=== PATIENT | female | born 1950 ===

== ENCOUNTER 2020-04-11 10:30 | Emergency (ER) | payer MEDICARE, MEDICAID, SELFPAY ==
--- NOTE | ~2020-04-11 | XR_ITS ---
XR foot LT min 3V 04/11/2020 10:58 INDICATION: Left foot pain PROCEDURE: 4 views left foot COMPARISON: No prior studies for comparison. FINDINGS: Fracture, dislocation or subluxation is not identified. Mild polyarticular osteoarthritis, most advanced at the first MTP joint. The soft tissues appear within normal limits. No foreign aimee s are identified. Lisfranc joint intact. Small degenerative calcaneal enthesophytes. IMPRESSION: 1: NO ACUTE BONE OR JOINT ABNORMALITY IDENTIFIED. Reviewed, dictated and finalized at location A.
[2020-04-11 10:36] VITALS: BP 137/79; PULSE 94; RESP 18; TEMP 36.3; O2SAT 99
--- NOTE | 2020-04-11 11:21 | ED.LOWEXIN ---
HPI - Extremity Injury (Lower) General Chief Complaint: Extremity Injury, Lower Stated Complaint: toe pain Time Seen by Provider: 04/11/20 10:39 Source: RN notes reviewed History of Present Illness HPI Narrative: Patient presents emergency department from home for left foot pain. Patient states pain began in her left foot yesterday if she walks approximately 2 miles. The pain is located in her left lateral foot at the base of her small toe. She denies any direct trauma or injury. Pain is worse when walking on the foot. Denies any pain of the ankle or knee denies any direct trauma or injury. Denies any fevers numbness or tingling Patient does not speak [place] and son is present to translate Related Data Allergies Allergy/AdvReac Type Severity Reaction Status Date / Time No Known Allergies Allergy Verified 04/11/20 10:44 Review of Systems Review of Systems: Narrative: Gen.: Denies fevers or chills Musculoskeletal: See HPI Neuro: Denies numbness, tingling, weakness Skin: Denies rash Endo: Denies DM PMFSH Past Medical History Medical History Anxiety Cervical polyp GERD (gastroesophageal reflux disease) HTN (hypertension) Osteoarthritis Surgical History Surgical History (Updated 09/30/19 @ 19:41 by Carina Martinez) History of bilateral knee replacement Status post cervical polyp removal Social History Social History Smoking status: Never smoker Second hand tobacco smoke exposure: No Gender identity (if verbalized by the patient): Female Exam Narrative: Exam Narrative: APPEARANCE: No acute distress, nontoxic, resting in bed Eyes: EOMI HEENT: Normocephalic, atraumatic, RESPIRATORY: No respiratory distress MUSCULOSKELETAl: Tender palpation of the left lateral foot at the base of the fifth toe and region of fifth metatarsal no swelling or ecchymosis seen no tenderness of the ankle of range of motion, dorsalis pedis pulse 2+, neurovascular intact NEURO: Awake and alert. Following commands, speech normal, no focal deficits SKIN:: Warm, dry. Normal Color no rash or lesions Course Course Emergency Course: Discussed with patient results of workup and diagnosis. Discussed need for follow-up with primary care, proper use of medication, and reasons to return to the emergency department. Patient understands and agrees to current treatment plan Vital Signs Vital signs: Vital Signs Temperature 97.4 F L 04/11/20 10:36 Pulse Rate 94 04/11/20 10:36 Respiratory Rate 18 04/11/20 10:36 Blood Pressure 137/79 04/11/20 10:36 Pulse Oximetry 99 04/11/20 10:36 Temperature 97.4 F L 04/11/20 10:36 Pulse Rate 94 04/11/20 10:36 Respiratory Rate 18 04/11/20 10:36 Blood Pressure 137/79 04/11/20 10:36 Pulse Oximetry 99 04/11/20 10:36 Discharge Plan Discharge Clinical Impression: Acute pain of left foot Patient Disposition: Home, Self-Care Condition: Stable Instructions: Antibiotic Form, Foot Sprain (ED) Additional Instructions: Return for increasing pain numbness or tingling in the extremities or any other symptoms of concern Prescriptions: New naproxen 250 mg tablet 250 mg PO BID PRN (Reason: pain) Qty: 10 RF: 0 Follow-up/Referrals: Yan Mata MD [Primary Care Provider] - 2 Days Time of Disposition: 11:23
== END 2020-04-11 11:42 | disposition home or self-care (01) ==
PROVIDERS: Emergency Provider Emergency Medicine; PCP Emergency Medicine
DX: M79.672 Pain in left foot (principal); K21.9 Gastro-esophageal reflux disease without esophagitis; J21.9 Acute bronchiolitis, unspecified; M19.90 Unspecified osteoarthritis, unspecified site; Z96.653 Presence of artificial knee joint, bilateral
CPT/HCPCS: 73630; 99283

== ENCOUNTER 2020-05-19 11:30 | Emergency (ER) | payer MEDICARE, MEDICAID, SELFPAY ==
--- NOTE | ~2020-05-19 | US_ITS ---
US venous doppler [facility] DATE: 05/19/2020 12:43 INDICATION: Bilateral lower extremity pain TECHNIQUE: Real-time and color flow imaging and Doppler analysis of the veins of the lower extremitie s COMPARISON: None FINDINGS: Incidentally noted is a 2.2 x 0.7 x 2.4 cm right Jacques's cyst. The greater saphenous veins are patent. There is spontaneous and phasic flow and normal augmentation and color flow signal and normal compression of the deep veins of both lower extremities. IMPRESSION: No evidence of deep venous thrombosis of the lower extremities Right Jacques's (popliteal) cyst Reviewed, dictated and finalized at [facility]. Reviewed, dictated and finalized at location A.
[2020-05-19 11:45] VITALS: BP 127/92; PULSE 86; RESP 18; TEMP 37; O2SAT 96
[2020-05-19 12:19] LABS: Basophils Percent Auto 0.3 % (0.2-1.2); Eosinophils Absolute Auto 0.1 K/mm3 (0-0.3); Eosinophils Percent Auto 1.2 % (0-4.4); Hematocrit 40.2 % (37.0-47.0); Hemoglobin 12.6 g/dL (12.0-15.0); Immature Granulocyte Absolute 0.01 K/mm3 (0.00-0.031); Immature Granulocyte Percent A 0.2 % (0-0.5); Lymphocytes Percent Auto 24.1 % (18.3-44.2); Mean Corpuscular HGB Conc 31.3 g/dl (32-36); Mean Corpuscular Hemoglobin 24.4 pg (26-34); Mean Corpuscular Volume 77.9 fl (80-100); Mean Platelet Volume 10.7 fl (7.4-10.4); Monocytes Absolute Auto 0.4 K/mm3 (0.1-0.6); Monocytes Percent Auto 6.4 % (2.6-8.5); Neutrophils Absolute Auto 3.9 K/mm3 (1.3-6.7); Neutrophils Percent Auto 67.8 % (45.5-73.1); Platelet Count Result 248 k/mm3 (150-375); Red Blood Count 5.16 M/mm3 (4.2-5.4); Red Cell Distribution Width 15.7 % (11.5-14.5); White Blood Count 5.8 K/mm3 (4.5-10.0)
[2020-05-19 12:29] LABS: Blood Urea Nitrogen 13 mg/dL (7-17); Calcium 9.2 mg/dL (8.4-10.2); Carbon Dioxide 28 mmol/L (22-30); Chloride 105 mmol/L (98-107); Estimated Glomerular Filt Rate > 60; Glucose 105 mg/dL (65-105); Potassium 4.3 mmol/L (3.4-5.0); Sodium 139 mmol/L (137-145)
--- NOTE | 2020-05-19 13:14 | ED.LOWEXIN ---
HPI - Extremity Injury (Lower) General Chief Complaint: Extremity Injury, Lower <Bakari Mathis PA-C - Last Filed: 05/19/20 13:20> Stated Complaint: leg pain <Bakari Mathis PA-C - Last Filed: 05/19/20 13:20> Time Seen by Provider: 05/19/20 11:50 <Bakari Mathis PA-C - Last Filed: 05/19/20 13:20> Source: patient and family <Bakari Mathis PA-C - Last Filed: 05/19/20 13:20> Mode of arrival: ambulatory <Bakari Mathis PA-C - Last Filed: 05/19/20 13:20> Limitations: language barrier <Bakari Mathis PA-C - Last Filed: 05/19/20 13:20> History of Present Illness HPI Narrative: Patient is a 70-year-old female who presents with intermittent leg cramping for the last couple of nights patient was seen by primary care referred to emergency department for evaluation patient on arrival to emergency department notes no pain denies other complaints or symptoms patient was referred by primary care as noted <Bakari Mathis PA-C - Last Filed: 05/19/20 13:20> Related Data Home Medications: Home Medications Medication Instructions Recorded Confirmed alendronate 70 mg PO WEEKLY 05/19/20 amlodipine 5 mg PO DAILY 05/19/20 lisinopril 10 mg PO DAILY 05/19/20 meloxicam 7.5 mg PO DAILY 05/19/20 omeprazole 20 mg PO DAILY 05/19/20 <Bakari Mathis PA-C - Last Filed: 05/19/20 13:20> Allergies/Adverse Reactions: Allergies Allergy/AdvReac Type Severity Reaction Status Date / Time No Known Allergies Allergy Verified 05/19/20 11:51 <Bakari Mathis PA-C - Last Filed: 05/19/20 13:20> Review of Systems Review of Systems: All systems reviewed & are unremarkable except as noted in HPI and below <Bakari Mathis PA-C - Last Filed: 05/19/20 13:20> PMFSH Past Medical History Medical History: Medical History Anxiety Cervical polyp GERD (gastroesophageal reflux disease) HTN (hypertension) Osteoarthritis <Bakari Mathis PA-C - Last Filed: 05/19/20 13:20> Surgical History Surgical History: Surgical History History of bilateral knee replacement Status post cervical polyp removal <Bakari Mathis PA-C - Last Filed: 05/19/20 13:20> Social History Social History: Social History Smoking status: Never smoker Second hand tobacco smoke exposure: No Gender identity (if verbalized by the patient): Female <Bakari Mathis PA-C - Last Filed: 05/19/20 13:20> Exam Narrative: Exam Narrative: GENERAL: Well-appearing, well-nourished, and in no acute distress. HEAD: Normocephalic, atraumatic. EYES: PERRLA and EOMI. ENT: Nares clear, no rhinorrhea or epistaxis. Mucous membranes moist. CHEST: Clear to auscultation. No respiratory distress. No wheezes rales or rhonchi HEART: Regular rate and rhythm. No murmur heard. Normal peripheral pulses. ABDOMEN: Soft, nontender, nondistended EXTREMITIES: Normal range of motion. No edema. No tenderness of the calves or deformity noted SKIN: Warm, dry, no rash. NEURO: No focal deficits. Alert and oriented x3. Neurovascularly intact. Capillary refill less than 2-second PSYCH: Normal mood and affect. <Bakari Mathis PA-C - Last Filed: 05/19/20 13:20> Course Course Emergency Course: Patient in the room in no distress aware of case findings treatment plan and diagnosis agreeing to follow-up with primary care for further evaluation felt appropriate for outpatient reevaluation provided with reasons to return is felt appropriate for outpatient reevaluation <Bakari Mathis PA-C - Last Filed: 05/19/20 13:20> Vital Signs Vital signs: Vital Signs Temperature 37.0 C 05/19/20 11:45 Pulse Rate 86 05/19/20 11:45 Respiratory Rate 18 05/19/20 11:45 Blood Pressure 127/92 H 05/19/20 11:45 Pulse Oximetry 96 07/1
[2020-05-19 13:24] VITALS: BP 116/72; PULSE 73; RESP 20; O2SAT 97
== END 2020-05-19 13:27 | disposition home or self-care (01) ==
PROVIDERS: Emergency Medicine Emergency Medical Services; Emergency Provider Emergency Medicine; PCP Emergency Medicine
DX: R25.2 Cramp and spasm (principal); F41.9 Anxiety disorder, unspecified; K21.9 Gastro-esophageal reflux disease without esophagitis; I10 Essential (primary) hypertension; M71.21 Synovial cyst of popliteal space [Baker], right knee; M79.605 Pain in left leg; M79.604 Pain in right leg
CPT/HCPCS: 36415; 80048; 83735; 85025; 93970; 99284

== ENCOUNTER 2020-06-17 10:46 | Emergency (ER) | payer MEDICARE, MEDICAID, SELFPAY ==
[2020-06-17 10:48] VITALS: BP 121/72; PULSE 86; RESP 18; TEMP 36.7; O2SAT 100
[2020-06-17 11:33] LABS: Add Urine Microscopic? YES; Appearance Urine Clear (Clear); Bilirubin Urine Negative (Negative); Blood Urine Negative (Negative); Color Urine Straw (Yellow); Glucose Urine UA Negative (Negative); Ketones Urine Negative (Negative); Leukocyte Esterase Ur Trace LEU/UL (Negative); Nitrate Urine Negative (Negative); Protein Urine Negative (Negative); RBC Urine 0-2 /hpf (0-2); Specific Grav Ur 1.009 (1.001-1.035); Squamous Epithelial Cell Urine Occasional /hpf (Few); Urobilinogen Urine Negative mg/dL (<2.0); WBC Urine 0-3 /hpf
--- NOTE | 2020-06-17 11:33 | ED.FEMALEGU ---
HPI - Female Genitourinary General Chief complaint: Urogenital-Female <ALECIA Ceron Last Filed: 06/17/20 13:07> Stated complaint: bladder pain <ALECIA Ceron Last Filed: 06/17/20 13:07> Time Seen by Provider: 06/17/20 11:24 <ALECIA Ceron Last Filed: 06/17/20 13:07> Source: patient <ALECIA Ceron Last Filed: 06/17/20 13:07> Mode of arrival: ambulatory <ALECIA Ceron Last Filed: 06/17/20 13:07> Limitations: language barrier (Patient's son is translating, which she preferred rather than video language interpreter) <ALECIA Ceron Last Filed: 06/17/20 13:07> History of Present Illness HPI Narrative: This is a 70-year-old female that presents to the emergency department for dysuria x2 days. Also reports frequency. Denies fever, flank pain, itching, abnormal discharge, abdominal pain, vomiting, or hematuria. <ALECIA Ceron Last Filed: 06/17/20 13:07> Related Data Home medications: Home Medications Medication Instructions Recorded Confirmed alendronate 70 mg PO WEEKLY 05/19/20 amlodipine 5 mg PO DAILY 05/19/20 lisinopril 10 mg PO DAILY 05/19/20 meloxicam 7.5 mg PO DAILY 05/19/20 omeprazole 20 mg PO DAILY 05/19/20 <ALECIA Ceron Last Filed: 06/17/20 13:07> Allergies/Adverse reactions: Allergies Allergy/AdvReac Type Severity Reaction Status Date / Time No Known Allergies Allergy Verified 06/17/20 10:51 <ALECIA Ceron Last Filed: 06/17/20 13:07> Review of Systems Review of Systems: Narrative: CONSTITUTIONAL: Denies fever GASTROINTESTINAL: Denies abdominal pain, nausea, vomiting GENITOURINARY: Reports dysuria. Denies hematuria. MUSCULOSKELETAL: Denies back pain <ALECIA Ceron Last Filed: 06/17/20 13:07> All systems reviewed & are unremarkable except as noted in HPI and below <Tess Castillo PA-C - Last Filed: 06/17/20 13:07> [facility] Social History Social History: Social History Smoking status: Never smoker Second hand tobacco smoke exposure: No Gender identity (if verbalized by the patient): Female <Tess Castillo PA-C - Last Filed: 06/17/20 13:07> Exam Narrative: Exam Narrative: GENERAL: Well-appearing, well-nourished, and in no acute distress. HEAD: Normocephalic, atraumatic. EYES: EOMI. CHEST: Clear to auscultation. No respiratory distress. No wheezes rales or rhonchi HEART: Regular rate and rhythm. No murmur heard. Normal peripheral pulses. ABDOMEN: Soft, nontender, nondistended, normal active bowel sounds. EXTREMITIES: Normal range of motion. No edema. SKIN: Warm, dry, no rash. NEURO: No focal deficits. Alert and oriented x3. PSYCH: Normal mood and affect <Tess Castillo PA-C - Last Filed: 06/17/20 13:07> Course Vital Signs Vital signs: Vital Signs Temperature 98.0 F 06/17/20 10:48 Pulse Rate 86 06/17/20 10:48 Respiratory Rate 18 06/17/20 10:48 Blood Pressure 121/72 06/17/20 10:48 Pulse Oximetry 100 06/17/20 10:48 Temperature 98.0 F 06/17/20 10:48 Pulse Rate 82 06/17/20 13:23 Respiratory Rate 18 06/17/20 13:23 Blood Pressure 128/70 06/17/20 13:23 Pulse Oximetry 100 06/17/20 13:23 <Tess Castillo PA-C - Last Filed: 06/17/20 13:07> Vital Signs Temperature 98.0 F 06/17/20 10:48 Pulse Rate 86 06/17/20 10:48 Respiratory Rate 18 06/17/20 10:48 Blood Pressure 121/72 06/17/20 10:48 Pulse Oximetry 100 06/17/20 10:48 Temperature 98.0 F 06/17/20 10:48 Pulse Rate 82 06/17/20 13:23 Respiratory Rate 18 06/17/20 13:23 Blood Pressure 128/70 06/17/20 13:23 Pulse Oximetry 100 06/17/20 13:23 <Deb Cornejo MD - Last Filed: 06/17/20 14:11> MDM - Female Genitourinary MDM Narrative Medical decision making narrative: Patient presents to the emergency department for dysuria x2 days. She i
[2020-06-17 12:21] LABS: Basophils Percent Auto 0.6 % (0.2-1.2); Eosinophils Absolute Auto 0.1 K/mm3 (0-0.3); Eosinophils Percent Auto 1.4 % (0-4.4); Hemoglobin 12.4 g/dL (12.0-15.0); Immature Granulocyte Absolute 0.02 K/mm3 (0.00-0.031); Immature Granulocyte Percent A 0.4 % (0-0.5); Lymphocytes Absolute Auto 1.28 K/mm3 (0.9-3.2); Lymphocytes Percent Auto 25.9 % (18.3-44.2); Mean Corpuscular HGB Conc 31.8 g/dl (32-36); Mean Corpuscular Hemoglobin 24.6 pg (26-34); Mean Corpuscular Volume 77.4 fl (80-100); Mean Platelet Volume 11.2 fl (7.4-10.4); Monocytes Absolute Auto 0.4 K/mm3 (0.1-0.6); Monocytes Percent Auto 7.1 % (2.6-8.5); Neutrophils Absolute Auto 3.2 K/mm3 (1.3-6.7); Neutrophils Percent Auto 64.6 % (45.5-73.1); Platelet Count Result 246 k/mm3 (150-375); Red Blood Count 5.04 M/mm3 (4.2-5.4); Red Cell Distribution Width 15.7 % (11.5-14.5)
[2020-06-17 12:32] LABS: Anion Gap 8 mmol/L (8-16); Blood Urea Nitrogen 19 mg/dL (7-17); Calcium 9.1 mg/dL (8.4-10.2); Carbon Dioxide 26 mmol/L (22-30); Chloride 104 mmol/L (98-107); Estimated CRCL calculation 63 ml/min; Estimated Glomerular Filt Rate > 60; Glucose 121 mg/dL (65-105); Sodium 138 mmol/L (137-145)
[2020-06-17 13:23] VITALS: BP 128/70; PULSE 82; RESP 18; O2SAT 100
== END 2020-06-17 13:25 | disposition home or self-care (01) ==
PROVIDERS: Physician Assistant; Emergency Provider General Practice; PCP Emergency Medicine
DX: R30.0 Dysuria (principal)
CPT/HCPCS: 36415; 80048; 81001; 85025; 99283

== ENCOUNTER 2020-07-06 09:03 | Outpatient (CLI) | payer MEDICARE, MEDICAID, SELFPAY ==
[2020-07-06 09:46] LABS: Creatine Kinase 56 U/L (30-135)
[2020-07-06 11:09] LABS: Folic Acid > 20.0 ng/mL (2.76->20)
== END 2020-07-06 09:04 | disposition home or self-care (01) ==
PROVIDERS: PCP Emergency Medicine; Visit Provider Emergency Medicine
DX: E55.9 Vitamin D deficiency, unspecified (principal); M79.671 Pain in right foot; M79.672 Pain in left foot
CPT/HCPCS: 36415; 82306; 82550; 82607; 82746

== ENCOUNTER 2020-07-12 14:31 | Outpatient (CLI) | payer MEDICARE, MEDICAID, SELFPAY ==
--- NOTE | ~2020-07-12 | US_ITS ---
EXAMINATION: US art doppler w [facility] EXAM DATE: 07/12/2020 15:10 INDICATION: Bilateral leg cramping at night. TECHNIQUE: Segmental pressures and plethysmographic and Doppler waveforms of the brachial and lower e xtremity arteries were obtained. There is no prior study for comparison. FINDINGS: Right and left brachial artery pressures of 124 mm Hg and 129 mm Hg, respectively, are concordant (no rmal difference <= 30 mmHg). RIGHT LEG: The ankle-brachial index (COLE) is 1.17 (normal >= 0.9-1). The great toe-brachial index (TBI) is 0.78 (normal >= 0.65). The lower extremity ratios, segmental pressure gradients as follows; Proximal superficial femoral artery:- Could not obtain ( mmHg). Distal superficial femoral artery: ----- 1.24 (160 mmHg). Popliteal: 1.02 (132 mmHg). Dorsalis pedis: 0.97 (125 mmHg). Posterior tibial: 1.17 (151 mmHg). (Normal gradients <= 20-30 mmHg between adjacent levels on the same leg or the same levels on the two legs). Arterial waveforms are biphasic. LEFT LEG: The ankle-brachial index (COLE) is 0.99 (normal >= 0.9-1). The great toe-brachial index (TBI) is 0.83 (normal >= 0.65). The lower extremity ratios, segmental pressure gradients as follows; Proximal superficial femoral artery:- 1.33 (171 mmHg). Distal superficial femoral artery: ----- 1.26 (163 mmHg). Popliteal: 1.12 (145 mmHg). Dorsalis pedis: 0.87 (112 mmHg). Posterior tibial: 0.99 (120 mmHg). (Normal gradients <= 20-30 mmHg between adjacent levels on the same leg or the same levels on the two legs). Arterial waveforms are biphasic. IMPRESSION: 1. Right ankle-brachial index 1.17. 2. Left ankle-brachial index 0.99. 3. Segmental pressures as above. Reviewed, dictated and finalized at location A.
== END 2020-07-12 14:32 | disposition home or self-care (01) ==
LOC: ANHIMG 14:32
PROVIDERS: PCP Emergency Medicine; Visit Provider Emergency Medicine
DX: M79.604 Pain in right leg (principal); M79.605 Pain in left leg; M79.89 Other specified soft tissue disorders
CPT/HCPCS: 93923

== ENCOUNTER 2020-09-12 11:27 | Emergency (ER) | payer MEDICARE, MEDICAID, SELFPAY ==
[2020-09-12] VITALS (29 sets, daily range): BP systolic 103–136; BP diastolic 61–87; PULSE 93; RESP 20; TEMP 36.2–36.8; O2SAT 97–100
--- NOTE | ~2020-09-12 | CT_ITS ---
EXAMINATION: CT abdomen pelvis w con EXAM DATE: 09/12/2020 13:24 INDICATION: Dysuria, hematuria, back pain, low abd pain . TECHNIQUE: Spiral CT of the abdomen and pelvis was performed following intravenous injection of 100 m L Omnipaque 350. Axial, coronal and sagittal images were reviewed. The dose-length product (DLP) fo r this examination was 556.39 mGy-cm. The exposure was tailored according to patient size (auto mA e xposure control), and iterative reconstruction (ASIR) was used as additional dose reduction technique . There is no prior study for comparison. FINDINGS: The liver, spleen, adrenal glands and pancreas are unremarkable. Gallbladder is unremarkab le. No biliary obstruction. Portal and splenic veins are patent. Kidneys enhance symmetrically. T here is no hydronephrosis. Mildly enhancing bilateral ureteral urothelium and also bladder urothelium , could indicate cystitis or upper urinary tract infection. Parenchyma is enhancing normally. The ut erus is unremarkable. The bladder is unremarkable. There is no retroperitoneal or pelvic lymphaden opathy. The appendix is normal. The stomach and small bowel are unremarkable. There is expected amount of c olonic stool. No free intraperitoneal gas. The heart is normal in size. There are no pericardial or pleural effusions. The lung bases are unremarkable. The bones are unremarkable. IMPRESSION: Enhancing urothelium, possible cystitis or upper urinary tract infection. Correlate with urinalysis. Reviewed, dictated and finalized at location A. [employer] IMPRESSION: Enhancing urothelium, possible cystitis or upper urinary tract infe ction. Correlate with urinalysis.
--- NOTE | 2020-09-12 12:05 | PC.NURSE ---
patient here for probable urinary symptoms. see triage notes. alert. speaks some [place]ian. son in room.
[2020-09-12 12:21] LABS: Add Urine Microscopic? YES; Appearance Urine Cloudy (Clear); Bilirubin Urine Negative (Negative); Blood Urine 2+ (Negative); Color Urine Yellow (Yellow); Glucose Urine UA Negative (Negative); Ketones Urine Negative (Negative); Leukocyte Esterase Ur 3+ LEU/UL (Negative); Mucus Urine Few /lpf; Nitrate Urine Negative (Negative); Protein Urine 2+ mg/dL (Negative); RBC Urine >75 /hpf (0-2); Specific Grav Ur 1.015 (1.001-1.035); Squamous Epithelial Cell Urine Few /hpf (Few); Transitional Epi Cells Urine Rare /hpf (None Seen); Urobilinogen Urine Negative mg/dL (<2.0); WBC Clumps Urine Present /HPF; WBC Urine >75 /hpf
--- NOTE | 2020-09-12 12:36 | ED.ABDPAIN ---
HPI - Abdominal Pain General Chief Complaint: Abdominal Pain Stated Complaint: abd distension Time Seen by Provider: 09/12/20 12:04 Source: patient Mode of arrival: ambulatory Limitations: no limitations History of Present Illness HPI narrative: This is a 70-year-old female that presents to the emergency department for abdominal discomfort since yesterday. Reports constipation and seeing bright red blood in her stool. Also reports that she has had dysuria since yesterday. Reports low back pain that has been ongoing for the last week. No known injury or trauma. Denies fever, vomiting, hematuria, numbness, or weakness. Related Data Home Medications Medication Instructions Recorded Confirmed alendronate 70 mg PO WEEKLY 05/19/20 amlodipine 5 mg PO DAILY 05/19/20 lisinopril 10 mg PO DAILY 05/19/20 meloxicam 7.5 mg PO DAILY 05/19/20 omeprazole 20 mg PO DAILY 05/19/20 Allergies Allergy/AdvReac Type Severity Reaction Status Date / Time No Known Allergies Allergy Verified 06/17/20 10:51 Review of Systems Review of Systems: Narrative: CONSTITUTIONAL: Denies fever GASTROINTESTINAL: Reports abdominal pain. Denies nausea, vomiting, or diarrhea. GENITOURINARY: Reports dysuria. Denies hematuria. MUSCULOSKELETAL: Reports back pain, joint pain, and myalgia. NEUROLOGIC: Denies numbness, or weakness. All systems reviewed & are unremarkable except as noted in HPI and below PMFSH Past Medical History Medical History (Updated 09/12/20 @ 15:11 by Tess Castillo PA-C) Anxiety Cervical polyp GERD (gastroesophageal reflux disease) HTN (hypertension) Osteoarthritis Surgical History Surgical History History of bilateral knee replacement Status post cervical polyp removal Social History Social History Smoking status: Never smoker Second hand tobacco smoke exposure: No Gender identity (if verbalized by the patient): Female Exam Narrative: Exam Narrative: GENERAL: Well-appearing, well-nourished, and in no acute distress. HEAD: Normocephalic, atraumatic. EYES: EOMI. ENT: Mucous membranes moist. Oropharynx without tonsillar hypertrophy exudate or other lesions. NECK: Supple. No adenopathy or masses. CHEST: Clear to auscultation. No respiratory distress. No wheezes rales or rhonchi HEART: Regular rate and rhythm. No murmur heard. Normal peripheral pulses. ABDOMEN: Soft, nondistended, normal active bowel sounds. Mild tenderness to palpation throughout the lower abdomen, without guarding. No CVA tenderness EXTREMITIES: Normal range of motion. No edema. Strength equal in bilateral lower extremities (5/5) SKIN: Warm, dry, no rash. NEURO: No focal deficits. Alert and oriented x3. PSYCH: Normal mood and affect RECTAL: Small fissure without active bleeding Course Vital Signs Vital signs: Vital Signs Temperature 97.1 F L 09/12/20 11:33 Pulse Rate 93 09/12/20 11:33 Respiratory Rate 20 09/12/20 11:33 Blood Pressure 121/72 09/12/20 11:33 Pulse Oximetry 98 09/12/20 11:33 Temperature 97.1 F L 09/12/20 11:33 Pulse Rate 93 09/12/20 11:33 Respiratory Rate 20 09/12/20 11:33 Blood Pressure 108/67 09/12/20 11:52 Pulse Oximetry 99 09/12/20 11:52 MDM - Abdominal Pain MDM Narrative Medical decision making narrative: Patient presents to the emergency department for dysuria and abdominal discomfort. She is afebrile and nontoxic-appearing. CBC is without leukocytosis. Metabolic panel without concerning findings. Lipase is normal. UA with evidence of infection. CT scan of the abdomen and pelvis shows cystitis versus upper urinary tract infection. Patient also had reported blood in her stool, which is likely due to a small fissure. Patient given first dose of antibiotics IV in the ED and will be sent home on oral antibiotics. She is stable and felt appropriate for further outpati
[2020-09-12 12:39] LABS: Basophils Percent Auto 0.3 % (0.2-1.2); Eosinophils Absolute Auto 0.1 K/mm3 (0-0.3); Eosinophils Percent Auto 0.7 % (0-4.4); Hematocrit 38.2 % (37.0-47.0); Hemoglobin 12.4 g/dL (12.0-15.0); Immature Granulocyte Absolute 0.01 K/mm3 (0.00-0.031); Immature Granulocyte Percent A 0.1 % (0-0.5); Lymphocytes Absolute Auto 1.62 K/mm3 (0.9-3.2); Lymphocytes Percent Auto 22.4 % (18.3-44.2); Mean Corpuscular HGB Conc 32.5 g/dl (32-36); Mean Corpuscular Hemoglobin 25.2 pg (26-34); Mean Corpuscular Volume 77.5 fl (80-100); Mean Platelet Volume 11.1 fl (7.4-10.4); Monocytes Absolute Auto 0.7 K/mm3 (0.1-0.6); Monocytes Percent Auto 9.3 % (2.6-8.5); Neutrophils Absolute Auto 4.9 K/mm3 (1.3-6.7); Neutrophils Percent Auto 67.2 % (45.5-73.1); Platelet Count Result 235 k/mm3 (150-375); Red Blood Count 4.93 M/mm3 (4.2-5.4); Red Cell Distribution Width 15.2 % (11.5-14.5); White Blood Count 7.2 K/mm3 (4.5-10.0)
[2020-09-12 12:52] LABS: Partial Thromboplastin Time 29.2 SECONDS (22.3-36.8); Prothrombin Time 13.3 Seconds (11.1-14.7)
[2020-09-12 12:55] LABS: Alanine Aminotransferase 17 U/L (4-35); Albumin Level 3.8 g/dL (3.5-5.1); Alkaline Phosphatase 57 U/L (38-126); Anion Gap 5 mmol/L (8-16); Aspartate Amino Transferase 21 U/L (14-36); Bilirubin,Total 0.5 mg/dL (0.2-1.3); Blood Urea Nitrogen 14 mg/dL (7-17); Calcium 9.3 mg/dL (8.4-10.2); Carbon Dioxide 28 mmol/L (22-30); Chloride 107 mmol/L (98-107); Estimated CRCL calculation 52 ml/min; Estimated Glomerular Filt Rate > 60; Glucose 103 mg/dL (65-105); Lipase 37 U/L (23-300); Potassium 3.6 mmol/L (3.4-5.0); Sodium 140 mmol/L (137-145)
--- NOTE | 2020-09-12 13:10 | PC.NURSE ---
SL inserted. labs were drawn in triage. patient has been in waiting area due to no beds open in ED at that time. denies questions or needs. updated on current treatment plan and expected wait time. call light in reach. son in room.
--- NOTE | 2020-09-12 15:35 | PC.NURSE ---
IV antibiotic started.
== END 2020-09-12 15:29 | disposition home or self-care (01) ==
PROVIDERS: Physician Assistant; Emergency Provider Emergency Medicine; PCP Emergency Medicine
DX: N10 Acute pyelonephritis (principal); Q43.8 Other specified congenital malformations of intestine; F41.9 Anxiety disorder, unspecified; K21.9 Gastro-esophageal reflux disease without esophagitis; I10 Essential (primary) hypertension; M19.90 Unspecified osteoarthritis, unspecified site
CPT/HCPCS: 36415; 74177; 80053; 81001; 83690; 85025; 85610; 85730; 87077; 87086; 87088; 87186; 96365; 96366; 99284; J0696; Q9967

== ENCOUNTER 2021-01-27 10:25 | Outpatient (CLI) | payer MEDICARE, MEDICAID, SELFPAY ==
[2021-01-27 11:43] LABS: Cholesterol 189 mg/dL (0-200); HDL Direct 66 mg/dL; Triglycerides 85 mg/dL (<150)
[2021-01-27 11:51] LABS: Hemoglobin A1C 5.3 % (<5.7)
[2021-01-27 11:53] LABS: LDL Cholesterol Direct 88 mg/dL; Rheumatoid Factor < 8.6 IU/ML (<12)
[2021-01-27 11:56] LABS: Erythrocyte Sedimentation Rate 12 mm/hr (0-20)
[2021-01-27 12:01] LABS: Add Urine Microscopic? YES; Appearance Urine Cloudy (Clear); Bilirubin Urine Negative (Negative); Blood Urine Negative (Negative); Color Urine Yellow (Yellow); Glucose Urine UA Negative (Negative); Ketones Urine Negative (Negative); Leukocyte Esterase Ur 3+ LEU/UL (NEGATIVE); Mucus Urine Rare /lpf; Nitrate Urine Negative (Negative); Protein Urine Negative (Negative); Specific Grav Ur 1.013 (1.001-1.035); Squamous Epithelial Cell Urine Many /hpf (Few); Urobilinogen Urine Negative mg/dL (<2.0)
[2021-01-27 12:32] LABS: Iron 115 ug/dL (37-170)
[2021-01-27 12:43] LABS: Percent Iron Saturation 32 % (20-50)
[2021-01-27 13:09] LABS: Free T4 Free Thyroxine 1.08 ng/mL (0.78-2.19)
[2021-01-27 14:01] LABS: Vitamin D 25 Hydroxy 33.6 ng/mL
[2021-01-27 15:19] LABS: Creatinine Urine 98.7 mg/dL
[2021-01-27 15:46] LABS: MALB Creatinine Ratio < 6.1 mg/g (0-30); Microalbumin Urine Random < 6.0 mg/L (0-16.7)
== END 2021-01-27 10:26 | disposition home or self-care (01) ==
PROVIDERS: PCP Emergency Medicine; Visit Provider Emergency Medicine
DX: F41.9 Anxiety disorder, unspecified (principal); F32.9 Major depressive disorder, single episode, unspecified; M12.9 Arthropathy, unspecified; I10 Essential (primary) hypertension; K21.9 Gastro-esophageal reflux disease without esophagitis; E55.9 Vitamin D deficiency, unspecified; R60.9 Edema, unspecified
CPT/HCPCS: 36415; 80061; 81001; 82043; 82306; 83036; 83540; 83550; 84439; 84443; 85652; 86038; 86039; 86430

== ENCOUNTER 2021-01-27 18:38 | Emergency (ER) | payer MEDICARE, MEDICAID, SELFPAY ==
--- NOTE | ~2021-01-27 | XR_ITS ---
EXAMINATION: XR ankle LT min 3V, XR foot LT min 3V EXAM DATE: 01/27/2021 20:16 INDICATION: No known recent injury provided at this time. Pain of the left foot, ankle. TECHNIQUE: Left foot dorsoplantar, lateral and oblique projections obtained and reviewed. Left ankle frontal, lateral and oblique projections obtained and reviewed. Comparison is made to prior examinat ion from 04/11/2020. FINDINGS: Left metatarsal bones unremarkable. The left ankle mortise appears intact. There is mil d 1st metatarsophalangeal joint primary osteoarthritis. There are no acute fractures or dislocations identified. There is no subcutaneous gas. The soft tissue is unremarkable. There are no radiopaqu e foreign bodies. IMPRESSION: 1. Left ankle, foot exam without acute osseous findings. Reviewed, dictated and finalized at location A. IMPRESSION: 1. Left ankle, foot exam without acute osseous findings.
[2021-01-27 18:40] VITALS: BP 140/98; PULSE 80; RESP 16; TEMP 36.3; O2SAT 100
--- NOTE | 2021-01-27 19:13 | PC.NURSE ---
Report received from MADDIE Angel. Assumed care of patient at this time.
[2021-01-27] MEDS: HYDROcodone/acetaminophen (*CRX) 5-325 MG TABLET 1 TAB PO (20:10)
--- NOTE | 2021-01-27 20:32 | ED.GENADULT ---
HPI - General Adult General Chief complaint: Extremity Problem,Nontraumatic Stated complaint: left foot Time Seen by Provider: 01/27/21 19:49 History of Present Illness HPI narrative: Patient is a 70-year-old female who presents to the emergency department chief complaint of left foot pain. The patient reports she has had some pain in her dorsum and plantar aspect of her left foot for some time states it hurts whenever she moves it reports a got worse today when she was walking into [employer] the patient denies trauma. Patient denies redness denies swelling denies pain in joint movement. Related Data Home Medications Medication Instructions Recorded Confirmed alendronate 70 mg PO WEEKLY 05/19/20 amlodipine 5 mg PO DAILY 05/19/20 lisinopril 10 mg PO DAILY 05/19/20 meloxicam 7.5 mg PO DAILY 05/19/20 omeprazole 20 mg PO DAILY 05/19/20 Allergies Allergy/AdvReac Type Severity Reaction Status Date / Time No Known Allergies Allergy Verified 01/27/21 19:00 Review of Systems Review of Systems: Narrative: A 10 system review of systems was completed on the patient and is negative except for what is stated in the HPI. Nursing and ancillary documentation was reviewed. [facility] Past Medical History Medical History (Updated 01/27/21 @ 20:34 by Star Carter MD) Anxiety Cervical polyp GERD (gastroesophageal reflux disease) HTN (hypertension) Osteoarthritis Surgical History Surgical History History of bilateral knee replacement Status post cervical polyp removal Social History Social History Smoking status: Never smoker Second hand tobacco smoke exposure: No Gender identity (if verbalized by the patient): Female Exam Narrative: Exam Narrative: GENERAL: Well-appearing, well-nourished, and in no acute distress. HEAD: Normocephalic, atraumatic. EYES: PERRLA and EOMI. ENT: Nares clear, no rhinorrhea or epistaxis. Mucous membranes moist. NECK: Supple. CHEST: Clear to auscultation. No respiratory distress. HEART: Regular rate and rhythm. No murmur heard. Normal peripheral pulses. ABDOMEN: Soft, nontender, nondistended, normal active bowel sounds. EXTREMITIES: Normal range of motion. No edema. There is tenderness to palpation in the left foot SKIN: Warm, dry, no rash. NEURO: No focal deficits. Alert and oriented x3. PSYCH: Normal mood and affect. Course Vital Signs Vital signs: Vital Signs Temperature 36.3 C L 01/27/21 18:40 Pulse Rate 80 01/27/21 18:40 Respiratory Rate 16 01/27/21 18:40 Blood Pressure 140/98 H 01/27/21 18:40 Pulse Oximetry 100 01/27/21 18:40 Temperature 36.3 C L 01/27/21 18:40 Pulse Rate 80 01/27/21 18:40 Respiratory Rate 16 01/27/21 18:40 Blood Pressure 140/98 H 01/27/21 18:40 Pulse Oximetry 100 01/27/21 18:40 Medical Decision Making Vital Signs Vital Signs: Vital Signs Temperature 36.3 C L 01/27/21 18:40 Pulse Rate 80 01/27/21 18:40 Respiratory Rate 16 01/27/21 18:40 Blood Pressure 140/98 H 01/27/21 18:40 Pulse Oximetry 100 01/27/21 18:40 Temperature 36.3 C L 01/27/21 18:40 Pulse Rate 80 01/27/21 18:40 Respiratory Rate 16 01/27/21 18:40 Blood Pressure 140/98 H 01/27/21 18:40 Pulse Oximetry 100 01/27/21 18:40 Discharge Plan Discharge Clinical Impression: Acute pain of left foot Patient Disposition: Home, Self-Care Condition: Stable Instructions: Antibiotic Form, Foot Sprain (ED), Arthralgia (ED) Prescriptions: New naproxen 500 mg tablet 500 mg PO BID PRN (Reason: pain) Qty: 20 RF: 0 No Action nitrofurantoin macrocrystal 100 mg capsule 100 mg PO Q12H 5 Days Qty: 10 RF: 0 cefdinir 300 mg capsule 300 mg PO Q12H 10 Days Qty: 20 RF: 0 alendronate 70 mg tablet 70 mg PO WEEKLY RF: 0 amlodipine 5 mg tablet 5 mg PO DAILY RF:
[2021-01-27 20:52] VITALS: BP 131/80; PULSE 65; RESP 18; TEMP 36.6; O2SAT 100
== END 2021-01-27 20:56 | disposition home or self-care (01) ==
PROVIDERS: Emergency Provider Emergency Medicine; PCP Emergency Medicine
DX: M79.672 Pain in left foot (principal); F41.9 Anxiety disorder, unspecified; K21.9 Gastro-esophageal reflux disease without esophagitis; M19.90 Unspecified osteoarthritis, unspecified site; I10 Essential (primary) hypertension; Z96.653 Presence of artificial knee joint, bilateral
CPT/HCPCS: 36415; 73610; 73630; 80061; 81001; 82043; 82306; 83036; 83540; 83550; 84439; 84443; 85652; 86038; 86430; 99283; A9270

== ENCOUNTER 2021-01-29 17:36 | Emergency (ER) | payer MEDICARE, MEDICAID, SELFPAY ==
[2021-01-29 18:20] VITALS: BP 141/68; PULSE 70; RESP 16; TEMP 36.1; O2SAT 97
--- NOTE | 2021-01-29 21:20 | PC.NURSE ---
Patient going home -family reports that they will call PMD in AM if he wants to schedule an Ultrasound
== END 2021-01-29 21:30 | disposition left against medical advice (07) ==
PROVIDERS: PCP Emergency Medicine
DX: M79.89 Other specified soft tissue disorders (principal)
CPT/HCPCS: 99199

== ENCOUNTER 2021-02-12 15:53 | Outpatient (CLI) | payer MEDICARE, MEDICAID, SELFPAY ==
[2021-02-12 16:58] LABS: Uric Acid 4.5 mg/dL (2.5-7.5)
== END 2021-02-12 15:54 | disposition home or self-care (01) ==
PROVIDERS: PCP Emergency Medicine; Visit Provider Emergency Medicine
DX: R82.90 Unspecified abnormal findings in urine (principal)
CPT/HCPCS: 36415; 84550; 87086

== ENCOUNTER 2021-02-19 15:41 | Outpatient (CLI) | payer MEDICARE, MEDICAID, SELFPAY ==
--- NOTE | ~2021-02-19 | US_ITS ---
EXAMINATION: US venous doppler [facility] DATE: 02/19/2021 16:23 INDICATION: Lower limb pain. TECHNIQUE: Grayscale ultrasound images without and with compression and Doppler ultrasound images of the bilateral lower extremity veins were obtained. COMPARISON: Ultrasound 05/19/2020 FINDINGS: The visualized portions of right common femoral vein, profunda (deep) femoral vein, femoral vein, pop liteal vein, peroneal veins, posterior tibial veins, and greater saphenous vein outflow are patent. The visualized portions of left common femoral vein, profunda femoral vein, femoral vein, popliteal v ein, peroneal veins, posterior tibial veins, and greater saphenous vein outflow are patent. IMPRESSION: 1. No deep venous thrombosis. Reviewed, dictated and finalized at location B.
== END 2021-02-19 15:42 | disposition home or self-care (01) ==
LOC: ANHIMG 15:47
PROVIDERS: PCP Emergency Medicine; Visit Provider Emergency Medicine
DX: M85.80 Other specified disorders of bone density and structure, unspecified site (principal); M79.661 Pain in right lower leg; M79.662 Pain in left lower leg
CPT/HCPCS: 93970

== ENCOUNTER 2021-12-07 10:59 | Outpatient (CLI) | payer MEDICARE, MEDICAID, SELFPAY ==
--- NOTE | ~2021-12-07 | US_ITS ---
US breast RT complete 12/07/2021 11:32 Indication: Follow-up abnormal calcifications. Right breast asymmetry. Procedure: High-resolution complete ultrasound of the right breast including all 4 quadrants in the s ubareolar location Comparison: Screening mammogram dated 10/19/2019 Findings: At 9:00, 4 cm from the nipple is a cluster of cysts, largest measuring 8 mm maximum dimensi on. No suspicious solid masses are identified. There are mildly prominent ducts. Impression: 1: Benign clustered right breast cysts at 9:00, 4 cm from the nipple. Digital diagnostic right mammog jennifer with comparison to previous outside mammogram recommended for complete evaluation. BI-RADS CATEGORY 0 - INCOMPLETE STUDY, NEED ADDITIONAL IMAGING EVALUATION. Reviewed, dictated and finalized at location A. 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 Digital d iagnostic right mammogram with comparison to previous outside mammogram recomme nded for complete evaluation. BI-RADS CATEGORY 0 - INCOMPLETE STUDY, NEED ADDITIONAL IMAGING EVALUATION.
== END 2021-12-07 11:00 | disposition home or self-care (01) ==
PROVIDERS: PCP Emergency Medicine; Visit Provider Emergency Medicine
DX: R92.8 Other abnormal and inconclusive findings on diagnostic imaging of breast (principal); R92.1 Mammographic calcification found on diagnostic imaging of breast
CPT/HCPCS: 76641

== ENCOUNTER 2021-12-10 12:52 | Outpatient (CLI) | payer MEDICARE, MEDICAID, SELFPAY ==
--- NOTE | ~2021-12-10 | MM_ITS ---
EXAMINATION: MM diagnostic elfego RT w sheri HISTORY: Follow-up right breast mass TECHNIQUE: Additional 3-D tomosynthesis images of the right breast were performed and synthetic 2-D i mages were generated. CAD analysis was submitted and interpreted. COMPARISON: Ultrasound dated 12/07/2021 and mammogram dated 11/30/2021 BREAST PARENCHYMAL COMPOSITION: Breast composed of scattered areas of fibroglandular density FINDINGS: There is an enlarging mass in the upper outer quadrant of the right breast which correspon ds to a cluster of microcysts at 9:00, 4 cm from the nipple on prior ultrasound dated 12/07/2021. The re is a cluster of indeterminate calcifications along the margin of this mass which were not definite ly seen on prior examinations. IMPRESSION: 1. New cluster of indeterminate right breast calcifications, upper outer quadrant, along the margin o f a mass. 2. Stereotactic right breast biopsy recommended. BI-RADS category 4, suspicious findings. Reviewed, dictated and finalized at location A. ILE PROCESS TECH IMPRESSION: 1. New cluster of indeterminate right breast calcifications, upper outer quadra nt, along the margin of a mass. 2. Stereotactic right breast biopsy recommended. BI-RADS category 4, suspicious findings.
== END 2021-12-10 12:53 | disposition home or self-care (01) ==
LOC: ANHIMG 12:53
PROVIDERS: PCP Emergency Medicine; Visit Provider Emergency Medicine
DX: R92.8 Other abnormal and inconclusive findings on diagnostic imaging of breast (principal)
CPT/HCPCS: 77061; 77065; G0279

== ENCOUNTER 2021-12-18 13:05 | Outpatient (CLI) | payer MEDICARE, MEDICAID, SELFPAY ==
--- NOTE | ~2021-12-18 | MM_ITS ---
MM stereotactic bx RT, MM post biopsy diagnostic RT, MM stereotactic specimen RT EXAMINATION: MM ster eotactic bx RT, MM post biopsy diagnostic RT, MM stereotactic specimen RT DATE: Eliud Cuellar M.D. INDICATION: Abnormal mass with calcifications in the right breast. Stereotactic core biopsy is reque sted evaluate for malignancy. TECHNIQUE AND FINDINGS: The risks and potential benefits of the procedure were discussed with the patient and written informe d consent was obtained. The patient was placed in the prone position clustered at the table with the right breast in craniocaudal compression, and the area of interest was localized and targeted utiliz ing digital imaging with stereotaxis. After sterile preparation of the skin, 1% lidocaine was utilized for local anesthesia at the skin pun cture site and 1% lidocaine with epinephrine was utilized for deeper local anesthesia/is about the bi opsy site. A 9G [employer] vacuum assisted biopsy needle was advanced to the level of the calcification o f interest from a cephalad approach utilizing stereotactic guidance and a total of 6 tissue core biop sies were obtained. A specimen radiograph demonstrates that the calcifications of interest are included within the tissue cores. A tissue marker clip was then placed at the biopsy site in the upper outer quadrant. The ne edle was removed and hemostasis was achieved. The patient tolerated the procedure well and there is no evidence of significant immediate complication. The patient was given verbal as well as written p ostprocedural instructions prior to discharge from the department. Tissue cores were submitted to [facility] for histologic analysis. A 2-view right unilateral digital mammogram was obtained post procedure and this demonstrates that th e tissue marker clip is in expected position. IMPRESSION: 1. Successful stereotactic biopsy of calcifications in the upper outer quadrant of the right breast, followed by tissue marker clip placement. Please refer to pathology report for histologic analysis. Reviewed, dictated and finalized at location A. TOGRAPHER IMPRESSION: 1. Successful stereotactic biopsy of calcifications in the upper outer quadran t of the right breast, followed by tissue marker clip placement. Please refer to pathology report for histologic analysis. IMPRESSION: 1. Successful stereotactic biopsy of calcifications in the upper outer quadran t of the right breast, followed by tissue marker clip placement. Please refer to pathology report for histologic analysis.
== END 2021-12-18 13:06 | disposition home or self-care (01) ==
PROVIDERS: PCP Emergency Medicine; Visit Provider Emergency Medicine
DX: R92.8 Other abnormal and inconclusive findings on diagnostic imaging of breast (principal); D05.11 Intraductal carcinoma in situ of right breast
CPT/HCPCS: 19081; 77065; 88305; 88360; A4648

== ENCOUNTER 2022-07-04 09:40 | Outpatient (CLI) | payer MEDICARE, MEDICAID, SELFPAY ==
[2022-07-04 11:27] LABS: Alanine Aminotransferase 20 U/L (6-35); Albumin Level 3.9 g/dL (3.5-5.1); Alkaline Phosphatase 62 U/L (38-126); Anion Gap 8 mmol/L (8-16); Aspartate Amino Transferase 25 U/L (14-36); Bilirubin,Total 0.7 mg/dL (0.2-1.3); Blood Urea Nitrogen 13 mg/dL (7-17); Calcium 9.5 mg/dL (8.4-10.2); Carbon Dioxide 32 mmol/L (22-30); Chloride 101 mmol/L (98-107); Estimated Glomerular Filt Rate > 60; Glucose 104 mg/dL (65-110); Potassium 3.8 mmol/L (3.4-5.0); Sodium 141 mmol/L (137-145)
[2022-07-07 07:07] LABS: CA 15-3 8 U/mL (<32)
== END 2022-07-04 09:41 | disposition home or self-care (01) ==
PROVIDERS: PCP Internal Medicine Hematology & Oncology; Visit Provider Internal Medicine Hematology & Oncology
DX: C50.411 Malignant neoplasm of upper-outer quadrant of right female breast (principal); Z17.0 Estrogen receptor positive status [ER+]
CPT/HCPCS: 36415; 80053; 86300

== ENCOUNTER 2022-10-16 13:58 | Outpatient (CLI) | payer MEDICARE, MEDICAID, SELFPAY ==
--- NOTE | ~2022-10-16 | DEXA_ITS ---
Bone Density Report Name: ANATOLY HURLEY Age: 72 Sex: Female Ethnicity: Date of : 1950 Indication: osteopenia; monitoring treatment; cancer; postmenopausal Referring Provider: ALMITA BURTON Study: Bone densitometry was performed. Exam Date: October 16, 2022 Accession number: [id number] Bone Density: Region BMD T-score Z-score Classification AP Spine(L1, L2, L3) 0.896 -1.1 1.0 Osteopenia Femoral Neck (Left) 0.635 -1.9 -0.1 Osteopenia Total Hip (Left) 0.891 -0.4 1.1 Normal Femoral Neck (Right) 0.661 -1.7 0.1 Osteopenia Total Hip (Right) 0.879 -0.5 1.0 Normal Total Hip Mean 0.885 -0.5 1.1 Normal World Health Organization criteria for BMD impression classify patients as: Normal (T-score at or above -1.0), Osteopenia (T-score between -1.0 and -2.5), or Osteoporosis (T-score at or below -2.5). 10-year Fracture Risk: FRAX not reported because: Treated for osteoporosis Previous Exams: Region Exam Age BMD T-score BMD Change BMD Change Date g/cm2 vs Baseline vs Previous AP Spine (L1-L3) 10/16/2022 72 0.896 -1.1 0.048 (5.6%)* 0.048 (5.6%)* 04/01/2015 65 0.849 -1.5 Total Hip(Left) 10/16/2022 72 0.891 -0.4 0.016 (1.8%) 0.016 (1.8%) 04/01/2015 65 0.876 -0.5 Total Hip(Right) 10/16/2022 72 0.879 -0.5 -0.042 (-4.6%) -0.042 (-4.6%) 04/01/2015 65 0.921 -0.2 *Denotes significance at 95% confidence level, LSC for AP Spine = 0.022 g/cm2, LSC for Total Hip = 0.027 g/cm2 Clinical Information Provided by Patient: Is being treated for osteoporosis Has used the following medications: Fosamax (i.e. alendronate), Vitamin D Has the following medical conditions: Cancer Menopause Age: 59 Drinks caffeinated beverages Onset of menses at age 17 Number of children 2 Impression: The patient has low bone mass, based on the Left Femoral Neck T-score. The BMD for the Total Hip(Right) decreased, changing by -4.6% since the last DXA exam. Discussion: SIGNIFICANT BONE LOSS OBSERVED. Adherence to therapy (including calcium and vitamin D intake) should be assessed. If compliance is not a factor, review management and exclusion of secondary causes of bone loss. It is important to ask patients whether they are taking their medications and to encourage continued and appropriate compliance with their osteoporosis therapies to reduce fracture risk. It is also important to review their risk factors and encourage appropriate calcium and vitam
== END 2022-10-16 13:59 | disposition home or self-care (01) ==
PROVIDERS: PCP Emergency Medicine; Visit Provider Internal Medicine Hematology & Oncology
DX: M81.0 Age-related osteoporosis without current pathological fracture (principal); M85.88 Other specified disorders of bone density and structure, other site; M85.852 Other specified disorders of bone density and structure, left thigh; M85.851 Other specified disorders of bone density and structure, right thigh
CPT/HCPCS: 77080

== ENCOUNTER 2022-10-31 09:12 | Emergency (ER) | payer MEDICARE, MEDICAID, SELFPAY ==
--- NOTE | ~2022-10-31 | XR_ITS ---
Portable chest x-ray Comparison: 12/17/2017 Clinical History: Covid 19 positive, cough Findings: Lungs are clear, without focal consolidation or pleural effusion. Cardiomediastinal silho uette is stable. Bones and soft tissues are unremarkable. Impression: Clear lungs. Reviewed, dictated and finalized at location . RITY REP Impression: Clear lungs.
[2022-10-31 09:17] VITALS: BP 115/67; PULSE 100; RESP 20; TEMP 36.3; O2SAT 100
--- NOTE | 2022-10-31 09:57 | ED.URI ---
HPI - URI/Sore Throat General Chief Complaint: Upper Respiratory Infection <Hoda Torres PA-C - Last Filed: 10/31/22 17:08> Stated Complaint: 10/30/22 COVID+ SORE THROAT <ALECIA Caballero Last Filed: 10/31/22 17:08> Time Seen by Provider: 10/31/22 09:25 <ALECIA Caballero Last Filed: 10/31/22 17:08> Source: patient <ALECIA Caballero Last Filed: 10/31/22 17:08> Mode of arrival: ambulatory <ALECIA Caballero Last Filed: 10/31/22 17:08> Limitations: no limitations and language barrier <ALECIA Caballero Last Filed: 10/31/22 17:08> History of Present Illness HPI Narrative: Patient is a 72-year-old female who presents the ED with report of sore throat. Patient is Armenian speaking. 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 Patient reports she developed a sore throat, fatigue, mild cough 2 days ago. Her son tested positive for COVID-19. She used a home COVID test yesterday which was positive. She came to the ED due to concern over her sore throat. She denies any difficulty swallowing or breathing. She is able to keep down food and drink. She did report 1 episode of feeling like she was choking, but denies any other symptoms. No nausea, vomiting, abdominal pain, chest pain, fevers. Patient is vaccinated and boosted for COVID. <ALECIA Caballero Last Filed: 10/31/22 17:08> Related Data Home Medications: Home Medications Medication Instructions Recorded Confirmed alendronate 70 mg tablet 70 mg PO WEEKLY 05/19/20 09/12/22 amlodipine 5 mg tablet 5 mg PO DAILY 05/19/20 09/12/22 meloxicam 7.5 mg tablet 7.5 mg PO DAILY 05/19/20 09/12/22 omeprazole 20 mg capsule,delayed 20 mg PO DAILY 05/19/20 09/12/22 release hydrochlorothiazide 12.5 mg capsule 12.5 mg PO DAILY 04/30/21 09/12/22 linaclotide 145 mcg capsule 145 mcg PO DAILY 04/30/21 09/12/22 (Linzess) mirabegron 50 mg tablet,extended 50 mg PO DAILY 02/14/22 09/12/22 release 24 hr (Myrbetriq) anastrozole 1 mg tablet 1 mg PO DAILY 09/12/22 09/12/22 <Hoda Torres PA-C - Last Filed: 10/31/22 17:08> Allergies/Adverse Reactions: Allergies Allergy/AdvReac Type Severity Reaction Status Date / Time lisinopril Allergy Unknown Unknown Verified 10/31/22 09:14 eggplant AdvReac Nausea Verified 10/31/22 09:14 <Hoda Torres PA-C - Last Filed: 10/31/22 17:08> Review of Systems Review of Systems: CONSTITUTIONAL: Reports fatigue. Denies fever, chills, or sweats. EYES: Denies vision changes. ENT: Reports sore throat. Denies rhinorrhea, congestion. Denies dysphagia. CARDIOVASCULAR: Denies chest pain. RESPIRATORY: Reports mild cough. Denies dyspnea. GASTROINTESTINAL: Denies abdominal pain, nausea, vomiting. GENITOURINARY: Denies dysuria or hematuria. SKIN: Denies rash or itching. MUSCULOSKELETAL: Denies back pain, joint pain, or myalgia. NEUROLOGIC: Denies headache, numbness, or weakness. <Hoda Torres PA-C - Last Filed: 10/31/22 17:08> All systems reviewed & are unremarkable except as noted in HPI and below <Hoda Torres PA-C - Last Filed: 10/31/22 17:08> [facility] Past Medical History Medical History: Medical History Anxiety Cervical polyp GERD (gastroesophageal reflux disease) HTN (hypertension) Osteoarthritis <Hoda Torres PA-C - Last Filed: 10/31/22 17:08> Surgical History Surgical History: Surgical History History of bilateral knee replacement History of lumpectomy of right breast Status post cervical polyp removal <Hoda Torres PA-C - Last Filed: 10/31/22 17:08> Social History Social History: Social History Smoking status: Never smoker Second hand tobacco smoke expos
[2022-10-31] MEDS: LIDOCAINE HCL 2% VISC SOLN 15 ML UDC PO (10:19)
[2022-10-31 10:21] VITALS: BP 107/66; PULSE 87; RESP 18; O2SAT 100
== END 2022-10-31 11:05 | disposition home or self-care (01) ==
PROVIDERS: Emergency Provider Emergency Medicine; PCP Emergency Medicine
DX: U07.1 COVID-19 (principal); J02.9 Acute pharyngitis, unspecified; I10 Essential (primary) hypertension; M19.90 Unspecified osteoarthritis, unspecified site; K21.9 Gastro-esophageal reflux disease without esophagitis; Z96.653 Presence of artificial knee joint, bilateral
CPT/HCPCS: 71045; 99283

== ENCOUNTER 2022-12-06 11:31 | Outpatient (CLI) | payer MEDICARE, MEDICAID, SELFPAY ==
[2022-12-06 12:17] LABS: Basophils Percent Auto 0.6 % (0.2-1.2); Eosinophils Absolute Auto 0.1 K/mm3 (0-0.3); Eosinophils Percent Auto 1.5 % (0-4.4); Hematocrit 39.1 % (37.0-47.0); Hemoglobin 12.2 g/dL (12.0-15.0); Immature Granulocyte Absolute 0.01 K/mm3 (0.00-0.031); Immature Granulocyte Percent A 0.2 % (0-0.5); Lymphocytes Absolute Auto 1.16 K/mm3 (0.9-3.2); Lymphocytes Percent Auto 24.6 % (18.3-44.2); Mean Corpuscular HGB Conc 31.2 g/dl (32-36); Mean Corpuscular Hemoglobin 24.7 pg (26-34); Mean Corpuscular Volume 79.1 fl (80-100); Mean Platelet Volume 10.6 fl (7.4-10.4); Monocytes Absolute Auto 0.4 K/mm3 (0.1-0.6); Monocytes Percent Auto 8.3 % (2.6-8.5); Neutrophils Absolute Auto 3.1 K/mm3 (1.3-6.7); Neutrophils Percent Auto 64.8 % (45.5-73.1); Platelet Count Result 237 k/mm3 (150-375); Red Blood Count 4.94 M/mm3 (4.2-5.4); Red Cell Distribution Width 15.9 % (11.5-14.5); White Blood Count 4.7 K/mm3 (4.5-10.0)
[2022-12-06 12:22] LABS: Alanine Aminotransferase 33 U/L (6-35); Albumin Level 3.6 g/dL (3.5-5.1); Alkaline Phosphatase 59 U/L (38-126); Anion Gap 4 mmol/L (8-16); Aspartate Amino Transferase 27 U/L (14-36); Bilirubin,Total 0.5 mg/dL (0.2-1.3); Blood Urea Nitrogen 12 mg/dL (7-17); Carbon Dioxide 31 mmol/L (22-30); Chloride 104 mmol/L (98-107); Estimated Glomerular Filt Rate > 60; Glucose 83 mg/dL (65-110); Potassium 3.6 mmol/L (3.4-5.0); Sodium 139 mmol/L (137-145)
[2022-12-10 22:28] LABS: CA 15-3 8 U/mL (<32)
== END 2022-12-06 11:32 | disposition home or self-care (01) ==
PROVIDERS: PCP Emergency Medicine; Visit Provider Internal Medicine Hematology & Oncology
DX: C50.411 Malignant neoplasm of upper-outer quadrant of right female breast (principal); Z17.0 Estrogen receptor positive status [ER+]
CPT/HCPCS: 36415; 80053; 85025; 86300

== ENCOUNTER 2023-01-28 23:11 | Emergency (ER) | payer MEDICARE, MEDICAID, SELFPAY ==
--- NOTE | ~2023-01-28 | CT_ITS ---
CT head without contrast Indication: Headache COMPARISON: 10/16/2018 Technique: Serial scans were obtained through the brain without the administration of contrast. Dose reduction technique was used on this scan by utilizing automated exposure control and iterative recon struction technique. The dose-length product (DLP) was 529.67 mGy-cm. Findings: There is no evidence of intracranial hemorrhage, mass lesion, or acute infarct. The ventri cles and subarachnoid spaces are dilated, consistent with minimal atrophy. Low attenuation regions a re seen within the periventricular white matter bilaterally, likely representing changes from chronic microvascular ischemic disease. There is no evidence of edema, mass effect or midline shift. The v isualized paranasal sinuses and mastoid air cells are clear. Impression: No intracranial hemorrhage, mass, or acute infarct. Atrophy and chronic white matter changes, as above. Reviewed, dictated and finalized at location . Impression: No intracranial hemorrhage, mass, or acute infarct. Atrophy and chronic white matter changes, as above.
--- NOTE | ~2023-01-28 | XR_ITS ---
Clinical Indication: Shortness of breath PA and lateral views of the chest: Comparison: 10/31/2022 Findings: The lungs are clear, without evidence of focal consolidation or pleural effusion. Cardiome diastinal silhouette is within normal limits. Bones and soft tissues are unremarkable. Impression: Normal chest. Reviewed, dictated and finalized at location . Impression: Normal chest.
[2023-01-28 23:19] VITALS: BP 143/92; PULSE 78; RESP 20; TEMP 36.6; O2SAT 100
[2023-01-28 23:44] VITALS: BP 138/84; PULSE 75; RESP 18; O2SAT 100
--- NOTE | 2023-01-29 00:59 | ECG_ITS ---
Measurements Intervals Spring Rate: 71 P: 53 VT: 155 QRS: -13 QRSD: 74 T: 55 QT: 396 QTc: 432 Interpretive Statements SINUS RHYTHM ATRIAL COUPLET LOW QRS VOLTAGE IN PRECORDIAL LEADS BASELINE ARTIFACT- I, II, III, AVR, AVL BORDERLINE ECG NO PREVIOUS ECG AVAILABLE FOR COMPARISON Electronically Signed On 01-29-2023 6:41:31 CDT by Jay Jay Ross D.O.
--- NOTE | 2023-01-29 01:00 | ED.GENADULT ---
HPI - General Adult General Chief complaint: Unspecified Stated complaint: high blood pressure Time Seen by Provider: 01/29/23 00:52 History of Present Illness HPI narrative: 72-year-old female here due to concerns of elevated blood pressure rates at home. Patient states that her blood pressure was 140 systolic and her blood pressure typically runs around 110 systolic. She has been compliant with her BP medicines. Today she has had mild palpitations and shortness of breath over the past several hours. Patient states that her symptoms came on when she was at rest. Denies history of previous similar sensation. She denies any visual changes, unilateral weakness, leg swelling. Also complaining of a posterior headache that is new for her. Has a history of breast cancer and is in remission. Related Data Home Medications Medication Instructions Recorded Confirmed alendronate 70 mg tablet 70 mg PO WEEKLY 05/19/20 12/27/22 amlodipine 5 mg tablet 5 mg PO DAILY 05/19/20 12/27/22 meloxicam 7.5 mg tablet 7.5 mg PO DAILY 05/19/20 12/27/22 omeprazole 20 mg capsule,delayed 20 mg PO DAILY 05/19/20 12/27/22 release hydrochlorothiazide 12.5 mg capsule 12.5 mg PO DAILY 04/30/21 12/27/22 linaclotide 145 mcg capsule 145 mcg PO DAILY 04/30/21 12/27/22 (Linzess) mirabegron 50 mg tablet,extended 50 mg PO DAILY 02/14/22 12/27/22 release 24 hr (Myrbetriq) anastrozole 1 mg tablet 1 mg PO DAILY 09/12/22 12/27/22 Allergies Allergy/AdvReac Type Severity Reaction Status Date / Time lisinopril Allergy Unknown Unknown Verified 12/27/22 11:18 eggplant AdvReac Nausea Verified 12/27/22 11:18 Review of Systems Review of Systems: Gen.: Denies fevers or chills Eyes: Denies eye pain or visual change ENT: Denies congestion Respiratory: Reports shortness of breath CV: Reports chest pain and palpitations GI: Denies abdominal pain nausea, emesis or diarrhea denies burning, urgency, frequency or hematuria Musculoskeletal: Denies back pain or muscle pain Neuro: Denies numbness, tingling, weakness or focal weakness Skin: Denies rash Except as documented, all other systems reviewed and negative PMFSH Past Medical History Medical History Anxiety Cervical polyp GERD (gastroesophageal reflux disease) HTN (hypertension) Osteoarthritis Surgical History Surgical History History of bilateral knee replacement History of lumpectomy of right breast Status post cervical polyp removal Social History Social History Smoking status: Never smoker Second hand tobacco smoke exposure: No Gender identity (if verbalized by the patient): Female Spiritual care concerns: No Exam Narrative: APPEARANCE: Well appearing, no pain in distress, well-nourished. Head: Normocephalic and atraumatic. EYES: PERRLA/EOMI, conjunctivae clear NOSE: No nasal drainage EARS: External ear normal in appearance THROAT: Oropharynx is clear. Mucous membranes are moist. NECK: Supple. No adenopathy, no masses. RESPIRATORY: Airway patent, respirations nonlabored. Clear to auscultation bilaterally, no rales, rhonchi, wheezing. CARDIOVASCULAR: Regular rate and rhythm without murmurs, rubs, or gallops. ABDOMINAL: Normoactive bowel sounds. Soft, nontender, nondistended. No rebound tenderness or guarding. MUSCULOSKELETAL: Extremities are warm and well-perfused. Moves all extremities well. No edema. NEURO: Normal speech. No focal neurologic deficits. SKIN: Skin is warm and dry. No rashes. PSYCHIATRIC: Normal affect/mood. Course Vital Signs Vital signs: Vital Signs Temperature 97.8 F 01/28/23 23:19 Pulse Rate 78 01/28/23 23:19 Respiratory Rate 20 01/28/23 23:19 Blood Pressure 143/92 H 01/28/23 23:19 Pulse Oximetry 100 01/28/23 23:19 Oxygen Delivery Room Air 01/28/23 23:19
[2023-01-29 01:23] LABS: Basophils Percent Auto 0.8 % (0.2-1.2); Eosinophils Absolute Auto 0.1 K/mm3 (0-0.3); Eosinophils Percent Auto 2.1 % (0-4.4); Hematocrit 40.7 % (37.0-47.0); Hemoglobin 12.8 g/dL (12.0-15.0); Immature Granulocyte Absolute 0.01 K/mm3 (0.00-0.031); Immature Granulocyte Percent A 0.2 % (0-0.5); Lymphocytes Absolute Auto 1.79 K/mm3 (0.9-3.2); Lymphocytes Percent Auto 34.9 % (18.3-44.2); Mean Corpuscular HGB Conc 31.4 g/dl (32-36); Mean Corpuscular Hemoglobin 24.4 pg (26-34); Mean Corpuscular Volume 77.7 fl (80-100); Mean Platelet Volume 10.2 fl (7.4-10.4); Monocytes Absolute Auto 0.5 K/mm3 (0.1-0.6); Monocytes Percent Auto 10.5 % (2.6-8.5); Neutrophils Absolute Auto 2.6 K/mm3 (1.3-6.7); Neutrophils Percent Auto 51.5 % (45.5-73.1); Platelet Count Result 253 k/mm3 (150-375); Red Blood Count 5.24 M/mm3 (4.2-5.4); Red Cell Distribution Width 15.4 % (11.5-14.5); White Blood Count 5.1 K/mm3 (4.5-10.0)
[2023-01-29 01:35] LABS: Alanine Aminotransferase 37 U/L (6-35); Albumin Level 4.4 g/dL (3.5-5.1); Alkaline Phosphatase 74 U/L (38-126); Anion Gap 6 mmol/L (8-16); Aspartate Amino Transferase 37 U/L (14-36); Bilirubin,Total 0.4 mg/dL (0.2-1.3); Blood Urea Nitrogen 9 mg/dL (7-17); Calcium 9.1 mg/dL (8.4-10.2); Carbon Dioxide 32 mmol/L (22-30); Chloride 101 mmol/L (98-107); Estimated CRCL calculation 58 ml/min; Estimated Glomerular Filt Rate > 60; Glucose 110 mg/dL (65-110); Potassium 3.8 mmol/L (3.4-5.0); Sodium 139 mmol/L (137-145)
[2023-01-29 01:39] LABS: D Dimer < 0.27 ug/mL (<0.48)
[2023-01-29 01:40] LABS: Magnesium 2.2 mg/dL (1.6-2.3)
[2023-01-29] MEDS: ACETAMINOPHEN 325 MG TABLET 650 MG PO (01:42)
[2023-01-29 01:47] VITALS: BP 151/93; O2SAT 100
[2023-01-29 01:47] LABS: Troponin I < 0.012 ng/mL (0.000-0.034)
[2023-01-29 01:50] VITALS: O2SAT 100
[2023-01-29 02:30] VITALS: BP 136/70; PULSE 63; RESP 16; O2SAT 100
== END 2023-01-29 02:32 | disposition home or self-care (01) ==
PROVIDERS: Emergency Provider Physician Assistant; PCP Emergency Medicine
DX: R00.2 Palpitations (principal); I10 Essential (primary) hypertension; K21.9 Gastro-esophageal reflux disease without esophagitis; M19.90 Unspecified osteoarthritis, unspecified site; F41.9 Anxiety disorder, unspecified; Z85.3 Personal history of malignant neoplasm of breast; Z96.653 Presence of artificial knee joint, bilateral; R00.8 Other abnormalities of heart beat
CPT/HCPCS: 36415; 70450; 71046; 80053; 83735; 84484; 85025; 85380; 93005; 99284; A9270

== ENCOUNTER 2023-03-05 13:42 | Outpatient (CLI) | payer MEDICARE, MEDICAID, SELFPAY ==
[2023-03-05 14:18] LABS: Basophils Percent Auto 0.5 % (0.2-1.2); Eosinophils Percent Auto 0.5 % (0-4.4); Hematocrit 38.9 % (37.0-47.0); Hemoglobin 12.3 g/dL (12.0-15.0); Immature Granulocyte Absolute 0.01 K/mm3 (0.00-0.031); Immature Granulocyte Percent A 0.2 % (0-0.5); Lymphocytes Absolute Auto 1.18 K/mm3 (0.9-3.2); Lymphocytes Percent Auto 20.1 % (18.3-44.2); Mean Corpuscular HGB Conc 31.6 g/dl (32-36); Mean Corpuscular Hemoglobin 24.9 pg (26-34); Mean Corpuscular Volume 78.7 fl (80-100); Mean Platelet Volume 10.7 fl (7.4-10.4); Monocytes Absolute Auto 0.3 K/mm3 (0.1-0.6); Monocytes Percent Auto 5.1 % (2.6-8.5); Neutrophils Absolute Auto 4.3 K/mm3 (1.3-6.7); Neutrophils Percent Auto 73.6 % (45.5-73.1); Platelet Count Result 239 k/mm3 (150-375); Red Blood Count 4.94 M/mm3 (4.2-5.4); Red Cell Distribution Width 15.1 % (11.5-14.5); White Blood Count 5.9 K/mm3 (4.5-10.0)
[2023-03-05 14:29] LABS: Alanine Aminotransferase 26 U/L (6-35); Albumin Level 3.9 g/dL (3.5-5.1); Alkaline Phosphatase 49 U/L (38-126); Anion Gap 0 mmol/L (8-16); Aspartate Amino Transferase 28 U/L (14-36); Bilirubin,Total 0.5 mg/dL (0.2-1.3); Blood Urea Nitrogen 14 mg/dL (7-17); Carbon Dioxide 36 mmol/L (22-30); Chloride 103 mmol/L (98-107); Estimated Glomerular Filt Rate > 60; Glucose 113 mg/dL (65-110); Potassium 3.7 mmol/L (3.4-5.0); Sodium 139 mmol/L (137-145)
[2023-03-09 15:48] LABS: CA 15-3 7 U/mL (<32)
== END 2023-03-05 13:43 | disposition home or self-care (01) ==
PROVIDERS: PCP Emergency Medicine; Visit Provider Internal Medicine Hematology & Oncology
DX: C50.411 Malignant neoplasm of upper-outer quadrant of right female breast (principal); Z17.0 Estrogen receptor positive status [ER+]
CPT/HCPCS: 36415; 80053; 85025; 86300

== ENCOUNTER 2023-05-30 09:35 | Outpatient (CLI) | payer MEDICARE, MEDICAID, SELFPAY ==
[2023-05-30 10:32] LABS: Anion Gap 6 mmol/L (8-16); Blood Urea Nitrogen 11 mg/dL (7-17); Calcium 9.2 mg/dL (8.4-10.2); Carbon Dioxide 29 mmol/L (22-30); Chloride 103 mmol/L (98-107); Cholesterol 174 mg/dL (0-200); Estimated Glomerular Filt Rate > 60; Glucose 75 mg/dL (65-110); HDL Direct 62 mg/dL; Hemoglobin A1C 5.8 % (<5.7); Potassium 3.8 mmol/L (3.4-5.0); Sodium 138 mmol/L (137-145); Triglycerides 61 mg/dL (<150)
[2023-05-30 10:40] LABS: Creatinine Urine 24.2 mg/dL
[2023-05-30 10:41] LABS: NT Pro B Type Natriuretic Pept 71 pg/mL (19.9-100)
[2023-05-30 10:43] LABS: LDL Cholesterol Direct 82 mg/dL
[2023-05-30 10:49] LABS: MALB Creatinine Ratio < 24.8 mg/g (0-30); Microalbumin Urine Random < 6.0 mg/L (0-16.7)
[2023-06-04 10:49] LABS: Lipoprotein A 95 nmol/L (<75)
[2023-06-04 20:29] LABS: CRP, High Sensitivity 1.1 mg/L (***)
== END 2023-05-30 09:36 | disposition home or self-care (01) ==
PROVIDERS: PCP Emergency Medicine; Referring Provider Emergency Medicine; Visit Provider Internal Medicine Cardiovascular Disease
DX: R94.31 Abnormal electrocardiogram [ECG] [EKG] (principal); R00.2 Palpitations; R06.02 Shortness of breath; R07.9 Chest pain, unspecified; Z82.49 Family history of ischemic heart disease and other diseases of the circulatory system; I10 Essential (primary) hypertension; E66.9 Obesity, unspecified; Z01.818 Encounter for other preprocedural examination; M19.90 Unspecified osteoarthritis, unspecified site
CPT/HCPCS: 36415; 80048; 80061; 82043; 83036; 83695; 83880; 86141

== ENCOUNTER 2023-07-08 16:14 | Outpatient (CLI) | payer MEDICARE, MEDICAID, SELFPAY ==
[2023-07-08 17:22] LABS: Basophils Percent Auto 0.6 % (0.2-1.2); Eosinophils Absolute Auto 0.1 K/mm3 (0-0.3); Eosinophils Percent Auto 1.4 % (0-4.4); Hematocrit 42.6 % (37.0-47.0); Hemoglobin 13.2 g/dL (12.0-15.0); Immature Granulocyte Absolute 0.01 K/mm3 (0.00-0.031); Immature Granulocyte Percent A 0.2 % (0-0.5); Lymphocytes Absolute Auto 1.64 K/mm3 (0.9-3.2); Lymphocytes Percent Auto 32.5 % (18.3-44.2); Mean Corpuscular Hemoglobin 24.5 pg (26-34); Mean Corpuscular Volume 79.2 fl (80-100); Mean Platelet Volume 11.2 fl (7.4-10.4); Monocytes Absolute Auto 0.4 K/mm3 (0.1-0.6); Monocytes Percent Auto 8.5 % (2.6-8.5); Neutrophils Absolute Auto 2.9 K/mm3 (1.3-6.7); Neutrophils Percent Auto 56.8 % (45.5-73.1); Platelet Count Result 223 k/mm3 (150-375); Red Blood Count 5.38 M/mm3 (4.2-5.4); Red Cell Distribution Width 15.6 % (11.5-14.5)
[2023-07-08 17:37] LABS: Alanine Aminotransferase 72 U/L (6-35); Albumin Level 4.2 g/dL (3.5-5.1); Alkaline Phosphatase 61 U/L (38-126); Anion Gap 4 mmol/L (8-16); Aspartate Amino Transferase 58 U/L (14-36); Bilirubin,Total 0.4 mg/dL (0.2-1.3); Blood Urea Nitrogen 10 mg/dL (7-17); Calcium 9.6 mg/dL (8.4-10.2); Carbon Dioxide 34 mmol/L (22-30); Chloride 101 mmol/L (98-107); Estimated Glomerular Filt Rate > 60; Glucose 96 mg/dL (65-110); Potassium 3.6 mmol/L (3.4-5.0); Sodium 139 mmol/L (137-145)
[2023-07-16 20:44] LABS: CA 15-3 8 U/mL (<32)
== END 2023-07-08 16:15 | disposition home or self-care (01) ==
PROVIDERS: PCP Emergency Medicine; Visit Provider Internal Medicine Hematology & Oncology
DX: C50.411 Malignant neoplasm of upper-outer quadrant of right female breast (principal); Z17.0 Estrogen receptor positive status [ER+]
CPT/HCPCS: 36415; 80053; 85025; 86300

== ENCOUNTER 2023-08-05 15:24 | Outpatient (CLI) | payer MEDICARE, MEDICAID, SELFPAY ==
[2023-08-05 16:19] LABS: Erythrocyte Sedimentation Rate 3 mm/hr (0-20)
[2023-08-05 16:30] LABS: Rheumatoid Factor < 12.0 IU/ML (<12)
== END 2023-08-05 15:25 | disposition home or self-care (01) ==
PROVIDERS: PCP Emergency Medicine; Visit Provider Emergency Medicine
DX: M12.9 Arthropathy, unspecified (principal)
CPT/HCPCS: 36415; 85652; 86038; 86039; 86430

== ENCOUNTER 2023-11-18 08:02 | Outpatient (CLI) | payer MEDICARE, MEDICAID, SELFPAY ==
[2023-11-18 08:32] LABS: Basophils Percent Auto 0.3 % (0.2-1.2); Eosinophils Absolute Auto 0.1 K/mm3 (0-0.3); Eosinophils Percent Auto 2.5 % (0-4.4); Hematocrit 41.5 % (37.0-47.0); Hemoglobin 12.7 g/dL (12.0-15.0); Immature Granulocyte Absolute 0.01 K/mm3 (0.00-0.031); Immature Granulocyte Percent A 0.3 % (0-0.5); Lymphocytes Absolute Auto 1.19 K/mm3 (0.9-3.2); Lymphocytes Percent Auto 32.8 % (18.3-44.2); Mean Corpuscular HGB Conc 30.6 g/dl (32-36); Mean Corpuscular Hemoglobin 24.7 pg (26-34); Mean Corpuscular Volume 80.7 fl (80-100); Mean Platelet Volume 11.4 fl (7.4-10.4); Monocytes Absolute Auto 0.4 K/mm3 (0.1-0.6); Monocytes Percent Auto 9.6 % (2.6-8.5); Neutrophils Percent Auto 54.5 % (45.5-73.1); Platelet Count Result 184 k/mm3 (150-375); Red Blood Count 5.14 M/mm3 (4.2-5.4); Red Cell Distribution Width 14.8 % (11.5-14.5); White Blood Count 3.6 K/mm3 (4.5-10.0)
[2023-11-18 09:22] LABS: Alanine Aminotransferase 36 U/L (6-35); Albumin Level 3.9 g/dL (3.5-5.1); Alkaline Phosphatase 60 U/L (38-126); Anion Gap 6 mmol/L (8-16); Aspartate Amino Transferase 30 U/L (14-36); Bilirubin,Total 0.5 mg/dL (0.2-1.3); Blood Urea Nitrogen 12 mg/dL (7-17); Calcium 9.1 mg/dL (8.4-10.2); Carbon Dioxide 31 mmol/L (22-30); Chloride 104 mmol/L (98-107); Estimated Glomerular Filt Rate > 60; Glucose 108 mg/dL (65-110); Potassium 3.8 mmol/L (3.4-5.0); Sodium 141 mmol/L (137-145)
[2023-11-20 21:03] LABS: CA 15-3 9 U/mL (<32)
== END 2023-11-18 08:03 | disposition home or self-care (01) ==
PROVIDERS: PCP Emergency Medicine; Visit Provider Internal Medicine Hematology & Oncology
DX: C50.411 Malignant neoplasm of upper-outer quadrant of right female breast (principal); Z17.0 Estrogen receptor positive status [ER+]
CPT/HCPCS: 36415; 80053; 85025; 86300

== ENCOUNTER 2024-05-27 10:48 | Outpatient (CLI) | payer MEDICARE, MEDICAID, SELFPAY ==
[2024-05-27 11:54] LABS: Basophils Percent Auto 0.7 % (0.2-1.2); Eosinophils Absolute Auto 0.1 K/mm3 (0-0.3); Eosinophils Percent Auto 1.4 % (0-4.4); Hematocrit 42.3 % (37.0-47.0); Hemoglobin 13.4 g/dL (12.0-15.0); Immature Granulocyte Absolute 0.01 K/mm3 (0.00-0.031); Immature Granulocyte Percent A 0.2 % (0-0.5); Lymphocytes Absolute Auto 1.11 K/mm3 (0.9-3.2); Mean Corpuscular HGB Conc 31.7 g/dl (32-36); Mean Corpuscular Hemoglobin 25.6 pg (26-34); Mean Corpuscular Volume 80.7 fl (80-100); Mean Platelet Volume 11.4 fl (7.4-10.4); Monocytes Absolute Auto 0.3 K/mm3 (0.1-0.6); Monocytes Percent Auto 7.4 % (2.6-8.5); Neutrophils Absolute Auto 2.9 K/mm3 (1.3-6.7); Neutrophils Percent Auto 65.3 % (45.5-73.1); Platelet Count Result 184 k/mm3 (150-375); Red Blood Count 5.24 M/mm3 (4.2-5.4); Red Cell Distribution Width 15.4 % (11.5-14.5); White Blood Count 4.4 K/mm3 (4.5-10.0)
[2024-05-27 12:12] LABS: Alanine Aminotransferase 29 U/L (6-35); Albumin Level 4.2 g/dL (3.5-5.1); Alkaline Phosphatase 50 U/L (38-126); Anion Gap 7 mmol/L (4-12); Aspartate Amino Transferase 29 U/L (14-36); Bilirubin,Total 0.6 mg/dL (0.2-1.3); Blood Urea Nitrogen 10 mg/dL (7-17); Calcium 9.4 mg/dL (8.4-10.2); Carbon Dioxide 33 mmol/L (22-30); Chloride 98 mmol/L (98-107); Estimated Glomerular Filt Rate > 60; Glucose 99 mg/dL (65-110); Potassium 3.8 mmol/L (3.4-5.0); Sodium 138 mmol/L (137-145)
[2024-05-28 12:03] LABS: CA 15-3 <5 U/mL (<32)
== END 2024-05-27 10:49 | disposition home or self-care (01) ==
PROVIDERS: PCP Emergency Medicine; Visit Provider Internal Medicine Hematology & Oncology
DX: C50.411 Malignant neoplasm of upper-outer quadrant of right female breast (principal); Z17.0 Estrogen receptor positive status [ER+]
CPT/HCPCS: 36415; 80053; 85025; 86300

== ENCOUNTER 2024-06-18 21:51 | Emergency (ER) | payer MEDICARE, MEDICAID, SELFPAY ==
[2024-06-18 21:55] VITALS: BP 153/74; PULSE 70; RESP 18; TEMP 36.6; O2SAT 100
--- NOTE | 2024-06-19 02:45 | PC.NURSE ---
no answer for vital signs
--- NOTE | 2024-06-19 04:53 | PC.NURSE ---
2nd call no answer.
== END 2024-06-19 06:36 | disposition left against medical advice (07) ==
LOC: ANHED 06-19 05:10
PROVIDERS: PCP Emergency Medicine
DX: I10 Essential (primary) hypertension (principal)
CPT/HCPCS: 99199

== ENCOUNTER 2024-08-06 09:02 | Outpatient (CLI) | payer MEDICARE, MEDICAID, SELFPAY ==
[2024-08-06 10:09] LABS: Creatinine Urine 71.8 mg/dL
[2024-08-06 10:59] LABS: Microalbumin Urine Random < 6.0 mg/L (0-16.7)
[2024-08-06 11:00] LABS: MALB Creatinine Ratio < 8.4 mg/g (0-30)
== END 2024-08-06 09:03 | disposition home or self-care (01) ==
PROVIDERS: PCP Emergency Medicine; Referring Provider Emergency Medicine; Visit Provider Internal Medicine Cardiovascular Disease
DX: E78.5 Hyperlipidemia, unspecified (principal); E66.9 Obesity, unspecified; I25.10 Atherosclerotic heart disease of native coronary artery without angina pectoris; Z01.818 Encounter for other preprocedural examination; R94.31 Abnormal electrocardiogram [ECG] [EKG]; M19.90 Unspecified osteoarthritis, unspecified site; R00.2 Palpitations; R06.02 Shortness of breath; R07.9 Chest pain, unspecified; Z82.49 Family history of ischemic heart disease and other diseases of the circulatory system; I10 Essential (primary) hypertension
CPT/HCPCS: 82043

== ENCOUNTER 2024-12-03 09:11 | Outpatient (CLI) | payer MEDICAID, SELFPAY ==
--- OUTSIDE RECORDS SUMMARY | 2024-12-03 09:31 | XMS_ITS | Clinical Summary ---
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 Gender Identity Not on file Sexual Orientation Not on file Plan of Treatment Health Maintenance Due Date Last Done Comments DEXA Bone Density 1950 Hepatitis C Virus (HCV) Screening 1950 TdaP Immunization 1950 Colonoscopy 1997 Colorectal Cancer Screening 1997 Cologuard 2002 Immunochemical Fecal Occult Blood 2002 Mammogram 2002 Pneumococcal Immunization (50+ years) (1 of 1 - PCV) 2002 Zoster Immunization (1 of 2) 2002 Influenza Immunization (#1) 2024 100 07/2021, 07/06/2020, 09/10/2019, Additional history exists SARS-COV-2 Immunization ( season) 2024 08/26/2021, 01/12/2021, 12/14/2020 Respiratory Syncytial Virus (RSV) Immunization (Adult) (1 - 1-dose 75+ series) 2027 Hepatitis B Immunization Aged Out No longer eligible based on patient's age to complete this topic Meningococcal Immunization (ACWY) Aged Out No longer eligible based on patient's age to complete this topic Rotavirus Immunization Aged Out No lo nger eligible based on patient's age to complete this topic
--- OUTSIDE RECORDS SUMMARY | 2024-12-03 09:31 | XMS_ITS | CONTINUITY OF CARE DOCUMENT ---
Author Name asya, asya Address Unknown Organization [facility] Address [address] [address] [place] [address] Phone [phone] Care Team Providers Care [place] Tug Mate Name Role Phone Rell Azul MD Unavailable [phone] GOMEZ GUZMÁN MD Unavailable [phone] GOMEZ GUZMÁN MD Unavailable [phone] PROBLEMS Condition Status Date Provider Notes Hypertension active Rell Azul MD CHEST PAIN active Rell Azul MD Hyperlipidemia active Amisha Ventimiglia FN P CAD active Amisha Ventimiglia SALES SUPPORT TECHNICIAN Abnormal EKG active Elsie Jones Palpitations active Rell Azul MD Shortness of breath active Rell Azul MD Family history of CAD active Rell Azul MD Obesity active Rlel Azul MD Preop exam active Rell Azul MD Osteoarthritis active Rell Azul MD ENCOUNTERS Date Type Provider Location Encounter Diag nosis - In-person encounter Office Visit Rell Azul MD [place] [facility] - In-person encounter Office Visit Rell Azul MD [place] CADHyperlipidemia - In-person encounter Office Visit Rell Azul MD [place] [facility] - In-person encounter Office Visit Rell Azul MD [place] [facility] Shortness of breathPalpitationsAbnormal EKG - In-person encounter Office Visit Rell Azul MD [place] [facility] OsteoarthritisPreop examObesityHypertensionFamily history of CADCHEST PAIN VITAL SIGNS Date Observation Value Provider Body Mass Index (Ratio) 32.50 kg/m2 Artemio Judd blood pressure, diastolic 74 mm[Hg] Michelle nkLogluz blood pressure, systolic 110 mm[Hg] Evelia Minerog blood pressure, cuff size regular Aaron Franklin blood pressure, diastolic 74 mm[Hg] Aaron Franklin blood pressure, systolic 110 mm[Hg] Tab julia Franklin oxygen saturation, oximetry 98 % Mariam Franklin pulse rate 85 /min Mariam Franklin weight E&M 172 [lb_av] Mariam Franklin respiratory rate E&M 12 /min Mariam Franklin height E&M 61 [in_i] Mariam Franklin Body Mass Index (Ratio) 30.98 kg/m2 Parvez Membreno blood pressure, diastolic 80 mm[Hg] An nikolas Dumont blood pressure, systolic 107 mm[Hg] Any a Tim pulse rate 73 /min Lisa Tim blood pressure, cuff size large An nikolas Dumont oxygen saturation, oximetry 96 % Lisainocencio Dumont weight E&M 164 [lb_av] Lisainocencio Dumont height E&M 61 [in_i] Lisainocencio Dumont Body Mass Index (Ratio) 31.55 kg/m2 Jose Boucher pulse rate 75 /min Lisainocencio Dumont blood pressure, diastolic 71 mm[Hg] An nikolas Dumont blood pressure, systolic 107 mm[Hg] Any a Tim oxygen saturation, oximetry 98 % Lisa Tim weight E&M 167 [lb_av] Lisa Tim blood pressure, cuff size large An nikolas Tim height E&M 61 [in_i] Lisa Tim Body Mass Index (Ratio) 31.36 kg/m2 Thelma delgado Karyndcyer blood pressure, diastolic 68 mm[Hg] Li nkLogic blood pressure, systolic 116 mm[Hg] Evelia kLog blood pressure, diastolic 68 mm[Hg] Mi marce Moseley blood pressure, systolic 116 mm[Hg] Dixon helmesfin Moseley oxygen saturation, oximetry 100 % Terri Moseley pulse rate 84 /min Terri garcía weight E&M 166 [lb_av] Terri garcía respiratory rate E&M 16 /min Sunshine Moseley blood pressure, cuff size large Tia zheng Pradip height E&M 61 [in_i] Terri garcía Body Mass Index (Ratio) 31.97 kg/m2 Austin Leone blood pressure, resting Yes Agustina Stevens blood pressure, diastolic 82 mm[Hg] Dominic Stevens blood pressure, systolic 119 mm[Hg] Carey Stevens oxygen saturation, oximetry 96 % Karmen Stevens respiratory rate E&M 18 /min Gene Stevens pulse rate 98 /min Karmen miles weight E&M 169.2 [lb_av] Karmen espinal height E&M 61 [in_i] Karmen miles ALLERGIES No Known Drug Allergies HISTORY OF MEDICATION USE Medication Status Instructions Dates Provider Indications Com ments rosuvastatin 10 mg tablet active TAKE 1 TABLET BY MOUTH EVERY DAY 1 Estephania Sanchez VITAMIN D3 1000 UNIT ORAL TABLET active ONE TAB BY MOUTH DAILY Karmen Stevens ASPIRIN ADULT LOW DOSE 81 MG ORAL TABLET DELAYED RELEASE active One Tab By Mouth Daily Karmen Stevens ESCITALOPRAM OXALATE 10 MG ORAL TABLET active once daily Karmen Dickenson LISINOPRIL 10 MG ORAL TABLET active ONE TAB. DAILY Karmen Dickenson OMEPRAZOLE 20 MG ORAL CAPSULE DELAYED RELEASE active ONE TAB. DAILY Karmen Dickenson ALENDRONATE SODIUM 70 MG ORAL TABLET active once a week Karmen Stevens SOCIAL HISTORY Date Observation Value Provider drug use no Simone Barragan h alcohol use no Simone Barragan h smoking status Never smoker Simone varela drug use no Amisha Ventimig herson SALES SUPPORT TECHNICIAN alcohol use no Amisha Ventimig herson SALES SUPPORT TECHNICIAN smoking status Never smoker Lisa Dumont social history E&M S moking History: Adriana arteaga has never smoked. Rell Azul MD social history reviewed E&M revi ewed - no changes required Rell Azul MD smoking status Never smoker Lisa Dumont social history E&M S moking History: Adriana arteaga has never smoked. Rell Azul MD social history reviewed E&M revi ewed - no changes required Rell Azul MD smoking status Never smoker Terri Dolan and social history E&M Smoking Histo ry: Adriana arteaga has never smoked. Rell Azul MD social history reviewed E&M revi ewed - no changes required Rell Azul MD smoking status Never smoker Karmen Noe FUNCTIONAL STATUS Date Observation Value Provider HRA, CV Assess/Plan, Angina (inactive) Management Plan continue current therapy Simone Judd HRA, CV Assess/Plan, Angina (inactive) Management Plan continue current therapy Amishact Mamiglia SALES SUPPORT TECHNICIAN FAMILY HISTORY Family Member Condition Mother Family History of Co ronary Artery Disease: Mother Family History of Hy pertension: INSURANCE PROVIDERS Payer name Policy type / Coverage type Rd red republican [employer] [facility] [facility] Medicaid 3 [id number] [place] MEDICARE Medicare [id number] ADVANCE DIRECTIVES Name Date DISCUSSED - NO DECISION MADE TREATMENT PLAN Date Name Performer [id number],C,weight loss e ncouraged. Amishact Loglia [facility] [id number],C,B P well controlled. continue present medication regimen H er updated medication list for this problem includes: Aspirin Adult Low Dose 81 Mg Oral Tablet Delayed Release (Aspirin) ..... One tab by mouth daily Lisinopril 10 Mg Oral Tablet (Lisinopril) ..... One tab. daily Amishact Loglia [facility] [id number],S,D enies any further SOB. Her LVEDP was 17 on cath if recurrence consider farxiga or Jardiance Amishact Loglia [facility] [id number],N,L DL 82 on recent labs will add statin thearpy H er updated medication list for this problem includes: Crestor 10 Mg Tablet (Rosuvastatin) ..... Take 1 tablet by mouth every day Amishact Loglia [facility] [id number],N,C ath showed mild plaquing but no obstructive disease. Will continue medical management. Will continue asa and add statin. Weight loss encouraged. H er updated medication list for this problem includes: Aspirin Adult Low Dose 81 Mg Oral Tablet Delayed Release (Aspirin) ..... One tab by mouth daily Lisinopril 10 Mg Oral Tablet (Lisinopril) ..... One tab. daily Amishact Mamiglia [facility] [id number],C, B P today: 107/71 P rior BP: 116/68 (03/05/2023) Orders: 9 9215 HIGH 40-54min (CPT-50868) S [facility] SMOKING PIPES CLEANER PROCEDURES (*) R T & LT HRT CATH (75139) B ASIC METABOLIC PANEL W/EGFR (17388) P ROBNP, N TERMINAL (72042) L ipoprotein (a) (226026) L IPID PANEL (7550) B ASIC METABOLIC PANEL W/EGFR (51338) H EMOGLOBIN A1c (496) M icroalb/Creatinine Urine, Random (1217) C RP, high sensitivity (28728) Her updated medication list for this problem includes: Aspirin Adult Low Dose 81 Mg Oral Tablet Delayed Release (Aspirin) ..... One tab by mouth daily Lisinopril 10 Mg Oral Tablet (Lisinopril) ..... One tab. daily Rell Azul MD [id number],C, W eight loss advised Elsie Jones [id number],C, B P today: 116/68 P rior BP: 119/82 (10/22/2017) Her updated medication list for this problem includes: Aspirin Adult Low Dose 81 Mg Oral Tablet Delayed Release (Aspirin) ..... One tab by mouth daily Lisinopril 10 Mg Oral Tablet (Lisinopril) ..... One tab. daily Elsie Jones [id number],C,P t complains of palpitations and SOB. Had labwork and chest Xray at [place], told it was normal. EKG showed new changes showing possible new anterior and inferior wall CO, age undetermined. Will obtain stress test myoview, echo, and telesentry . H er updated medication list for this problem includes: Aspirin Adult Low Dose 81 Mg Oral Tablet Delayed Release (Aspirin) ..... One tab by mouth daily Lisinopril 10 Mg Oral Tablet (Lisinopril) ..... One tab. daily Elsie Jones [id number],C,P t complains of palpitations and SOB. Had labwork and chest Xray at [place], told it was normal. EKG showed new changes showing possible new anterior and inferior wall CO, age undetermined. Will obtain stress test myoview, echo, and telesentry . lEsie Jones [id number],C,P t complains of palpitations and SOB. Had labwork and chest Xray at [place], told it was normal. EKG showed new changes showing possible new anterior and inferior wall CO, age undetermined. Will obtain stress test myoview, echo, and telesentry . Elsie Jones Cardiology:toleratin g statin recommend to check lipids periodically. Her updated medication list for this problem includes: Crestor 10 Mg Tablet (Rosuvastatin) ..... Take 1 tablet by mouth every day This visit has been a part of the consistent, comprehensive, and ongoing management of the chronic medical condition(s) listed above for the patient. Simone Judd Cardiology:Pt denies SOB and CP. Recommend to check lipid and LDL periodically, pt is tolerating statin. H er updated medication list for this problem includes: Aspirin Adult Low Dose 81 Mg Oral Tablet Delayed Release (Aspirin) ..... One tab by mouth daily Lisinopril 10 Mg Oral Tablet (Lisinopril) ..... One tab. daily Simone Judd Cardiology:BP is wel l controlled, start RPM B P today: 110/74 P rior BP: 107/80 (06/23/2023) Her updated medication list for this problem includes: Aspirin Adult Low Dose 81 Mg Oral Tablet Delayed Release (Aspirin) ..... One tab by mouth daily Lisinopril 10 Mg Oral Tablet (Lisinopril) ..... One tab. daily This visit has been a part of the consistent, comprehensive, and ongoing management of the chronic medical condition(s) listed above for the patient. Simone Judd Cardiology: w eight loss encouraged. Simone Judd Cardiology:Pt denies SOB Simone davis Cardiology:Pt denies chest pain Simone Judd Cardiology:weight loss encourage d. Amishact Mamiglia [facility] Cardiology:BP well c ontrolled. continue present medication regimen H er updated medication list for this problem includes: Aspirin Adult Low Dose 81 Mg Oral Tablet Delayed Release (Aspirin) ..... One tab by mouth daily Lisinopril 10 Mg Oral Tablet (Lisinopril) ..... One tab. daily Amisha Ventimiglia [facility] Cardiology:Denies an y further SOB. Her LVEDP was 17 on cath if recurrence consider farxiga or Jardiance Amisha Tenorio [facility] Cardiology:LDL 82 on recent labs will add statin thearpy H er updated medication list for this problem includes: Crestor 10 Mg Tablet (Rosuvastatin) ..... Take 1 tablet by mouth every day Amishact Tenorio [facility] Cardiology:Cath show ed mild plaquing but no obstructive disease. Will continue medical management. Will continue asa and add statin. Weight loss encouraged. H er updated medication list for this problem includes: Aspirin Adult Low Dose 81 Mg Oral Tablet Delayed Release (Aspirin) ..... One tab by mouth daily Lisinopril 10 Mg Oral Tablet (Lisinopril) ..... One tab. daily Amishact Tenorio [facility] Cardiology: B P today: 107/71 P rior BP: 116/68 (03/05/2023) Orders: 9 9215 HIGH 40-54min (CPT-94474) S [facility] SMOKING PIPES CLEANER PROCEDURES (*) R T & LT HRT CATH (05493) B ASIC METABOLIC PANEL W/EGFR (30198) P ROBNP, N TERMINAL (65480) L ipoprotein (a) (642827) L IPID PANEL (7600) B ASIC METABOLIC PANEL W/EGFR (04731) H EMOGLOBIN A1c (496) M icroalb/Creatinine Urine, Random (6517) C RP, high sensitivity (47474) Her updated medication list for this problem includes: Aspirin Adult Low Dose 81 Mg Oral Tablet Delayed Release (Aspirin) ..... One tab by mouth daily Lisinopril 10 Mg Oral Tablet (Lisinopril) ..... One tab. daily Rell Azul MD Cardiology: W eight loss advised Elsie Jones Cardiology: B P today: 116/68 P rior BP: 119/82 (10/22/2017) Her updated medication list for this problem includes: Aspirin Adult Low Dose 81 Mg Oral Tablet Delayed Release (Aspirin) ..... One tab by mouth daily Lisinopril 10 Mg Oral Tablet (Lisinopril) ..... One tab. daily Elsie Karen Cardiology:Pt compla ins of palpitations and SOB. Had labwork and chest Xray at [place], told it was normal. EKG showed new changes showing possible new anterior and inferior wall CO, age undetermined. Will obtain stress test myoview, echo, and telesentry . H er updated medication list for this problem includes: Aspirin Adult Low Dose 81 Mg Oral Tablet Delayed Release (Aspirin) ..... One tab by mouth daily Lisinopril 10 Mg Oral Tablet (Lisinopril) ..... One tab. daily Elsie Karen Cardiology:Pt compla ins of palpitations and SOB. Had labwork and chest Xray at [place], told it was normal. EKG showed new changes showing possible new anterior and inferior wall CO, age undetermined. Will obtain stress test myoview, echo, and telesentry . Elsie Jones Cardiology:Pt compla ins of palpitations and SOB. Had labwork and chest Xray at [place], told it was normal. EKG showed new changes showing possible new anterior and inferior wall CO, age undetermined. Will obtain stress test myoview, echo, and telesentry . Elsie Jones Cardiology:The pt is candidate f or knee surgery. Zack [facility] Cardiology:Orders: S NOMED-CT: [id number] Current Medications Documented ([facility]-[id number]) S TR - Adenosine (CPT-98326) C omplete Echo (CPT-94476) Zack [facility] Cardiology:BP today: 119/82 Her updated medication list for this problem includes: Lisinopril 10 Mg Oral Tablet (Lisinopril) ..... One tab. daily Orders: S TR - Adenosine (CPT-20048) C omplete Echo (CPT-67947) Zack [facility] Cardiology:She has h x of HTN and family hx of CAD. She has some nocturnal heartburn but no exertional chest pain. Will obtain echo and stress myoview. Zack [facility] Cardiology:The pt is candidate for knee surgery. She has hx of HTN and family hx of CAD. She has some nocturnal heartburn but no exertional chest pain. Will obtain echo and stress myoview. Zack Leone Date Name Microalb/Creatinine Urine, Random Complete Echo RPM (remote patient monitoring) CRP, high sensitivit y Microalb/Creatinine Urine, Random HEMOGLOBIN A1c BASIC METABOLIC PANE L W/EGFR LIPID PANEL Lipoprotein (a) PROBNP, N TERMINAL BASIC METABOLIC PANE L W/EGFR Stress Exercise Card iolite Monitor - Telemetry (Mobile Cardiac) Complete Echo Complete Echo STR - Adenosine HISTORY OF PROCEDURES Procedure Date Procedure Name Provider Procedure Notes S tatus Complex e/m visit add on Rell Azul MD completed EKG Rell Azul MD completed EKG Rell Azul MD completed Stress EKG Luis M Nevarez MD completed Regadenoson, 4 units Rell Azul MD completed Cardiolite, 2 units Rell Azul MD c ompleted SPECT Images Belkis Dickens MD completed EKG Rell Azul MD completed SNOMED-CT: [id number] Current Medications Documented Rell Azul MD completed
--- OUTSIDE RECORDS SUMMARY | 2024-12-03 09:31 | XMS_ITS | Clinical Summary ---
Author Organization [facility] Address [address] [place] [address] Care Team Providers Care Concrete Block Plant Supervisor Name Role Phone Yan Mata MD Primary Care Provider [phone] Yan Mata MD Unavailable Source Comments [facility],non-owned Affiliates and Associated Physician Practices is amultiple site organization consisting of ambulatory clinics and hospital sitesin [place], [place], [place] and [place]. This disclosure is being madepursuant to the Care Everywhere program and may not contain all information available regarding this patient. Last updated 18.[facility] Allergies Active Allergy Reactions Criticality Noted Date Comments Chloraprep One Step Skin Reactions Medium 01/15/2022 Unsure which skin prep -- right breast biopsy (skin sloughing) Lisinopril Rash Medium 03/01/2021 Medications * Be aware that medications may not be up to date on this document. Alwaysverify current medications with the patient. Medication Sig Dispensed Refills Start Date End Date Status Cholecalciferol 50 MCG (1999) Take 1 (one) tablet by mouth once daily Active Multiple Vitamin (MULTI-VITAMINS) TABS Take 1 (one) tablet by mouth once daily Active hydroCHLOROthiazide (MICROZIDE) 12.5 MG capsule 1 (one) capsule once daily 02/25/2021 Active anastrozole (ARIMIDEX) 1 MG tablet Take 1 (one) tablet by mouth once daily 03/27/2022 Active rosuvastatin (Crestor) 10 MG tablet Take 1 (one) tablet by mouth once daily 06/23/2023 Active omeprazole (PriLOSEC) 20 MG capsule Take 1 (one) capsule by mouth daily before breakfast 10/10/2023 Active Myrbetriq 50 MG tablet Take 1 (one) tablet by mouth once daily 90 tablet 4 08/13/2024 Active Active Problems Problem Noted Date Diagnosed Date Trigger finger, left middle finger 09/01/2023 Overview (09/01/2023): If symptoms worsen then can return for a trigger finger corticosteroid injection. 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 Approximately 15% of the normal population will have a positive NORBERTO test;and can also be seen in other conditions, such as thyroid diseases, viral infections or caused by some medications. The finding of a positive antinuclear antibody (NORBERTO), especially with a low pretest probability for an associated connective tissue disease, is currently considered to be of undetermined clinical significance (often referred to as a false positive result) with her historical elements/symptoms reviewed, current clinical examination findings, and additional available laboratory results reviewed, regarding this result not consistent with a specific diagnosis of a defined systemic connective tissue disease including systemic lupus erythematosus or systemic inflammatory rheumatic disorder by [employer] (ACR) diagnostic classification criteria at this time. Ghislaine Domínguez lacks features of any systemic autoimmune NORBERTO-related connective tissue disease. NORBERTO positivity is present in up to 30% of the normal population . Since the prevalence of SLE is only ~0.1%, most positive NORBERTO results can be attributed to other etiologies or considered represent ? false-positive? results. NORBERTO positivity increases in prevalence with female gender, older age, and numerous other conditions. Arteriosclerosis of coronary artery 06/23/2023 09/15/2023 Hyperlipidemia 06/23/2023 09/15/2023 Abnormal EKG 03/05/2023 06/09/2023 Palpitations 03/05/2023 06/09/2023 Shortness of breath 03/05/2023 06/09/2023 Osteopenia of multiple sites 12/17/202205/2023 Malignant neoplasm of overla pping sites of right breast in female, estrogen receptor positive 01/15/2022 Cancer Staging:Clinical stage from 12/18/2021: cT1b, cN0, cM0, GX, ER+, MO+, HER2- - Signed by Sadia Ortiz MD on 01/15/2022 Pathologic stage from 01/25/2022:Stage IA(pT1c, pN0(sn), cM0, G2, ER+, MO+, HER2- ) - Signed by Sadia Ortiz MD on 02/12/2022 Malignant neoplasm of upper- outer quadrant of right breast in female, estrogen receptor positive 01/02/2022 Dystrophia unguium 10/16/2021 Onychomycosis 10/16/2021 Pain in toe 10/16/2021 Age-related nuclear cataract of both eyes 2020 Overview (04/09/2021): Last Assessment & Plan: Much better endpoint today with MRx. Released today. Patient had much better understanding today through fender repairer. Meibomian gland dysfunction (MGD) of both eyes 0 03/19/2021 Overview (04/09/2021): Last Assessment & Plan: Educated patient on findings, ATs PRN RTC if s/s do not improve Family history of breast cancer 11/18/2019 Abnormal mammogram 11/18/2019 Mammographic calcification 11/18/2019 Arthritis of left knee 04/05/2019 Primary osteoarthritis of right knee 09/14/2018 Chest pain 10/22/2017 Family history of coronary artery disease 2016 Hypertension 10/22/2017 Obesity 10/22/2017 Osteoarthrosis 10/22/2017 Primary osteoarthritis of left knee Lateral subluxation of left patella Immunizations Name Administration Dates Next Due Covid Moderna primary monova lent 12+ yr 0.5mL 08/26/2021,01/12/2021,12/14/2020 INFLUENZA VACCINE 07/17/2022,07/23/2021 INFLUENZA VACCINE, HIGH-DOSE , QUADR. (FLUZONE HIGH-DOSE QUADRIVALENT; 65Y+), 0.7 ML (HD-IIV4) 09/10/2019 Family History Medical History Relation Name Comments Cancer - Renal Father Hypertension Father Cancer - Breast Maternal Cousin 1 Cancer - Breast Maternal Cousin 2 Cancer - Breast Maternal Cousin 3 Relation Name Status Comments Father Maternal Cousin 1 Maternal Cousin 2 Maternal Cousin 3 Social History Tobacco Use Types Packs/Day Years Used Date Smoking Tobacco: Never Passive Smoke Exposure: Never Smokeless Tobacco: Never Tobacco Cessation:Counseling Given: Not Answered Alcohol Use Standard Drinks/Week Comments No 0 (1 standard drink = 0.6 oz pur e alcohol) AUDIT-C Answer Date Recorded Q1: How often do you have a drink containing alc ohol? Never 01/25/2022 Average Number of Drinks Not on file 022 Q3: How often do you have si x or more drinks on one occasion? Never 01/25/2022 PHQ-2 Answer Date Recorded PHQ2 TOTAL SCORE 1 06/09/2023 Sex and Gender Information Value Date Recorded Sex Assigned at Not on file Gender Identity Not on file Sexual Orientation Not on file Last Filed Vital Signs Vital Sign Reading Time Taken Comments Blood Pressure 106/70 08/13/2024 11:40 AM CDT Pulse 74 02/25/2024 11:05 AM CDT Temperature 36.6 ??C (97.9 ??F) 08/13/2024 11:40 AM C DT Respiratory Rate 16 02/25/2024 11:05 AM CDT Oxygen Saturation 98% 02/25/2024 11:05 AM CDT Inhaled Oxygen Concentration - - Weight 76.7 kg (169 lb) 08/13/2024 11:40 AM CDT Height 154.9 cm (5' 1 ) 08/13/2024 11:40 AM CDT Body Mass Index 31.93 08/13/2024 11:40 AM CDT Plan of Treatment Upcoming Encounters Date Type Department Care Team (Late st Contact Info) Description 12/09/2024 10:00 AM REGULATORY COMPLIANCE ENGINEER Appointment [facility] [address] [place] [id number] Sadia Ortiz MD [address] [place] [address] 12/09/2024 10:30 AM REGULATORY COMPLIANCE ENGINEER Office Visit [facility] - General Surgery [address] [place] [address] Sadia Ortiz MD [address] [place] [address] 12/10/2024 11:45 AM REGULATORY COMPLIANCE ENGINEER Office Visit [facility] - MAGNETIC PROSPECTING OPERATOR [address] [place] [address] Roxann Ulloa MD [address] [place] [address] Health Maintenance Due Date Last Done Comments BONE DENSITY TESTING 1950 COLOGUARD (AGES 45-75) - COLON CA SCREENING 1952 COLON MONITORING 1952 COLONOSCOPY - COLON CA SCREENING 1952 CT COLONOGRAPHY - COLON CA SCREENING 1950 Colorectal Cancer Screening 1950 FIT - COLON CA SCREENING 1952 FLEX SIG - COLON CA SCREENING 1950 MEDICARE AWV ? 12 MONTHS 1950 HEPATITIS C SCREENING 03/08/1970 DTAP/TDAP/TD VACCINES (1 - Tdap) 1971 PNEUMOCOCCAL VACCINE 50+ (1 of 1 - PCV) 2002 ZOSTER VACCINE (1 of 2) 2002 COVID-19 VACCINE ( season) 2024 04/13/2022, 08/26/2021, 01/12/2021, Additional history exists INFLUENZA VACCINE (#1) 2024 2, 07/17/2022, 08/11/2021, Additional history exists DEPRESSION SCREENING 11/03/2024 06/09/2023 SCREENING FOR DIABETES 01/18/2025 2, 03/25/2019, 09/16/2018, Additional history exists MAMMOGRAM 12/11/2025 12/11/2023, 06/2024, 12/05/2022, Additional history exists Respiratory Syncytial Virus (RSV) Vaccine Pt: or over 60 yrs (1 - 1-dose 75+ series) 2027 HEPATITIS B VACCINE Aged Out No longe r eligible based on patient's age to complete this topic HIB VACCINE Aged Out No longer eligi ble based on patient's age to complete this topic HPV VACCINE Aged Out No longer eligi ble based on patient's age to complete this topic MENINGOCOCCAL (Group B) VACCINE Aged Out No longer eligible based on patient's age to complete this topic MENINGOCOCCAL VACCINE Aged Out No kiki cuauhtemoc eligible based on patient's age to complete this topic Medical Devices Implanted Type Area Direct Care Counselor Device Identifier Shelf Expiration Date Model / Serial / Lot Mrkr 18ga Magseed Brstbio 7cm Implanted:Qty : 1 on 01/24/2022 by Korin Dumont MD at [facility] Implant Non-Ortho Right: Breast Devicor 06/10/2025 [id number] / / [id number] Mrkr 18ga Magseed Brstbio 7cm Implanted:Qty : 1 on 01/24/2022 by Korin Dumont MD at [facility] Implant Non-Ortho Right: Breast Devicor 07/03/2025 [id number] / / [id number] Ins Tib 1-2 11mm Kn Xlpe Cr Hi Flxn Implanted:Qty : 1 on 09/14/2018 by Leo Mercedes MD at [facility] Right: Knee [employer] 08/03/2023 [id number] / / [id number] Description:LGN CR HIGH FLEX XLPE SZ 1-2 11MM--09/17 LG Stem Tib 16mm Prfx Mtphsl Implanted:Qty : 1 on 09/14/2018 by Leo Mercedes MD at [facility] Right: Knee [employer] 06/03/2023 [id number] / / [id number] Description:METAPHYSEAL TIB STEM 16MM--09/17 LG Legion Por Cr Sandoval Fem R Sz 3 Implanted:Qty : 1 on 09/14/2018 by Leo Mercedes MD at [facility] Right: Knee [employer] 11/24/2025 [id number] / / [id number] Description:LGN POR CR SANDOVAL FE M SZ 3 RT--09/17 LG Legion Por Sandoval Tib Base R Sz 2 Implanted:Qty : 1 on 09/14/2018 by Leo Mercedes MD at [facility] Right: Knee [employer] 07/04/2023 [id number] / / [id number] Description:LEGION POROUS SANDOVAL TIBIAL BASE SZ 2 RT--09/17 LG Screw Bsplt 15mm 6.5mm Gns2 Kn Tib Por Implanted:Qty : 1 on 09/14/2018 by eLo Mercedes MD at [facility] Right: Knee [employer] 06/13/2028 [id number] / / [id number] Description:G2 6.5MM SCREW 1 56MM LNGTH--09/17 LG Screw Bsplt 20mm 6.5mm Gns2 Kn Tib Por Implanted:Qty : 1 on 09/14/2018 by Leo Mercedes MD at [facility] Right: Knee [employer] 06/13/2028 [id number] / / [id number] Description:G2 6.5MM SCREW 2 0MM LNGTH--09/17 LG Screw Bsplt 20mm 6.5mm Gns2 Kn Tib Por Implanted:Qty : 1 on 09/14/2018 by Leo Mercedes MD at [facility] Right: Knee [employer] 06/13/2028 [id number] / / [id number] Description:G2 6.5MM SCREW 2 0MM LNGTH--09/17 LG Screw Bsplt 15mm 6.5mm Gns2 Kn Tib Por Implanted:Qty : 1 on 09/14/2018 by Leo Mercedes MD at [facility] Right: Knee [employer] 07/07/2027 [id number] / / [id number] Description:G2 6.5MM SCREW 1 5MM LNGTH--09/17 LG Blayne K2 Sys Kn Uncemented Implanted:Qty : 1 on 09/14/2018 by Leo Mercedes MD at [facility] Right: Knee [employer] K2 UNCEMENTED / / Legion Por Sandoval Tib Base L Sz 2 Implanted:Qty : 1 on 04/05/2019 by Leo Mercedes MD at [facility] Left: Knee [employer] 05/02/2020 [id number] / / [id number] Description:fc LEGION POROUS SANDOVAL TIBIAL BASE SZ 2 LT--04/08 LG Stem Tib 16mm Prfx Mtphsl Implanted:Qty : 1 on 04/05/2019 by Leo Mercedes MD at [facility] Left: Knee [employer] 08/03/2027 [id number] / / [id number] Description:fc METAPHYSEAL TIB STEM 16MM--04/08 LG Legion Por Cr Sandoval Fem L Sz 3 Implanted:Qty : 1 on 04/05/2019 by Leo Mercedes MD at [facility] Left: Knee [employer] 12/03/2023 [id number] / / [id number] Description:fc LGN POR CR SANDOVAL FEM SZ 3 LT--04/08 LG Ins Xlpe Dished Artc Sz 1-2 11mm Implanted:Qty : 1 on 04/05/2019 by Leo Mercedes MD at [facility] Left: Knee [employer] 04/02/2024 [id number] / / [id number] Description:fc LGN XLPE DISHED ISRT SZ 1-2 11MM--04/08 LG Screw Bsplt 15mm 6.5mm Gns2 Kn Tib Por Implanted:Qty : 1 on 04/05/2019 by Leo Mercedes MD at [facility] Left: Knee [employer] 02/10/2027 [id number] / / [id number] Description:fc G2 6.5MM SCREW 15MM LNGTH--04/08 LG Screw Bsplt 15mm 6.5mm Gns2 Kn Tib Por Implanted:Qty : 1 on 04/05/2019 by Leo Mercedes MD at [facility] Left: Knee [employer] 01/19/2028 [id number] / / [id number] Description:fc G2 6.5MM SCREW 15MM LNGTH--04/08 LG Screw 6.5mm 25mm Hip Actb Canc Sphrcl Implanted:Qty : 1 on 04/05/2019 by Leo Mercedes MD at [facility] Left: Knee [employer] 07/07/2028 [id number] / / [id number] Description:fc REF SPHER HEAD SCREW 25MM--04/08 LG Screw Bsplt 15mm 6.5mm Gns2 Kn Tib Por Implanted:Qty : 1 on 04/05/2019 by Leo Mercedes MD at [facility] Left: Knee [employer] 11/16/2028 [id number] / / [id number] Description:fc G2 6.5MM SCREW 15MM LNGTH--04/08 LG Blayne K2 Sys Kn Uncemented Implanted:Qty : 1 on 04/05/2019 by Leo Mercedes MD at [facility] Left: Knee [employer] K2 UNCEMENTED / / Mrkr Apl 3 Mrfbr Pd Radopq Interwoven Implanted:Qty : 1 on 01/18/2022 by Korin Dumont MD at [facility] Right: Breast [employer] [facility] 01/02/2024 [id number] / / [id number] Procedures Procedure Name Priority Date/Time Associated Diagnosis Comments MAMMO BILAT DIAGNOSTIC W BRIGITTE Routine 12/11/2023 10:44 AM REGULATORY COMPLIANCE ENGINEER Malignant neoplasm of overlapping sites of right breast in female, estrogen receptor positive (HCC) BASIC METABOLIC PANEL (CALCIUM TOTAL) Routine 01/18/2022 12:38 PM CDT Pre-op exam from Last 3 Months or Most Recently Relevant to Health Maintenance Results * MAMMO BILAT DIAGNOSTIC W BRIGITTE (12/11/2023 10:44 AM REGULATORY COMPLIANCE ENGINEER) Anatomical Region Laterality Modality Breast Bilateral Mammography 12/11/2023 10:3 7 AM REGULATORY COMPLIANCE ENGINEER Impressions 12/11/2023 10:50 AM REGULATORY COMPLIANCE ENGINEER : No mammographic evidence of malignancy, status post right breast conservation therapy. RECOMMENDATION: ??Screening mammography in one year, pending no interval breast concerns. Patient was notified of the results at the time of her study. She will see Dr. Ortiz in the breast clinic today. OVERALL ASSESSMENT: ??BI-RADS CATEGORY 2: BENIGN. Report dictated by Cihki Rivera M.D. (president educational institution) 12/11/2023 10:48 AM. William Barrios D.O. also assisted in the dictation. I, Korin Dumont MD have personally reviewed and interpreted this examination/study. > Interpreting Provider: Korin Dumont MD on 12/11/2023 10:50 AM Narrative 12/11/2023 10:50 AM REGULATORY COMPLIANCE ENGINEER EXAMINATIONS: BILATERAL DIGITAL DIAGNOSTIC MAMMOGRAM AND BREAST TOMOSYNTHESIS WITH CAD LOCATION: [facility] EXAM DATE: ??12/11/2023 HISTORY: Patient is a 72-year-old female with history of right breast cancer status post right breast conservation therapy on 01/25/2022. COMPARISON: Multiple prior comparisons dating back to 2021. TECHNIQUE: Diagnostic bilateral mammography was performed.Tomosynthesis (3D) and reconstructed synthetic 2-D ??images acquired. A total of 8 images were obtained. ??Scar markers placed on the right breast. ??Computer-aided detection (CAD) was utilized. ?? BREAST COMPOSITION: Category C: The breasts are heterogeneously dense which may obscure small masses. FINDINGS: ??There are no suspicious findings to indicate malignancy. There are no significant interval changes. The post lumpectomy changes of upper-outer quadrant of the right breast and scattered benign calcifications of both breasts are not significantly changed from the previous mammograms. Sadia Ortiz MD MAMMO ORDERABLES * (ABNORMAL) BASIC METABOLIC PANEL (CALCIUM TOTAL) (01/18/2022 12:38 PM CDT) BUN 9 7 - 26 mg/dL 01/18/2022 1:31 PM [facility] Creatinine 0.76 0.56 - 0.96 mg/dL 01/18/2022 1:31 PM [facility] Sodium 144 136 - 145 mmol/L 01/18/2022 1:31 PM [facility] Potassium 3.9 3.5 - 4.5 mmol/L 01/18/2022 1:31 PM [facility] Chloride 105 98 - 107 mmol/L 01/18/2022 1:31 PM [facility] CO2 33(H) 22 - 29 mmol/L 01/18/2022 1:31 PM [facility] Glucose 101 70 - 115 mg/dL 01/18/2022 1:31 PM [facility] Calcium 10.0 8.4 - 10.2 mg/dL 01/18/2022 1:31 PM [facility] Anion Gap 10 8 - 18 01/18/2022 1:31 PM [facility] BUN/Creatinine Ratio 12 7 - 23 01/18/2022 1:31 PM [facility] Osmolality Calculated 297 270 - 300 mOsm/kg 01/18/2022 1:31 PM [facility] eGFR by CKD-EPI 85(L) >=90 mL/min/1.7 3 m2 01/18/2022 1:31 PM [facility] Blood BLOOD SPECIMEN / Unknown Lab Venipuncture / Unknown 01/18/2022 12:38 PM CDT 01/18/2022 1:00 PM CDT Jocelyn Foss RN NEONATAL ICU-FLEXO FOLDER GLUER OPERATOR LAB - CHEMISTRY ORDERABLES [facility] [address] [place] [address], [facility] [phone] from Last 3 Months or Most Recently Relevant to Health Maintenance Insurance Payer Benefit Plan / Group Subscriber ID Effective Dates Phone Address Type MEDICARE WPS MEDICARE PART B [id number] 04/03/2019-Pres ent [address] [address] [place] [address] Medicare MEDICAID - [facility] [place]ICA[place] PUBLIC AID [id number] 01/17/2022-Pre sent [address] [address] [place] [address] Medicaid MEDICARE MEDICARE PART B ONLY [id number] 04/03/2019-Pres ent [address] [place] [address] Medicare [place] [id number] 11/03/2020-Pres ent [address] [address] [place] [address] Medicaid [facility] MEDICAID [id number] Effective for all dates 132 ATTN CLAIMS DEPARTMENT 1 [facility], [place] [address] [place] [address] Medicaid Managed Care [facility] MEDICAID [id number] Effective for all dates 132 ATTN CLAIMS DEPARTMENT 1 [facility], [place] [address] [place] [address] Medicaid [facility] Care [facility] MEDICAID [id number] Effective for all dates 132 ATTN CLAIMS DEPARTMENT 1 [facility], [place] [address] [place] [address] Medicaid Managed Care [facility] MEDICAID [id number] Effective for all dates 132 ATTN CLAIMS DEPARTMENT 1 [facility], [place] [address] [place] [address] Medicaid Managed Care [facility] MEDICAID [id number] Effective for all dates 132 ATTN CLAIMS DEPARTMENT 1 [facility], [place] [address] [place] [address] Medicaid Managed Care [facility] MEDICAID [id number] Effective for all dates 132 ATTN CLAIMS DEPARTMENT 1 [facility], [address] [place] [address] Medicaid Managed Care [facility] MEDICAID [id number] Effective for all dates 132 ATTN CLAIMS DEPARTMENT 1 [facility], [place] [address] [place], [place] [address], [place] [address] Medicaid Managed Care [facility] MEDICAID [id number] Effective for all dates ATTN CLAIMS DEPARTMENT 1 [facility], [address] [place] [address] Medicaid Managed Care [facility] MEDICAID [id number] Effective for all dates ATTN CLAIMS DEPARTMENT 1 [facility], [address] [place] [address] Medicaid Managed Care [facility] MEDICAID [id number] Effective for all dates ATTN CLAIMS DEPARTMENT 1 [facility], [address] [place] [address] Medicaid Managed Care [facility] MEDICAID [id number] Effective for all dates ATTN CLAIMS DEPARTMENT 1 [facility], [address] [place] [address] Medicaid Managed Care [facility] MEDICAID [id number] Effective for all dates ATTN CLAIMS DEPARTMENT 1 [facility], [address] [place] [address] Medicaid Managed Care [facility] MEDICAID [id number] Effective for all dates ATTN CLAIMS DEPARTMENT 1 [facility], [address] [place] [address] Medicaid Managed Care [facility] MEDICAID [id number] Effective for all dates ATTN CLAIMS DEPARTMENT 1 [facility], [address] [place] [address] Medicaid Managed Care [facility] MEDICAID [id number] Effective for all dates ATTN CLAIMS DEPARTMENT 1 [facility], [address] [place] [address] Medicaid Managed Care [facility] MEDICAID [id number] Effective for all dates ATTN CLAIMS DEPARTMENT 1 [facility], [address] [place] [address] Medicaid Managed Care [facility] MEDICAID [id number] Effective for all dates ATTN CLAIMS DEPARTMENT 1 [facility], [address] [place] [address] Medicaid Managed Care [facility] MEDICAID [id number] Effective for all dates ATTN CLAIMS DEPARTMENT 1 [facility], [address] [place] [address] Medicaid Managed Care [facility] MEDICAID [id number] Effective for all dates ATTN CLAIMS DEPARTMENT 1 [facility], [address] [place] [address] Medicaid Managed Care [facility] MEDICAID [id number] Effective for all dates ATTN CLAIMS DEPARTMENT 1 [facility], [address] [place] [address] Medicaid Managed Care [facility] MEDICAID [id number] Effective for all dates ATTN CLAIMS DEPARTMENT 1 [facility], [address] [place] [address] Medicaid Managed Care [facility] MEDICAID [id number] Effective for all dates ATTN CLAIMS DEPARTMENT 1 [facility], [address] [place] [address] Medicaid Managed Care [facility] MEDICAID [id number] Effective for all dates ATTN CLAIMS DEPARTMENT 1 [facility], [place] [address] [place] [address], [place] [address] Medicaid Managed Care [facility] MEDICAID [id number] Effective for all dates ATTN CLAIMS DEPARTMENT 1 [facility], [address] [place] [address] Medicaid Managed Care [facility] MEDICAID [id number] Effective for all dates ATTN CLAIMS DEPARTMENT 1 [facility], [address] [place] [address] Medicaid Managed Care [facility] MEDICAID [id number] Effective for all dates ATTN CLAIMS DEPARTMENT 1 [facility], [address] [place] [address] Medicaid Managed Care [facility] MEDICAID [id number] Effective for all dates ATTN CLAIMS DEPARTMENT 1 [facility], [address] [place] [address] Medicaid Managed Care [facility] MEDICAID [id number] Effective for all dates ATTN CLAIMS DEPARTMENT 1 [facility], [address] [place], [place] [id number] Medicaid Managed Care [facility] MEDICAID [id number] Effective for all dates ATTN CLAIMS DEPARTMENT 1 [facility], [address] [place] [address] Medicaid Managed Care [facility] MEDICAID [id number] Effective for all dates ATTN CLAIMS DEPARTMENT 1 [facility], [address] [place] [address] Medicaid Managed Care [facility] MEDICAID [id number] Effective for all dates ATTN CLAIMS DEPARTMENT 1 [facility], [place] [address] [place] [address] Medicaid Managed Care [facility] MEDICAID [id number] Effective for all dates ATTN CLAIMS DEPARTMENT 1 [facility], [place] [address] [place] [id number] Medicaid Managed Care [facility] MEDICAID [id number] Effective for all dates ATTN CLAIMS DEPARTMENT 1 [facility], [place] [address] [place] [id number] Medicaid Managed Care [facility] MEDICAID [id number] Effective for all dates ATTN CLAIMS DEPARTMENT 1 [facility], [address] [place] [id number] Medicaid Managed Care [facility] MEDICAID [id number] Effective for all dates ATTN CLAIMS DEPARTMENT 1 [facility], [place] [place] [id number] Medicaid Managed Care [facility] [id number] Effective for all dates [address] [address] [place] [address] Medicaid Managed Care [facility] [id number] Effective for all dates [address] [address] [place] [address] Medicaid Managed Care [facility] [id number] Effective for all dates [address] [address] [place] [address] Medicaid Managed Care [facility] [id number] Effective for all dates [address] [address] [place] [address] Medicaid Managed Care [facility] [id number] Effective for all dates [address] [address] [place] [address] Medicaid Managed Care [facility] [id number] Effective for all dates [address] [address] [place] [address] Medicaid Managed Care [facility] [id number] Effective for all dates [address] [address] [place] [address] Medicaid Managed Care [facility] [id number] Effective for all dates [address] [address] [place] [address] Medicaid Managed Care [facility] [id number] Effective for all dates [address] [address] [place] [address] Medicaid Managed Care [facility] [id number] Effective for all dates [address] [address] [place] [address] Medicaid Managed Care [facility] [id number] Effective for all dates [address] [address] [place] [address] Medicaid Managed Care [facility] [id number] Effective for all dates [address] [address] [place] [address] Medicaid Managed Care [facility] [id number] Effective for all dates [address] [address] [place] [address] Medicaid Managed Care [facility] [id number] Effective for all dates [address] [address] [place] [address] Medicaid Managed Care [facility] [id number] Effective for all dates [address] [address] [place] [address] Medicaid Managed Care [facility] [id number] 10/03/2017-Pre sent [address] [address] [place] [address] Medicaid Managed Care Advance Directives * Full Code (Latest Code Status on File) Date Activated Date Inactivated Comments 04/05/2019 11:56 AM 04/07/2019 6:36 PM * Full Code Date Activated Date Inactivated Comments 09/14/2018 3:08 PM 09/16/2018 7:30 PM Care Teams [employer] Super[employer] Relationship Specialty Start Date End Date Yan Mata MD [address] [id number] PCP - General 07/27/18 Yan Mata MD [address] [address] 07/27/18
--- OUTSIDE RECORDS SUMMARY | 2024-12-03 09:31 | XMS_ITS | Patient Health Summary ---
Author Organization [facility] Address [address] [place] [address] Care Team Providers Care Developer Prover Upholstering Name Role Phone Yan Mata MD Primary Care Provider [phone] Yan Mata MD Unavailable Note from [facility],non-owned Affiliates and Associated Physician Practices is amultiple site organization consisting of ambulatory clinics and hospital sitesin [place], [place], [place] and [place]. This disclosure is being madepursuant to the Care Everywhere program and may not contain all information available regarding this patient. Last updated 18.[facility] Allergies * Chloraprep One Step(Skin Reactions) -Medium Criticality * Lisinopril(Rash) -Medium Criticality Medications * Be aware that medications may not be up to date on this document. Alwaysverify current medications with the patient. * Cholecalciferol 50 MCG (1999) Take 1 (one) tablet by mouth once daily * Multiple Vitamin (MULTI-VITAMINS) TABS Take 1 (one) tablet by mouth once daily * hydroCHLOROthiazide (MICROZIDE) 12.5 MG capsule(Started 02/25/2021) 1 (one) capsule once daily * anastrozole (ARIMIDEX) 1 MG tablet(Started 03/27/2022) Take 1 (one) tablet by mouth once daily * rosuvastatin (Crestor) 10 MG tablet(Started 06/23/2023) Take 1 (one) tablet by mouth once daily * omeprazole (PriLOSEC) 20 MG capsule(Started 10/10/2023) Take 1 (one) capsule by mouth daily before breakfast * Myrbetriq 50 MG tablet(Started 08/13/2024) Take 1 (one) tablet by mouth once daily 4 refills by 08/13/2025 Active Problems Problem Noted Date Diagnosed Date Trigger finger, left middle finger 09/01/2023 False positive antinuclear a ntibody (NORBERTO) level 1:320 nuclear dot pattern 09/01/2023 Arteriosclerosis of coronary artery 06/23/2023 09/15/2023 Hyperlipidemia 06/23/2023 09/15/2023 Abnormal EKG 03/05/2023 06/09/2023 Palpitations 03/05/2023 06/09/2023 Shortness of breath 03/05/2023 06/09/2023 Osteopenia of multiple sites 12/17/202205/2023 Malignant neoplasm of overla pping sites of right breast in female, estrogen receptor positive 01/15/2022 Cancer Staging:Clinical stage from 12/18/2021: cT1b, cN0, cM0, GX, ER+, WY+, HER2- - Signed by Sadia Ortiz MD on 01/15/2022 Pathologic stage from 01/25/2022:Stage IA(pT1c, pN0(sn), cM0, G2, ER+, WY+, HER2- ) - Signed by Sadia Ortiz MD on 02/12/2022 Malignant neoplasm of upper- outer quadrant of right breast in female, estrogen receptor positive 01/02/2022 Dystrophia unguium 10/16/2021 Onychomycosis 10/16/2021 Pain in toe 10/16/2021 Age-related nuclear cataract of both eyes 2020 Meibomian gland dysfunction (MGD) of both eyes 0 03/19/2021 Family history of breast cancer 11/18/2019 Abnormal mammogram 11/18/2019 Mammographic calcification 11/18/2019 Arthritis of left knee 04/05/2019 Primary osteoarthritis of right knee 09/14/2018 Chest pain 10/22/2017 Family history of coronary artery disease 2016 Hypertension 10/22/2017 Obesity 10/22/2017 Osteoarthrosis 10/22/2017 Primary osteoarthritis of left knee Lateral subluxation of left patella Immunizations * Covid Moderna primary monovalent 12+ yr 0.5mL(Given 08/26/2021, 01/12/2021, 12/14/2020) * INFLUENZA VACCINE(Given 07/17/2022, 07/23/2021) * INFLUENZA VACCINE, HIGH-DOSE, QUADR. (FLUZONE HIGH-DOSE QUADRIVALENT; 65Y+), 0.7 ML (HD-IIV4)(Given 09/10/2019) Social History Tobacco Use Types Packs/Day Years [...] Mass Index 31.93 08/13/2024 11:40 AM CDT Medical Devices Implanted Type Area Defence Intelligence Analyst Device Identifier Shelf Expiration Date Model / Serial / Lot Mrkr 18ga Magseed Brstbio 7cm Implanted:Qty : 1 on 01/24/2022 by Korin Cortez MD at [facility] Implant Non-Ortho Right: Breast Devicor 06/10/2025 [id number] / / [id number] Mrkr 18ga Magseed Brstbio 7cm Implanted:Qty : 1 on 01/24/2022 by Korin Cortez MD at [facility] Implant Non-Ortho Right: Breast Devicor 07/03/2025 [id number] / / [id number] Ins Tib 1-2 11mm Kn Xlpe Cr Hi Flxn Implanted:Qty : 1 on 09/14/2018 by Leo Mercedes MD at [facility] Right: Knee [employer] 08/03/2023 [id number] / / [id number] Description:LGN CR HIGH FLEX XLPE SZ 1-2 11MM--09/17 LG Stem Tib 16mm Prfx Mtphsl Implanted:Qty : 1 on 09/14/2018 by eLo Mercedes MD at [facility] Right: Knee [employer] 06/03/2023 [id number] / / [id number] Description:METAPHYSEAL TIB STEM 16MM--09/17 LG Legion Por Cr Rowell Fem R Sz 3 Implanted:Qty : 1 on 09/14/2018 by Leo Mercedes MD at [facility] Right: Knee [employer] 11/24/2025 [id number] / / [id number] Description:LGN POR CR ROWELL FE M SZ 3 RT--09/17 LG Legion Por Rowell Tib Base R Sz 2 Implanted:Qty : 1 on 09/14/2018 by Leo Mercedes MD at [facility] Right: Knee [employer] 07/04/2023 [id number] / / [id number] Description:LEGION POROUS ROWELL TIBIAL BASE SZ 2 RT--09/17 LG Screw Bsplt 15mm 6.5mm Gns2 Kn Tib Por Implanted:Qty : 1 on 09/14/2018 by Leo Mercedes MD at [facility] Right: Knee [employer] 06/13/2028 [id number] / / [id number] Description:G2 6.5MM SCREW 1 56MM LNGTH--09/17 LG Screw Bsplt 20mm 6.5mm Gns2 Kn Tib Por Implanted:Qty : 1 on 09/14/2018 by Leo Mercedes MD at [facility] Right: Knee [employer] 06/13/2028 [id number] / / [id number] Description:G2 6.5MM SCREW 2 0MM LNGTH--09/17 LG Screw Bsplt 20mm 6.5mm Gns2 Kn Tib Por Implanted:Qty : 1 on 09/14/2018 by Leo Mercedes MD at [facility] Right: Knee [employer] 06/13/2028 [id number] / / [id number] Description:G2 6.5MM SCREW 2 0MM LNGTH--09/17 LG Screw Bsplt 15mm 6.5mm Gns2 Kn Tib Por Implanted:Qty : 1 on 09/14/2018 by Leo Mercedes MD at [facility] Right: Knee [employer] 07/07/2027 [id number] / / [id number] Description:G2 6.5MM SCREW 1 5MM LNGTH--09/17 LG Blayne K2 Sys Kn Uncemented Implanted:Qty : 1 on 09/14/2018 by Leo Mercedes MD at [facility] Right: Knee [employer] K2 UNCEMENTED / / Legion Por Rowell Tib Base L Sz 2 Implanted:Qty : 1 on 04/05/2019 by Leo Mercedes MD at [facility] Left: Knee [employer] 05/02/2020 [id number] / / [id number] Description:fc LEGION POROUS ROWELL TIBIAL BASE SZ 2 LT--04/08 LG Stem Tib 16mm Prfx Mtphsl Implanted:Qty : 1 on 04/05/2019 by Leo Mercedes MD at [facility] Left: Knee [employer] 08/03/2027 [id number] / / [id number] Description:fc METAPHYSEAL TIB STEM 16MM--04/08 LG Legion Por Cr Rowell Fem L Sz 3 Implanted:Qty : 1 on 04/05/2019 by Leo Mercedes MD at [facility] Left: Knee [employer] 12/03/2023 [id number] / / [id number] Description:fc LGN POR CR ROWELL FEM SZ 3 LT--04/08 LG Ins Xlpe Dished Artc Sz 1-2 11mm Implanted:Qty : 1 on 04/05/2019 by Leo Mercedes MD at [facility] Left: Knee [employer] 04/02/2024 [id number] / / [id number] Description:fc LGN XLPE DISHED ISRT SZ 1-2 11MM--04/08 LG Screw Bsplt 15mm 6.5mm Gns2 Kn Tib Por Implanted:Qty : 1 on 04/05/2019 by Leo Mercedes MD at [facility] Left: Knee [employer] 02/10/2027 [id number] / / [id number] Description:fc G2 6.5MM SCREW 15MM LNGTH--04/08 LG Screw Bsplt 15mm 6.5mm Gns2 Kn Tib Por Implanted:Qty : 1 on 04/05/2019 by Leo Mercedes MD at [facility] Left: Knee [employer] 01/19/2028 [id number] / / [id number] Description:fc G2 6.5MM SCREW 15MM LNGTH--04/08 LG Screw 6.5mm 25mm Hip Actb Canc Sphrcl Implanted:Qty : 1 on 04/05/2019 by Leo Mercedes MD at [facility] Left: Knee [employer] 07/07/2028 [id number] / / [id number] Description:fc REF SPHER HEAD SCREW 25MM--04/08 LG Screw Bsplt 15mm 6.5mm Gns2 Kn Tib Por Implanted:Qty : 1 on 04/05/2019 by Leo Mercedes MD at [facility] Left: Knee [employer] 11/16/2028 [id number] / / [id number] Description:fc G2 6.5MM SCREW 15MM LNGTH--04/08 LG Blayne K2 Sys Kn Uncemented Implanted:Qty : 1 on 04/05/2019 by Leo Mercedes MD at [facility] Left: Knee [employer] K2 UNCEMENTED / / Mrkr Apl 3 Mrfbr Pd Radopq Interwoven Implanted:Qty : 1 on 01/18/2022 by Korin Cortez MD at [facility] Right: Breast Bard Peripheral Vascular 01/02/2024 [id number] / / [id number] Procedures * XR KNEE BILAT 4VW OR MORE(Performed 06/02/2024) Performed for History of total bilateral knee replacement * WY PESSARY, NON RUBBER,ANY TYPE(Performed 04/23/2024) Performed for Cystocele, midline, Rectocele * WY FIT/INSERT INTRAVAG SUPPORT DEVICE(Performed 04/23/2024) Performed for Cystocele, midline, Rectocele * WY CHEM CAUTERY GRANULATN TISSUE(Performed 03/26/2024) Performed for Granulation tissue * MAMMO BILAT DIAGNOSTIC W BRIGITTE(Performed 12/11/2023) Performed for Malignant neoplasm of overlapping sites of right breast in female, estrogen receptor positive (HCC) * WY PESSARY, NON RUBBER,ANY TYPE(Performed 09/15/2023) Performed for Cystocele, midline, Rectocele * WY FIT/INSERT INTRAVAG SUPPORT DEVICE(Performed 09/15/2023) Performed for Cystocele, midline, Rectocele * WY CHEM CAUTERY GRANULATN TISSUE(Performed 06/09/2023) Performed for Granulation tissue * MAMMO BILAT DIAGNOSTIC W BRIGITTE(Performed 12/05/2022) Performed for Malignant neoplasm of overlapping sites of right breast in female, estrogen receptor positive (HCC) * US BREAST RIGHT LTD(Performed 09/02/2022) Performed for Malignant neoplasm of overlapping sites of right breast in female, estrogen receptor positive (HCC), Mass of right breast, unspecified quadrant * MAMMO RIGHT DIAGNOSTIC W BRIGITTE(Performed 09/02/2022) Performed for Malignant neoplasm of overlapping sites of right breast in female, estrogen receptor positive (HCC), Mass of right breast, unspecified quadrant * WY INSERT NON-INDWELLING BLADDER(Performed 04/08/2022) Performed for Urge urinary incontinence * URINALYSIS AUTO - POINT OF CARE (AMB) [facility]U(Performed 04/08/2022) Performed for Urge urinary incontinence * MAMMO BREAST RIGHT SPECIMEN(Performed 01/25/2022) Performed for Malignant neoplasm of overlapping sites of right breast in female, estrogen receptor positive (HCC) * PATHOLOGY TISSUE(Performed 01/25/2022) Performed for Malignant neoplasm of overlapping sites of right breast in female, estrogen receptor positive (HCC) * WY BX/REMV,LYMPH NODE,DEEP AXILL(Performed 01/25/2022) Performed for Malignant neoplasm of overlapping sites of right breast in female, estrogen receptor positive (HCC) * MASTECTOMY PARTIAL / LUMPECTOMY(Performed 01/25/2022) Performed for Malignant neoplasm of overlapping sites of right breast in female, estrogen receptor positive (HCC) * LARYNGEAL MASK AIRWAY(Performed 01/25/2022) * NM SENTINEL NODE INJECTION(Performed 01/25/2022) Performed for Malignant neoplasm of overlapping sites of right breast in female, estrogen receptor positive (HCC) * MAMMO RIGHT NEEDLE LOCALIZATION(Performed 01/24/2022) Performed for Malignant neoplasm of overlapping sites of right breast in female, estrogen receptor positive (HCC) * BASIC METABOLIC PANEL (CALCIUM TOTAL)(Performed 01/18/2022) Performed for Pre-op exam * MAMMO STEREOTACTIC RIGHT BIOPSY(Performed 01/18/2022) Performed for Abnormal mammogram * MAMMO RIGHT POST CLIP OR WIRE(Performed 01/18/2022) Performed for Abnormal mammogram * PATHOLOGY TISSUE(Performed 01/18/2022) Performed for Abnormal mammogram * US BREAST RIGHT OUTSIDE(Performed 01/17/2022) Performed for Malignant neoplasm of overlapping sites of right breast in female, estrogen receptor positive (HCC) * MM OUTSIDE MAMMOGRAM(Performed 01/17/2022) Performed for Abnormal mammogram * URINALYSIS AUTO - POINT OF CARE (AMB) [facility](Performed 08/24/2021) Performed for Urge urinary incontinence * WY INSERT NON-INDWELLING BLADDER(Performed 05/09/2021) Performed for Cystocele, midline * WY PESSARY, NON RUBBER,ANY TYPE(Performed 04/09/2021) Performed for Cystocele, midline, Rectocele * WY FIT/INSERT INTRAVAG SUPPORT DEVICE(Performed 04/09/2021) Performed for Cystocele, midline, Rectocele * WY BIOPSY OF UTERUS LINING(Performed 03/05/2021) Performed for Fluid in endometrial cavity * PATHOLOGY TISSUE(Performed 03/05/2021) Performed for Fluid in endometrial cavity * US PELVIS COMPLETE(Performed 03/05/2021) Performed for Pelvic pain in female * WY SONO EXAM, TRANSVAGINAL(Performed 03/05/2021) Performed for Pelvic pain in female * WY US PEL NONOB B-SCAN&/R-T IMG LMTD/F-UP+C97(Performed 03/05/2021) Performed for Pelvic pain in female * URIC ACID BLOOD(Performed 03/03/2021) Performed for Positive NORBERTO (antinuclear antibody), Left foot pain * CYCLIC CITRUL PEPTIDE ANTIBODY IGG/IGA (CCP)(Performed 03/03/2021) Performed for Positive NORBERTO (antinuclear antibody) * RHEUMATOID FACTOR BLOOD QUANTITATIVE(Performed 03/03/2021) Performed for Positive NORBERTO (antinuclear antibody) * ERYTHROCYTE SEDIMENTATION RATE(Performed 03/03/2021) Performed for Positive NORBERTO (antinuclear antibody) * C-REACTIVE PROTEIN(Performed 03/03/2021) Performed for Positive NORBERTO (antinuclear antibody) * COMPLEMENT C3 C4 PANEL(Performed 03/03/2021) Performed for Positive NORBERTO (antinuclear antibody) * NORBERTO PANEL COMPREHENSIVE(Performed 03/03/2021) Performed for Positive NORBERTO (antinuclear antibody) * WY BIOPSY OF CERVIX(Performed 02/02/2021) Performed for Cervical polyp * WY INSERT NON-INDWELLING BLADDER(Performed 02/02/2021) Performed for OAB (overactive bladder) * PAP IMAGE-GUIDED W HPV(Performed 01/29/2021) Performed for Pelvic pain in female * PATHOLOGY TISSUE(Performed 01/29/2021) Performed for Pelvic pain in female * HPV DETECTION HIGH RISK COLBY(Performed 01/29/2021) Performed for Pelvic pain in female * URINALYSIS AUTO - POINT OF CARE (AMB) [facility](Performed 01/29/2021) Performed for OAB (overactive bladder) * WY MSR PVR U&/BLADD CAPCTY US NON(Performed 01/01/2021) Performed for Sensation of pressure in bladder area, Acquired female bladder prolapse * URINALYSIS AUTO - POINT OF CARE (AMB) [facility](Performed 01/01/2021) Performed for Sensation of pressure in bladder area * XR KNEE LEFT 4VW OR MORE(Performed 05/09/2020) Performed for Status post left knee replacement * XR KNEE LEFT 4VW OR MORE(Performed 10/19/2019) Performed for Status post left knee replacement * XR KNEE LEFT 4VW OR MORE(Performed 07/20/2019) Performed for Status post left knee replacement * XR KNEE LEFT 4VW OR MORE(Performed 05/05/2019) Performed for Left knee pain, unspecified chronicity * IMAGING/RADIOLOGY/XRAY RESULTS ORDER(Performed 04/12/2019) * CARDIAC RHYTHM STRIP ORDER(Performed 04/12/2019) * HGB HCT PANEL(Performed 04/07/2019) * HGB HCT PANEL(Performed 04/06/2019) * PERIPHERAL BLOCK(Performed 04/05/2019) * PERIPHERAL BLOCK(Performed 04/05/2019) * ENDOTRACHEAL TUBE NOTE(Performed 04/05/2019) * ARTHROPLASTY TOTAL KNEE(Performed 04/05/2019) Performed for Diagnosis unknown * URINALYSIS REFLEX MICROSCOPIC REFLEX CULTURE(Performed 03/25/2019) Performed for Pre-op testing * TRANSFERRIN(Performed 03/25/2019) Performed for Pre-op testing * COMPREHENSIVE METABOLIC PANEL(Performed 03/25/2019) Performed for Pre-op testing * CBC W AUTO DIFFERENTIAL(Performed 03/25/2019) Performed for Pre-op testing * CULTURE MSSA/MRSA(Performed 03/25/2019) Performed for Pre-op testing * XR KNEE LEFT 4VW OR MORE(Performed 01/27/2019) Performed for Left knee pain, unspecified chronicity * XR KNEE RIGHT 4VW OR MORE(Performed 12/30/2018) Performed for Right knee pain, unspecified chronicity * XR KNEE RIGHT 4VW OR MORE(Performed 10/14/2018) Performed for Right knee pain, unspecified chronicity * IMAGING/RADIOLOGY/XRAY RESULTS ORDER(Performed 09/18/2018) * CARDIAC RHYTHM STRIP ORDER(Performed 09/17/2018) * BASIC METABOLIC PANEL (CALCIUM TOTAL)(Performed 09/16/2018) Performed for Primary osteoarthritis of right knee * HGB HCT PANEL(Performed 09/16/2018) Performed for Primary osteoarthritis of right knee * HGB HCT PANEL(Performed 09/15/2018) Performed for Primary osteoarthritis of right knee * ENDOTRACHEAL TUBE NOTE(Performed 09/14/2018) * PERIPHERAL BLOCK(Performed 09/14/2018) * PERIPHERAL BLOCK(Performed 09/14/2018) * ARTHROPLASTY TOTAL KNEE(Performed 09/14/2018) Performed for Diagnosis unknown * TRANSFERRIN(Performed 08/25/2018) Performed for Pre-op testing * URINALYSIS REFLEX MICROSCOPIC REFLEX CULTURE(Performed 08/25/2018) Performed for Pre-op testing * COMPREHENSIVE METABOLIC PANEL(Performed 08/25/2018) Performed for Pre-op testing * CBC W AUTO DIFFERENTIAL(Performed 08/25/2018) Performed for Pre-op testing * CULTURE MSSA/MRSA(Performed 08/25/2018) Performed for Pre-op testing * XR KNEE LEFT 4VW OR MORE(Performed 10/03/2017) * XR KNEE RIGHT 4VW OR MORE(Performed 10/03/2017) * CULTURE URINE(Performed 04/12/2014) Results * XR Knee Bilat 4Vw or More (06/02/2024 12:43 PM CDT) Anatomical Region Laterality Modality Lower Extremity Radiographic Lisa ging 06/02/2024 1:10 PM CDT Narrative 06/02/2024 1:11 PM CDT Procedure: XR KNEE BILAT 4VW OR MORE ??Exam Date: ??06/02/2024 12:43 PM ?? Location: ??[facility] Indication: Z96.653: Presence of artificial knee joint, bilateral Findings/impression: The study is compared to old left knee exams from May 2019. Bilateral knee replacements are noted. The prostheses appear in good position. There is no fracture or loosening. There is no joint effusion. There is no acute bony abnormality > Interpreting Provider: Jesus Connell MD on 06/02/2024 1:11 PM Procedure Note Jesus Connell MD - 06/02/2024 Procedure: XR KNEE BILAT 4VW OR MORE Exam Date: 06/02/2024 12:43 PM Location: [facility] Indication: Z96.653: Presence of artificial knee joint, bilateral Findings/impression: The study is compared to old left knee exams from May 2019. Bilateral knee replacements are noted. The prostheses appear in good position. There is no fracture or loosening. There is no joint effusion. There is no acute bony abnormality > Interpreting Provider: Jesus Connell MD on 06/02/2024 1:11 PM Leo Mercedes MD DIAGNOSTIC IMAGING ORDERABLES * WY FIT/INSERT INTRAVAG SUPPORT DEVICE, WY PESSARY, NON RUBBER,ANY TYPE (04/23/2024 11:14 AM CDT) Narrative Roxann Ulloa MD - 04/23/2024 11:14 AM CDT Roxann Ulloa MD ? 04/23/2024 11:20 AM Pessary Fitting: She was fitted with: #1 RWS which fit comfortably without pain/undue tension on the vaginal tissues. She ambulated around the clinic and was able to retain the pessary comfortably. Roxann Ulloa MD PROCEDURE/MINOR JOCELYNE GICAL ORDERABLES * WY CHEM CAUTERY GRANULATN TISSUE (03/26/2024 11:22 AM CDT) Narrative Roxann Ulloa MD - 03/26/2024 11:22 AM CDT Roxann Ulloa MD ? 03/26/2024 ??2:45 PM Speculum exam was performed and the vaginal mucosa had ulcerations and granulation tissue on the proximal anterior and posterior vaginal bartholomew. Verbal consent obtained. ??Granulation tissue treated with silver nitrate. The patient tolerated the procedure well. Roxann Ulloa MD PROCEDURE/MINOR JOCELYNE GICAL ORDERABLES * MAMMO BILAT DIAGNOSTIC W BRIGITTE (12/11/2023 10:44 AM BRANCH LENDING OFFICER) Only the most recent of2 resultswithin the time period is included. Anatomical Region Laterality Modality Breast Bilateral Mammography 12/11/2023 10:3 7 AM BRANCH LENDING OFFICER Impressions 12/11/2023 10:50 AM BRANCH LENDING OFFICER : No mammographic evidence of malignancy, status post right breast conservation therapy. RECOMMENDATION: ??Screening mammography in one year, pending no interval breast concerns. Patient was notified of the results at the time of her study. She will see Dr. Ortiz in the breast clinic today. OVERALL ASSESSMENT: ??BI-RADS CATEGORY 2: BENIGN. Report dictated by Chiki Rivera M.D. (interventional radiology tech) 12/11/2023 10:48 AM. William Barrios D.O. also assisted in the dictation. I, Korin Cortez MD have personally reviewed and interpreted this examination/study. > Interpreting Provider: Korin Cortez MD on 12/11/2023 10:50 AM Narrative 12/11/2023 10:50 AM BRANCH LENDING OFFICER EXAMINATIONS: BILATERAL DIGITAL DIAGNOSTIC MAMMOGRAM AND BREAST TOMOSYNTHESIS WITH CAD LOCATION: [facility] EXAM DATE: ??12/11/2023 HISTORY: Patient is a [...] mammograms. Sadia Ortiz MD MAMMO ORDERABLES * WY FIT/INSERT INTRAVAG SUPPORT DEVICE, WY PESSARY, NON RUBBER,ANY TYPE (09/15/2023 3:15 PM BRANCH LENDING OFFICER) Narrative Roxann Ulloa MD - 09/15/2023 3:15 PM BRANCH LENDING OFFICER Roxann Ulloa MD ? 09/15/2023 ??5:19 PM Pessary Fitting: She was fitted with: #2 RWS which fit comfortably without pain/undue tension on the vaginal tissues. She ambulated around the clinic and was able to retain the pessary comfortably. Roxann Ulloa MD PROCEDURE/MINOR JOCELYNE GICAL ORDERABLES * WY CHEM CAUTERY GRANULATN TISSUE (06/09/2023 1:59 PM CDT) Narrative Roxann Ulloa MD - 06/09/2023 1:59 PM CDT Roxann Ulloa MD ? 06/09/2023 ??2:02 PM Speculum exam was performed and the vaginal mucosa had granulation tissue on the proximal posterior wall and right vaginal side wall near the cervix. ??Silver nitrate was used to cauterize the granulation tissue. The patient tolerated the procedure well. Roxann Ulloa MD PROCEDURE/MINOR JOCELYNE GICAL ORDERABLES * US BREAST RIGHT LTD (09/02/2022 2:07 PM CDT) Anatomical Region Laterality Modality Breast Right Mammography 09/02/2022 1:17 PM CDT Impressions 09/02/2022 2:16 PM CDT : No right mammographic or targeted right breast sonographic evidence of malignancy, with attention the area of concern in the medial right breast. RECOMMENDATION: ??Bilateral mammography is due in November 2022, pending no interval breast concerns. Dr. Cortez discussed the examination findings and recommendations with the patient at the time of the examination. OVERALL ASSESSMENT: ??BI-RADS CATEGORY 2: BENIGN. > Interpreting Provider: Korin Cortez MD on 09/02/2022 2:16 PM Narrative 09/02/2022 2:16 PM CDT EXAMINATIONS: 1. ??DIGITAL MAMMO RIGHT DIAGNOSTIC W BRIGITTE WITH CAD AND 2. ??LIMITED RIGHT BREAST ULTRASOUND (COMBINED REPORT) DATE OF EXAM: 09/02/2022 1:07 PM HISTORY: This is a 72-year-old female with history of right breast cancer, status post right breast conservation therapy 01/25/2022. Patient feels a new lump in the upper inner quadrant of the right breast. COMPARISON: Prior studies back to 2019, with the most recent bilateral screening mammogram dated 11/22/2021 from [facility]. Compare with a right postbiopsy mammogram from [facility] 01/24/2022. MAMMOGRAM: TECHNIQUE: Diagnostic right mammography was performed. Tomosynthesis (3-D) and reconstructed synthetic 2-D images acquired. Right CC, MLO, true lateral and CC and MLO spot compression views obtained. A total of 6 images were obtained. ??Computer-aided detection (CAD) was utilized. ?Triangular-shaped marker placed on a palpable abnormality in the right breast. ?? BREAST COMPOSITION: Category C: The breasts are heterogeneously dense which may obscure small masses. FINDINGS: ??Status post interval right breast conservation therapy in the lateral breast. Previously noted mass laterally is no longer present. No suspicious microcalcifications. No abnormality is identified with attention to the medial breast were patient feels a lump. There is some nonspecific skin thickening around the areola, which may be related to radiation changes. LIMITED RIGHT ??BREAST ULTRASOUND: ? Ultrasound of the medial of the breast was performed. Scanning performed from the 1 to the ??[address] Cortez also scanned the patient. FINDINGS: ??Targeted ultrasound is of this area unremarkable, without mass or suspicious finding. Sadia Ortiz MD US ORDERABLES * MAMMO RIGHT DIAGNOSTIC W BRIGITTE (09/02/2022 1:06 PM CDT) Anatomical Region Laterality Modality Breast Right Mammography 09/02/2022 1:17 PM CDT Impressions 09/02/2022 2:16 PM CDT : No right mammographic or targeted right breast sonographic evidence of malignancy, with attention the area of concern in the medial right breast. RECOMMENDATION: ??Bilateral mammography is due in November 2022, pending no interval breast concerns. Dr. Cortez discussed the examination findings and recommendations with the patient at the time of the examination. OVERALL ASSESSMENT: ??BI-RADS CATEGORY 2: BENIGN. > Interpreting Provider: Korin Cortez MD on 09/02/2022 2:16 PM Narrative 09/02/2022 2:16 PM CDT EXAMINATIONS: 1. ??DIGITAL MAMMO RIGHT DIAGNOSTIC W BRIGITTE WITH CAD AND 2. ??LIMITED RIGHT BREAST ULTRASOUND (COMBINED REPORT) DATE OF EXAM: 09/02/2022 1:07 PM HISTORY: This is a 72-year-old female with history of right breast cancer, status post right breast conservation therapy 01/25/2022. Patient feels a new lump in the upper inner quadrant of the right breast. COMPARISON: Prior studies back to 2019, with the most recent bilateral screening mammogram dated 11/22/2021 from [facility]. Compare with a right postbiopsy mammogram from [facility] 01/24/2022. MAMMOGRAM: TECHNIQUE: Diagnostic right mammography was performed. Tomosynthesis (3-D) and reconstructed synthetic 2-D images acquired. Right CC, MLO, true lateral and CC and MLO spot compression views obtained. A total of 6 images were obtained. ??Computer-aided detection (CAD) was utilized. ?Triangular-shaped marker placed on a palpable abnormality in the right breast. ?? BREAST COMPOSITION: Category C: The breasts are heterogeneously dense which may obscure small masses. FINDINGS: ??Status post interval right breast conservation therapy in the lateral breast. Previously noted mass laterally is no longer present. No suspicious microcalcifications. No abnormality is identified with attention to the medial breast were patient feels a lump. There is some nonspecific skin thickening around the areola, which may be related to radiation changes. LIMITED RIGHT ??BREAST ULTRASOUND: ? Ultrasound of the medial of the breast was performed. Scanning performed from the 1 to the ??[address] Cortez also scanned the patient. FINDINGS: ??Targeted ultrasound is of this area unremarkable, without mass or suspicious finding. Sadia Ortiz MD MAMMO ORDERABLES * [place] INSERT NON-INDWELLING BLADDER (04/08/2022 5:35 PM CDT) Narrative Roxann Ulloa MD - 04/08/2022 5:35 PM CDT Roxann Ulloa MD ? 04/08/2022 ??5:38 PM Procedure note: Straight catheterization was performed after swabbing the urethra with betadine. A 14 Fr urethral catheter was inserted without difficulty and the bladder was drained for 50 ml. Roxann Ulloa MD PROCEDURE/MINOR JOCELYNE GICAL ORDERABLES * URINALYSIS AUTO - POINT OF CARE (AMB) [facility] (04/08/2022 4:42 PM CDT) Only the most recent of4 resultswithin the time period is included. Glucose UA neg Bilirubin UA POCT neg Ketones UA POCT neg Specific [place] UA 1.010 Blood Urine POCT neg pH UA 6.5 Protein UA neg Urobilinogen UA neg Nitrite UA neg WBC UA neg Urine URINE / Unknown 04/08/2022 4 :42 PM CDT Roxann Ulloa MD LAB - POINT OF CARE ORDERABLES * MAMMO BREAST RIGHT SPECIMEN (01/25/2022 11:58 AM CDT) Anatomical Region Laterality Modality Breast Right Mammography 01/25/2022 12:0 3 PM CDT Impressions 01/25/2022 11:58 AM CDT IMPRESSION: The ribbon-shaped clip and david-shaped clip as well as the 2 magseeds are contained within the [address] Cortez discussed this with Dr. Ortiz on ??01/25/2022 at 1205 hours. Dictated by Sybil Weber MD (interventional radiology tech). I, Dr. KORIN CORTEZ M.D. have personally reviewed and interpreted this examination/study. This report was electronically signed by KORIN CORTEZ M.D. ??on 01/25/2022 12:42 PM . Narrative 01/25/2022 11:58 AM CDT EXAM: SPECIMEN RADIOGRAPH FROM THE RIGHT ??BREAST x 2. DATE OF EXAM: ??01/25/2022 HISTORY: ??Biopsy-proven cancer in 2 sites in the right breast. Ribbon-shaped clip and david-shaped clip. 2 mag seeds placed. COMPARISON: Prior mammograms dated 01/17/2022 through 01/24/2022 TECHNIQUE: 2 digital images obtained of the surgical specimen. FINDINGS: There are 2 specimens obtained. The larger specimen contains the ribbon-shaped clip and david-shaped clip as well as a magseed. A few tiny calcifications are adjacent to the magseed. The second smaller specimen contains the second magseed. Sadia Ortiz MD MAMMO ORDERABLES * PATHOLOGY TISSUE (01/25/2022 10:20 AM CDT) Only the most recent of4 resultswithin the time period is included. Case Report Surgical Pathology Report ? Case: [id number] ? Authorizing Provider: ??Sadia Ortiz MD ? Collected: ? 01/25/2022 10:20 AM ? Ordering Location: ? [facility] ?Received: ?01/25/2022 11:22 AM ? Pathologist: ? Tess Lopez MD ? Specimens: ?? A) - [place] Lymph Node, RIGHT AXILLARY SENTINEL LYMPH NODES ? B) - Breast, Right, RIGHT LUMPECTOMY; LONG LATERAL, SHORT SUPERIOR, DOUBLE DEEP ? C) - Margin, ADDITIONAL RIGHT LUMPECTOMY INFERIOR POSTERIOR MARGIN; STITCH @ TRUE ? MARGIN ? D) - Margin, ADDITIONAL RIGHT LUMPECTOMY SUPERIOR MARGIN; STITCH @ TRUE MARGIN ? E) - Margin, ADDITIONAL RIGHT LUMPECTOMY LATERAL MARGIN; STITCH @ TRUE MARGIN ? F) - Margin, ADDITIONAL RIGHT LUMPECTOMY INFERIOR MARGIN; STITCH @ TRUE MARGIN ? G) - Margin, ADDITIONAL RIGHT LUMPECTOMY MEDIAL MARGIN; STITCH @ TRUE MARGIN ? H) - Margin, ADDITIONAL RIGHT LUMPECTOMY ANTERIOR MARGIN; STITCH @ TRUE MARGIN ? I) - Margin, ADDITIONAL RIGHT LUMPECTOMY POSTERIOR MARGIN; STITCH @ TRUE MARGIN ? 01/31/2022 4:41 PM CDT [facility] Final Diagnosis Lymph nodes, right axillary sentinel, excision (A): - Two lymph nodes negative for malignancy (0/2) Breast, right, lumpectomy (B): - Invasive ductal carcinoma, moderately differentiated/Nottin gham grade 2, 1.4 cm (microscopic measurement, B9), pT1c - Margins: Invasive carcinoma is present at the lateral, less than 1 mm to the anterior and 1 mm to the medial specimen edge (see parts C-I for final margins) - Ductal carcinoma in situ, intermediate nuclear grade, cribriform type with necrosis and calcifications - Margins: DCIS is less than 1 mm to the anterior and medial specimen edges (see parts C-I for final margins) - Two biopsy sites identified, see comment Breast, right, inferior posterior margin, excision (C): - Benign breast tissue Breast, right, superior margin, excision (D): - Benign breast tissue Breast, right, lateral margin, excision (E): - Benign breast tissue Breast, right, inferior margin, excision (F): - Benign breast tissue Breast, right, medial margin, excision (G): - Benign breast tissue Breast, right, anterior margin, excision (H): - Benign breast tissue Breast, right, posterior margin, excision (I): - Benign fibroadipose tissue This case was amended to reflect the finding of a second biopsy site and to update the staging as multifocal given a second focus of invasion found on a prior biopsy. This second focus has been added to the synoptic report. 01/31/2022 4:41 PM [facility] Amendment electronically signed by Tess Lopez MD on 01/31/2022 at 4:41 PM Microscopic Description and Comment Sections of the right breast lumpectomy (B) show pleomorphic infiltrating epithelial cells arranged in cords and nests admixed with DCIS. P63 demonstrates the presence of myoepithelial cells around foci of DCIS and CK5/6 is negative in these areas, confirming an atypical proliferation. A biopsy plug is identified adjacent to the focus of invasive carcinoma (B8). Hemorrhage, inflammatory cells and polymer, mimicking suture material are present in the tissue superior and anterior to the invasive mass (B2). These histologic changes represent changes from the second biopsy procedure. DCIS is present associated with both biopsy sites. A second focus of invasion with a morphology similar to that seen in the most recent core biopsy ([id number]) is not seen but the smaller, 3 mm focus of invasive carcinoma seen in the biopsy represents a second tumor focus. The synoptic report has been updated to represent the multifocal invasive process. 01/31/2022 4:41 PM [facility] Clinical History The patient is a 71-year-old female who was diagnosed with screen-detected right breast cancer on mammography ([id number]). A second biopsy for additional calcifications 2.5 cm ventral to the previous biopsy demonstrated invasive and in situ carcinoma ([id number]). 01/31/2022 4:41 PM [facility] Gross Description The requisition and specimen(s) are identified with patient's name, Ghislaine Domínguez. Received fresh then placed in formalin, specimen A , R2 yellow fatty tissue fragments 2.0 x 1.5 x 0.8 cm and 2.5 x 1.2 x 0.5 cm. Dissection shows 2 lymph nodes 1.0 to 2.0 cm in greatest dimension. The specimen is submitted as follows A1 two intact lymph nodes, A2 remaining tissue. Specimen processing times on 01/25/2022 are as follows: Time of excision: 1020 Time specimen is cut and placed in formalin: 1045 Total formalin fixation time: 56 hours and 35 minutes Total cold ischemia time: 25 minutes The requisition and specimen label(s) are identified with the patient's name, Ghislaine Domínguez. Received fresh and subsequently placed in formalin, specimen B , is a 13.21 g, 7.5 cm superior to inferior, 3.2 cm medial to lateral, and 0.6 cm superficial to deep right breast lumpectomy specimen with a short stitch denoting superior, a long stitch denoting lateral, and a double stitch denoting deep. The specimen is inked as follows: Superior-blue, inferior-green, medial-red, lateral-orange, superficial-yellow, and deep-black. The specimen is serially sectioned from superior to inferior to show a 1.2 cm superior to inferior by 2.1 cm medial to lateral by 1.6 cm superficial to deep white-pink, ill-defined, firm mass that contains a david-shaped clip and is 1.3 from the superior margin, 0.9 from the inferior margin, and is less than 0.1 cm from the superficial, deep medial and lateral margins. The remaining breast parenchyma is 90% adipose tissue and 10% white delicate fibrous tissue. The specimen is submitted entirely from superior to inferior in B1-B15 (B8-B11 lesion, B8-fullface). SP Specimen processing times on 01/25/2022 are as follows: Time of excision: 1135 Time specimen is cut and placed in formalin: 1300 Total formalin fixation time: 54 hours and 20 minutes Total cold ischemia time: 1 hour and 25 minutes Received fresh then placed in formalin, specimen C is an oriented red-pina to yellow-pina tissue fragment, 2.0 x 1.5 x 0.8 cm, stitch at true margin. The stitch surface is inked black and the opposite surface is inked blue. The specimen is serially sectioned showing a embedded metallic david which is closer to the stage surface. The specimen is serially sectioned and submitted entirely in cassette C1-2. Specimen processing times on 01/25/2022 are as follows: Time of excision: 1140 Time specimen is cut and placed in formalin: 1250 Total formalin fixation time: 54 hours and 30 minutes Total cold ischemia time: 1 hour and 10 minutes Received fresh then placed in formalin, specimen D is a oriented yellow fatty soft tissue fragment 1.5 x 1.0 x 0.8 cm, stitch at true margin. The stitched surface is inked black and the opposite surface is inked blue. The specimen is sectioned and submitted entirely in cassette D1. Specimen processing times on 01/25/2022 are as follows: Time of excision: 1146 Time specimen is cut and placed in formalin: 1250 Total formalin fixation time: 54 hours and 30 minutes Total cold ischemia time: 1 hour and 4 minutes Received fresh then placed in formalin, specimen E is a oriented yellow fatty soft tissue fragments 1.0 x 0.5 x 0.5 cm, stitch for true margin. The stitched surface is inked black and the opposite surface is inked blue. The specimen is sectioned and submitted entirely in cassette E1 Specimen processing times on 01/25/2022 are as follows: Time of excision: 1147 Time specimen is cut and placed in formalin: 1250 Total formalin fixation time: 54 hours and 30 minutes Total cold ischemia time: 1 hour and 3 minutes Received fresh then placed in formalin, specimen F is a oriented yellow-pina tissue fragment 1.0 x 0.7 x 0.4 cm, stitch at true margin. The stitched surface is inked black and the opposite surface is inked blue. The specimen is sectioned and submitted entirely in cassette F1. Specimen processing times on 01/25/2022 are as follows: Time of excision: 1147 Time specimen is cut and placed in formalin: 1250 Total formalin fixation time: 54 hours and 30 minutes Total cold ischemia time: 1 hour and 3 minutes Received fresh then placed in formalin, specimen G is an oriented yellow fatty tissue fragment, 1.0 x 0.3 x 0.3 cm, stitch at true margin. The stitch surface is inked black and the opposite surface is inked blue. The specimen is sectioned and submitted entirely in G1. Specimen processing times on 01/25/2022 are as follows: Time of excision: 1147 Time specimen is cut and placed in formalin: 1250 Total formalin fixation time: 54 hours and 30 minutes Total cold ischemia time: 1 hour and 3 minutes Received fresh then placed in formalin, specimen H is an oriented yellow-pina tissue fragment, 2.3 x 0.8 x 0.8 cm, stitch at true margin. The stitch surface is inked black and the opposite surface is inked blue. The specimen is sectioned and submitted entirely in cassette H1. Specimen processing times on 01/25/2022 are as follows: Time of excision: 1147 Time specimen is cut and placed in formalin: 1250 Total formalin fixation time: 54 hours and 30 minutes Total cold ischemia time: 1 hour and 3 minutes Received fresh then placed in formalin, specimen high is an oriented yellow fatty tissue fragment, 1.2 x 1.0 x 0.8 cm, stitch at true margin. The stitched surface is inked black and the opposite surface is inked blue. The specimen is sectioned and submitted entirely in cassette I1. Specimen processing times on 01/25/2022 are as follows: Time of excision: 1147 Time specimen is cut and placed in formalin: 1250 Total formalin fixation time: 54 hours and 30 minutes Total cold ischemia time: 1 hour and 3 minutes 01/31/2022 4:41 PM [facility] Disclaimer The performance characteristics of all immunohistochemical and indirect immunofluorescence stains (if any) cited in this report were determined by the [facility]. Some of these tests were developed by our own laboratory and have not been cleared or approved by the US Food and Drug Administration. The FDA does not require this test to go through premarket FDA review. These tests are used for clinical purposes. They should not be regarded as investigational or for research. This laboratory is certified under the Clinical Laboratory Improvement Amendments (CLIA) as qualified to perform high complexity clinical laboratory testing. This case has been personally reviewed and interpreted by the attending (teaching) pathologist. 01/31/2022 4:41 PM [facility] Synoptic Report INVASIVE CARCINOMA OF THE BREAST: Resection INVASIVE CARCINOMA OF THE BREAST: COMPLETE EXCISION - All Specimens 8th Edition - Protocol posted: 10/19/2021 SPECIMEN ?? Procedure: ?Excision (less than total mastectomy) ?? Specimen Laterality: ?Right TUMOR ?? Histologic Type: ?Invasive carcinoma of no special type (ductal) ?? Histologic Grade ([place] Histologic Score): ? Glandular (Acinar) / Tubular Differentiation: ?Score 3 ? Nuclear Pleomorphism: ?Score 3 ? Mitotic Rate: ?Score 1 ? Overall Grade: ?Grade 2 (scores of 6 or 7) ?? Tumor Size: ?Greatest dimension of largest invasive focus (Millimeters): 14 mm ?? Tumor Focality: ?Multiple foci of invasive carcinoma ? Number of Foci: ?2 ? Sizes of Individual Foci (Millimeters): ?3 mm Ductal Carcinoma In Situ (DCIS): ?Present ?? : ?Positive for extensive intraductal component (EIC) ?? Size (Extent) of DCIS: ?Cannot be determined ? Number of Blocks with DCIS: ?8 ? Number of Blocks Examined: ?15 ?? Architectural Patterns: ?Cribriform ?? Nuclear Grade: ?Grade II (intermediate) ?? Necrosis: ?Present, central (expansive comedo necrosis) Lobular Carcinoma In Situ (LCIS): ?Not identified Lymphovascular Invasion: ?Not identified Dermal Lymphovascular Invasion: ?No skin present Microcalcifications: ?Present in DCIS Microcalcifications: ?Present in non-neoplastic tissue Treatment Effect in the Breast: ?No known presurgical therapy MARGINS Margin Status for Invasive Carcinoma: ?All margins negative for invasive carcinoma ?? Distance from Invasive Carcinoma to Closest Margin: ?Greater than: 2 mm ?? Closest Margin(s) to Invasive Carcinoma: ?Cannot be determined: all separately submitted margins negative for invasive carcinoma Margin Status for DCIS: ?All margins negative for DCIS ?? Distance from DCIS to Closest Margin: ?Greater than: 2 mm ?? Closest Margin(s) to DCIS: ?Cannot be determined: all separately submitted margins negative for DCIS REGIONAL LYMPH NODES Regional Lymph Node Status: ? : ?All regional lymph nodes negative for tumor ?? Total Number of Lymph Nodes Examined (sentinel and non-sentinel): ?2 ?? Number of [place] Nodes Examined: ?2 DISTANT METASTASIS PATHOLOGIC STAGE CLASSIFICATION (pTNM, AJCC 8th Edition) ?? Reporting of pT, pN, and (when applicable) pM categories is based on information available to the pathologist at the time the report is issued. As per the AJCC (Chapter 1, 8th Ed.) it is the managing physician? s responsibility to establish the final pathologic stage based upon all pertinent information, including but potentially not limited to this pathology report. TNM Descriptors: ?m (multiple foci of invasive carcinoma) pT Category: ?pT1c Regional Lymph Nodes Modifier: ?(sn): [place] node(s) evaluated. pN Category: ?pN0 SPECIAL STUDIES ?? Estrogen Receptor (ER) Status: ?Positive (greater than 10% of cells demonstrate nuclear positivity) ? Percentage of Cells with Nuclear Positivity: ?99 % ?? Progesterone Receptor (PgR) Status: ?Positive ? Percentage of Cells with Nuclear Positivity: ?80 % ?? HER2 (by immunohistochemistry) : ?Negative (Score 1+) ?? Ki-67 Percentage of Positive Nuclei: ?12 % ?? Testing Performed on 01/31/2022 4:41 PM CDT [facility] Embedded Images 01/31/2022 4:41 PM CDT [facility] Lymph Node Dissection SPECIMEN FROM SENTINEL LYMPH NODE / Unknown 01/25/2022 10:20 AM CDT 01/25/2022 11:22 AM CDT Comment:Pre-op diagnosis: Malignant neoplasm of overlapping sites of right breast in female, estrogen receptor positive Biopsy, Excision (Breast, Right) 01/25/2022 11:35 AM CDT 01/25/2022 12:38 PM CDT Comment:Pre-op diagnosis: Malignant neoplasm of overlapping sites of right breast in female, estrogen receptor positive Biopsy, Excision (Margin) 01/25/2022 11:40 AM CDT 01/25/2022 12:38 PM CDT Comment:Pre-op diagnosis: Malignant neoplasm of overlapping sites of right breast in female, estrogen receptor positive Biopsy, Excision (Margin) 01/25/2022 11:46 AM CDT 01/25/2022 12:38 PM CDT Comment:Pre-op diagnosis: Malignant neoplasm of overlapping sites of right breast in female, estrogen receptor positive Biopsy, Excision (Margin) 01/25/2022 11:47 AM CDT 01/25/2022 12:38 PM CDT Comment:Pre-op diagnosis: Malignant neoplasm of overlapping sites of right breast in female, estrogen receptor positive Biopsy, Excision (Margin) 01/25/2022 11:47 AM CDT 01/25/2022 12:38 PM CDT Comment:Pre-op diagnosis: Malignant neoplasm of overlapping sites of right breast in female, estrogen receptor positive Biopsy, Excision (Margin) 01/25/2022 11:47 AM CDT 01/25/2022 12:38 PM CDT Comment:Pre-op diagnosis: Malignant neoplasm of overlapping sites of right breast in female, estrogen receptor positive Biopsy, Excision (Margin) 01/25/2022 11:47 AM CDT 01/25/2022 12:38 PM CDT Comment:Pre-op diagnosis: Malignant neoplasm of overlapping sites of right breast in female, estrogen receptor positive Biopsy, Excision (Margin) 01/25/2022 11:47 AM CDT 01/25/2022 12:38 PM CDT Comment:Pre-op diagnosis: Malignant neoplasm of overlapping sites of right breast in female, estrogen receptor positive Sadia Ortiz MD LAB - PATHOLOGY/CYT OLOGY ORDERABLES Performing Organization Address City/State/[facility] Co de Phone Number [facility] [address] [phone] * LARYNGEAL MASK [employer]WAY (01/25/2022 9:54 AM CDT) Narrative Atul Kelly DO - 01/25/2022 9:54 AM CDT Atul Kelly DO ? 01/25/2022 ??9:54 AM LMA Placement Procedure/LDA Note: Patient Location: OR. LMA Insertion Date/Time: ??01/25/2022 9:46 AM Procedure: LMA. Pretreatment: 100% O2 Induction: standard IV Patient position: supine. Mask Ventilation: easy Type: ??LMA Size: ??4 Number of Attempts: 1. Cuff volume (mL): ??15 Placement verified by: direct visualization, bilateral breath sounds, chest auscultation and CO2 monitor Procedure Start Time: 01/25/2022 9:46 AM. Staff Section ? Provider #1: Atul Kelly DO, Performed the procedure. Additional Comments: Walter hernandez with first attempt success. Salbador Bernal MD GENERAL ANESTHESIA O RDERABLES * NM SENTINEL NODE INJECTION (01/25/2022 9:06 AM CDT) Anatomical Region Laterality Modality Breast, Upper Extremity, Other N [facility] 01/25/2022 10:1 9 AM CDT Impressions 01/25/2022 3:47 PM CDT IMPRESSION: Successful placement of 4 periareolar injections in the ?? right ?? breast. This report was approved ??by Jefe Villegas ?? on 01/25/2022 1:22 PM . I, Dr. DANIEL BAUER M.D. have personally reviewed and interpreted this examination/study. This report was electronically signed by DANIEL BAUER M.D. ??on 01/25/2022 3:47 PM . Narrative 01/25/2022 3:47 PM CDT PROCEDURE: Lymphoscintigraphy - [place] lymph node detection. HISTORY: 71 year old femalewith history of HTN and osteoporosiswho presents for evaluation of newly diagnosed right breast invasive ductal carcinoma (ER 99% [place] 80% Her2 negative) with a Ki-67 12%. TECHNIQUE: 0.9 ??mCi of Tc-99m Tilmanocept (Lymphoseek) injected intradermally in the right ?? breast . Patient's BMI ?? 31.64 ?? kg/m2. FINDINGS: The right ?? breast was cleaned and a total dose of 0.9 ??mCi Tc 99-m Tilmanocept (Lymphoseek) was given by 4 separate intradermal injections in the periareolar region of the right ?? breast by Dr. Jefe Villegas. The patient tolerated the procedure well without complication. Dr. Bauer ??was there for the alvarez portion of the procedure. Procedure Note Daniel Bauer MD - 01/25/2022 PROCEDURE: Lymphoscintigraphy - [place] lymph node detection. HISTORY: 71 year old femalewith history of HTN and osteoporosiswho presents for evaluation of newly diagnosed right breast invasive ductal carcinoma (ER 99% [place] 80% Her2 negative) with a Ki-67 12%. TECHNIQUE: 0.9 mCi of Tc-99m Tilmanocept (Lymphoseek) injected intradermally inthe right breast . Patient's BMI 31.64 kg/m2. FINDINGS: The right breast was cleaned and a total dose of 0.9 mCi Tc 99-m Tilmanocept (Lymphoseek) was given by 4 separate intradermal injectionsin the periareolar region of the right breast by Dr. Jefe Villegas. The patient tolerated the procedure well without complication. Dr. Bauerwas there for the alvarez portion of the procedure. IMPRESSION: Successful placement of 4 periareolar injections in the rightbreast. This report was approved by Jefe Villegas on 01/25/2022 1:22 PM . I, Dr. DANIEL BAUER M.D. have personally reviewed and interpreted this examination/study. This report was electronically signed by DANIEL BAUER M.D. on01/25/2022 3:47 PM . Sadia Ortiz MD NM ORDERABLES * MAMMO RIGHT NEEDLE LOCALIZATION (01/24/2022 9:28 AM CDT) Anatomical Region Laterality Modality Breast Right Mammography 01/24/2022 9:29 AM CDT Impressions 01/24/2022 12:13 PM CDT IMPRESSION: 1. Technically successful, uncomplicated, mammographically- guided Magseed placement in the right breast, ??adjacent to the david-shaped clip at the site of the known known malignancy. The mag seed is approximately 1 cm posterior and inferior to the david-shaped clip in the area of the known cancer. 2.Technically successful, uncomplicated, mammographically- guided Magseed placement in the right breast, ??adjacent to the ribbon-shape clip at the site of the known known malignancy. The mag seed is within 0.5 cm of the ribbon-shaped clip and adjacent to a tiny group of calcifications. Patient will follow-up with Dr. Ortiz regarding her upcoming breast surgery on 01/25/2022. Dictated by Sybil Weber M.D. (interventional radiology tech). I, Dr. KORIN CORTEZ M.D. have personally reviewed and interpreted this examination/study. This report was electronically signed by KORIN CORTEZ M.D. ??on 01/24/2022 12:13 PM . Narrative 01/24/2022 12:13 PM CDT EXAM: ??MAGSEED LOCALIZATION / PLACEMENT UNDER MAMMOGRAPHIC GUIDANCE AND POST PROCEDURE MAMMOGRAM x 2- RIGHT ??BREAST DATE OF EXAM: ??01/24/2022 9:33 AM HISTORY: Biopsy-proven cancer in 2 sites in the right breast. There is a david-shaped clip in the more posterior upper outer quadrant of the breast from outside biopsy demonstrating cancer. There is a ribbon-shaped clip in the more anterior aspect of the upper outer quadrant of the breast from stereotactic guided biopsy performed at [facility], also demonstrating malignancy. On the lateral view, the clips are 2.7 cm apart from one another and on the cc view, the clips are 2.3 cm apart from one another. COMPARISON: Prior breast imaging studies dated 01/17/2022 and 01/18/2022. Compare with images from [facility] and [place] dated 11/30/2021. TECHNIQUE AND FINDINGS: Preprocedure images were reviewed. The biopsy clip is noted in an appropriate location on the previous postbiopsy images performed. The procedure and its risks, including bleeding and infection, as well as unsuccessful localization, and the potential benefits of the procedure were discussed with the patient, and written and verbal informed consent was obtained, using an voice over artist. This was also discussed with the patient's son. After confirming the correct breast for the Magseed placements, this breast was marked with a marking pen. Prior to the procedure a timeout was performed, including verification of the laterality of the breast for seed placement. The patient was placed in the mammographic grid in a lateral position at the start of the procedure. The david and the ribbon clips in the right breast were contained within the grid. This was then localized on the skin surface. Magseed site #1: David-shaped clip 12.5 cc of 1% lidocaine buffered with bicarbonate was given for local anesthesia of the skin surface and deeper soft tissues. A 7 ??cm 20-gauge needle containing the seed for localization was then inserted perpendicular to the skin surface and confirmed with an image. The patient was then carefully removed from the mammographic grid and placed in the 90 degrees mammographic position. An image was obtained, and the needle was repositioned to the appropriate depth. The seed was deployed, without incident. A mammographic image was obtained. The Magseed is approximately 1 cm inferior and posterior to the david-shaped clip, and within the posterior aspect of the known cancer. Estimated blood loss: None Magseed site #2: Ribbon-shaped clip 12.5 cc of 1% lidocaine buffered with bicarbonate was given for local anesthesia of the skin surface and deeper soft tissues. A 7 ??cm 20-gauge needle containing the seed for localization was then inserted perpendicular to the skin surface and confirmed with an image. The patient was then carefully removed from the mammographic grid and placed in the 90 degrees mammographic position. An image was obtained, and the needle was repositioned to the appropriate depth. The seed was deployed, without incident. A mammographic image was obtained. The Magseed is directly adjacent to the ribbon-shape clip. Estimated blood loss: None Mammogram: A two-view right digital mammogram with CC and true lateral projections was obtained to check the MagSeed placement. Breast Composition: Category B: There are scattered areas of fibroglandular density. The Magseeds are in good positions adjacent to their respective clips. Assessment: Postprocedure mammogram for marker placement. The patient tolerated the procedure well and was discharged in good condition for her surgical operation planned a later date. The attending physician, Korin Cortez MD, was present for the entire procedure. Sadia Ortiz MD MAMMO ORDERABLES * (ABNORMAL) BASIC METABOLIC PANEL (CALCIUM TOTAL) (01/18/2022 12:38 PM CDT) Only the most recent of2 resultswithin the time period is included. BUN 9 7 - 26 mg/dL 01/18/2022 1:31 PM [facility] Creatinine 0.76 0.56 - 0.96 mg/dL 01/18/2022 1:31 PM [facility] Sodium 144 136 - 145 mmol/L 01/18/2022 1:31 PM [facility] Potassium 3.9 3.5 - 4.5 mmol/L 01/18/2022 1:31 PM [facility] Chloride 105 98 - 107 mmol/L 01/18/2022 1:31 PM [facility] CO2 33(H) 22 - 29 mmol/L 01/18/2022 1:31 PM [facility] Glucose 101 70 - 115 mg/dL 01/18/2022 1:31 PM [facility] Calcium 10.0 8.4 - 10.2 mg/dL 01/18/2022 1:31 PM CDT [facility] Anion Gap 10 8 - 18 01/18/2022 1:31 PM CDT [facility] BUN/Creatinine Ratio 12 7 - 23 01/18/2022 1:31 PM CDT [facility] Osmolality Calculated 297 270 - 300 mOsm/kg 01/18/2022 1:31 PM CDT [facility] eGFR by CKD-EPI 85(L) >=90 mL/min/1.7 3 m2 01/18/2022 1:31 PM CDT [facility] Blood BLOOD SPECIMEN / Unknown Lab Venipuncture / Unknown 01/18/2022 12:38 PM CDT 01/18/2022 1:00 PM CDT Joc[facility]oss [facility] - CHEMISTRY ORDERABLES [address] [address], [facility] [phone] * MAMMO STEREOTACTIC RIGHT BIOPSY (01/18/2022 10:52 AM CDT) Anatomical Region Laterality Modality Breast Right Mammography 01/18/2022 10:1 7 AM CDT Addenda Addendum by Korin Cortez MD on 01/21/2022 4:43 PM CDT ORIGINAL REPORT EXAMS: STEREOTACTIC BREAST BIOPSY WITH PRONE AFFIRM (3D) BIOPSY AND POST BIOPSY DIGITAL MAMMOGRAM ??RIGHT BREAST (COMBINED REPORT) DATE OF EXAM: ??01/18/2022 9:18 AM CLINICAL INFORMATION: ??Calcifications in the ??upper outer quadrant of the right breast. Patient has known breast cancer in the upper outer quadrant of the right breast. Approximately 2.5 cm ventral to the known cancer is a small group of indeterminate microcalcifications. COMPARISON: ??Outside mammogram images from [facility] dated 12/18/2021 and 12/10/2021. TECHNIQUE AND FINDINGS: Preprocedure images were reviewed. The procedure and its risks and benefits were discussed with the patient, her son, and an voice over artist, including, but not limited to, bleeding, infection, allergy, and a nondiagnostic specimen. Written and verbal informed consent was obtained and documented. After confirming the correct breast for biopsy, the breast was marked with a marking pen. ??The patient was then placed in a prone position on the stereotactic biopsy table. Prior to the procedure, a hospital timeout procedure was performed, including verification of the laterality of the breast for biopsy. 3D tomosynthesis images were obtained for localization of the group of microcalcifications in the upper outer quadrant, 6 cm from the nipple region, of the breast. These are approximately 2.5 centers ventral to her known cancer. This was done via a superior approach. The breast was prepped and draped in a sterile fashion. ??Local anesthesia was given with 4 cc of 1% Lidocaine buffered with Sodium Bicarbonate within the skin and deeper anesthesia with 18 cc of 1% Lidocaine with Epinephrine, buffered withSodium Bicarbonate. ??A small 5 mm skin incision was made with a #11 scalpel blade, and through it a 9-gauge Eviva vacuum-assisted incisional core biopsy needle was inserted to the depth of the lesion through an introducer. ??Confirmatory images were obtained, prior to firing the biopsy device, demonstrating good position of the biopsy needle. Several biopsy samples were obtained through the area of concern. The samples were radiographed and artists' booking representative calcifications are present within these samples. ??The samples with the calcifications identified on x-ray were out and placed in a small cassette, which was then placed in the formalin container. The tissue samples were placed in formalin and delivered to the pathology department by the technologist. A ribbon-shaped tissue marker clip was placed at the biopsy site. Hemostasis was achieved, and the small wound was closed with Exofin. Estimated blood loss: Minimal Mammogram: A two-view right digital mammogram with CC and true lateral projections was obtained to check clip placement. Breast Composition: Category B: There are scattered areas of fibroglandular density. The clip is in good position at the biopsy site. Assessment: POST-PROCEDURE MAMMOGRAM FOR MARKER PLACEMENT. The patient tolerated the procedures well, with no immediate post biopsy complications. The patient was given verbal, as well as written post-procedure instructions (including Exofin instructions) and was released from the department in good condition. The attending physician, Korin Cortez MD, was present for and performed the entire procedure. IMPRESSION: 1. ??Technically successful, uncomplicated stereotactic (3D) guided vacuum-assisted core biopsy performed of a group of microcalcifications in the upper outer quadrant of the right breast. 2.A ??Senomark Ultra ultrasound-enhanced ribbon marker clip placed at the biopsy site. ??Of note, there is a david-shaped clip also in the upper outer quadrant of the right breast at the site of the known cancer. The clips are 3.7 cm apart from one another on the true lateral view and 2.7 cm from part from another on the craniocaudal view. 3. ??Pathology results are pending. Patient will receive her pathology results from and follow up with Dr. Ortiz. ??An addendum will be rendered to this report when the pathology results are made available. This report was electronically signed by KORIN CORTEZ M.D. ??on 01/18/2022 12:44 PM . ADDENDUM #1 ADDENDUM: PATHOLOGY RESULTS Pathology report per Dr. 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 This is a malignant lesion The pathology report is concordant with the imaging findings. Of note, on the post mammogram radiograph, the ribbon-shaped clip from this biopsy site is 2.7 cm anterior to the known cancer on the craniocaudal view and 3.7 cm anterior to the known cancer on the true lateral view. Patient will follow-up with Dr. Ortiz regarding her known malignancy. Dr. Ortiz will notify the patient of the biopsy findings and recommendations. This report was electronically signed by KORIN CORTEZ M.D. ??on 01/21/2022 4:40 PM . Impressions 01/18/2022 12:44 PM CDT IMPRESSION: 1. ??Technically successful, uncomplicated stereotactic (3D) guided vacuum-assisted core biopsy performed of a group of microcalcifications in the upper outer quadrant of the right breast. 2.A ??Senomark Ultra ultrasound-enhanced ribbon marker clip placed at the biopsy site. ??Of note, there is a david-shaped clip also in the upper outer quadrant of the right breast at the site of the known cancer. The clips are 3.7 cm apart from one another on the true lateral view and 2.7 cm from part from another on the craniocaudal view. 3. ??Pathology results are pending. Patient will receive her pathology results from and follow up with Dr. Ortiz. ??An addendum will be rendered to this report when the pathology results are made available. This report was electronically signed by KORIN CORTEZ M.D. ??on 01/18/2022 12:44 PM . Narrative 01/18/2022 12:44 PM CDT EXAMS: STEREOTACTIC BREAST BIOPSY WITH PRONE AFFIRM (3D) BIOPSY AND POST BIOPSY DIGITAL MAMMOGRAM ??RIGHT BREAST (COMBINED REPORT) DATE OF EXAM: ??01/18/2022 9:18 AM CLINICAL INFORMATION: ??Calcifications in the ??upper outer quadrant of the right breast. Patient has known breast cancer in the upper outer quadrant of the right breast. Approximately 2.5 cm ventral to the known cancer is a small group of indeterminate microcalcifications. COMPARISON: ??Outside mammogram images from [facility] dated 12/18/2021 and 12/10/2021. TECHNIQUE AND FINDINGS: Preprocedure images were reviewed. The procedure and its risks and benefits were discussed with the patient, her son, and an voice over artist, including, but not limited to, bleeding, infection, allergy, and a nondiagnostic specimen. Written and verbal informed consent was obtained and documented. After confirming the correct breast for biopsy, the breast was marked with a marking pen. ??The patient was then placed in a prone position on the stereotactic biopsy table. Prior to the procedure, a hospital timeout procedure was performed, including verification of the laterality of the breast for biopsy. 3D tomosynthesis images were obtained for localization of the group of microcalcifications in the upper outer quadrant, 6 cm from the nipple region, of the breast. These are approximately 2.5 centers ventral to her known cancer. This was done via a superior approach. The breast was prepped and draped in a sterile fashion. ??Local anesthesia was given with 4 cc of 1% Lidocaine buffered with Sodium Bicarbonate within the skin and deeper anesthesia with 18 cc of 1% Lidocaine with Epinephrine, buffered withSodium Bicarbonate. ??A small 5 mm skin incision was made with a #11 scalpel blade, and through it a 9-gauge Eviva vacuum-assisted incisional core biopsy needle was inserted to the depth of the lesion through an introducer. ??Confirmatory images were obtained, prior to firing the biopsy device, demonstrating good position of the biopsy needle. Several biopsy samples were obtained through the area of concern. The samples were radiographed and artists' booking representative calcifications are present within these samples. ??The samples with the calcifications identified on x-ray were out and placed in a small cassette, which was then placed in the formalin container. The tissue samples were placed in formalin and delivered to the pathology department by the technologist. A ribbon-shaped tissue marker clip was placed at the biopsy site. Hemostasis was achieved, and the small wound was closed with Exofin. Estimated blood loss: Minimal Mammogram: A two-view right digital mammogram with CC and true lateral projections was obtained to check clip placement. Breast Composition: Category B: There are scattered areas of fibroglandular density. The clip is in good position at the biopsy site. Assessment: POST-PROCEDURE MAMMOGRAM FOR MARKER PLACEMENT. The patient tolerated the procedures well, with no immediate post biopsy complications. The patient was given verbal, as well as written post-procedure instructions (including Exofin instructions) and was released from the department in good condition. The attending physician, Korin Cortez MD, was present for and performed the entire procedure. Sadia Ortiz MD MAMMO ORDERABLES * MAMMO RIGHT POST CLIP OR WIRE (01/18/2022 10:39 AM CDT) Anatomical Region Laterality Modality Breast Right Mammography 01/18/2022 10:1 7 AM CDT Addenda Addendum by Korin Cortez MD on 01/21/2022 4:43 PM CDT ORIGINAL REPORT EXAMS: STEREOTACTIC BREAST BIOPSY WITH PRONE AFFIRM (3D) BIOPSY AND POST BIOPSY DIGITAL MAMMOGRAM ??RIGHT BREAST (COMBINED REPORT) DATE OF EXAM: ??01/18/2022 9:18 AM CLINICAL INFORMATION: ??Calcifications in the ??upper outer quadrant of the right breast. Patient has known breast cancer in the upper outer quadrant of the right breast. Approximately 2.5 cm ventral to the known cancer is a small group of indeterminate microcalcifications. COMPARISON: ??Outside mammogram images from [facility] dated 12/18/2021 and 12/10/2021. TECHNIQUE AND FINDINGS: Preprocedure images were reviewed. The procedure and its risks and benefits were discussed with the patient, her son, and an voice over artist, including, but not limited to, bleeding, infection, allergy, and a nondiagnostic specimen. Written and verbal informed consent was obtained and documented. After confirming the correct breast for biopsy, the breast was marked with a marking pen. ??The patient was then placed in a prone position on the stereotactic biopsy table. Prior to the procedure, a hospital timeout procedure was performed, including verification of the laterality of the breast for biopsy. 3D tomosynthesis images were obtained for localization of the group of microcalcifications in the upper outer quadrant, 6 cm from the nipple region, of the breast. These are approximately 2.5 centers ventral to her known cancer. This was done via a superior approach. The breast was prepped and draped in a sterile fashion. ??Local anesthesia was given with 4 cc of 1% Lidocaine buffered with Sodium Bicarbonate within the skin and deeper anesthesia with 18 cc of 1% Lidocaine with Epinephrine, buffered withSodium Bicarbonate. ??A small 5 mm skin incision was made with a #11 scalpel blade, and through it a 9-gauge Eviva vacuum-assisted incisional core biopsy needle was inserted to the depth of the lesion through an introducer. ??Confirmatory images were obtained, prior to firing the biopsy device, demonstrating good position of the biopsy needle. Several biopsy samples were obtained through the area of concern. The samples were radiographed and artists' booking representative calcifications are present within these samples. ??The samples with the calcifications identified on x-ray were out and placed in a small cassette, which was then placed in the formalin container. The tissue samples were placed in formalin and delivered to the pathology department by the technologist. A ribbon-shaped tissue marker clip was placed at the biopsy site. Hemostasis was achieved, and the small wound was closed with Exofin. Estimated blood loss: Minimal Mammogram: A two-view right digital mammogram with CC and true lateral projections was obtained to check clip placement. Breast Composition: Category B: There are scattered areas of fibroglandular density. The clip is in good position at the biopsy site. Assessment: POST-PROCEDURE MAMMOGRAM FOR MARKER PLACEMENT. The patient tolerated the procedures well, with no immediate post biopsy complications. The patient was given verbal, as well as written post-procedure instructions (including Exofin instructions) and was released from the department in good condition. The attending physician, Korin Cortez MD, was present for and performed the entire procedure. IMPRESSION: 1. ??Technically successful, uncomplicated stereotactic (3D) guided vacuum-assisted core biopsy performed of a group of microcalcifications in the upper outer quadrant of the right breast. 2.A ??Senomark Ultra ultrasound-enhanced ribbon marker clip placed at the biopsy site. ??Of note, there is a david-shaped clip also in the upper outer quadrant of the right breast at the site of the known cancer. The clips are 3.7 cm apart from one another on the true lateral view and 2.7 cm from part from another on the craniocaudal view. 3. ??Pathology results are pending. Patient will receive her pathology results from and follow up with Dr. Ortiz. ??An addendum will be rendered to this report when the pathology results are made available. This report was electronically signed by KORIN CORTEZ M.D. ??on 01/18/2022 12:44 PM . ADDENDUM #1 ADDENDUM: PATHOLOGY RESULTS Pathology report per Dr. 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 This is a malignant lesion The pathology report is concordant with the imaging findings. Of note, on the post mammogram radiograph, the ribbon-shaped clip from this biopsy site is 2.7 cm anterior to the known cancer on the craniocaudal view and 3.7 cm anterior to the known cancer on the true lateral view. Patient will follow-up with Dr. Ortiz regarding her known malignancy. Dr. Ortiz will notify the patient of the biopsy findings and recommendations. This report was electronically signed by KORIN CORTEZ M.D. ??on 01/21/2022 4:40 PM . Impressions 01/18/2022 12:44 PM CDT IMPRESSION: 1. ??Technically successful, uncomplicated stereotactic (3D) guided vacuum-assisted core biopsy performed of a group of microcalcifications in the upper outer quadrant of the right breast. 2.A ??Senomark Ultra ultrasound-enhanced ribbon marker clip placed at the biopsy site. ??Of note, there is a david-shaped clip also in the upper outer quadrant of the right breast at the site of the known cancer. The clips are 3.7 cm apart from one another on the true lateral view and 2.7 cm from part from another on the craniocaudal view. 3. ??Pathology results are pending. Patient will receive her pathology results from and follow up with Dr. Ortiz. ??An addendum will be rendered to this report when the pathology results are made available. This report was electronically signed by KORIN CORTEZ M.D. ??on 01/18/2022 12:44 PM . Narrative 01/18/2022 12:44 PM CDT EXAMS: STEREOTACTIC BREAST BIOPSY WITH PRONE AFFIRM (3D) BIOPSY AND POST BIOPSY DIGITAL MAMMOGRAM ??RIGHT BREAST (COMBINED REPORT) DATE OF EXAM: ??01/18/2022 9:18 AM CLINICAL INFORMATION: ??Calcifications in the ??upper outer quadrant of the right breast. Patient has known breast cancer in the upper outer quadrant of the right breast. Approximately 2.5 cm ventral to the known cancer is a small group of indeterminate microcalcifications. COMPARISON: ??Outside mammogram images from [facility] dated 12/18/2021 and 12/10/2021. TECHNIQUE AND FINDINGS: Preprocedure images were reviewed. The procedure and its risks and benefits were discussed with the patient, her son, and an voice over artist, including, but not limited to, bleeding, infection, allergy, and a nondiagnostic specimen. Written and verbal informed consent was obtained and documented. After confirming the correct breast for biopsy, the breast was marked with a marking pen. ??The patient was then placed in a prone position on the stereotactic biopsy table. Prior to the procedure, a hospital timeout procedure was performed, including verification of the laterality of the breast for biopsy. 3D tomosynthesis images were obtained for localization of the group of microcalcifications in the upper outer quadrant, 6 cm from the nipple region, of the breast. These are approximately 2.5 centers ventral to her known cancer. This was done via a superior approach. The breast was prepped and draped in a sterile fashion. ??Local anesthesia was given with 4 cc of 1% Lidocaine buffered with Sodium Bicarbonate within the skin and deeper anesthesia with 18 cc of 1% Lidocaine with Epinephrine, buffered withSodium Bicarbonate. ??A small 5 mm skin incision was made with a #11 scalpel blade, and through it a 9-gauge Eviva vacuum-assisted incisional core biopsy needle was inserted to the depth of the lesion through an introducer. ??Confirmatory images were obtained, prior to firing the biopsy device, demonstrating good position of the biopsy needle. Several biopsy samples were obtained through the area of concern. The samples were radiographed and artists' booking representative calcifications are present within these samples. ??The samples with the calcifications identified on x-ray were out and placed in a small cassette, which was then placed in the formalin container. The tissue samples were placed in formalin and delivered to the pathology department by the technologist. A ribbon-shaped tissue marker clip was placed at the biopsy site. Hemostasis was achieved, and the small wound was closed with Exofin. Estimated blood loss: Minimal Mammogram: A two-view right digital mammogram with CC and true lateral projections was obtained to check clip placement. Breast Composition: Category B: There are scattered areas of fibroglandular density. The clip is in good position at the biopsy site. Assessment: POST-PROCEDURE MAMMOGRAM FOR MARKER PLACEMENT. The patient tolerated the procedures well, with no immediate post biopsy complications. The patient was given verbal, as well as written post-procedure instructions (including Exofin instructions) and was released from the department in good condition. The attending physician, Korin Cortez MD, was present for and performed the entire procedure. Procedure Note Korin Cortez MD - 01/18/2022 EXAMS: STEREOTACTIC BREAST BIOPSY WITH PRONE AFFIRM (3D) BIOPSY AND POST BIOPSY DIGITAL MAMMOGRAM RIGHT BREAST (COMBINED REPORT) DATE OF EXAM: 01/18/2022 9:18 AM CLINICAL INFORMATION: Calcifications in the upper outer quadrant ofthe right breast. Patient has known breast cancer in the upper outerquadrant of the right breast. Approximately 2.5 cm ventral to the known cancer derrick small group of indeterminate microcalcifications. COMPARISON: Outside mammogram images from [facility] dated 12/18/2021 and 12/10/2021. TECHNIQUE AND FINDINGS: Preprocedure images were reviewed. The procedure and its risks and benefits were discussed with the patient, her son, and an voice over artist, including, but not limited to, bleeding, infection, allergy, and a nondiagnostic specimen. Written and verbal informedconsent was obtained and documented. After confirming the correct breast for biopsy, the breast was markedwith a marking pen. The patient was then placed in a prone position on the stereotactic biopsy table. Prior to the procedure, a hospital timeout procedure was performed, including verification of the laterality of the breast for biopsy. 3D tomosynthesis images were obtained for localization of the group of microcalcifications in the upper outer quadrant, 6 cm from the nipple region, of the breast. These are approximately 2.5 centers ventral toher known cancer. This was done via a superior approach. The breast was prepped and draped in a sterile fashion. Localanesthesia was given with 4 cc of 1% Lidocaine buffered with Sodium Bicarbonate within the skin and deeper anesthesia with 18 cc of 1% Lidocaine with Epinephrine, buffered withSodium Bicarbonate. A small 5 mm skinincision was made with a #11 scalpel blade, and through it a 9-gauge Eviva vacuum-assisted incisional core biopsy needle was inserted to the depthof the lesion through an introducer. Confirmatory images were obtained, prior to firing the biopsy device, demonstrating good position of the biopsy needle. Several biopsy samples were obtained through the area of concern. The samples were radiographed and artists' booking representative calcifications are present within these samples. The samples with the calcifications identified on x-ray were out and placed in a small cassette, which was then placed in the formalin container. The tissue samples were placed in formalin and delivered to the pathology department by the technologist. A ribbon-shaped tissue marker clip was placed at the biopsy site. Hemostasis was achieved, and the small wound was closed with Exofin. Estimated blood loss: Minimal Mammogram: A two-view right digital mammogram with CC and true lateral projections was obtained to check clip placement. Breast Composition: Category B: There are scattered areas of fibroglandular density. The clip is in good position at the biopsy site. Assessment: POST-PROCEDURE MAMMOGRAM FOR MARKER PLACEMENT. The patient tolerated the procedures well, with no immediate post biopsy complications. The patient was given verbal, as well as written post-procedure instructions (including Exofin instructions) and was released from the department in good condition. The attending physician, Korin Cortez MD, was present for and performed the entire procedure. IMPRESSION: 1. Technically successful, uncomplicated stereotactic (3D) guided vacuum-assisted core biopsy performed of a group of microcalcificationsin the upper outer quadrant of the right breast. 2.A Senomark Ultra ultrasound-enhanced ribbon marker clip placed at the biopsy site. Of note, there is a david-shaped clip also in the upperouter quadrant of the right breast at the site of the known cancer. The clips are 3.7 cm apart from one another on the true lateral view and 2.7 cmfrom part from another on the craniocaudal view. 3. Pathology results are pending. Patient will receive her pathology results from and follow up with Dr. Ortiz. An addendum will berendered to this report when the pathology results are made available. This report was electronically signed by KORIN CORTEZ M.D. on01/18/2022 12:44 PM . Sadia Ortiz MD MAMMO ORDERABLES * (ABNORMAL) US BREAST RIGHT OUTSIDE (01/17/2022 2:27 PM CDT) Anatomical Region Laterality Modality Other 01/17/2022 3:18 PM CDT Impressions 01/19/2022 10:39 AM CDT IMPRESSION: 1. Approximately 1.9 cm irregular mass in the upper outer quadrant of the right breast, mid depth, with associated microcalcifications, corresponding with patient's known pathology proven invasive ductal carcinoma. 2. Small group of microcalcifications in the upper outer quadrant of the right breast approximately 2 cm ventral to the known cancer, at a moderate suspicion for malignancy. 3. No suspicious findings or evidence of malignancy in the left breast. RECOMMENDATION: ??Stereotactic guided biopsy of the small group of microcalcifications in the upper-outer quadrant of the right breast, ventral to the known malignancy. This was performed on 01/18/2022 and the pathology results are pending. Patient will follow-up with Dr. Ortiz regarding her known right breast cancer. Right breast: BI-RADS 6: Known malignancy and BI-RADS 4: Suspicious (subset category 4B: Moderate suspicion for malignancy) Left breast: BI-RADS 2: Benign OVERALL ASSESSMENT: ??BI-RADS CATEGORY 4: SUSPICIOUS. (SUBSET CATEGORY 4B: MODERATE SUSPICION FOR MALIGNANCY). Note: The findings, conclusions and recommendations within this report do not replace the initial findings, conclusions and recommendations made at the facility where the study was performed, based upon the imaging and clinical condition at that time, and comparison with the prior report and clinical history is necessary. The provided images may or may not represent the [place] source data set and thus may contain changes, which may lower the sensitivity in the second opinion interpretation. This report was electronically signed by KORIN CORTEZ M.D. ??on 01/19/2022 10:39 AM . Narrative 01/19/2022 10:39 AM CDT EXAMINATION: RADIOLOGY CONSULTATION ON OUTSIDE IMAGING STUDIES DATE OF CONSULTATION: 01/18/2022 REASON FOR CONSULTATION / HISTORY: This is a 71-year-old female with newly diagnosed right breast cancer. OUTSIDE STUDIES FOR REVIEW: 1. Screening bilateral digital mammogram and bilateral tomosynthesis dated 11/30/2021 from [facility] in [facility]. 2. Digital right diagnostic mammogram and tomosynthesis dated 12/10/2021 from [facility] in [place], [place]. 3. Also review stereotactic guided images from biopsy of the right breast dated 12/18/2021 from [facility] in [place], [place] The outside final reports were provided at the time of this second opinion. COMPARISON: Prior mammograms from [facility] 11/24/2020, 06/13/2020, and 11/26/2019 and from [facility] at [facility] in [place], ??[place], dated 10/19/2019. FINDINGS: Bilateral screening mammogram 11/30/2021: Bilateral craniocaudal and mediolateral oblique projections are submitted for review. Breast composition: There are scattered fibroglandular densities. Left side: No suspicious findings or evidence of malignancy. No change from the prior studies. Right side: 1.5 cm irregular rounded mass with associated microcalcifications in the upper outer quadrant of the breast, 8 cm from the nipple on the craniocaudal view in the mid depth. ??Approximately 2 cm ventral to this area is a small group of coarse heterogeneous microcalcifications, spanning over approximately 0.9 cm in extent. Diagnostic right mammogram 12/10/2021: Diagnostic mammogram confirms an irregular rounded mass in the upper outer quadrant of the breast, measuring up to 1.5 cm in size in the mid depth, 8 cm from the nipple. There are associated microcalcifications within this mass. Approximately 2 cm ventral to this area, also in the upper outer quadrant of the breast and in the anterior to mid depth, is a small group of coarse heterogeneous microcalcifications, spanning up to 0.9 cm in extent. Both of these areas are suspicious for malignancy. Stereotactic guided biopsy was performed at [facility] on 12/18/2021 of the mass and associated microcalcifications in the upper-outer quadrant of the right breast. Pathologic results demonstrated invasive ductal carcinoma. Procedure Note Korin Cortez MD - 01/19/2022 EXAMINATION: RADIOLOGY CONSULTATION ON OUTSIDE IMAGING STUDIES DATE OF CONSULTATION: 01/18/2022 REASON FOR CONSULTATION / HISTORY: This is a 71-year-old female withnewly diagnosed right breast cancer. OUTSIDE STUDIES FOR REVIEW: 1. Screening bilateral digital mammogram and bilateral tomosynthesis dated 11/30/2021 from [facility] in [facility]. 2. Digital right diagnostic mammogram and tomosynthesis dated 12/10/2021 from [facility] in [place], [place]. 3. Also review stereotactic guided images from biopsy of the rightbreast dated 12/18/2021 from [facility] in [place], [place] The outside final reports were provided at the time of this secondopinion. COMPARISON: Prior mammograms from [facility] 11/24/2020, 06/13/2020, and 11/26/2019 and from [facility] at [facility] in [place], [place], dated 10/19/2019. FINDINGS: Bilateral screening mammogram 11/30/2021: Bilateral craniocaudal and mediolateral oblique projections aresubmitted for review. Breast composition: There are scattered fibroglandular densities. Left side: No suspicious findings or evidence of malignancy. No change from the prior studies. Right side: 1.5 cm irregular rounded mass with associated microcalcifications in the upper outer quadrant of the breast, 8 cm from the nipple on the craniocaudal view in the mid depth. Approximately 2cm ventral to this area is a small group of coarse heterogeneous microcalcifications, spanning over approximately 0.9 cm in extent. Diagnostic right mammogram 12/10/2021: Diagnostic mammogram confirms an irregular rounded mass in the upperouter quadrant of the breast, measuring up to 1.5 cm in size in the mid depth,8 cm from the nipple. There are associated microcalcifications within this mass. Approximately 2 cm ventral to this area, also in the upper outer quadrant of the breast and in the anterior to mid depth, is a smallgroup of coarse heterogeneous microcalcifications, spanning up to 0.9 cm in extent. Both of these areas are suspicious for malignancy. Stereotactic guided biopsy was performed at [facility] on12/18/2021 of the mass and associated microcalcifications in the upper-outerquadrant of the right breast. Pathologic results demonstrated invasive ductal carcinoma. IMPRESSION: 1. Approximately 1.9 cm irregular mass in the upper outer quadrant ofthe right breast, mid depth, with associated microcalcifications, corresponding with patient's known pathology proven invasive ductal carcinoma. 2. Small group of microcalcifications in the upper outer quadrant of the right breast approximately 2 cm ventral to the known cancer, at amoderate suspicion for malignancy. 3. No suspicious findings or evidence of malignancy in the left breast. RECOMMENDATION: Stereotactic guided biopsy of the small group of microcalcifications in the upper-outer quadrant of the right breast, ventral to the known malignancy. This was performed on 01/18/2022 and the pathology results are pending. Patient will follow-up with Dr. Ortiz regarding her known right breast cancer. Right breast: BI-RADS 6: Known malignancy and BI-RADS 4: Suspicious (subset category 4B: Moderate suspicion for malignancy) Left breast: BI-RADS 2: Benign OVERALL ASSESSMENT: BI-RADS CATEGORY 4: SUSPICIOUS. (SUBSET [id number]: MODERATE SUSPICION FOR MALIGNANCY). Note: The findings, conclusions and recommendations within this reportdo not replace the initial findings, conclusions and recommendations madeat the facility where the study was performed, based upon the imaging and clinical condition at that time, and comparison with the prior reportand clinical history is necessary. The provided images may or may not represent the [place] source data set and thus may contain changes, which may lower the sensitivity in the second opinion interpretation. This report was electronically signed by KORIN CORTEZ M.D. on01/19/2022 10:39 AM . Sadia Ortiz MD IMAGING * (ABNORMAL) MM OUTSIDE MAMMO FILM READ (01/17/2022 2:26 PM CDT) Anatomical Region Laterality Modality Other 01/17/2022 3:18 PM CDT Impressions 01/19/2022 10:39 AM CDT IMPRESSION: 1. Approximately 1.9 cm irregular mass in the upper outer quadrant of the right breast, mid depth, with associated microcalcifications, corresponding with patient's known pathology proven invasive ductal carcinoma. 2. Small group of microcalcifications in the upper outer quadrant of the right breast approximately 2 cm ventral to the known cancer, at a moderate suspicion for malignancy. 3. No suspicious findings or evidence of malignancy in the left breast. RECOMMENDATION: ??Stereotactic guided biopsy of the small group of microcalcifications in the upper-outer quadrant of the right breast, ventral to the known malignancy. This was performed on 01/18/2022 and the pathology results are pending. Patient will follow-up with Dr. Ortiz regarding her known right breast cancer. Right breast: BI-RADS 6: Known malignancy and BI-RADS 4: Suspicious (subset category 4B: Moderate suspicion for malignancy) Left breast: BI-RADS 2: Benign OVERALL ASSESSMENT: ??BI-RADS CATEGORY 4: SUSPICIOUS. (SUBSET CATEGORY 4B: MODERATE SUSPICION FOR MALIGNANCY). Note: The findings, conclusions and recommendations within this report do not replace the initial findings, conclusions and recommendations made at the facility where the study was performed, based upon the imaging and clinical condition at that time, and comparison with the prior report and clinical history is necessary. The provided images may or may not represent the [place] source data set and thus may contain changes, which may lower the sensitivity in the second opinion interpretation. This report was electronically signed by KORIN CORTEZ M.D. ??on 01/19/2022 10:39 AM . Narrative 01/19/2022 10:39 AM CDT EXAMINATION: RADIOLOGY CONSULTATION ON OUTSIDE IMAGING STUDIES DATE OF CONSULTATION: 01/18/2022 REASON FOR CONSULTATION / HISTORY: This is a 71-year-old female with newly diagnosed right breast cancer. OUTSIDE STUDIES FOR REVIEW: 1. Screening bilateral digital mammogram and bilateral tomosynthesis dated 11/30/2021 from [facility] in [facility]. 2. Digital right diagnostic mammogram and tomosynthesis dated 12/10/2021 from [facility] in [place], [place]. 3. Also review stereotactic guided images from biopsy of the right breast dated 12/18/2021 from [facility] in [place], [place] The outside final reports were provided at the time of this second opinion. COMPARISON: Prior mammograms from [facility] 11/24/2020, 06/13/2020, and 11/26/2019 and from [facility] in [place], ??[place], dated 10/19/2019. FINDINGS: Bilateral screening mammogram 11/30/2021: Bilateral craniocaudal and mediolateral oblique projections are submitted for review. Breast composition: There are scattered fibroglandular densities. Left side: No suspicious findings or evidence of malignancy. No change from the prior studies. Right side: 1.5 cm irregular rounded mass with associated microcalcifications in the upper outer quadrant of the breast, 8 cm from the nipple on the craniocaudal view in the mid depth. ??Approximately 2 cm ventral to this area is a small group of coarse heterogeneous microcalcifications, spanning over approximately 0.9 cm in extent. Diagnostic right mammogram 12/10/2021: Diagnostic mammogram confirms an irregular rounded mass in the upper outer quadrant of the breast, measuring up to 1.5 cm in size in the mid depth, 8 cm from the nipple. There are associated microcalcifications within this mass. Approximately 2 cm ventral to this area, also in the upper outer quadrant of the breast and in the anterior to mid depth, is a small group of coarse heterogeneous microcalcifications, spanning up to 0.9 cm in extent. Both of these areas are suspicious for malignancy. Stereotactic guided biopsy was performed at [facility] on 12/18/2021 of the mass and associated microcalcifications in the upper-outer quadrant of the right breast. Pathologic results demonstrated invasive ductal carcinoma. Procedure Note Korin Cortez MD - 01/19/2022 EXAMINATION: RADIOLOGY CONSULTATION ON OUTSIDE IMAGING STUDIES DATE OF CONSULTATION: 01/18/2022 REASON FOR CONSULTATION / HISTORY: This is a 71-year-old female withnewly diagnosed right breast cancer. OUTSIDE STUDIES FOR REVIEW: 1. Screening bilateral digital mammogram and bilateral tomosynthesis dated 11/30/2021 from [facility] in [facility]. 2. Digital right diagnostic mammogram and tomosynthesis dated 12/10/2021 from [facility] in [place], [place]. 3. Also review stereotactic guided images from biopsy of the rightbreast dated 12/18/2021 from [facility] in [place], [place] The outside final reports were provided at the time of this secondopinion. COMPARISON: Prior mammograms from [facility] 11/24/2020, 06/13/2020, and 11/26/2019 and from [facility] in [place], [place], dated 10/19/2019. FINDINGS: Bilateral screening mammogram 11/30/2021: Bilateral craniocaudal and mediolateral oblique projections aresubmitted for review. Breast composition: There are scattered fibroglandular densities. Left side: No suspicious findings or evidence of malignancy. No change from the prior studies. Right side: 1.5 cm irregular rounded mass with associated microcalcifications in the upper outer quadrant of the breast, 8 cm from the nipple on the craniocaudal view in the mid depth. Approximately 2cm ventral to this area is a small group of coarse heterogeneous microcalcifications, spanning over approximately 0.9 cm in extent. Diagnostic right mammogram 12/10/2021: Diagnostic mammogram confirms an irregular rounded mass in the upperouter quadrant of the breast, measuring up to 1.5 cm in size in the mid depth,8 cm from the nipple. There are associated microcalcifications within this mass. Approximately 2 cm ventral to this area, also in the upper outer quadrant of the breast and in the anterior to mid depth, is a smallgroup of coarse heterogeneous microcalcifications, spanning up to 0.9 cm in extent. Both of these areas are suspicious for malignancy. Stereotactic guided biopsy was performed at [facility] on12/18/2021 of the mass and associated microcalcifications in the upper-outerquadrant of the right breast. Pathologic results demonstrated invasive ductal carcinoma. IMPRESSION: 1. Approximately 1.9 cm irregular mass in the upper outer quadrant ofthe right breast, mid depth, with associated microcalcifications, corresponding with patient's known pathology proven invasive ductal carcinoma. 2. Small group of microcalcifications in the upper outer quadrant of the right breast approximately 2 cm ventral to the known cancer, at amoderate suspicion for malignancy. 3. No suspicious findings or evidence of malignancy in the left breast. RECOMMENDATION: Stereotactic guided biopsy of the small group of microcalcifications in the upper-outer quadrant of the right breast, ventral to the known malignancy. This was performed on 01/18/2022 and the pathology results are pending. Patient will follow-up with Dr. Ortiz regarding her known right breast cancer. Right breast: BI-RADS 6: Known malignancy and BI-RADS 4: Suspicious (subset category 4B: Moderate suspicion for malignancy) Left breast: BI-RADS 2: Benign OVERALL ASSESSMENT: BI-RADS CATEGORY 4: SUSPICIOUS. (SUBSET [id number]: MODERATE SUSPICION FOR MALIGNANCY). Note: The findings, conclusions and recommendations within this reportdo not replace the initial findings, conclusions and recommendations madeat the facility where the study was performed, based upon the imaging and clinical condition at that time, and comparison with the prior reportand clinical history is necessary. The provided images may or may not represent the [place] source data set and thus may contain changes, which may lower the sensitivity in the second opinion interpretation. This report was electronically signed by KORIN CORTEZ M.D. on01/19/2022 10:39 AM . Sadia Ortiz MD IMAGING * [place] INSERT NON-INDWELLING BLADDER (05/09/2021 6:02 PM CDT) Narrative Roxann Ulloa MD - 05/09/2021 6:02 PM CDT Roxann Ulloa MD ? 05/10/2021 ??6:33 PM Procedure note: Straight catheterization was performed after swabbing the urethra with betadine. A 14 Fr urethral catheter was inserted without difficulty and the bladder was drained for 70 ml. Roxann Ulloa MD PROCEDURE/MINOR JOCELYNE GICAL ORDERABLES * WY FIT/INSERT INTRAVAG SUPPORT DEVICE, WY PESSARY, NON RUBBER,ANY TYPE (04/09/2021 9:05 AM CDT) Narrative Roxann Ulloa MD - 04/09/2021 9:05 AM CDT Roxann Ulloa MD ? 04/09/2021 ??9:08 AM Pessary Fitting: She was fitted with: #3 RWS pessary which fit comfortably without pain/undue tension on the vaginal tissues. She ambulated around the clinic and was able to retain the pessary comfortably. Roxann Ulloa MD PROCEDURE/MINOR JOCELYNE GICAL ORDERABLES * [place] BIOPSY OF UTERUS LINING (03/05/2021 5:25 PM CDT) Narrative Roxann Ulloa MD - 03/05/2021 5:25 PM CDT Roxann Ulloa MD ? 03/05/2021 ??5:27 PM Endometrial Biopsy - Procedure Note Procedure Details: The patient was assured to not be either because of menopause or by a negative urine test. ??The risks, benefits, and alternatives were discussed in detail with the patient with emphasis on infection, pain,and perforation. ??The patient was placed in a dorsal lithotomy position. ??A speculum was used to visualize the cervical os after an exam was performed to confirm uterine position and size. ??The cervix was cleaned with multiple swabs of Betadine (unless allergic to topical iodine, in which case hibiclens was used). ??The cervix was grasped with a toothed tenaculum, and a Pipelle was placed through the cervix into the endometrial cavity.Scant tissue was recovered and sent for pathological examination in formalin. ??The grasping instrument was removed, and the cervix assured to be haemostatic. ??The patient tolerated the procedure well. Condition: Good Complications: None Sample: Endometrial sample to pathology. Plan: The patient was instructed to watch for a fever and to call with any problems. ??She was asked to take 400 mg of ibuprofen if not allergic. Roxann Ulloa MD PROCEDURE/MINOR JOCELYNE GICAL ORDERABLES * WY US PEL NONOB B-SCAN&/R-T IMG LMTD/F-UP+C97, WY SONO EXAM, TRANSVAGINAL, US PELVIS COMPLETE (03/05/2021) Anatomical Region Laterality Modality Pelvis Ultrasound Narrative 03/05/2021 Catherine Peñaloza ? 03/05/2021 ??2:34 PM Documentation in digisonics. Procedure Note Catherine Peñaloza - 03/05/2021 2:33 PM CDT Documentation in digisonics. Roxann Ulloa MD ORDERABLES * CYCLIC CITRUL PEPTIDE ANTIBODY IGG/IGA (CCP) (03/03/2021 11:03 AM CDT) Pathologist [facility] CCP Antibodies IgG/IgA 4 0 - 19 units [facility] INSURANCE BILL Comment: ? Negative ? <20 ? Weak positive ?20 - 39 ? Moderate positive ??40 - 59 ? Strong positive ?>59 Blood BLOOD SPECIMEN / Unknown 03/03/2021 11:03 AM CDT 03/03/2021 Narrative Resulting Agency Comment Lab Testing performed at: [address] ??[facility] [phone] Destin Marquez MD LAB - [facility]D [facility] [address] [place] [address] * (ABNORMAL) NORBERTO PANEL COMPREHENSIVE (03/03/2021 11:03 AM CDT) Pathologist [facility] Anti-dsDNA Quantitative <1 0 - 9 IU/mL [facility] INSURANCE BILL Comment: ?Negative ?<5 ?Equivocal ??5 - 9 ?Positive ?>9 THERAPEUTIC RECREATION SPECIALIST Antibody <0.2 0.0 - 0.9 AI [facility] INSURANCE BILL Parson (JONATHAN) Antibody <0.2 0.0 - 0.9 AI [facility] INSURANCE BILL Antiscleroderma-70 Antibody <0.2 0.0 - 0.9 AI [facility] INSURANCE BILL Sjogren's Antibodies (SSA) 1.5(H) 0.0 - 0.9 AI [facility] INSURANCE BILL Sjogren's Antibodies (SSB) <0.2 0.0 - 0.9 AI [facility] INSURANCE BILL Antichromatin Antibodies <0.2 0.0 - 0.9 AI [facility] INSURANCE BILL Svitlana-1 Antibody <0.2 0.0 - 0.9 AI [facility] INSURANCE BILL Centromere B Antibody <0.2 0.0 - 0.9 AI [facility] INSURANCE BILL See Below [facility] INSURANCE BILL Comment: Autoantibody ? Disease Association ?Condition ?Frequency ? --------- Antinuclear Antibody, ?SLE, mixed connective Direct (NORBERTO-D) ? tissue diseases ? --------- dsDNA ?SLE ?40 - 60% ? --------- Chromatin ?Drug induced SLE ?90% ? SLE ?48 - 97% ? --------- SSA (Ro) ? SLE ?25 - 35% ? Sjogren's Syndrome ? 40 - 70% ? Lupus ? 100% ? --------- SSB (La) ? SLE ? 10% ? Sjogren's Syndrome ?30% ?--------- Sm (anti-Pasron) ?SLE ?15 - 30% ?--------- THERAPEUTIC RECREATION SPECIALIST ?Mixed Connective Tissue ? Disease ? 95% (U1 nRNP, ?SLE ?30 - 50% anti-ribonucleoprotein) ??Polymyositis and/or ? Dermatomyositis ? 20% ? --------- Scl-70 (antiDNA ?Scleroderma (diffuse) ?20 - 35% topoisomerase) ? Crest ? 13% ? --------- Svitlana-1 ? Polymyositis and/or ? Dermatomyositis ?20 - 40% ? --------- Centromere B ? Scleroderma - Crest ? variant ? 80% Blood BLOOD SPECIMEN / Unknown 03/03/2021 11:03 AM CDT 03/03/2021 Narrative Resulting Agency Comment Lab Testing performed at: [facility] [address] [facility] ??[facility] [phone] Destin Marquez MD LAB - SEROLOGY ORD ERABLES [facility] INSURANCE BILL [address] [place] [address] * URIC ACID BLOOD (03/03/2021 11:03 AM CDT) Uric Acid 4.3 3.0 - 7.2 mg/dL [facility] INSURANCE BILL Comment:Therapeutic target f or gout patients: <6.0 Blood BLOOD SPECIMEN / Unknown 03/03/2021 11:03 AM CDT 03/03/2021 Narrative Resulting Agency Comment Lab Testing performed at: [facility] [address] ??[facility] [phone] Destin Marquez MD LAB - CHEMISTRY OR DERABLES [facility] INSURANCE BILL [address] [place] [address] * RHEUMATOID FACTOR BLOOD QUANTITATIVE (03/03/2021 11:03 AM CDT) Rheumatoid Factor <10.0 0.0 - 13.9 IU/mL [facility] INSURANCE BILL Blood BLOOD SPECIMEN / Unknown 03/03/2021 11:03 AM CDT 03/03/2021 Narrative Resulting Agency Comment Lab Testing performed at: [facility] [address] ??[facility] [phone] Destin Marquez MD LAB - CHEMISTRY OR DERABLES [facility] INSURANCE BILL [address] [place] [address] * C-REACTIVE PROTEIN (03/03/2021 11:03 AM CDT) C-Reactive Protein 1 0 - 10 mg/L [facility] INSURANCE BILL Blood BLOOD SPECIMEN / Unknown 03/03/2021 11:03 AM CDT 03/03/2021 Narrative Resulting Agency Comment Lab Testing performed at: [facility] [address] ??[facility] [phone] Destin Marquez MD LAB - CHEMISTRY OR DERABLES [facility] INSURANCE BILL [address] [place] [address] * ERYTHROCYTE SEDIMENTATION RATE (03/03/2021 11:03 AM CDT) Erythrocyte Sedimentation Rate Westergren 4 0 - 40 mm/hr [facility] INSURANCE BILL Blood BLOOD SPECIMEN / Unknown 03/03/2021 11:03 AM CDT 03/03/2021 Narrative Resulting Agency Comment [facility] Testing performed at: [facility] [address] [place] [address] ??[facility] [phone] Destin Marquez MD LAB - HEMATOLOGY O RDERABLES Performing Organization Address City/[facility]/ZIP Co de Phone Number [facility] INSURANCE BILL [address] [place] [address] * COMPLEMENT C3 C4 PANEL (03/03/2021 11:03 AM CDT) Complement C3 110 82 - 167 mg/dL [facility] INSURANCE BILL Complement C4 25 12 - 38 mg/dL [facility] INSURANCE BILL Blood BLOOD SPECIMEN / Unknown 03/03/2021 11:03 AM CDT 03/03/2021 Narrative Resulting Agency Comment Lab Testing performed at: [employer] ??[facility] [phone] Destin Marquez MD LAB - CHEMISTRY OR DERABLES Performing Organization Address City/[facility]/ZIP Co de Phone Number [facility] [address] [place] [address] * [place] BIOPSY OF CERVIX (02/02/2021 10:23 AM CDT) Narrative Roxann Ulloa MD - 02/02/2021 10:23 AM CDT Roxann Ulloa MD ? 02/02/2021 10:26 AM Informed consent was obtained. The cervix was prepped with betadine. ??The endocervical polyp was grasped with a jose clamp and twisted on its stalk. The polyp was removed and sent to pathology. Excellent hemostasis was noted. ??The patient tolerated the procedure well. Roxann Ulloa MD PROCEDURE/MINOR JOCELYNE GICAL ORDERABLES * [place] INSERT NON-INDWELLING BLADDER (02/02/2021 10:16 AM CDT) Narrative Roxann Ulloa MD - 02/02/2021 10:16 AM CDT Roxann Ulloa MD ? 02/02/2021 10:26 AM Procedure note: Straight catheterization was performed after swabbing the urethra with betadine. A 14 Fr urethral catheter was inserted without difficulty and the bladder was drained for 120 mL. The patient tolerated the procedure well. ?? Roxann Ulloa MD PROCEDURE/MINOR JOCELYNE GICAL ORDERABLES * HPV DETECTION HIGH RISK COLBY (01/29/2021 3:00 PM CDT) High Risk Human Papilloma Result Not detected Not detected 02/02/2021 9:32 AM CDT [facility] High Risk Human Papilloma Interp 02/02/2021 9:32 AM CDT [facility] Comment:High Risk Human Bobby lloma Virus was Not Detected. Pathology/Cytolo gy MISCELLANEOUS SAMPLES / Unknown 01/29/2021 3:00 PM CDT 01/30/2021 12:34 PM CDT Narrative [facility] - 02/02/2021 9:32 AM CDT Nucleic acid isolated from the specimen was analyzed with a nucleic acid amplification test (FDA approved Gen-Probe HPV Assay) to detect high risk human papilloma virus (Types: 16, 18, 31, 33, 35, 39, 45, 51, 52, 56, 58, 59, 66, and 68). ??The reference range is Not Detected . Comment: These test results should not be used as the sole basis for clinical assessment and treatment of patients. ??These results should always be correlated with other available data (cytology, histology, and clinical information). Roxann Ulloa MD LAB - MICROBIOLOGY ORDERABLES [facility] [address] [phone] * PAP IMAGE-GUIDED W HPV (01/29/2021 3:00 PM CDT) Case Report Gynecologic Cytology Report ? Case: [id number] ? Authorizing Provider: ??Roxann Ulloa MD ? Collected: ? 01/29/2021 03:00 PM ? Ordering Location: ? [facility] ? Received: ?01/30/2021 12:34 PM ? Gynecology and Women's ? Health ? First Screen: ?Rodger Coker ? Specimen: ?THINPREP - IMAGE GUIDED, Cervix/Endocervix ? 01/31/2021 8:44 AM CDT [facility] LMP postmenopausal 01/31/2021 8:44 AM CDT [facility] Menstrual Status Postmenopausal 01/03 8:44 AM CDT [facility] Specimen Adequacy Satisfactory for evaluation, endocervical/trans formation zone component present. 01/31/2021 8:44 AM CDT [facility] Categorization Negative for intraepithelial lesion or malignancy. 01/31/2021 8:44 AM CDT [facility] Interpretation TRIAL MGR Negative for intraepithelial lesion or malignancy. 01/31/2021 8:44 AM CDT [facility] Other Atrophic changes. 021 8:44 AM CDT [facility] Pap Footnote The Pap Smear is a screening test. False positive and false negative results occur. Negative results do not preclude abnormalities, thus clinical correlation is required. This specimen was evaluated by the ThinPrep Imaging System along with an additional manual rescreening by a assembler for puller over hand and/or pathologist. 01/31/2021 8:44 AM CDT [facility] Embedded Images 8:44 AM CDT [facility] Pathology/Cytolo gy MISCELLANEOUS SAMPLES / Unknown 01/29/2021 3:00 PM CDT 01/30/2021 12:34 PM CDT Roxann Ulloa MD LAB - PATHOLOGY/CYT OLOGY ORDERABLES Performing Organization Address [facility]/State/[facility] Co de Phone Number [facility] [address] [phone] * [place] MSR PVR U&/BLADD CAPCTY US NON (01/01/2021 3:25 PM BRANCH LENDING OFFICER) Narrative Lashay Gallego K - 01/01/2021 3:25 PM BRANCH LENDING OFFICER Lashay Gallego K ? 01/03/2021 ??2:15 PM 24 ML Anjelica Ryder TOE SEWER-CEMENT KILN OPERATOR PROCEDURE/MIN OR SURGICAL ORDERABLES * XR KNEE LEFT 4VW OR MORE (05/09/2020 10:07 AM CDT) Only the most recent of6 resultswithin the time period is included. Anatomical Region Laterality Modality Lower Extremity Radiographic Lisa ging 05/09/2020 10:5 5 AM CDT Impressions 05/09/2020 10:56 AM CDT IMPRESSION: Total knee arthroplasty without complication. This report was electronically signed by TARIQ FIELDS MD ??on 05/09/2020 10:56 AM . Narrative 05/09/2020 10:56 AM CDT Exam: ??XR KNEE LEFT 4VW History: ??Z96.652: Status post left knee replacement Comparison: 10/19/2019 Findings: Total knee arthroplasty is present. The prosthetic components are intact. No acute fracture or dislocation is seen. There is no effusion. Procedure Note Tariq Fields MD - 05/09/2020 Exam: XR KNEE LEFT 4VW History: Z96.652: Status post left knee replacement Comparison: 10/19/2019 Findings: Total knee arthroplasty is present. The prosthetic components areintact. No acute fracture or dislocation is seen. There is no effusion. IMPRESSION: Total knee arthroplasty without complication. This report was electronically signed by TARIQ FIELDS MD on05/09/2020 10:56 AM . Leo Mercedes MD DIAGNOSTIC IMAGING ORDERABLES * IMAGING/RADIOLOGY/XRAY RESULTS ORDER (04/12/2019 7:51 PM CDT) Only the most recent of2 resultswithin the time period is included. Anatomical Region Laterality Modality Other Narrative 04/12/2019 7:51 PM CDT Ordered by an unspecified provider. Scanned Document IMAGING * CARDIAC RHYTHM STRIP ORDER (04/12/2019 1:39 PM CDT) Only the most recent of2 resultswithin the time period is included. Narrative 04/12/2019 1:39 PM CDT Ordered by an unspecified provider. Scanned Document CARDIAC SERVICES ORD ERABLES * (ABNORMAL) HGB HCT PANEL (04/07/2019 2:43 AM CDT) Only the most recent of4 resultswithin the time period is included. Hemoglobin 10.9(L) 12.0 - 15.6 gm/dL 04/07/2019 4:08 AM CDT [facility] Hematocrit 34.5(L) 35.9 - 45.5 % 04/07/2019 4:08 AM CDT [facility] Blood BLOOD SPECIMEN / Unknown Lab Venipuncture / Unknown 04/07/2019 2:43 AM CDT 04/07/2019 4:02 AM CDT Ahmet Jacques MD LAB - HEMATOLOGY ORD ERABLES Performing Organization Address City/[facility]/ZIP Co de Phone Number [facility] [address] [place] [address] * CULTURE MSSA/MRSA (03/25/2019 8:14 AM CDT) Only the most recent of2 resultswithin the time period is included. Culture Negative for Staphylococcus aureus (MRSA/MSSA) LUIS 03/26/2019 12:21 PM CDT [facility] Microbiology SPECIMEN FROM NASAL FOSSAE / Unknown Collection / Unknown 03/25/2019 8:14 AM CDT 03/25/2019 8:39 AM CDT Leo Mercedes MD LAB - MICROBIOLOGY ORDERABLES Performing Organization Address [facility] Co de Phone Number [facility] [address] [phone] * URINALYSIS REFLEX MICROSCOPIC REFLEX CULTURE (03/25/2019 8:14 AM CDT) Only the most recent of2 resultswithin the time period is included. Color UA Straw Straw, Yellow 03/25/2019 8:51 AM CDT [facility] Clarity UA Clear Clear 03/25/2019 8:51 AM CDT [facility] Glucose UA Negative Negative 03/25/2019 8:51 AM CDT [facility] Bilirubin UA Negative Negative 03/25/2019 8:51 AM CDT [facility] Ketone UA Negative Negative 03/25/2019 8:51 AM CDT [facility] Specific [place] UA 1.005 1.005 - 1.030 03/25/2019 8:51 AM CDT [facility] Blood UA Negative Negative 03/25/2019 8:51 AM CDT [facility] pH UA 6.0 5.0 - 8.0 pH 03/25/2019 8:51 AM CDT [facility] Protein UA Negative Negative 03/25/2019 8:51 AM CDT [facility] Urobilinogen UA Negative Negative mg/dL 03/25/2019 8:51 AM CDT [facility] Nitrite UA Negative Negative 03/25/2019 8:51 AM CDT [facility] Leukocyte UA Negative Negative 03/25/2019 8:51 AM CDT [facility] Urine Microscopy Urine microscopy not indicated 03/25/2019 8:51 AM CDT [facility] Reflex Status Culture not indicated 03/25/2019 8:51 AM CDT [facility] Urine URINE SPECIMEN OBTAINED BY CLEAN CATCH PROCEDURE / Unknown Collection / Unknown 03/25/2019 8:14 AM CDT 03/25/2019 8:39 AM CDT Narrative [facility] - 03/25/2019 8:51 AM CDT Leo Mercedes MD LAB - URINALYSIS OR DERABLES Performing Organization Address City/[facility]/ZIP Co de Phone Number [facility] [address] [place] [phone] * TRANSFERRIN (03/25/2019 8:14 AM CDT) Only the most recent of2 resultswithin the time period is included. Transferrin 272 173 - 360 mg/dL 03/25/2019 9:07 AM CDT [facility] Blood BLOOD SPECIMEN / Unknown Venipuncture / Unknown 03/25/2019 8:14 AM CDT 03/25/2019 8:39 AM CDT Leo Mercedes MD LAB - CHEMISTRY ORD ERABLES Performing Organization Address City/[facility]/ZIP Co de Phone Number [facility] [address] [place] [phone] * (ABNORMAL) CBC W AUTO DIFFERENTIAL (03/25/2019 8:14 AM CDT) Only the most recent of2 resultswithin the time period is included. WBC 5.0 4.4 - 10.7 x10E9/L 03/25/2019 8:45 AM CDT [facility] WBC Corrected x10E9/L 03/25/2019 8:45 AM CDT [facility] RBC 5.22(H) 3.80 - 5.20 x10E12/L 03/25/2019 8:45 AM CDT [facility] Hemoglobin 12.8 12.0 - 15.6 gm/dL 03/25/2019 8:45 AM CDT [facility] Hematocrit 41.6 35.9 - 45.5 % 03/25/2019 8:45 AM CDT [facility] MCV 79.7(L) 80.7 - 98.3 fl 03/25/2019 8:45 AM CDT [facility] MCH 24.5(L) 26.7 - 34.0 pg 03/25/2019 8:45 AM CDT [facility] MCHC 30.8 30.8 - 35.9 gm/dL 03/25/2019 8:45 AM T [facility] Platelet Count 245 153 - 416 x10E9/L 03/25/2019 8:45 AM [facility] RDW-CV 15.9(H) 12.1 - 14.9 % 03/25/2019 8:45 AM CDT [facility] MPV 11.1 9.4 - 12.9 fl 03/25/2019 8:45 AM T [facility] Neutrophils % 60.4 44.0 - 73.0 % 03/25/2019 8:45 AM [facility] Lymphocytes % 30.6 20.0 - 43.0 % 03/25/2019 8:45 AM CDT [facility] Monocytes % 6.8 5.0 - 13.0 % 03/25/2019 8:45 AM CDT [facility] Eosinophils % 1.4 0.0 - 6.0 % 03/25/2019 8:45 AM CDT [facility] Basophils % 0.6 0.0 - 2.0 % 03/25/2019 8:45 AM CDT [facility] Immature Granulocytes 0.2 0 - 1 % 03/25/2019 8:45 AM CDT [facility] Neutrophil Absolute 3.02 2.01 - 7.14 x10E9/L 03/25/2019 8:45 AM CDT [facility] Lymphocytes Absolute 1.53 1.07 - 3.94 x10E9/L 03/25/2019 8:45 AM CDT [facility] Monocytes Absolute 0.34 0.26 - 1.07 x10E9/L 03/25/2019 8:45 AM CDT [facility] Eosinophils Absolute 0.07 0 - 0.47 x10E9/L 03/25/2019 8:45 AM CDT [facility] Basophils Absolute 0.03 0 - 0.08 x10E9/L 03/25/2019 8:45 AM CDT [facility] Immature Granulocytes Absolute 0.01 0.00 - 0.06 x10E9/L 03/25/2019 8:45 AM CDT [facility] nRBC Auto 0 /100 WBC 03/25/2019 8:45 AM CDT [facility] Blood BLOOD SPECIMEN / Unknown Venipuncture / Unknown 03/25/2019 8:14 AM CDT 03/25/2019 8:39 AM CDT Leo Mercedes MD LAB - HEMATOLOGY OR DERABLES Performing Organization Address City/State/[facility] Co de Phone Number [facility] [address] [place] [address] * (ABNORMAL) COMPREHENSIVE METABOLIC PANEL (03/25/2019 8:14 AM CDT) Only the most recent of2 resultswithin the time period is included. Glucose 96 74 - 106 mg/dL 03/25/2019 9:07 AM [facility] Sodium 142 136 - 145 mmol/L 03/25/2019 9:07 AM CDT [facility] Potassium 4.1 3.5 - 5.1 mmol/L 03/25/2019 9:07 AM CDT [facility] Chloride 108(H) 98 - 107 mmol/L 03/25/2019 9:07 AM CDT [facility] CO2 26 23 - 31 mmol/L 03/25/2019 9:07 AM CDT [facility] Calcium 9.8 8.4 - 10.2 mg/dL 03/25/2019 9:07 AM CDT [facility] Anion Gap 8 8 - 16 mmol/L 03/25/2019 9:07 AM CDT [facility] BUN 11 9.8 - 20.1 mg/dL 03/25/2019 9:07 AM CDT [facility] Creatinine 0.81 0.55 - 1.02 mg/dL 03/25/2019 9:07 AM [facility] Alkaline Phosphatase 64 40 - 150 U/L 03/25/2019 9:07 AM CDT [facility] ALT 22 13 - 61 U/L 03/25/2019 9:07 AM [facility] AST 18 5 - 34 U/L 03/25/2019 9:07 AM [facility] Protein Total 7.1 6.4 - 8.3 gm/dL 03/25/2019 9:07 AM T [facility] Albumin 4.0 3.2 - 4.6 gm/dL 03/25/2019 9:07 AM [facility] Bilirubin Total 0.5 0.2 - 1.0 mg/dL 03/25/2019 9:07 AM [facility] eGFR by MDRD >60 >60 mL/min/1.7 3m2 03/25/2019 9:07 AM [facility] eGFR by MDRD >60 >60 mL/min/1.7 3m2 03/25/2019 9:07 AM T [facility] Blood BLOOD SPECIMEN / Unknown Venipuncture / Unknown 03/25/2019 8:14 AM CDT 03/25/2019 8:39 AM CDT Narrative [facility] - 03/25/2019 9:07 AM CDT Attention clinician: BUN Reference Range has changed. Leo Mercedes MD LAB - CHEMISTRY ORD ERABLES Performing Organization Address [facility]/State/[facility] Co de Phone Number [facility] [address] [place] [address] * XR KNEE RIGHT 4VW OR MORE (12/30/2018 9:25 AM BRANCH LENDING OFFICER) Only the most recent of3 resultswithin the time period is included. Anatomical Region Laterality Modality Lower Extremity Radiographic Lisa ging 12/30/2018 9:27 AM BRANCH LENDING OFFICER Narrative 12/30/2018 9:28 AM BRANCH LENDING OFFICER Right knee 4 view HISTORY: Right knee pain Since 10/14/2018 there's been no change the appearance of a right knee prosthesis. There is no fracture or dislocation or joint effusion Reading Radiologist: Jefe Case MD on 12/30/2018 at 9:28 AM Procedure Note Jefe Case MD - 12/30/2018 Right knee 4 view HISTORY: Right knee pain Since 10/14/2018 there's been no change the appearance of a right knee prosthesis. There is no fracture or dislocation or joint effusion Reading Radiologist: Jefe Case MD on 12/30/2018 at 9:28 AM Leo Mercedes MD DIAGNOSTIC IMAGING ORDERABLES * (ABNORMAL) CULTURE URINE (04/12/2014 6:12 PM CDT) Culture Urine No Growth of >100 CFU/ml after 24 hours [facility] Culture Urine GROUP B STREPTOCOC CUS(A) [facility] Comment: 10,000 CFU/ML Group B Streptococcus After 48 hours Susceptibility testing not performed on Beta-Hemolytic Streptococci. As they are routinely susceptible to Penicillin, Ampicillin and other Beta-Lactam Antimicrobials approved for treatment of Beta-Hemolytic Streptococcal infections. Urine specimen (specimen) URINE SPECIMEN OBTAINED BY CLEAN CATCH PROCEDURE / Unknown 04/12/2014 6:12 PM CDT 04/12/2014 9:50 PM CDT Narrative [facility] - 04/14/2014 4:06 PM CDT AndersonSpecimen#[id number] Ozzy Loc/Rm/Bed: ED// CLN CATCH U @04/12/14 1848: URINE CULTURE added. RFLXG = UAUCC. Historical Provider LAB - MICROBIOLOG Y ORDERABLES [address] [phone] Care Teams Developer [employer] Upholstering Relationship Specialty Start Date End Date Yan Mata MD [address] [id number] PCP - General 07/27/18 Yan Mata MD [address] [address] (work) 07/27/18
--- OUTSIDE RECORDS SUMMARY | 2024-12-03 09:31 | XMS_ITS ---
Author Organization [facility] Address [address] [place] [address] Care Team Providers Care Clinical Dental Technician Name Role Phone Yan Mata MD Primary Care Provider [phone] Yan Mata MD Unavailable Active Problems Problem Noted Date Diagnosed Date [...] erythematosus or systemic inflammatory rheumatic disorder by [employer] (ACR) diagnostic classification criteria [...] from 12/18/2021: cT1b, cN0, cM0, GX, ER+, ND+, HER2- - Signed by Sadia Ortiz MD on 01/15/2022 Pathologic stage from 01/25/2022:Stage IA(pT1c, pN0(sn), cM0, G2, ER+, ND+, HER2- ) - Signed by Sadia Ortiz MD on 02/12/2022 Malignant neoplasm of upper- outer quadrant of right breast in female, estrogen receptor positive 01/02/2022 Dystrophia unguium 10/16/2021 Onychomycosis 10/16/2021 Pain in toe 10/16/2021 Age-related nuclear cataract of both eyes 2020 Overview (04/09/2021): Last Assessment & Plan: Much better endpoint today with MRx. Released today. Patient had much better understanding today through box lining machine feeder. Meibomian gland dysfunction (MGD) of both eyes [...] left knee Lateral subluxation of left patella Current Oncology Plans No current plan information found. Past Plans No past plan information found. Radiation Treatments * No radiation treatments are documented for this patient in Epic. Treatments may have been administered in another system. Treatment Summaries Malignant neoplasm of overlapping sites of right breast in female, estrogen receptor positive (HCC)* [address] [id number] Oncology Treatment Summary Breast Treatment Summary for Ghislaine Domínguez 1950 provided on date 09/02/22 Prepared by: Hillary Knapp RN on date: 09/02/22 Primary Care Provider: Yan Mata MD Diagnosis: Malignant neoplasm of overlapping sites of right breast in female, estrogen receptor positive (CMS/HCC) Date of diagnosis: 12/18/21 Age of diagnosis: 71 Tumor Information Cancer Staging Malignant neoplasm of overlapping sites of right breast in female, estrogen receptor positive (CMS/HCC) Staging form: Breast, AJCC 8th Edition - Clinical stage from 12/18/2021: cT1b, cN0, cM0, GX, ER+, ND+, HER2- - Signed by Sadia Ortiz MD on 01/15/2022 - Pathologic stage from 01/25/2022: Stage IA (pT1c, pN0(sn), cM0, G2, ER+, ND+, HER2-) - Signed by Sadia Ortiz MD on 02/12/2022 Surgery Information Description: right BCT, SLNB -- 1.4cm IDC and DCIS (final margins negative), negative SLNB (0/2) Date: 01/25/22 Surgeon/Facility Name: Dr. Sadia Ortiz, [facility] Adjuvant Treatment Recommendations: medical and radiation oncology Initial Imaging Mammogram: Bilateral screening mammogram 11/30/2021 ([facility]) -- developing asymmetry in the right breast at the 7:00 position (has increased in size and become more dense during interval) and a few microcalcifications associated with it, BIRADS-0 Right diagnostic mammogram and ultrasound 12/10/2021 ([facility]) -- information obtained frommedical oncology note as the report is unavailable -- new cluster of indeterminate right breast calcifications in the upper outer breast, 8mm mass with calcifications at the 9:00 position Radiation Information Radiation Oncologist: Dr. Leo Her Site: Right breast Dates of treatment: 03/01/22-03/25/22 Total dose: 42.56 Gy in 266 cGy daily fractions Adverse effects during treatment: mild to moderate skin toxicity Any pauses in treatment? NO Chemotherapy Information Medical Oncologist: Dr. Ren Oncotype--12, no chemotherapy recommended 03/25/22--started Arimidex Genetic Testing Genetic Testing: No Other Information Clinical Trials: None Pre-treatment Weight: 160 lbs. Post-Treatment Weight: 162 lbs. Psychosocial needs: Narinder box lining machine feeder Fertility: Menarche at age 16 years Menopause at age 56 years with first delivery at age 27 years Possible Late Effects of Your Cancer Treatment Swelling arm Alopecia/Hairloss Nail discoloration Peripheral neuropathy Secondary leukemia or malignancy is possible Depression or anxiety Abnormal vaginal bleeding Bony or joint pains Possible cognitive changes Sexual/hormonal changes Alteration in blood counts Changes to kidney function Fibrosis and scarring of breast at treatment site Darkening and drying of skin Cancer Surveillance Schedule You will be seen more frequently the earlier you are in your surveillance plan. Every patient will have an individualized follow up schedule based on recommendations from national cancer organizations and your specific post- treatment course. Follow up with Location How often Radiation Oncology [facility] Clinical visit every 4-6 months for 5 yrs, then every 12 months Medical Oncology [facility] Surgery [facility] Mammography [facility] Bilateral Diagnostic Mammogram every 12 months Reasons to call: New lesions or mass Chest pain New feelings of sadness or being overwhelmed Unintended weight loss Cough that does not go away Any side effects or questions of care Your follow up schedule is listed below Future Appointments Date Time Provider Department Center 09/02/2022 11:30 AM Sadia Ortiz MD [facility] S 09/25/2022 4:00 PM Roxann Ulloa MD [id number] Contact Information Radiation Oncologist Dr. Leo Her Medical Oncologist Dr. Ren Surgeon Dr. Sadia Ortiz Social Work Electronics Supervisor Ladan Gray Breast Nurse Navigator Hillary Knapp RN [phone] [facility] Hospital Scheduling Primary Care Provider Yan Mata MD [phone] Recommended cancer screenings Colonoscopy: every 10 years beginning at age 50 unless directed otherwise. Last colonoscopy: Unknown Mammogram: Annually beginning at age 40 unless directed otherwise. Last mammogram: January 2022 Cervical Cancer Screening: Ages 21-24 No Screening Indicated Ages 25-29 HPV test every 5 yrs (Preferred) HPV/Pap co test every 5 yrs (Acceptable) Pap test every 3 yrs (Acceptable) Ages 30-65 HPV test every 5 yrs (Preferred) HPV/Pap co test every 5 yrs (Acceptable) Pap test every 3 yrs (Acceptable) Age 65 and older No screening if a series of prior tests were normal General Wellness Screening Blood Pressure: annually Weight: annually Lipids: Women age >= 45 should be screened for lipid(cholesterol) disorder Diabetes: Discuss with your primary care provider especially if you are overweight or have high blood pressure Bone Density: Women age >= 65 should be screened for osteoporosis Vision: No routine screening recommended. If you think your vision has changed, get a vision examination. Hearing: No routine screening recommended. If you think your hearing has changed, get a hearing examination. Dental: Dental examinations every 6 months are recommended. If you have had radiation, you should discuss fluoride treatments with your dentist. Staying Healthy Immunizations: Annual flu shot Tetanus booster every 10 years Diptheria booster if you haven???t had one Shingles vaccine at age 60 if you have had chicken pox Pneumonia vaccine at ages between 19-64 if chronically ill; at age 65 for all people Sun Exposure: Wear sunscreen daily. Apply liberally when outside and wear protective clothing. Nutrition: A healthy weight and a balanced diet will Tobacco: Avoid all tobacco and vapor products. If you have not been able to quit, ask for help. Alcohol: Moderate alcohol intake is acceptable. If you think you drink too much, we can help you find resources to help you quit. Drugs: Illegal drugs should be avoided. If you use any of these substances, ask for help with stopping. Activity: Staying active helps your heart, your lungs, and your immune system. Take every opportunity to walk a few extra steps. Important Resources [facility] [employer] cancer.org Association of Cancer Online Resources acor.org Caring Bridge caringbridge.org CancerCare cancercare.org LiveStrong Foundation livestrong.org National Cancer [place] cancer.gov Cancer Survivors Network csn.cancer.org National Coalition for Cancer Survivorship canceradvocacy.org [employer] cancer.net Cancer Support [facility] www.cancersupportstl.org Radiation Therapy Questions/Answers www.rtanswers.org
--- OUTSIDE RECORDS SUMMARY | 2024-12-03 09:31 | XMS_ITS | Clinical Summary ---
Author Organization [facility] Address [address] [place] [address]. 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 Gender Identity Not on file Sexual Orientation Not on file Plan of Treatment Health Maintenance Due Date Last Done Comments Colorectal Cancer Screening Colonoscopy (10 Years) 1950 Hepatitis C 1970 DTaP, Tdap and Td Vaccines ( 1 - Tdap) 1971 Zoster Vaccines (1 of 2) 2002 Pneumococcal Vaccine: 65+ Ye ars (1 of 1 - PCV) 2017 COVID-19 Vaccine ( - 2023-2 5 season) 2024 Influenza Adult (#1) 2024 RSV Immunization or 60+ Years (1 - 1-dose 75+ series) 2027 Meningococcal B Vaccine Aged Out No l onger eligible based on patient's age to complete this topic Meningococcal Vaccine Aged Out No kiki cuauhtemoc eligible based on patient's age to complete this topic RSV Immunizations Under 20 Months Aged Out No longer eligible based on patient's age to complete this topic
--- OUTSIDE RECORDS SUMMARY | 2024-12-03 09:31 | XMS_ITS | Referral Summary ---
Author Organization [facility] Address [address] [place] [address] Care Team Providers Care [employer] Name Role Phone Yan Mata MD Primary Care Provider [phone] Yan Mata MD Unavailable Source Comments [facility],non-owned Affiliates and Associated Physician Practices is amultiple site organization consisting of ambulatory clinics and hospital sitesin [place], [place], [place] and [place]. This disclosure is being madepursuant to the Care Everywhere program and may not contain all information available regarding this patient. Last updated 18.[facility] Allergies Active Allergy Reactions Criticality Noted Date [...] erythematosus or systemic inflammatory rheumatic disorder by [employer] (ACR) diagnostic classification criteria [...] from 12/18/2021: cT1b, cN0, cM0, GX, ER+, AZ+, HER2- - Signed by Sadia Ortiz MD on 01/15/2022 Pathologic stage from 01/25/2022:Stage IA(pT1c, pN0(sn), cM0, G2, ER+, AZ+, HER2- ) - Signed by Sadia Ortiz MD on 02/12/2022 Malignant neoplasm of upper- outer quadrant of right breast in female, estrogen receptor positive 01/02/2022 Dystrophia unguium 10/16/2021 Onychomycosis 10/16/2021 Pain in toe 10/16/2021 Age-related nuclear cataract of both eyes 2020 Overview (04/09/2021): Last Assessment & Plan: Much better endpoint today with MRx. Released today. Patient had much better understanding today through diesel mechanic apprentice. Meibomian gland dysfunction (MGD) of both eyes [...] HIGH-DOSE QUADRIVALENT; 65Y+), 0.7 ML (HD-IIV4) 09/10/2019 Social History Tobacco Use Types Packs/Day Years [...] Mass Index 31.93 08/13/2024 11:40 AM CDT Functional Status Functional Status Response Date of Assess ment Is person deaf or have serious hearing difficult y? No 01/25/2022 Is person blind or have serious difficulty seein g? No 01/25/2022 Does person have serious dif ficulty walking/climbing stairs? No 01/25/2022 Does person have difficulty dressing/bathing? No 01/25/2022 Does person have difficulty doing errands alone? No 01/25/2022 Cognitive Status Response Date of Assessm ent Does person have difficulty concentrating/remembering/making decisions? No 01/25/2022 Plan of Treatment Upcoming Encounters Date Type Department Care Team (Late st Contact Info) Description 12/09/2024 10:00 AM SONG LYRICIST Appointment [facility] [address] [place] [address] Sadia Ortiz MD [address] [facility] [address] [place] [phone] 12/09/2024 10:30 AM SONG LYRICIST Office Visit [facility] - General Surgery [address] [place] [phone] Sadia Ortiz MD [address] [facility] [address] [place] [address] 12/10/2024 11:45 AM SONG LYRICIST Office Visit [facility] - MEDICAL REVIEW COORDINATOR [address] [facility] [address] [place] [address] Roxann Ulloa MD [address] [facility] [place] [address] Medical Devices Implanted Type Area Spud Sorter Device Identifier Shelf Expiration Date Model / Serial / Lot Mrkr 18ga Magseed Brstbio 7cm Implanted:Qty : 1 on 01/24/2022 by Korin Dumont MD at [facility] Implant Non-Ortho Right: Breast Devicor 06/10/2025 [id number] / / [id number] Mrkr 18ga Magseed Brstbio 7cm Implanted:Qty : 1 on 01/24/2022 by Korin Dumont MD at [facility] Implant Non-Ortho Right: Breast Devicor 07/03/2025 [id number] / / [id number] Ins Tib 1-2 11mm Kn Xlpe Cr Hi Flxn Implanted:Qty : 1 on 09/14/2018 by Leo Mercedes MD at [facility] Right: Knee [employer] 08/03/2023 [id number] / / [id number] Description:LGN CR HIGH FLEX XLPE SZ 1-2 11MM--09/17 LG Stem Tib 16mm Prfx Mtphsl Implanted:Qty : 1 on 09/14/2018 by Leo Mercedes MD at [facility] Right: Knee [employer] 06/03/2023 [id number] / / [id number] Description:METAPHYSEAL TIB STEM 16MM--09/17 LG Legion Por Cr Sandoval Fem R Sz 3 Implanted:Qty : 1 on 09/14/2018 by Leo Mercedes MD at [facility] Right: Knee [employer] 11/24/2025 [id number] / / [id number] Description:LGN POR CR SANDOVAL FE M SZ 3 RT--09/17 LG Legion Por Sandoval Tib Base R Sz 2 Implanted:Qty : 1 on 09/14/2018 by Leo Mercedes MD at [facility] Right: Knee [employer] 07/04/2023 [id number] / / [id number] Description:LEGION POROUS SANDOVAL TIBIAL BASE SZ 2 RT--09/17 LG Screw Bsplt 15mm 6.5mm Gns2 Kn Tib Por Implanted:Qty : 1 on 09/14/2018 by Leo Mercedes MD at [facility] Right: Knee [employer] 06/13/2028 [id number] / / [id number] Description:G2 6.5MM SCREW 1 56MM LNGTH--09/17 LG Screw Bsplt 20mm 6.5mm Gns2 Kn Tib Por Implanted:Qty : 1 on 09/14/2018 by Leo Mercedes MD at [facility] Right: Knee [employer] 06/13/2028 [id number] / / [id number] Description:G2 6.5MM SCREW 2 0MM LNGTH--09/17 LG Screw Bsplt 20mm 6.5mm Gns2 Kn Tib Por Implanted:Qty : 1 on 09/14/2018 by Leo Mercedes MD at [facility] Right: Knee [employer] 06/13/2028 [id number] / / [id number] Description:G2 6.5MM SCREW 2 0MM LNGTH--09/17 LG Screw Bsplt 15mm 6.5mm Gns2 Kn Tib Por Implanted:Qty : 1 on 09/14/2018 by Leo Mercedes MD at [facility] Right: Knee [employer] 07/07/2027 [id number] / / [id number] Description:G2 6.5MM SCREW 1 5MM LNGTH--09/17 LG Blayne K2 Sys Kn Uncemented Implanted:Qty : 1 on 09/14/2018 by Leo Mercedes MD at [facility] Right: Knee [employer] K2 UNCEMENTED / / Legion Por Sandoval Tib Base L Sz 2 Implanted:Qty : 1 on 04/05/2019 by Leo Mercedes MD at [facility] Left: Knee [employer] 05/02/2020 [id number] / / [id number] Description:fc LEGION POROUS SANODVAL TIBIAL BASE SZ 2 LT--04/08 LG Stem Tib 16mm Prfx Mtphsl Implanted:Qty : 1 on 04/05/2019 by Leo Mercedes MD at [facility] Left: Knee [employer] 08/03/2027 [id number] / / [id number] Description:fc METAPHYSEAL TIB STEM 16MM--04/08 LG Legion Por Cr Sandoval Fem L Sz 3 Implanted:Qty : 1 on 04/05/2019 by Leo Mercedes MD at [facility] Left: Knee [employer] 12/03/2023 [id number] / / [id number] Description:fc LGN POR CR SANDOVAL FEM SZ 3 LT--04/08 LG Ins Xlpe Dished Artc Sz 1-2 11mm Implanted:Qty : 1 on 04/05/2019 by Leo Mercedes MD at [facility] Left: Knee [employer] 04/02/2024 [id number] / / [id number] Description:fc LGN XLPE DISHED ISRT SZ 1-2 11MM--04/08 LG Screw Bsplt 15mm 6.5mm Gns2 Kn Tib Por Implanted:Qty : 1 on 04/05/2019 by Leo Mercedes MD at [facility] Left: Knee [employer] 02/10/2027 [id number] / / [id number] Description:fc G2 6.5MM SCREW 15MM LNGTH--04/08 LG Screw Bsplt 15mm 6.5mm Gns2 Kn Tib Por Implanted:Qty : 1 on 04/05/2019 by Leo Mercedes MD at [facility] Left: Knee [employer] 01/19/2028 [id number] / / [id number] Description:fc G2 6.5MM SCREW 15MM LNGTH--04/08 LG Screw 6.5mm 25mm Hip Actb Canc Sphrcl Implanted:Qty : 1 on 04/05/2019 by Leo Mercedes MD at [facility] Left: Knee [employer] 07/07/2028 [id number] / / [id number] Description:fc REF SPHER HEAD SCREW 25MM--04/08 LG Screw Bsplt 15mm 6.5mm Gns2 Kn Tib Por Implanted:Qty : 1 on 04/05/2019 by Leo Mercedes MD at [facility] Left: Knee [employer] 11/16/2028 [id number] / / [id number] Description:fc G2 6.5MM SCREW 15MM LNGTH--04/08 LG Blayne K2 Sys Kn Uncemented Implanted:Qty : 1 on 04/05/2019 by Leo Mercedes MD at [facility] Left: Knee [employer] K2 UNCEMENTED / / Mrkr Apl 3 Mrfbr Pd Radopq Interwoven Implanted:Qty : 1 on 01/18/2022 by Korin Dumont MD at [facility] Right: Breast Bard Peripheral Vascular 01/02/2024 [id number] / / [id number] Procedures Procedure Name Priority Date/Time Associated Diagnosis Comments MAMMO BILAT DIAGNOSTIC W BRIGITTE Routine 12/11/2023 10:44 AM SONG LYRICIST Malignant neoplasm of overlapping sites of right breast in female, estrogen receptor positive (HCC) BASIC METABOLIC PANEL (CALCIUM TOTAL) Routine 01/18/2022 12:38 PM CDT Pre-op exam from Last 3 Months or Most Recently Relevant to Health Maintenance Results * MAMMO BILAT DIAGNOSTIC W BRIGITTE (12/11/2023 10:44 AM SONG LYRICIST) Anatomical Region Laterality Modality Breast Bilateral Mammography 12/11/2023 10:3 7 AM SONG LYRICIST Impressions 12/11/2023 10:50 AM SONG LYRICIST : No mammographic evidence of malignancy, status post right breast conservation therapy. RECOMMENDATION: ??Screening mammography in one year, pending no interval breast concerns. Patient was notified of the results at the time of her study. She will see Dr. Ortiz in the breast clinic today. OVERALL ASSESSMENT: ??BI-RADS CATEGORY 2: BENIGN. Report dictated by Chiki Rivera M.D. (residential care facility manager) 12/11/2023 10:48 AM. William Barrios D.O. also assisted in the dictation. I, Korin Dumont MD have personally reviewed and interpreted this examination/study. > Interpreting Provider: Korin Dumont MD on 12/11/2023 10:50 AM Narrative 12/11/2023 10:50 AM SONG LYRICIST EXAMINATIONS: BILATERAL DIGITAL DIAGNOSTIC MAMMOGRAM AND BREAST TOMOSYNTHESIS WITH CAD LOCATION: [facility] EXAM DATE: ??12/11/2023 HISTORY: Patient is a [...] 7 - 26 mg/dL 01/18/2022 1:31 PM [facility] Creatinine 0.76 0.56 - 0.96 mg/dL 01/18/2022 1:31 PM [facility] Sodium 144 136 - 145 mmol/L 01/18/2022 1:31 PM [facility] Potassium 3.9 3.5 - 4.5 mmol/L 01/18/2022 1:31 PM [facility] Chloride 105 98 - 107 mmol/L 01/18/2022 1:31 PM [facility] CO2 33(H) 22 - 29 mmol/L 01/18/2022 1:31 PM [facility] Glucose 101 70 - 115 mg/dL 01/18/2022 1:31 PM [facility] Calcium 10.0 8.4 - 10.2 mg/dL 01/18/2022 1:31 PM [facility] Anion Gap 10 8 - 18 01/18/2022 1:31 PM [facility] BUN/Creatinine Ratio 12 7 - 23 01/18/2022 1:31 PM [facility] Osmolality Calculated 297 270 - 300 mOsm/kg 01/18/2022 1:31 PM [facility] eGFR by CKD-EPI 85(L) >=90 mL/min/1.7 3 m2 01/18/2022 1:31 PM CDT [facility] Blood BLOOD SPECIMEN / Unknown Lab Venipuncture / Unknown 01/18/2022 12:38 PM CDT 01/18/2022 1:00 PM CDT Jocelyn Foss CHANNEL CEMENTER OUTSOLE MACHINE-BRIDAL SALES CONSULTANT LAB - CHEMISTRY ORDERABLES [facility] [address] [place] [address], [facility] [phone] from Last 3 Months or Most Recently Relevant to Health Maintenance Insurance Payer Benefit Plan / Group Subscriber ID Effective Dates Phone Address Type MEDICARE WPS MEDICARE PART B [id number] 04/03/2019-Pres ent [address] [address] [place] [address] Medicare MEDICAID - OUT OF [facility] MEDICAID - [place] PUBLIC AID [id number] 01/17/2022-Pre sent [address] [address] [place] [address] Medicaid MEDICARE MEDICARE PART B ONLY [id number] 04/03/2019-Pres ent [address] [facility] [place] [address] Medicare [place] - [place] [id number] 11/03/2020-Pres ent [address] [address] [place] [address] Medicaid [facility] MEDICAID [id number] Effective for all dates 132 [address]S DEPARTMENT 1 [place], [place] [address] [place] [address] Medicaid [facility] MEDICAID [id number] Effective for all dates 132 ATTN CLAIMS DEPARTMENT 1 [place], [place] [address] [place] [address] Medicaid [facility] MEDICAID [id number] Effective for all dates 132 ATT[address] CLAIMS DEPARTMENT 1 [place], [place] [address] [place] [address] Medicaid [facility] MEDICAID [id number] Effective for all dates 132 ATTN CLAIMS DEPARTMENT 1 [place], [place] [address] [place] [address] Medicaid [facility] MEDICAID [id number] Effective for all dates ATTN CLAIMS DEPARTMENT 1 [facility] [place], [place] [address] [place] [address] Medicaid Managed Care [facility] MEDICAID [id number] Effective for all dates ATTN CLAIMS DEPARTMENT 1 [facility] [place], [place] [address] [place] [address] Medicaid Managed Care [facility] MEDICAID [id number] Effective for all dates ATTN CLAIMS DEPARTMENT 1 [facility] [place], [place] [address] [place] [address] Medicaid Managed Care [facility] MEDICAID [id number] Effective for all dates ATTN CLAIMS DEPARTMENT 1 [facility] [place], [place] [address] [place] [address] Medicaid Managed Care [facility] MEDICAID [id number] Effective for all dates ATTN CLAIMS DEPARTMENT 1 [facility] [place], [place] [address] [place] [address] Medicaid Managed Care [facility] MEDICAID [id number] Effective for all dates ATTN CLAIMS DEPARTMENT 1 [facility] [place], [place] [address] [place] [address] Medicaid Managed Care [facility] MEDICAID [id number] Effective for all dates ATTN CLAIMS DEPARTMENT 1 [facility] [place], [place] [address] [place] [address] Medicaid Managed Care [facility] MEDICAID [id number] Effective for all dates ATTN CLAIMS DEPARTMENT 1 [facility], [place] [address] [place] [address] Medicaid Managed Care [facility] MEDICAID [id number] Effective for all dates ATTN CLAIMS DEPARTMENT 1 [facility], [place] [address] [place] [address] Medicaid Managed Care [facility] MEDICAID [id number] Effective for all dates ATTN CLAIMS DEPARTMENT 1 [facility], [place] [address] [place] [address] Medicaid Managed Care [facility] MEDICAID [id number] Effective for all dates ATTN CLAIMS DEPARTMENT 1 [facility], [place] [address] [place] [address] Medicaid Managed Care [facility] MEDICAID [id number] Effective for all dates ATTN CLAIMS DEPARTMENT 1 [facility], [place] [address] [place] [address] Medicaid Managed Care [facility] MEDICAID [id number] Effective for all dates ATTN CLAIMS DEPARTMENT 1 [facility], [place] [address] [place] [address] Medicaid Managed Care [facility] MEDICAID [id number] Effective for all dates ATTN CLAIMS DEPARTMENT 1 [facility], [place] [address] [place] [address] Medicaid Managed Care [facility] MEDICAID [id number] Effective for all dates ATTN CLAIMS DEPARTMENT 1 [facility], [place] [address] [place] [address] Medicaid Managed Care [facility] MEDICAID [id number] Effective for all dates ATTN CLAIMS DEPARTMENT 1 [facility], [place] [address] [place] [address] Medicaid Managed Care [facility] MEDICAID [id number] Effective for all dates ATTN CLAIMS DEPARTMENT 1 [facility], [place] [address] [place] [address] Medicaid Managed Care [facility] MEDICAID [id number] Effective for all dates ATTN CLAIMS DEPARTMENT 1 [facility], [place] [address] [place] [address] Medicaid Managed Care [facility] MEDICAID [id number] Effective for all dates ATTN CLAIMS DEPARTMENT 1 [facility], [place] [address] [place] [address] Medicaid Managed Care [facility] MEDICAID [id number] Effective for all dates ATTN CLAIMS DEPARTMENT 1 [facility], [place] [address] [place] [address] Medicaid Managed Care [facility] MEDICAID [id number] Effective for all dates ATTN CLAIMS DEPARTMENT 1 [facility], [place] [address] [place] [address] Medicaid Managed Care [facility] MEDICAID [id number] Effective for all dates ATTN CLAIMS DEPARTMENT 1 [facility], [place] [address] [place] [address] Medicaid Managed Care [facility] MEDICAID [id number] Effective for all dates ATTN CLAIMS DEPARTMENT 1 [facility], [place] [address] [place] [address] Medicaid Managed Care [facility] MEDICAID [id number] Effective for all dates ATTN CLAIMS DEPARTMENT 1 [facility], [place] [address] [place] [address] Medicaid Managed Care [facility] MEDICAID [id number] Effective for all dates ATTN CLAIMS DEPARTMENT 1 [facility], [place] [address] [place] [address] Medicaid Managed Care [facility] MEDICAID [id number] Effective for all dates ATTN CLAIMS DEPARTMENT 1 [facility], [place] [address] [place] [address] Medicaid Managed Care [facility] MEDICAID [id number] Effective for all dates ATTN CLAIMS DEPARTMENT 1 [facility], [place] [address] [place] [address] Medicaid Managed Care [facility] MEDICAID [id number] Effective for all dates ATTN CLAIMS DEPARTMENT 1 [facility], [place] [address] [place] [address] Medicaid Managed Care [facility] MEDICAID [id number] Effective for all dates ATTN CLAIMS DEPARTMENT 1 [facility], [place] [address] [place] [address] Medicaid Managed Care [facility] MEDICAID [id number] Effective for all dates ATTN CLAIMS DEPARTMENT 1 [facility], [place] [address] [place] [address] Medicaid Managed Care [facility] MEDICAID [id number] Effective for all dates ATTN CLAIMS DEPARTMENT 1 [facility], [place] [address] [place] [address] Medicaid Managed Care [facility] [id number] Effective for all dates [address] [address] [place] [address] Medicaid Managed Care [facility] [id number] Effective for all dates [address] [address] [place] [address] Medicaid Managed Care [facility] [id number] Effective for all dates [address] [address] [place] [address] Medicaid Managed Care [facility] [id number] Effective for all dates [address] [address] [place] [address] Medicaid Managed Care [facility] [id number] Effective for all dates [address] [address] [place] [address] Medicaid Managed Care [facility] [id number] Effective for all dates [address] [address] [place] [address] Medicaid Managed Care [facility] [id number] Effective for all dates [address] [address] [place] [address] Medicaid Managed Care [facility] [id number] Effective for all dates [address] [address] [place] [address] Medicaid Managed Care [facility] [id number] Effective for all dates [address] [address] [place] [address] Medicaid Managed Care [facility] [id number] Effective for all dates [address] [address] [place] [address] Medicaid Managed Care [facility] [id number] Effective for all dates [address] [address] [place] [address] Medicaid Managed Care [facility] [id number] Effective for all dates [address] [address] [place] [address] Medicaid Managed Care [facility] [employer] [id number] Effective for all dates [address] [address] [place] [address] Medicaid Managed Care [facility] [employer] [id number] Effective for all dates [address] [address] [place] [address] Medicaid Managed Care [facility] [employer] [id number] Effective for all dates [address] [address] [place] [address] Medicaid Managed Care [facility] [employer] [id number] 10/03/2017-Pre sent [address] [address] [place] [address] Medicaid Managed Care Advance Directives * Full Code (Latest Code Status on File) Date Activated Date Inactivated Comments 04/05/2019 11:56 AM 04/07/2019 6:36 PM * Full Code Date Activated Date Inactivated Comments 09/14/2018 3:08 PM 09/16/2018 7:30 PM Care Teams 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
[2024-12-03 11:22] LABS: Basophils Percent Auto 0.5 % (0.2-1.2); Eosinophils Absolute Auto 0.1 K/mm3 (0-0.3); Eosinophils Percent Auto 1.7 % (0-4.4); Hematocrit 42.2 % (37.0-47.0); Hemoglobin 13.3 g/dL (12.0-15.0); Lymphocytes Absolute Auto 1.38 K/mm3 (0.9-3.2); Lymphocytes Percent Auto 32.6 % (18.3-44.2); Mean Corpuscular HGB Conc 31.5 g/dl (32-36); Mean Corpuscular Volume 79.3 fl (80-100); Mean Platelet Volume 11.8 fl (7.4-10.4); Monocytes Absolute Auto 0.4 K/mm3 (0.1-0.6); Monocytes Percent Auto 8.5 % (2.6-8.5); Neutrophils Absolute Auto 2.4 K/mm3 (1.3-6.7); Neutrophils Percent Auto 56.7 % (45.5-73.1); Platelet Count Result 209 k/mm3 (150-375); Red Blood Count 5.32 M/mm3 (4.2-5.4); Red Cell Distribution Width 15.4 % (11.5-14.5); White Blood Count 4.2 K/mm3 (4.5-10.0)
[2024-12-03 11:26] LABS: Alanine Aminotransferase 24 U/L (6-35); Alkaline Phosphatase 52 U/L (38-126); Anion Gap 9 mmol/L (4-12); Aspartate Amino Transferase 25 U/L (14-36); Bilirubin,Total 0.8 mg/dL (0.2-1.3); Blood Urea Nitrogen 13 mg/dL (7-17); Calcium 9.7 mg/dL (8.4-10.2); Carbon Dioxide 30 mmol/L (22-30); Chloride 103 mmol/L (98-107); Estimated Glomerular Filt Rate > 60; Glucose 98 mg/dL (65-110); Potassium 3.2 mmol/L (3.4-5.0); Sodium 142 mmol/L (137-145)
[2024-12-05 05:47] LABS: CA 15-3 6 U/mL (<32)
== END 2024-12-03 09:12 | disposition home or self-care (01) ==
PROVIDERS: PCP Emergency Medicine; Visit Provider Internal Medicine Hematology & Oncology
DX: C50.411 Malignant neoplasm of upper-outer quadrant of right female breast (principal); Z17.0 Estrogen receptor positive status [ER+]
CPT/HCPCS: 36415; 80053; 85025; 86300

== ENCOUNTER 2024-12-22 12:23 | Outpatient (CLI) | payer MEDICARE, MEDICAID, SELFPAY ==
--- NOTE | ~2024-12-22 | DEXA_ITS ---
Bone Density Report Name: ANATOLY HURLEY Age: 74 Sex: Female Ethnicity: Date of : 1950 Indication: osteopenia; monitoring treatment; cancer; Referring Provider: ALMITA BURTON Study: Bone densitometry was performed. Exam Date: December 22, 2024 Accession number: [id number] Bone Density: Region BMD T-score Z-score Classification AP Spine(L1-L4) 0.963 -0.8 1.5 Normal Femoral Neck (Left) 0.657 -1.7 0.2 Osteopenia Total Hip (Left) 0.934 -0.1 1.6 Normal Femoral Neck (Right) 0.687 -1.5 0.5 Osteopenia Total Hip (Right) 0.913 -0.2 1.4 Normal Total Hip Mean 0.924 -0.2 1.5 Normal World Health Organization criteria for BMD impression classify patients as: Normal (T-score at or above -1.0), Osteopenia (T-score between -1.0 and -2.5), or Osteoporosis (T-score at or below -2.5). 10-year Fracture Risk: FRAX not reported because: Treated for osteoporosis Previous Exams: Region Exam Age BMD T-score BMD Change BMD Change Date g/cm2 vs Baseline vs Previous AP Spine (L1-L4) 12/22/2024 74 0.963 -0.8 0.080 (9.1%)* 0.080 (9.1%)* 04/01/2015 65 0.883 -1.5 Total Hip(Left) 12/22/2024 74 0.934 -0.1 0.058 (6.7%)* 0.043 (4.8%)* 10/16/2022 72 0.891 -0.4 0.016 (1.8%) 0.016 (1.8%) 04/01/2015 65 0.876 -0.5 Total Hip(Right) 12/22/2024 74 0.913 -0.2 -0.008 (-0.9%) 0.034 (3.9%)* 10/16/2022 72 0.879 -0.5 -0.042 (-4.6%) -0.042 (-4.6%) 04/01/2015 65 0.921 -0.2 *Denotes significance at 95% confidence level, LSC for AP Spine = 0.022 g/cm2, LSC for Total Hip = 0.027 g/cm2 Clinical Information Provided by Patient: Is being treated for osteoporosis Has used the following medications: Fosamax (i.e. alendronate), Vitamin D Has the following medical conditions: Cancer Patient maximum height was 60 Menopause Age: 59 No regular weight bearing exercise Drinks caffeinated beverages Onset of menses at age 17 Number of children 2 Impression: The patient has low bone mass, based on the Left Femoral Neck T-score. No significant bone loss was observed. Discussion: PATIENT UNDER TREATMENT WITH NO SIGNIFICANT BMD LOSS SINCE LAST EXAM. In an untreated patient, BMD typically declines with age. A lack of decline or gain is usually a sign that treatment is efficacious and fracture risk is reduced. It is important to ask patients whether they are taking their medications and to encourage continued and appropriate compliance with their osteoporosis therapies to reduce fracture risk. It is also important to review their risk factors and encourage appropriate calcium and vitamin D intakes, exercise, fall prevention and other lifestyle measures. Follow-Up: Consider a repeat BMD and Vertebral Fracture Assessment (VFA) exam in 2 years or sooner if medically necessary, to reassess this patient's status. Reported by: ANGELINA on 12/22/2024 1:05:00 PM. Reviewed, dictated and finalized at location AGloria MARS
--- OUTSIDE RECORDS SUMMARY | 2024-12-22 12:27 | XMS_ITS ---
Author Organization [facility] Address [address] [place] [address] Care Team Providers Care Harness And Bag Inspector Name Role Phone Yan Mata MD Primary Care Provider Yan Mata MD Unavailable Active Problems Problem [...] erythematosus or systemic inflammatory rheumatic disorder by [place] [employer] (ACR) diagnostic classification criteria at this time. Ghislaine Domínguez lacks features of any systemic autoimmune NORBERTO-related connective tissue disease. NORBERTO positivity is present in up to 30% of the normal population . Since the prevalence of SLE is only ~0.1%, most positive NORBERTO results can be attributed to other etiologies or considered represent f alse-positive results. NORBERTO positivity increases in prevalence with [...] from 12/18/2021: cT1b, cN0, cM0, GX, ER+, WA+, HER2- - Signed by Sadia Ortiz MD on 01/15/2022 Pathologic stage from 01/25/2022:Stage IA(pT1c, pN0(sn), cM0, G2, ER+, WA+, HER2- ) - Signed by Sadia Ortiz MD on 02/12/2022 Malignant neoplasm of upper- outer quadrant of right breast in female, estrogen receptor positive 01/02/2022 Dystrophia unguium 10/16/2021 Onychomycosis 10/16/2021 Pain in toe 10/16/2021 Age-related nuclear cataract of both eyes 2020 Overview (04/09/2021): Last Assessment & Plan: Much better endpoint today with MRx. Released today. Patient had much better understanding today through retail wireless sales representative. Meibomian gland dysfunction (MGD) of both eyes [...] breast in female, estrogen receptor positive (HCC)* [address] [address] Oncology Treatment Summary Breast Treatment Summary for [...] from 12/18/2021: cT1b, cN0, cM0, GX, ER+, WA+, HER2- - Signed by Sadia Ortiz MD on 01/15/2022 - Pathologic stage from 01/25/2022: Stage IA (pT1c, pN0(sn), cM0, G2, ER+, WA+, HER2-) - Signed by Sadia Ortiz MD on 02/12/2022 Surgery Information Description: right BCT, SLNB -- 1.4cm IDC and DCIS (final margins negative), negative SLNB (0/2) Date: 01/25/22 Surgeon/Facility Name: Dr. Sadia Ortiz, [facility] Adjuvant Treatment Recommendations: medical and radiation oncology Initial Imaging Mammogram: Bilateral screening mammogram 11/30/2021 ([facility]) -- developing asymmetry in the right breast at the 7:00 position (has increased in size and become more dense during interval) and a few microcalcifications associated with it, BIRADS-0 Right diagnostic mammogram and ultrasound 12/10/2021 ([facility]) -- information obtained frommedical oncology note as [...] Post-Treatment Weight: 162 lbs. Psychosocial needs: Narinder retail wireless sales representative Fertility: Menarche at age 16 years Menopause [...] up with Location How often Radiation Oncology [facility] Clinical visit every 4-6 months for 5 yrs, then every 12 months Medical Oncology [facility] Surgery [facility] Mammography [facility] Bilateral Diagnostic Mammogram every 12 months Reasons to call: New lesions or mass Chest pain New feelings of sadness or being overwhelmed Unintended weight loss Cough that does not go away Any side effects or questions of care Your follow up schedule is listed below Future Appointments Date Time Provider Department Center 09/02/2022 11:30 AM Sadia Ortiz MD [facility] 09/25/2022 4:00 PM Roxann Ulloa MD [id number] Contact Information Radiation Oncologist Dr. Leo Her Medical Oncologist Dr. Ren Surgeon Dr. Sadia Ortiz Social Work Fx Artist Ladan Gray Breast Nurse Navigator Hillary Knapp RN [phone] Pastoral Care [facility] Hospital Scheduling Primary Care Provider Yan Mata MD [phone] Recommended cancer screenings Colonoscopy: every 10 years [...] walk a few extra steps. Important Resources [facility] [employer] [employer] cancer.org Association of Cancer Online Resources acor.org Caring Bridge [email or web address] CancerCare cancercare.[email or web address] LiveStrong Foundation livestrong.[email or web address] National Cancer [place] cancer.gov Cancer Survivors Network csn.[email or web address] National Coalition for Cancer Survivorship canceradvocacy.org [place] [employer]cologists cancer.net Cancer Support Community [facility] [email or web address].[email or web address] Radiation Therapy Questions/Answers www.[email or web address]
--- OUTSIDE RECORDS SUMMARY | 2024-12-22 12:27 | XMS_ITS | Clinical Summary ---
Author Organization [facility] Care Team Providers Care Dough Panner Name Role Phone Unavailable Primary Care Provider Unavailabl e Social History Tobacco Use Types Packs/Day Years Used Date Smoking Tobacco: Never Assessed Comments Unknown Sex and Gender Information Value Date Recorded Sex Assigned at Not on file Legal Sex Female 12:18 PM CRAP GAME BOX PERSON Gender Identity Not on file Sexual Orientation [...]
--- OUTSIDE RECORDS SUMMARY | 2024-12-22 12:27 | XMS_ITS | Referral Summary ---
Author Organization [facility] Address [address] [place] [address] Care Team Providers Care Process Control Supervisor Name Role Phone Yan Mata MD Primary Care Provider [phone] Yan Mata MD Unavailable Source Comments [facility],non-owned Affiliates and Associated Physician Practices is amultiple site organization consisting of ambulatory clinics and hospital sitesin [place], [place], [place] and [place]. This disclosure is being madepursuant to the Care Everywhere program and may not contain all information available regarding this patient. Last updated 18.[facility] Encounters Date Type Department Care Team Description 12/10/2024 Travel 12/10/2024 11:45 AM BUSINESS AFFAIRS MANAGER Office Visit [facility] - EXCELSIOR MACHINE FEEDER [address], [facility] [address] [place] [address] Roxann Ulloa MD Cystocele, midline (Primary Dx); Rectocele; OAB (overactive bladder); Urge urinary incontinence; Constipation, unspecified constipation type; Vaginal atrophy 12/09/2024 Travel 12/09/2024 10:30 AM BUSINESS AFFAIRS MANAGER Office Visit [facility] - General Surgery [address] [place] [address] Sadia Ortiz MD Malignant neoplasm of overlapping sites of right breast in female, estrogen receptor positive (HCC) (Primary Dx); Encounter for screening mammogram for malignant neoplasm of breast 12/09/2024 10:00 AM BUSINESS AFFAIRS MANAGER - 12/09/2024 11:59 PM [facility] Hospital Encounter [facility] [address] [place] [address] Sdaia Ortiz MD Discharge Disposition: Home or Self Care from Last 3 Months Allergies Active Allergy Reactions Criticality Noted Date [...] erythematosus or systemic inflammatory rheumatic disorder by [employer] (ACR) diagnostic classification criteria [...] from 12/18/2021: cT1b, cN0, cM0, GX, ER+, KY+, HER2- - Signed by Sadia Ortiz MD on 01/15/2022 Pathologic stage from 01/25/2022:Stage IA(pT1c, pN0(sn), cM0, G2, ER+, KY+, HER2- ) - Signed by Sadia Ortiz MD on 02/12/2022 Malignant neoplasm of upper- outer quadrant of right breast in female, estrogen receptor positive 01/02/2022 Dystrophia unguium 10/16/2021 Onychomycosis 10/16/2021 Pain in toe 10/16/2021 Age-related nuclear cataract of both eyes 2020 Overview (04/09/2021): Last Assessment & Plan: Much better endpoint today with MRx. Released today. Patient had much better understanding today through tree cutter. Meibomian gland dysfunction (MGD) of both eyes [...] Sign Reading Time Taken Comments Blood Pressure 120/68 12/10/2024 12:09 PM BUSINESS AFFAIRS MANAGER Pulse 76 12/09/2024 10:59 AM BUSINESS AFFAIRS MANAGER Temperature 36.1 C (97 F) 12/09/2024 10:59 AM BUSINESS AFFAIRS MANAGER Respiratory Rate 16 02/25/2024 11:05 AM CDT Oxygen Saturation 95% 12/09/2024 10:59 AM BUSINESS AFFAIRS MANAGER Inhaled Oxygen Concentration - - Weight 77.3 kg (170 lb 6.4 oz) 12/10/2024 12:09 PM BUSINESS AFFAIRS MANAGER Height 154.9 cm (5' 1 ) 12/10/2024 12:09 PM BUSINESS AFFAIRS MANAGER Body Mass Index 32.2 12/10/2024 12:09 PM BUSINESS AFFAIRS MANAGER Functional Status Functional Status Response Date of [...] Care Team (Late st Contact Info) Description 04/14/2025 11:30 AM CDT Office Visit [facility] - EXCELSIOR MACHINE FEEDER [address] [facility] [place] [phone] Roxann Ulloa MD [address] [facility] [address] [place] [address] 12/08/2025 10:00 AM BUSINESS AFFAIRS MANAGER Appointment [facility] [address] [place] [address] Sadia Ortiz MD [address] [facility] [address] [place] [phone] 12/08/2025 10:30 AM BUSINESS AFFAIRS MANAGER Office Visit [facility] - General Surgery [address] [place] [phone] Sadia Ortiz MD [address] [facility] [address] [place] [address] Medical Devices Implanted Type Area Medical Social Worker Device Identifier Shelf Expiration Date Model / Serial / Lot Mrkr 18ga Magseed Brstbio 7cm Implanted:Qty : 1 on 01/24/2022 by Korin Dumont MD at [facility] Implant Non-Ortho Right: Breast Devicor 06/10/2025 [id number] / / [id number] 18ga Magseed Brstbio 7cm Implanted:Qty : 1 on 01/24/2022 by Korin Dumont MD at [facility] Implant Non-Ortho Right: Breast Devicor 07/03/2025 [id number] / / [id number] Ins Tib 1-2 11mm Kn Xlpe Cr Hi Flxn Implanted:Qty : 1 on 09/14/2018 by Leo Mercedes MD at [facility] Right: Knee [employer] 08/03/2023 [id number] / / [id number] Description:LGN CR HIGH FLEX XLPE SZ 1-2 11MM--09/17 LG Stem Tib 16mm Prfx Mtphsl Implanted:Qty : 1 on 09/14/2018 by Leo Mercedes MD at [facility] Right: Knee [employer] 06/03/2023 [id number] / / [id number] Description:METAPHYSEAL TIB STEM 16MM--09/17 LG Legion Por Cr Sandoval Fem R Sz 3 Implanted:Qty : 1 on 09/14/2018 by Leo Mercedes MD at [facility] Right: Knee [employer] 11/24/2025 [id number] / / [id number] Description:LGN POR CR SANDOVAL FE M SZ 3 RT--09/17 LG Legion Por Sandoval Tib Base R Sz 2 Implanted:Qty : 1 on 09/14/2018 by Leo Mercedes MD at [facility] Right: Knee [employer] 07/04/2023 [id number] / / [id number] Description:LEGION POROUS SANDOVAL TIBIAL BASE SZ 2 RT--09/17 LG Screw Bsplt 15mm 6.5mm Gns2 Kn Tib Por Implanted:Qty : 1 on 09/14/2018 by Leo Mercedes MD at [facility] Right: Knee [employer] 06/13/2028 [id number] / / [id number] Description:G2 6.5MM SCREW 1 56MM LNGTH--09/17 LG Screw Bsplt 20mm 6.5mm Gns2 Kn Tib Por Implanted:Qty : 1 on 09/14/2018 by Leo Mercedes MD at [facility] Right: Knee [employer] 06/13/2028 [id number] / / [id number] Description:G2 6.5MM SCREW 2 0MM LNGTH--09/17 LG Screw Bsplt 20mm 6.5mm Gns2 Kn Tib Por Implanted:Qty : 1 on 09/14/2018 by Leo Mercedes MD at [facility] Right: Knee [employer] 06/13/2028 [id number] / / [id number] Description:G2 6.5MM SCREW 2 0MM LNGTH--09/17 LG Screw Bsplt 15mm 6.5mm Gns2 Kn Tib Por Implanted:Qty : 1 on 09/14/2018 by Leo Mercedes MD at [facility] Right: Knee [employer] 07/07/2027 [id number] / / [id number] Description:G2 6.5MM SCREW 1 5MM LNGTH--09/17 LG Blayne K2 Sys Kn Uncemented Implanted:Qty : 1 on 09/14/2018 by Leo Mercedes MD at [facility] Right: Knee [employer] K2 UNCEMENTED / / Legion Por Sandoval Tib Base L Sz 2 Implanted:Qty : 1 on 04/05/2019 by Leo Mercedes MD at [facility] Left: Knee [employer] 05/02/2020 [id number] / / [id number] Description:fc LEGION POROUS SANDOVAL TIBIAL BASE SZ 2 LT--04/08 LG Stem Tib 16mm Prfx Mtphsl Implanted:Qty : 1 on 04/05/2019 by Leo Mercedes MD at [facility] Left: Knee [employer] 08/03/2027 [id number] / / [id number] Description:fc METAPHYSEAL TIB STEM 16MM--04/08 LG Legion Por Cr Sandoval Fem L Sz 3 Implanted:Qty : 1 on 04/05/2019 by Leo Mercedes MD at [facility] Left: Knee [employer] 12/03/2023 [id number] / / [id number] Description:fc LGN POR CR SANDOVAL FEM SZ 3 LT--04/08 LG Ins Xlpe Dished Artc Sz 1-2 11mm Implanted:Qty : 1 on 04/05/2019 by Leo Mercedes MD at [facility] Left: Knee [employer] 04/02/2024 [id number] / / [id number] Description:fc LGN XLPE DISHED ISRT SZ 1-2 11MM--04/08 LG Screw Bsplt 15mm 6.5mm Gns2 Kn Tib Por Implanted:Qty : 1 on 04/05/2019 by Leo Mercedes MD at [facility] Left: Knee [employer] 02/10/2027 [id number] / / [id number] Description:fc G2 6.5MM SCREW 15MM LNGTH--04/08 LG Screw Bsplt 15mm 6.5mm Gns2 Kn Tib Por Implanted:Qty : 1 on 04/05/2019 by Leo Mercedes MD at [facility] Left: Knee [employer] 01/19/2028 [id number] / / [id number] Description:fc G2 6.5MM SCREW 15MM LNGTH--04/08 LG Screw 6.5mm 25mm Hip Actb Canc Sphrcl Implanted:Qty : 1 on 04/05/2019 by Leo Mercedes MD at [facility] Left: Knee [employer] 07/07/2028 [id number] / / [id number] Description:fc REF SPHER HEAD SCREW 25MM--04/08 LG Screw Bsplt 15mm 6.5mm Gns2 Kn Tib Por Implanted:Qty : 1 on 04/05/2019 by Leo Mercedes MD at [facility] Left: Knee [employer] 11/16/2028 [id number] / / [id number] Description:fc G2 6.5MM SCREW 15MM LNGTH--04/08 LG Blayne K2 Sys Kn Uncemented Implanted:Qty : 1 on 04/05/2019 by Leo Mercedes MD at [facility] Left: Knee [employer] K2 UNCEMENTED / / Mrkr Apl 3 Mrfbr Pd Radopq Interwoven Implanted:Qty : 1 on 01/18/2022 by Korin Dumont MD at [facility] Right: Breast [employer] [facility] 01/02/2024 [id number] / / [id number] Procedures Procedure Name Priority Date/Time Associated Diagnosis Comments MAMMO BILAT SCREENING W BRIGITTE Routine 12/09/2024 10:52 AM BUSINESS AFFAIRS MANAGER Encounter for screening mammogram for malignant neoplasm of breast BASIC METABOLIC PANEL (CALCIUM TOTAL) Routine 01/18/2022 12:38 PM CDT Pre-op exam from Last 3 Months or Most Recently Relevant to Health Maintenance Results * MAMMO BILAT SCREENING W BRIGITTE (12/09/2024 10:52 AM BUSINESS AFFAIRS MANAGER) Anatomical Region Laterality Modality Breast Bilateral Mammography 12/09/2024 10:5 2 AM BUSINESS AFFAIRS MANAGER Impressions 12/09/2024 10:58 AM BUSINESS AFFAIRS MANAGER IMPRESSION: No mammographic evidence of malignancy, status post right breast conservation therapy. RECOMMENDATION: Screening mammography in one year, pending no interval breast concerns. Patient was notified of the results at the time of the exam and will see Dr. Ortiz in the breast clinic today. Patient will also receive the exam results by lay letter. OVERALL ASSESSMENT: BI-RADS CATEGORY 2: BENIGN. Report dictated by Chelsea Calvillo [facility], [facility] (breast imaging fellow). I, Korin Dumont MD, FACR have personally reviewed and interpreted this examination/study. > Interpreting Provider: Korin Dumont MD, FACR on 12/09/2024 10:58 AM Narrative 12/09/2024 10:58 AM BUSINESS AFFAIRS MANAGER EXAMINATIONS: BILATERAL DIGITAL SCREENING MAMMOGRAM AND BILATERAL BREAST TOMOSYNTHESIS LOCATION: [facility] EXAM DATE: 12/09/2024 HISTORY: Screening. No reported family history of breast cancer. History of right breast conservation therapy 01/25/2022. Completed radiation March 2022 COMPARISON: Mammogram 12/23/2022, 12/11/2023 from [facility] ultrasound 09/02/2022 ultrasound 12/07/2019 TECHNIQUE: Tomosynthesis (3D) and reconstructed synthetic 2-D images acquired and reviewed in the bilateral craniocaudal and mediolateral oblique projections. A total of 7 images obtained. Scar marker placed on the right breast. BREAST PARENCHYMAL COMPOSITION: Category B: There are scattered areas of fibroglandular density. FINDINGS: There are no suspicious findings or evidence of malignancy on mammography. Changes of right breast conservation surgery. No change from prior. Sadia Ortiz MD MAMMO ORDERABLES * (ABNORMAL) BASIC METABOLIC PANEL (CALCIUM TOTAL) (01/18/2022 12:38 PM CDT) BUN 9 7 - 26 mg/dL 01/18/2022 1:31 PM CDT [facility] Creatinine 0.76 0.56 - 0.96 mg/dL 01/18/2022 1:31 PM CDT [facility] Sodium 144 136 - 145 mmol/L 01/18/2022 1:31 PM CDT [facility] Potassium 3.9 3.5 - 4.5 mmol/L 01/18/2022 1:31 PM CDT [facility] Chloride 105 98 - 107 mmol/L 01/18/2022 1:31 PM [facility] CO2 33(H) 22 - 29 mmol/L 01/18/2022 1:31 PM [facility] Glucose 101 70 - 115 mg/dL 01/18/2022 1:31 PM [facility] Calcium 10.0 8.4 - 10.2 mg/dL 01/18/2022 1:31 PM [facility] Anion Gap 10 8 - 18 01/18/2022 1:31 PM [facility] BUN/Creatinine Ratio 12 7 - 23 01/18/2022 1:31 PM [facility] Osmolality Calculated 297 270 - 300 mOsm/kg 01/18/2022 1:31 PM [facility] eGFR by CKD-EPI 85(L) >=90 mL/min/1.7 3 m2 01/18/2022 1:31 PM [facility] Blood BLOOD SPECIMEN / Unknown Lab Venipuncture / Unknown 01/18/2022 12:38 PM CDT 01/18/2022 1:00 PM CDT Jocelyn Foss COMBINE INSPECTOR-SUPPLY CHAIN BUYER LAB - CHEMISTRY ORDERABLES [facility] [address] [place] [address], [facility] [phone] from Last 3 Months or Most Recently Relevant to Health Maintenance Insurance Payer Benefit Plan / Group Subscriber ID Effective Dates Phone Address Type MEDICAID - OUT OF STATE MEDICAID [facility] PUBLIC AID [id number] 01/17/2022-Pre sent [address] [address] [place] [address] Medicaid MEDICARE MEDICARE PART B ONLY [id number] 04/03/2019-Pres ent [address] [place] [address] Medicare [place] [id number] 11/03/2020-Pres ent [address] [address] [place] [address] [place] [facility] [place] [facility] [place] [id number] Effective for all dates ATTN CLAIMS DEPARTMENT [address] [place] [address] Medicaid Managed Care [facility] MEDICAID [id number] Effective for all dates 87- 132 ATTN CLAIMS DEPARTMENT [address] [facility] [address] [place] [address] Medicaid Managed Care [facility] MEDICAID [id number] Effective for all dates 132 ATTN CLAIMS DEPARTMENT [address] [facility] [address] [place] [address] Medicaid Managed Care [facility] MEDICAID [id number] Effective for all dates 132 ATTN CLAIMS DEPARTMENT [address] [facility] [address] [place] [address] Medicaid Managed Care [facility] MEDICAID [id number] Effective for all dates 132 ATTN CLAIMS DEPARTMENT [address] [facility] [address] [place] [address] Medicaid Managed Care [facility] MEDICAID [id number] Effective for all dates 132 ATTN CLAIMS DEPARTMENT [address] [facility] [address] [place] [address] Medicaid Managed Care [facility] MEDICAID [id number] Effective for all dates 132 ATTN CLAIMS DEPARTMENT [address] [facility] [address] [place] [address] Medicaid Managed Care [facility] MEDICAID [id number] Effective for all dates 132 ATTN CLAIMS DEPARTMENT [address] [facility] [address] [place] [address] Medicaid Managed Care [facility] MEDICAID [id number] Effective for all dates 132 ATTN CLAIMS DEPARTMENT [address] [facility] [address] [place] [address] Medicaid Managed Care [facility] MEDICAID [id number] Effective for all dates 132 ATTN CLAIMS DEPARTMENT [address] [facility] [address] [place] [address] Medicaid Managed Care [facility] MEDICAID [id number] Effective for all dates ATTN CLAIMS DEPARTMENT [address] [facility] [address] [place] [address] Medicaid Managed Care [facility] MEDICAID [id number] Effective for all dates ATTN CLAIMS DEPARTMENT [address] [facility] [address] [place] [address] Medicaid Managed Care [facility] MEDICAID [id number] Effective for all dates ATTN CLAIMS DEPARTMENT [address] [facility] [address] [place] [address] Medicaid Managed Care [facility] MEDICAID [id number] Effective for all dates ATTN CLAIMS DEPARTMENT [address] [facility] [address] [place] [address] Medicaid Managed Care [facility] MEDICAID [id number] Effective for all dates ATTN CLAIMS DEPARTMENT [address] [facility] [address] [place] [address] Medicaid Managed Care [facility] MEDICAID [id number] Effective for all dates ATTN CLAIMS DEPARTMENT [address] [facility] [place] [address] Medicaid Managed Care [facility] MEDICAID [id number] Effective for all dates ATTN CLAIMS DEPARTMENT [address] [facility] [place] [address] Medicaid Managed Care [facility] MEDICAID [id number] Effective for all dates ATTN CLAIMS DEPARTMENT [address] [facility] [place] [address] Medicaid Managed Care [facility] MEDICAID [id number] Effective for all dates ATTN CLAIMS DEPARTMENT [address] [facility] [address] [place] [address] Medicaid Managed Care [facility] MEDICAID [id number] Effective for all dates ATTN CLAIMS DEPARTMENT [address] [facility] [place] [address] Medicaid Managed Care [facility] MEDICAID [id number] Effective for all dates ATTN CLAIMS DEPARTMENT [address] [facility] [place] [address] Medicaid Managed Care [facility] MEDICAID [id number] Effective for all dates ATTN CLAIMS DEPARTMENT [address] [facility] [address] [place] [address] Medicaid Managed Care [facility] MEDICAID [id number] Effective for all dates ATTN CLAIMS DEPARTMENT [address] [facility] [place] [address] Medicaid Managed Care [facility] MEDICAID [id number] Effective for all dates ATTN CLAIMS DEPARTMENT [address] [facility] [place] [address] Medicaid Managed Care [facility] MEDICAID [id number] Effective for all dates ATTN CLAIMS DEPARTMENT [address] [facility] [place] [address] Medicaid Managed Care [facility] MEDICAID [id number] Effective for all dates ATTN CLAIMS DEPARTMENT [address] [facility] [place] [address] Medicaid Managed Care [facility] MEDICAID [id number] Effective for all dates ATTN CLAIMS DEPARTMENT [address] [facility] [place] [address] Medicaid Managed Care [facility] MEDICAID [id number] Effective for all dates ATTN CLAIMS DEPARTMENT [address] [facility] [place] [address] Medicaid Managed Care [facility] MEDICAID [id number] Effective for all dates ATTN CLAIMS DEPARTMENT [address] [facility] [place] [address] Medicaid Managed Care [facility] MEDICAID [id number] Effective for all dates ATTN CLAIMS DEPARTMENT [address] [facility] [place] [address] Medicaid Managed Care [facility] MEDICAID [id number] Effective for all dates ATTN CLAIMS DEPARTMENT [address] [facility] [place] [address] Medicaid Managed Care [facility] MEDICAID [id number] Effective for all dates ATTN CLAIMS DEPARTMENT [address] [facility] [place] [address] Medicaid Managed Care [facility] MEDICAID [id number] Effective for all dates ATTN CLAIMS DEPARTMENT [address] [facility] [place] [address] Medicaid Managed Care [facility] MEDICAID [id number] Effective for all dates ATTN CLAIMS DEPARTMENT [address] [facility] [place] [address] Medicaid Managed Care [facility] MEDICAID [id number] Effective for all dates ATTN CLAIMS DEPARTMENT [address] [facility] [place] [address] Medicaid Managed Care [facility] [id number] Effective for all dates [address] [address] [place] [address] Medicaid Managed Care [facility] [id number] Effective for all dates [address] [address] [place] [address] Medicaid Managed Care [facility] [id number] Effective for all dates [address] [address] [place] [address] Medicaid Managed Care [facility] [id number] Effective for all dates [address] [address] [place] [address] Medicaid Managed Care [facility] [id number] Effective for all dates [address] [address] [place] [address] Medicaid Managed Care [facility] [id number] Effective for all dates [address] [address] [place] [address] Medicaid Managed Care [facility] [id number] Effective for all dates [address] [address] [place] [address] Medicaid Managed Care [facility] [id number] Effective for all dates [address] [address] [place] [address] Medicaid Managed Care [facility] [id number] Effective for all dates [address] [address] [place] [address] Medicaid Managed Care [facility] [id number] Effective for all dates [address] [address] [place] [address] Medicaid Managed Care [facility] [id number] Effective for all dates [address] [address] [place] [address] Medicaid Managed Care [facility] [id number] Effective for all dates [address] [address] [place] [address] Medicaid Managed Care [facility] [id number] Effective for all dates [address] [address] [place] [address] Medicaid Managed Care [facility] [id number] Effective for all dates [address] [address] [place] [address] Medicaid Managed Care [facility] [id number] Effective for all dates [address] [address] [place] [address] Medicaid Managed Care [facility] [id number] 10/03/2017-Pre sent [address] [address] [place] [address] Medicaid Managed Care Advance Directives * Full Code (Latest Code Status on File) Date Activated Date Inactivated Comments 04/05/2019 11:56 AM 04/07/2019 6:36 PM * Full Code Date Activated Date Inactivated Comments 09/14/2018 3:08 PM 09/16/2018 7:30 PM Care Teams Process Control Supervisor Relationship Specialty Start Date End Date Yan Mata MD [address] [address] PCP - General 07/27/18 Yan Mata MD [address] [address] 07/27/18
--- OUTSIDE RECORDS SUMMARY | 2024-12-22 12:27 | XMS_ITS | Clinical Summary ---
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
--- OUTSIDE RECORDS SUMMARY | 2024-12-22 12:27 | XMS_ITS | Clinical Summary ---
Author Organization [facility] Address [address] [place] [address] Care Team Providers Care Automation Clerk Name Role Phone Yan Mata MD Primary Care Provider [phone] Yan Mata MD Unavailable Source Comments [facility],non-owned Affiliates and Associated Physician Practices is amultiple site organization consisting of ambulatory clinics and hospital sitesin [place], [place], [place] and [place]. This disclosure is being madepursuant to the Care Everywhere program and may not contain all information available regarding this patient. Last updated 18.[facility] Allergies Active Allergy Reactions Criticality Noted Date [...] erythematosus or systemic inflammatory rheumatic disorder by [place] [employer] (ACR) diagnostic classification criteria [...] from 12/18/2021: cT1b, cN0, cM0, GX, ER+, MS+, HER2- - Signed by Sadia Ortiz MD on 01/15/2022 Pathologic stage from 01/25/2022:Stage IA(pT1c, pN0(sn), cM0, G2, ER+, MS+, HER2- ) - Signed by Sadia Ortiz MD on 02/12/2022 Malignant neoplasm of upper- outer quadrant of right breast in female, estrogen receptor positive 01/02/2022 Dystrophia unguium 10/16/2021 Onychomycosis 10/16/2021 Pain in toe 10/16/2021 Age-related nuclear cataract of both eyes 2020 Overview (04/09/2021): Last Assessment & Plan: Much better endpoint today with MRx. Released today. Patient had much better understanding today through drapery installer. Meibomian gland dysfunction (MGD) of both eyes [...] left knee Lateral subluxation of left patella Encounters Date Type Department Care Team Description 12/10/2024 11:45 AM PAPER SORTER AND COUNTER Office Visit [facility] - METER REPAIR SHOP SUPERVISOR [address] [place] [address] Roxann Ulloa MD Cystocele, midline (Primary Dx); Rectocele; OAB (overactive bladder); Urge urinary incontinence; Constipation, unspecified constipation type; Vaginal atrophy 12/10/2024 Travel 12/09/2024 10:30 AM PAPER SORTER AND COUNTER Office Visit [facility] - General Surgery [address] [place] [address] Sadia Ortiz MD Malignant neoplasm of overlapping sites of right breast in female, estrogen receptor positive (HCC) (Primary Dx); Encounter for screening mammogram for malignant neoplasm of breast 12/09/2024 10:00 AM PAPER SORTER AND COUNTER - 12/09/2024 11:59 PM PAPER SORTER AND COUNTER Hospital Encounter [facility] [address] [place] [address] Sadia Ortiz MD Discharge Disposition: Home or Self Care 12/09/2024 Travel from Last 3 Months Immunizations Name Administration Dates Next Due Covid [...] Comments Blood Pressure 120/68 12/10/2024 12:09 PM PAPER SORTER AND COUNTER Pulse 76 12/09/2024 10:59 AM PAPER SORTER AND COUNTER Temperature 36.1 C (97 F) 12/09/2024 10:59 AM PAPER SORTER AND COUNTER Respiratory Rate 16 02/25/2024 11:05 AM CDT Oxygen Saturation 95% 12/09/2024 10:59 AM PAPER SORTER AND COUNTER Inhaled Oxygen Concentration - - Weight 77.3 kg (170 lb 6.4 oz) 12/10/2024 12:09 PM PAPER SORTER AND COUNTER Height 154.9 cm (5' 1 ) 12/10/2024 12:09 PM PAPER SORTER AND COUNTER Body Mass Index 32.2 12/10/2024 12:09 PM PAPER SORTER AND COUNTER Plan of Treatment Upcoming Encounters Date Type Department Care Team (Late st Contact Info) Description 04/14/2025 11:30 AM CDT Office Visit [facility] - METER REPAIR SHOP SUPERVISOR [address], [facility] [address] [place] [address] Roxann Ulloa MD [address] [place] [address] 12/08/2025 10:00 AM PAPER SORTER AND COUNTER Appointment [facility] [address] [place] [address] Sadia Ortiz MD [address] [facility] [place] [address] 12/08/2025 10:30 AM PAPER SORTER AND COUNTER Office Visit [facility] - General Surgery [address] [place] [address] Sadia Ortiz MD [address] [facility] [address] [place] [phone] Health Maintenance Due Date Last Done Comments BONE DENSITY TESTING 1950 COLOGUARD (AGES 45-75) - COLON CA SCREENING 1952 COLON MONITORING 1952 COLONOSCOPY - COLON CA SCREENING 1952 CT COLONOGRAPHY - COLON CA SCREENING 1950 Colorectal Cancer Screening 1952 FIT - COLON CA SCREENING 1952 FLEX SIG - COLON CA SCREENING 1950 MEDICARE AWV 12 MONTHS 1952 HEPATITIS C SCREENING 03/08/1970 DTAP/TDAP/TD VACCINES (1 - Tdap) 1971 PNEUMOCOCCAL VACCINE 50+ (1 of 1 - PCV) 2002 ZOSTER VACCINE (1 of 2) 2002 COVID-19 VACCINE (5 - season) 2024 04/13/2022, 08/26/2021, 01/12/2021, Additional history exists INFLUENZA VACCINE (#1) 2024 2, 07/17/2022, 08/11/2021, Additional history exists DEPRESSION SCREENING 11/03/2024 06/09/2023 SCREENING FOR DIABETES 01/18/2025 2, 03/25/2019, 09/16/2018, Additional history exists MAMMOGRAM 12/09/2026 12/09/2024, 06/2024, 12/11/2023, Additional history exists Respiratory Syncytial Virus (RSV) [...] this topic Medical Devices Implanted Type Area Water Filter Cleaner Device Identifier Shelf Expiration Date Model / Serial / Lot Mrkr 18ga Magseed Brstbio 7cm Implanted:Qty : 1 on 01/24/2022 by Korin Dumont MD at [facility] Implant Non-Ortho Right: Breast Devicor 06/10/2025 [id number] / / [id number] Mrkr 18ga Magseed Brstbio 7cm Implanted:Qty : 1 on 01/24/2022 by Korin Dumont MD at [facility] Implant Non-Ortho Right: Breast Devicor 07/03/2025 [id number] / / [id number] Ins Tib 1-2 11mm Kn Xlpe Cr Hi Flxn Implanted:Qty : 1 on 09/14/2018 by Leo Mercedes MD at [facility] Right: Knee [employer] 08/03/2023 [id number] / / [id number] Description:LGN CR HIGH FLEX XLPE SZ 1-2 11MM--09/17 LG Stem Tib 16mm Prfx Mtphsl Implanted:Qty : 1 on 09/14/2018 by Leo Mercedes MD at [facility] Right: Knee [employer] 06/03/2023 [id number] / / [id number] Description:METAPHYSEAL TIB STEM 16MM--09/17 LG Legion Por Cr Sandoval Fem R Sz 3 Implanted:Qty : 1 on 09/14/2018 by Leo Mercedes MD at [facility] Right: Knee [employer] 11/24/2025 [id number] / / [id number] Description:LGN POR CR SANDOVAL FE M SZ 3 RT--09/17 LG Legion Por Sandoval Tib Base R Sz 2 Implanted:Qty : 1 on 09/14/2018 by Leo Mercedes MD at [facility] Right: Knee [employer] 07/04/2023 [id number] / / [id number] Description:LEGION POROUS SANDOVAL TIBIAL BASE SZ 2 RT--09/17 LG Screw Bsplt 15mm 6.5mm Gns2 Kn Tib Por Implanted:Qty : 1 on 09/14/2018 by Leo Mercedes MD at [facility] Right: Knee [employer] 06/13/2028 [id number] / / [id number] Description:G2 6.5MM SCREW 1 56MM LNGTH--09/17 LG Screw Bsplt 20mm 6.5mm Gns2 Kn Tib Por Implanted:Qty : 1 on 09/14/2018 by Leo Mercedes MD at [facility] Right: Knee [employer] 06/13/2028 [id number] / / [id number] Description:G2 6.5MM SCREW 2 0MM LNGTH--09/17 LG Screw Bsplt 20mm 6.5mm Gns2 Kn Tib Por Implanted:Qty : 1 on 09/14/2018 by Leo Mercedes MD at [facility] Right: Knee [employer] 06/13/2028 [id number] / / [id number] Description:G2 6.5MM SCREW 2 0MM LNGTH--09/17 LG Screw Bsplt 15mm 6.5mm Gns2 Kn Tib Por Implanted:Qty : 1 on 09/14/2018 by Leo Mercedes MD at [facility] Right: Knee [employer] 07/07/2027 [id number] / / [id number] Description:G2 6.5MM SCREW 1 5MM LNGTH--09/17 LG Blayne K2 Sys Kn Uncemented Implanted:Qty : 1 on 09/14/2018 by Leo Mercedes MD at [facility] Right: Knee [employer] K2 UNCEMENTED / / Legion Por Sandoval Tib Base L Sz 2 Implanted:Qty : 1 on 04/05/2019 by Leo Mercedes MD at [facility] Left: Knee [employer] 05/02/2020 [id number] / / [id number] Description:fc LEGION POROUS SANDOVAL TIBIAL BASE SZ 2 LT--04/08 LG Stem Tib 16mm Prfx Mtphsl Implanted:Qty : 1 on 04/05/2019 by Leo Mercedes MD at [facility] Left: Knee [employer] 08/03/2027 [id number] / / [id number] Description:fc METAPHYSEAL TIB STEM 16MM--04/08 LG Legion Por Cr Sandoval Fem L Sz 3 Implanted:Qty : 1 on 04/05/2019 by Leo Mercedes MD at [facility] Left: Knee [employer] 12/03/2023 [id number] / / [id number] Description:fc LGN POR CR SANDOVAL FEM SZ 3 LT--04/08 LG Ins Xlpe Dished Artc Sz 1-2 11mm Implanted:Qty : 1 on 04/05/2019 by Leo Mercedes MD at [facility] Left: Knee [employer] 04/02/2024 [id number] / / [id number] Description:fc LGN XLPE DISHED ISRT SZ 1-2 11MM--04/08 LG Screw Bsplt 15mm 6.5mm Gns2 Kn Tib Por Implanted:Qty : 1 on 04/05/2019 by Leo Mercedes MD at [facility] Left: Knee [employer] 02/10/2027 [id number] / / [id number] Description:fc G2 6.5MM SCREW 15MM LNGTH--04/08 LG Screw Bsplt 15mm 6.5mm Gns2 Kn Tib Por Implanted:Qty : 1 on 04/05/2019 by Leo Mercedes MD at [facility] Left: Knee [employer] 01/19/2028 [id number] / / [id number] Description:fc G2 6.5MM SCREW 15MM LNGTH--04/08 LG Screw 6.5mm 25mm Hip Actb Canc Sphrcl Implanted:Qty : 1 on 04/05/2019 by Leo Mercedes MD at [facility] Left: Knee [employer] 07/07/2028 [id number] / / [id number] Description:fc REF SPHER HEAD SCREW 25MM--04/08 LG Screw Bsplt 15mm 6.5mm Gns2 Kn Tib Por Implanted:Qty : 1 on 04/05/2019 by Leo Mercedes MD at [facility] Left: Knee [employer] 11/16/2028 [id number] / / [id number] Description:fc G2 6.5MM SCREW 15MM LNGTH--04/08 LG Blayne K2 Sys Kn Uncemented Implanted:Qty : 1 on 04/05/2019 by Leo Mercedes MD at [facility] Left: Knee [employer] K2 UNCEMENTED / / Mrkr Apl 3 Mrfbr Pd Radopq Interwoven Implanted:Qty : 1 on 01/18/2022 by Korin Dumont MD at [facility] Right: Breast Bard Peripheral Vascular 01/02/2024 [id number] / / [id number] Procedures Procedure Name Priority Date/Time Associated Diagnosis Comments MAMMO BILAT SCREENING W BRIGITTE Routine 12/09/2024 10:52 AM PAPER SORTER AND COUNTER Encounter for screening mammogram for malignant neoplasm of breast BASIC METABOLIC PANEL (CALCIUM TOTAL) Routine 01/18/2022 12:38 PM CDT Pre-op exam from Last 3 Months or Most Recently Relevant to Health Maintenance Results * MAMMO BILAT SCREENING W BRIGITTE (12/09/2024 10:52 AM PAPER SORTER AND COUNTER) Anatomical Region Laterality Modality Breast Bilateral Mammography 12/09/2024 10:5 2 AM PAPER SORTER AND COUNTER Impressions 12/09/2024 10:58 AM PAPER SORTER AND COUNTER IMPRESSION: No mammographic evidence of malignancy, status [...] CATEGORY 2: BENIGN. Report dictated by Chelsea RYAN, FRCR (breast imaging fellow). IKorin MD, FACR have personally reviewed and interpreted this examination/study. > Interpreting Provider: Korin Dumont MD, FACR on 12/09/2024 10:58 AM Narrative 12/09/2024 10:58 AM PAPER SORTER AND COUNTER EXAMINATIONS: BILATERAL DIGITAL SCREENING MAMMOGRAM AND BILATERAL BREAST TOMOSYNTHESIS LOCATION: [facility] EXAM DATE: 12/09/2024 HISTORY: Screening. No reported family history of breast cancer. History of right breast conservation therapy 01/25/2022. Completed radiation March 2022 COMPARISON: Mammogram 12/23/2022, 12/11/2023 from [facility] ultrasound 09/02/2022 ultrasound 12/07/2019 TECHNIQUE: Tomosynthesis (3D) [...] 26 mg/dL 01/18/2022 1:31 PM [facility] Creatinine 0.76 0.56 - 0.96 mg/dL 01/18/2022 1:31 PM [facility] Sodium 144 136 - 145 mmol/L 01/18/2022 1:31 PM [facility] Potassium 3.9 3.5 - 4.5 mmol/L 01/18/2022 1:31 PM [facility] Chloride 105 98 - 107 mmol/L 01/18/2022 1:31 PM [facility] CO2 33(H) 22 - 29 mmol/L 01/18/2022 1:31 PM [facility] Glucose 101 70 - 115 mg/dL 01/18/2022 1:31 PM [facility] Calcium 10.0 8.4 - 10.2 mg/dL 01/18/2022 1:31 PM [facility] Anion Gap 10 8 - 18 01/18/2022 1:31 PM CDT [facility] BUN/Creatinine Ratio 12 7 - 23 01/18/2022 1:31 PM CDT [facility] Osmolality Calculated 297 270 - 300 mOsm/kg 01/18/2022 1:31 PM CDT [facility] eGFR by CKD-EPI 85(L) >=90 mL/min/1.7 3 m2 01/18/2022 1:31 PM CDT [facility] Blood BLOOD SPECIMEN / Unknown Lab Venipuncture / Unknown 01/18/2022 12:38 PM CDT 01/18/2022 1:00 PM CDT Jocelyn Foss KNOT TYING OPERATOR-[address] [facility] STENOGRAPHER LAB - CHEMISTRY ORDERABLES [facility] [address] [place] [address], [facility] [phone] from Last 3 Months or Most Recently Relevant to Health Maintenance Insurance Payer Benefit Plan / Group Subscriber ID Effective Dates Phone Address Type MEDICAID - OUT OF STATE MEDICAID [facility] PUBLIC AID [id number] 01/17/2022-Pre sent [address] [address] [place] [address] Medicaid MEDICARE MEDICARE PART B ONLY [id number] 04/03/2019-Pres ent [address] [place] [address] Medicare [place] [id number] 11/03/2020-Pres ent [address] [address] [place] [address] [place] [facility] [place] [facility] [place] [id number] Effective for all dates 132 ATTN CLAIMS DEPARTMENT 1 [address] [place] [address] Medicaid Managed Care [facility] [place] [facility] [place] [id number] Effective for all dates 132 ATTN CLAIMS DEPARTMENT 1 [address] [place] [address] Medicaid Managed Care [facility] [place] [facility] [place] [id number] Effective for all dates 132 ATTN CLAIMS DEPARTMENT 1 [address] [place] [address] Medicaid Managed Care [facility] [place] [facility] [place] [id number] Effective for all dates ATTN CLAIMS DEPARTMENT 1 [facility], [address] [place] [address] Medicaid Managed Care [facility] MEDICAID [id number] Effective for all dates ATTN CLAIMS DEPARTMENT 1 [facility], [address] [place] [address] Medicaid Managed Care [facility] MEDICAID [id number] Effective for all dates ATTN CLAIMS DEPARTMENT 1 [facility] [place] [address] Medicaid Managed Care [facility] MEDICAID [id number] Effective for all dates ATTN CLAIMS DEPARTMENT 1 [facility] [place] [address] Medicaid Managed Care [facility] MEDICAID [id number] Effective for all dates ATTN CLAIMS DEPARTMENT 1 [facility], [address] [place] [address] Medicaid Managed Care [facility] MEDICAID [id number] Effective for all dates ATTN CLAIMS DEPARTMENT 1 [facility], [address] [place] [address] Medicaid Managed Care [facility] MEDICAID [id number] Effective for all dates ATTN CLAIMS DEPARTMENT 1 [facility], [address] [place] [address] Medicaid Managed Care [facility] MEDICAID [id number] Effective for all dates ATTN CLAIMS DEPARTMENT 1 [facility], [address] [place] [address] Medicaid Managed Care [facility] MEDICAID [id number] Effective for all dates ATTN CLAIMS DEPARTMENT 1 [facility], [address] [place] [address] Medicaid Managed Care [facility] MEDICAID [id number] Effective for all dates ATTN CLAIMS DEPARTMENT 1 [facility], [address] [place] [address] Medicaid Managed Care [facility] MEDICAID [id number] Effective for all dates ATTN CLAIMS DEPARTMENT 1 [facility], [address] [place] [address] Medicaid Managed Care [facility] MEDICAID [id number] Effective for all dates ATTN CLAIMS DEPARTMENT 1 [facility], [address] [place] [address] Medicaid Managed Care [facility] MEDICAID [id number] Effective for all dates ATTN CLAIMS DEPARTMENT 1 [facility], [address] [place] [address] Medicaid Managed Care [facility] MEDICAID [id number] Effective for all dates ATTN CLAIMS DEPARTMENT 1 [facility], [address] [place] [address] Medicaid Managed Care [facility] MEDICAID [id number] Effective for all dates ATTN CLAIMS DEPARTMENT 1 [facility], [address] [place] [address] Medicaid Managed Care [facility] MEDICAID [id number] Effective for all dates ATTN CLAIMS DEPARTMENT 1 [facility], [address] [place] [address] Medicaid Managed Care [facility] MEDICAID [id number] Effective for all dates ATTN CLAIMS DEPARTMENT 1 [facility], [address] [place] [address] Medicaid Managed Care [facility] MEDICAID [id number] Effective for all dates ATTN CLAIMS DEPARTMENT 1 [facility], [address] [place] [address] Medicaid Managed Care [facility] MEDICAID [id number] Effective for all dates ATTN CLAIMS DEPARTMENT 1 [facility], [address] [place] [address] Medicaid Managed Care [facility] MEDICAID [id number] Effective for all dates ATTN CLAIMS DEPARTMENT 1 [facility], [address] [place] [address] Medicaid Managed Care [facility] MEDICAID [id number] Effective for all dates ATTN CLAIMS DEPARTMENT 1 [facility], [address] [place] [address] Medicaid Managed Care [facility] MEDICAID [id number] Effective for all dates ATTN CLAIMS DEPARTMENT 1 [facility], [address] [place] [address] Medicaid Managed Care [facility] MEDICAID [id number] Effective for all dates ATTN CLAIMS DEPARTMENT 1 [facility], [address] [place] [address] Medicaid Managed Care [facility] MEDICAID [id number] Effective for all dates ATTN CLAIMS DEPARTMENT 1 [facility], [address] [place] [address] Medicaid Managed Care [facility] MEDICAID [id number] Effective for all dates ATTN CLAIMS DEPARTMENT 1 [facility], [address] [place] [address] Medicaid Managed Care [facility] MEDICAID [id number] Effective for all dates ATTN CLAIMS DEPARTMENT 1 [facility], [address] [place] [address] Medicaid Managed Care [facility] MEDICAID [id number] Effective for all dates ATTN CLAIMS DEPARTMENT 1 [facility], [address] [place] [address] Medicaid Managed Care [facility] MEDICAID [id number] Effective for all dates ATTN CLAIMS DEPARTMENT 1 [facility], [address] [place] [address] Medicaid Managed Care [facility] MEDICAID [id number] Effective for all dates ATTN CLAIMS DEPARTMENT 1 [facility], [address] [place] [address] Medicaid Managed Care [facility] MEDICAID [id number] Effective for all dates ATTN CLAIMS DEPARTMENT 1 [facility], [address] [place] [address] Medicaid Managed Care [facility] MEDICAID [id number] Effective for all dates ATTN CLAIMS DEPARTMENT 1 [address] [place] [address] Medicaid Managed Care [facility] MEDICAID [id number] Effective for all dates ATTN CLAIMS DEPARTMENT 1 [address] [place] [address] Medicaid Managed Care [facility] [id number] Effective for all dates [address] [address] [place] [address] Medicaid Managed Care [facility] [id number] Effective for all dates [address] [address] [place] [address] Medicaid Managed Care [facility] [id number] Effective for all dates [address] [address] [place] [address] Medicaid Managed Care [facility] [id number] Effective for all dates [address] [address] [place] [address] Medicaid Managed Care [facility] [id number] Effective for all dates [address] [address] [place] [address] Medicaid Managed Care [facility] [id number] Effective for all dates [address] [address] [place] [address] Medicaid Managed Care [facility] [id number] Effective for all dates [address] [address] [place] [address] Medicaid Managed Care [facility] [id number] Effective for all dates [address] [address] [place] [address] Medicaid Managed Care [facility] [id number] Effective for all dates [address] [address] [place] [address] Medicaid Managed Care [facility] [id number] Effective for all dates [address] [address] [place] [address] Medicaid Managed Care [facility] [id number] Effective for all dates [address] [address] [place] [address] Medicaid Managed Care [facility] [id number] Effective for all dates [address] [address] [place] [address] Medicaid Managed Care [facility] [id number] Effective for all dates [address] [address] [place] [address] Medicaid Managed Care [facility] [id number] Effective for all dates [address] [address] [place] [address] Medicaid Managed Care [facility] [id number] Effective for all dates [address] [address] [place] [address] Medicaid Managed Care [facility] [id number] 10/03/2017-Pre sent [address] [address] [place] [address] Medicaid Managed Care Advance Directives * Full Code (Latest Code Status on File) Date Activated Date Inactivated Comments 04/05/2019 11:56 AM 04/07/2019 6:36 PM * Full Code Date Activated Date Inactivated Comments 09/14/2018 3:08 PM 09/16/2018 7:30 PM Care Teams Automation Clerk Relationship Specialty Start Date End Date Yan Mata MD [address] [address] PCP - General 07/27/18 Yan Mata MD [address] [place] [address] 07/27/18
--- OUTSIDE RECORDS SUMMARY | 2024-12-22 12:28 | XMS_ITS | Patient Health Summary ---
Author Organization [facility] Address [address] [place] [address] Care Team Providers Care Sewing Trimmer Name Role Phone Yan Mata MD Primary Care Provider [phone] Yan Mata MD Unavailable Note from [facility],non-owned Affiliates and Associated Physician Practices is amultiple site organization consisting of ambulatory clinics and hospital sitesin [place], [place], [place] and [place]. This disclosure is being madepursuant to the Care Everywhere program and may not contain all information available regarding this patient. Last updated 18.[facility] Allergies * Chloraprep One Step(Skin Reactions) -Medium [...] from 12/18/2021: cT1b, cN0, cM0, GX, ER+, AL+, HER2- - Signed by Sadia Ortiz MD on 01/15/2022 Pathologic stage from 01/25/2022:Stage IA(pT1c, pN0(sn), cM0, G2, ER+, AL+, HER2- ) - Signed by Sadia Ortiz [...] Comments Blood Pressure 120/68 12/10/2024 12:09 PM HARVESTER OPERATOR Pulse 76 12/09/2024 10:59 AM HARVESTER OPERATOR Temperature 36.1 C (97 F) 12/09/2024 10:59 AM HARVESTER OPERATOR Respiratory Rate 16 02/25/2024 11:05 AM CDT Oxygen Saturation 95% 12/09/2024 10:59 AM HARVESTER OPERATOR Inhaled Oxygen Concentration - - Weight 77.3 kg (170 lb 6.4 oz) 12/10/2024 12:09 PM HARVESTER OPERATOR Height 154.9 cm (5' 1 ) 12/10/2024 12:09 PM HARVESTER OPERATOR Body Mass Index 32.2 12/10/2024 12:09 PM HARVESTER OPERATOR Medical Devices Implanted Type Area Pharmacy Sales Representative Device Identifier Shelf Expiration Date Model / Serial / Lot Mrkr 18ga Magseed Brstbio 7cm Implanted:Qty : 1 on 01/24/2022 by Korin Cortez MD at [facility] Implant Non-Ortho Right: Breast Devicor 06/10/2025 [id number] / / [id number] Mrkr 18ga Magseed Brstbio 7cm Implanted:Qty : 1 on 01/24/2022 by Korin Cortez MD at [facility] Implant Non-Ortho Right: Breast Devicor 07/03/2025 [id number] / / [id number] Ins Tib 1-2 11mm Kn Xlpe Cr Hi Flxn Implanted:Qty : 1 on 09/14/2018 by eLo Mercedes MD [place] [facility] [place] Right: Knee [employer] 08/03/2023 [id number] / / [id number] Description:LGN CR HIGH FLEX XLPE SZ 1-2 11MM--09/17 LG Stem Tib 16mm Prfx Mtphsl Implanted:Qty : 1 on 09/14/2018 by Leo Mercedes MD at [facility] [place] Right: Knee [employer] 06/03/2023 [id number] / / [id number] Description:METAPHYSEAL TIB STEM 16MM--09/17 LG Legion Por Cr Rowell Fem R Sz 3 Implanted:Qty : 1 on 09/14/2018 by Leo Mercedes MD at [facility] [place] Right: Knee [employer] 11/24/2025 [id number] / / [id number] Description:LGN POR CR ROWELL FE M SZ 3 RT--09/17 LG Legion Por Rowell Tib Base R Sz 2 Implanted:Qty : 1 on 09/14/2018 by Leo Mercedes MD at [facility] [place] Right: Knee [employer] 07/04/2023 [id number] / / [id number] Description:LEGION POROUS ROWELL TIBIAL BASE SZ 2 RT--09/17 LG Screw Bsplt 15mm 6.5mm Gns2 Kn Tib Por Implanted:Qty : 1 on 09/14/2018 by Leo Mercedes MD at [facility] [place] Right: Knee [employer] 06/13/2028 [id number] / / [id number] Description:G2 6.5MM SCREW 1 56MM LNGTH--09/17 LG Screw Bsplt 20mm 6.5mm Gns2 Kn Tib Por Implanted:Qty : 1 on 09/14/2018 by Leo Mercedes MD at [facility] [place] Right: Knee [employer] 06/13/2028 [id number] / / [id number] Description:G2 6.5MM SCREW 2 0MM LNGTH--09/17 LG Screw Bsplt 20mm 6.5mm Gns2 Kn Tib Por Implanted:Qty : 1 on 09/14/2018 by Leo Mercedes MD at [facility] [place] Right: Knee [employer] 06/13/2028 [id number] / / [id number] Description:G2 6.5MM SCREW 2 0MM LNGTH--09/17 LG Screw Bsplt 15mm 6.5mm Gns2 Kn Tib Por Implanted:Qty : 1 on 09/14/2018 by Leo Mercedes MD at [facility] [place] Right: Knee [employer] 07/07/2027 [id number] / / [id number] Description:G2 6.5MM SCREW 1 5MM LNGTH--09/17 LG Blayne K2 Sys Kn Uncemented Implanted:Qty : 1 on 09/14/2018 by Leo Mercedes MD at [facility] [place] Right: Knee [employer] K2 UNCEMENTED / / Legion Por Rowell Tib Base L Sz 2 Implanted:Qty : 1 on 04/05/2019 by Leo Mercedes MD at [facility] [place] [place] Left: Knee [employer] 05/02/2020 [id number] / / [id number] Description:fc LEGION POROUS ROWELL TIBIAL BASE SZ 2 LT--04/08 LG Stem Tib 16mm Prfx Mtphsl Implanted:Qty : 1 on 04/05/2019 by Leo Mercedes MD at [facility] [place] Left: Knee [employer] 08/03/2027 [id number] / / [id number] Description:fc METAPHYSEAL TIB STEM 16MM--04/08 LG Legion Por Cr Rowell Fem L Sz 3 Implanted:Qty : 1 on 04/05/2019 by Leo Mercedes MD at [facility] [place] Left: Knee [employer] 12/03/2023 [id number] / / [id number] Description:fc LGN POR CR ROWELL FEM SZ 3 LT--04/08 LG Ins Xlpe Dished Artc Sz 1-2 11mm Implanted:Qty : 1 on 04/05/2019 by Leo Mercedes MD at [facility] [place] Left: Knee [employer] 04/02/2024 [id number] / / [id number] Description:fc LGN XLPE DISHED ISRT SZ 1-2 11MM--04/08 LG Screw Bsplt 15mm 6.5mm Gns2 Kn Tib Por Implanted:Qty : 1 on 04/05/2019 by Leo Mercedes MD at [facility] [place] [place] Left: Knee [employer] 02/10/2027 [id number] / / [id number] Description:fc G2 6.5MM SCREW 15MM LNGTH--04/08 LG Screw Bsplt 15mm 6.5mm Gns2 Kn Tib Por Implanted:Qty : 1 on 04/05/2019 by Leo Mercedes MD at [facility] [place] Left: Knee [employer] 01/19/2028 [id number] / / [id number] Description:fc G2 6.5MM SCREW 15MM LNGTH--04/08 LG Screw 6.5mm 25mm Hip Actb Canc Sphrcl Implanted:Qty : 1 on 04/05/2019 by Leo Mercedes MD at [facility] [place] Left: Knee [employer] 07/07/2028 [id number] / / [id number] Description:fc REF SPHER HEAD SCREW 25MM--04/08 LG Screw Bsplt 15mm 6.5mm Gns2 Kn Tib Por Implanted:Qty : 1 on 04/05/2019 by Leo Mercedes MD at [facility] [place] Left: Knee [employer] 11/16/2028 [id number] / / [id number] Description:fc G2 6.5MM SCREW 15MM LNGTH--04/08 LG Blayne K2 Sys Kn Uncemented Implanted:Qty : 1 on 04/05/2019 by Leo Mercedes MD at [facility] [place] [place] Left: Knee [employer] K2 UNCEMENTED / / Mrkr Apl 3 Mrfbr Pd Radopq Interwoven Implanted:Qty : 1 on 01/18/2022 by Korin Cortez MD at [facility] Right: Breast Bard Peripheral Vascular 01/02/2024 [id number] / / [id number] Procedures * MAMMO BILAT SCREENING W BRIGITTE(Performed 12/09/2024) Performed for Encounter for screening mammogram for malignant neoplasm of breast * XR KNEE BILAT 4VW OR MORE(Performed 06/02/2024) Performed for History of total bilateral knee replacement * AL PESSARY, NON RUBBER,ANY TYPE(Performed 04/23/2024) Performed for Cystocele, midline, Rectocele * AL FIT/INSERT INTRAVAG SUPPORT DEVICE(Performed 04/23/2024) Performed for Cystocele, midline, Rectocele * AL CHEM CAUTERY GRANULATN TISSUE(Performed 03/26/2024) Performed for Granulation tissue * MAMMO BILAT DIAGNOSTIC W BRIGITTE(Performed 12/11/2023) Performed for Malignant neoplasm of overlapping sites of right breast in female, estrogen receptor positive (HCC) * AL PESSARY, NON RUBBER,ANY TYPE(Performed 09/15/2023) Performed for Cystocele, midline, Rectocele * AL FIT/INSERT INTRAVAG SUPPORT DEVICE(Performed 09/15/2023) Performed for Cystocele, midline, Rectocele * AL CHEM CAUTERY GRANULATN TISSUE(Performed 06/09/2023) Performed for [...] Mass of right breast, unspecified quadrant * AL INSERT NON-INDWELLING BLADDER(Performed 04/08/2022) Performed for Urge [...] in female, estrogen receptor positive (HCC) * AL BX/REMV,LYMPH NODE,DEEP AXILL(Performed 01/25/2022) Performed for Malignant [...] 08/24/2021) Performed for Urge urinary incontinence * AL INSERT NON-INDWELLING BLADDER(Performed 05/09/2021) Performed for Cystocele, midline * AL PESSARY, NON RUBBER,ANY TYPE(Performed 04/09/2021) Performed for Cystocele, midline, Rectocele * AL FIT/INSERT INTRAVAG SUPPORT DEVICE(Performed 04/09/2021) Performed for Cystocele, midline, Rectocele * AL BIOPSY OF UTERUS LINING(Performed 03/05/2021) Performed for Fluid in endometrial cavity * PATHOLOGY TISSUE(Performed 03/05/2021) Performed for Fluid in endometrial cavity * US PELVIS COMPLETE(Performed 03/05/2021) Performed for Pelvic pain in female * AL SONO EXAM, TRANSVAGINAL(Performed 03/05/2021) Performed for Pelvic pain in female * AL US PEL NONOB B-SCAN&/R-T IMG LMTD/F-UP+C97(Performed 03/05/2021) [...] Performed for Positive NORBERTO (antinuclear antibody) * AL BIOPSY OF CERVIX(Performed 02/02/2021) Performed for Cervical polyp * AL INSERT NON-INDWELLING BLADDER(Performed 02/02/2021) Performed for OAB (overactive bladder) * PAP IMAGE-GUIDED W HPV(Performed 01/29/2021) Performed for Pelvic pain in female * PATHOLOGY TISSUE(Performed 01/29/2021) Performed for Pelvic pain in female * HPV DETECTION HIGH RISK COLBY(Performed 01/29/2021) Performed for Pelvic pain in female * URINALYSIS AUTO - POINT OF CARE (AMB) SLU(Performed 01/29/2021) Performed for OAB (overactive bladder) * AL MSR PVR U&/BLADD CAPCTY US NON(Performed 01/01/2021) [...] 10/03/2017) * CULTURE URINE(Performed 04/12/2014) Results * MAMMO BILAT SCREENING W BRIGITTE (12/09/2024 10:52 AM HARVESTER OPERATOR) Anatomical Region Laterality Modality Breast Bilateral Mammography 12/09/2024 10:5 2 AM HARVESTER OPERATOR Impressions 12/09/2024 10:58 AM HARVESTER OPERATOR IMPRESSION: No mammographic evidence of malignancy, status [...] CATEGORY 2: BENIGN. Report dictated by Chelsea Bashir, FRGAVIOTA (breast imaging fellow). I, Korin Cortez MD, FACR have personally reviewed and interpreted this examination/study. > Interpreting Provider: Korin Cortez MD, FACR on 12/09/2024 10:58 AM Narrative 12/09/2024 10:58 AM HARVESTER OPERATOR EXAMINATIONS: BILATERAL DIGITAL SCREENING MAMMOGRAM AND BILATERAL BREAST TOMOSYNTHESIS LOCATION: [facility] EXAM DATE: 12/09/2024 HISTORY: Screening. No reported family history of breast cancer. History of right breast conservation therapy 01/25/2022. Completed radiation March 2022 COMPARISON: Mammogram 12/23/2022, 12[facility]11/2023 [facility] ultrasound 09/02/2022 ultrasound 12/07/2019 TECHNIQUE: Tomosynthesis [...] breast conservation surgery. No change from prior. aSdia Ortiz MD MAMMO ORDERABLES * XR Knee Bilat 4Vw or More (06/02/2024 12:43 PM CDT) Anatomical Region Laterality Modality Lower Extremity Radiographic Lisa ging 06/02/2024 1:10 PM CDT Narrative 06/02/2024 1:11 PM CDT Procedure: XR KNEE BILAT 4VW OR MORE Exam Date: 06/02/2024 12:43 PM Location: [facility] Indication: Z96.653: Presence of artificial [...] MORE Exam Date: 06/02/2024 12:43 PM Location: [facility] Indication: Z96.653: Presence of artificial [...] Leo Mercedes MD DIAGNOSTIC IMAGING ORDERABLES * AL FIT/INSERT INTRAVAG SUPPORT DEVICE, AL PESSARY, NON RUBBER,ANY TYPE (04/23/2024 11:14 AM CDT) Narrative Roxann Ulloa MD - 04/23/2024 11:14 AM CDT Roxann Ulloa MD 04/23/2024 11:20 AM Pessary Fitting: She was fitted with: #1 RWS which fit comfortably without pain/undue tension on the vaginal tissues. She ambulated around the clinic and was able to retain the pessary comfortably. Roxann Ulloa MD PROCEDURE/MINOR JOCELYNE GICAL ORDERABLES * AL CHEM CAUTERY GRANULATN TISSUE (03/26/2024 11:22 AM CDT) Roxann Rosales MD - 03/26/2024 11:22 AM CDT Roxann Ulloa MD 03/26/2024 2:45 PM Speculum exam was performed and the vaginal mucosa had ulcerations and granulation tissue on the proximal anterior and posterior vaginal bartholomew. Verbal consent obtained. Granulation tissue treated with silver nitrate. The patient tolerated the procedure well. Roxann Ulloa MD PROCEDURE/MINOR JOCELYNE GICAL ORDERABLES * MAMMO BILAT DIAGNOSTIC W BRIGITTE (12/11/2023 10:44 AM HARVESTER OPERATOR) Only the most recent of2 resultswithin the time period is included. Anatomical Region Laterality Modality Breast Bilateral Mammography 12/11/2023 10:3 7 AM HARVESTER OPERATOR Impressions 12/11/2023 10:50 AM HARVESTER OPERATOR : No mammographic evidence of malignancy, status post right breast conservation therapy. RECOMMENDATION: Screening mammography in one year, pending no interval breast concerns. Patient was notified of the results at the time of her study. She will see Dr. Ortiz in the breast clinic today. OVERALL ASSESSMENT: BI-RADS CATEGORY 2: BENIGN. Report dictated by Chiki Rivera M.D. (compliance vice president) 12/11/2023 10:48 AM. William Barrios D.O. also assisted in the dictation. I, Korin Cortez MD have personally reviewed and interpreted this examination/study. > Interpreting Provider: Korin Cortez MD on 12/11/2023 10:50 AM Narrative 12/11/2023 10:50 AM HARVESTER OPERATOR EXAMINATIONS: BILATERAL DIGITAL DIAGNOSTIC MAMMOGRAM AND BREAST TOMOSYNTHESIS WITH CAD LOCATION: [facility] EXAM DATE: 12/11/2023 HISTORY: Patient is a 72-year-old female with history of right breast cancer status post right breast conservation therapy on 01/25/2022. COMPARISON: Multiple prior comparisons dating back to 2021. TECHNIQUE: Diagnostic bilateral mammography was performed.Tomosynthesis (3D) and reconstructed synthetic 2-D images acquired. A total of 8 images were obtained. Scar markers placed on the right breast. Computer-aided detection (CAD) was utilized. BREAST COMPOSITION: Category C: The breasts are heterogeneously dense which may obscure small masses. FINDINGS: There are no suspicious findings to indicate malignancy. There are no significant interval changes. The post lumpectomy changes of upper-outer quadrant of the right breast and scattered benign calcifications of both breasts are not significantly changed from the previous mammograms. Sadia Ortiz MD MAMMO ORDERABLES * AL FIT/INSERT INTRAVAG SUPPORT DEVICE, AL PESSARY, NON RUBBER,ANY TYPE (09/15/2023 3:15 PM HARVESTER OPERATOR) Roxann Rosales MD - 09/15/2023 3:15 PM HARVESTER OPERATOR Roxann Ulloa MD 09/15/2023 5:19 PM Pessary Fitting: She was fitted with: #2 RWS which fit comfortably without pain/undue tension on the vaginal tissues. She ambulated around the clinic and was able to retain the pessary comfortably. Roxann Ulloa MD PROCEDURE/MINOR JOCELYNE GICAL ORDERABLES * AL CHEM CAUTERY GRANULATN TISSUE (06/09/2023 1:59 PM CDT) Roxann Rosales MD - 06/09/2023 1:59 PM CDT Roxann Ulloa MD 06/09/2023 2:02 PM Speculum exam was performed and the vaginal mucosa had granulation tissue on the proximal posterior wall and right vaginal side wall near the cervix. Silver nitrate was used to cauterize the granulation [...] concern in the medial right breast. RECOMMENDATION: Bilateral mammography is due in November 2022, pending no interval breast concerns. Dr. Cortez discussed the examination findings and recommendations with the patient at the time of the examination. OVERALL ASSESSMENT: BI-RADS CATEGORY 2: BENIGN. > Interpreting Provider: Korin Cortez MD on 09/02/2022 2:16 PM Narrative 09/02/2022 2:16 PM CDT EXAMINATIONS: 1. DIGITAL MAMMO RIGHT DIAGNOSTIC W BRIGITTE WITH CAD AND 2. LIMITED RIGHT BREAST ULTRASOUND (COMBINED REPORT) DATE OF EXAM: 09/02/2022 1:07 PM HISTORY: This is a 72-year-old female with history of right breast cancer, status post right breast conservation therapy 01/25/2022. Patient feels a new lump in the upper inner quadrant of the right breast. COMPARISON: Prior studies back to 2019, with the most recent bilateral screening mammogram dated 11/22/2021 from [facility]. Compare with a right postbiopsy mammogram from [facility] 01/24/2022. MAMMOGRAM: TECHNIQUE: Diagnostic right mammography was performed. Tomosynthesis (3-D) and reconstructed synthetic 2-D images acquired. Right CC, MLO, true lateral and CC and MLO spot compression views obtained. A total of 6 images were obtained. Computer-aided detection (CAD) was utilized. Triangular-shaped marker placed on a palpable abnormality in the right breast. BREAST COMPOSITION: Category C: The breasts are heterogeneously dense which may obscure small masses. FINDINGS: Status post interval right breast conservation therapy in the lateral breast. Previously noted mass laterally is no longer present. No suspicious microcalcifications. No abnormality is identified with attention to the medial breast were patient feels a lump. There is some nonspecific skin thickening around the areola, which may be related to radiation changes. LIMITED RIGHT BREAST ULTRASOUND: Ultrasound of the medial of the breast was performed. Scanning performed from the 1 to the [address] Cortez also scanned the patient. FINDINGS: Targeted ultrasound is of this area unremarkable, without [...] concern in the medial right breast. RECOMMENDATION: Bilateral mammography is due in November 2022, pending no interval breast concerns. Dr. Cortez discussed the examination findings and recommendations with the patient at the time of the examination. OVERALL ASSESSMENT: BI-RADS CATEGORY 2: BENIGN. > Interpreting Provider: Korin Cortez MD on 09/02/2022 2:16 PM Narrative 09/02/2022 2:16 PM CDT EXAMINATIONS: 1. DIGITAL MAMMO RIGHT DIAGNOSTIC W BRIGITTE WITH CAD AND 2. LIMITED RIGHT BREAST ULTRASOUND (COMBINED REPORT) DATE OF EXAM: 09/02/2022 1:07 PM HISTORY: This is a 72-year-old female with history of right breast cancer, status post right breast conservation therapy 01/25/2022. Patient feels a new lump in the upper inner quadrant of the right breast. COMPARISON: Prior studies back to 2019, with the most recent bilateral screening mammogram dated 11/22/2021 from [facility]. Compare with a right postbiopsy mammogram from [facility] 01/24/2022. MAMMOGRAM: TECHNIQUE: Diagnostic right mammography was performed. Tomosynthesis (3-D) and reconstructed synthetic 2-D images acquired. Right CC, MLO, true lateral and CC and MLO spot compression views obtained. A total of 6 images were obtained. Computer-aided detection (CAD) was utilized. Triangular-shaped marker placed on a palpable abnormality in the right breast. BREAST COMPOSITION: Category C: The breasts are heterogeneously dense which may obscure small masses. FINDINGS: Status post interval right breast conservation therapy in the lateral breast. Previously noted mass laterally is no longer present. No suspicious microcalcifications. No abnormality is identified with attention to the medial breast were patient feels a lump. There is some nonspecific skin thickening around the areola, which may be related to radiation changes. LIMITED RIGHT BREAST ULTRASOUND: Ultrasound of the medial of the breast was performed. Scanning performed from the 1 to the [address] Cortez also scanned the patient. FINDINGS: Targeted ultrasound is of this area unremarkable, without mass or suspicious finding. Sadia Ortiz MD MAMMO ORDERABLES * AL INSERT NON-INDWELLING BLADDER (04/08/2022 5:35 PM CDT) Narrative Roxann Ulloa MD - 04/08/2022 5:35 PM CDT Roxann Ulloa MD 04/08/2022 5:38 PM Procedure note: Straight catheterization was performed [...] POCT neg Ketones UA POCT neg Specific [place] UA 1.010 Blood Urine POCT neg pH [...] Cortez discussed this with Dr. Ortiz on 01/25/2022 at 1205 hours. Dictated by Sybil Weber MD (compliance vice president). I, Dr. KORIN CORTEZ M.D. have personally reviewed and interpreted this examination/study. This report was electronically signed by KORIN CORTEZ M.D. on 01/25/2022 12:42 PM . Narrative 01/25/2022 11:58 AM CDT EXAM: SPECIMEN RADIOGRAPH FROM THE RIGHT BREAST x 2. DATE OF EXAM: 01/25/2022 HISTORY: Biopsy-proven cancer in 2 sites in [...] is included. Case Report Surgical Pathology Report Case: [id number] Authorizing Provider: Sadia Ortiz MD Collected: 01/25/2022 10:20 AM Ordering Location: [facility] Received: 01/25/2022 11:22 AM Pathologist: Tess Lopez MD Specimens: A) - [place] Lymph Node, RIGHT AXILLARY SENTINEL LYMPH NODES B) - Breast, Right, RIGHT LUMPECTOMY; LONG LATERAL, SHORT SUPERIOR, DOUBLE DEEP C) - Margin, ADDITIONAL RIGHT LUMPECTOMY INFERIOR POSTERIOR MARGIN; STITCH @ TRUE MARGIN D) - Margin, ADDITIONAL RIGHT LUMPECTOMY SUPERIOR MARGIN; STITCH @ TRUE MARGIN E) - Margin, ADDITIONAL RIGHT LUMPECTOMY LATERAL MARGIN; STITCH @ TRUE MARGIN F) - Margin, ADDITIONAL RIGHT LUMPECTOMY INFERIOR MARGIN; STITCH @ TRUE MARGIN G) - Margin, ADDITIONAL RIGHT LUMPECTOMY MEDIAL MARGIN; STITCH @ TRUE MARGIN H) - Margin, ADDITIONAL RIGHT LUMPECTOMY ANTERIOR MARGIN; STITCH @ TRUE MARGIN I) - Margin, ADDITIONAL RIGHT LUMPECTOMY POSTERIOR MARGIN; STITCH @ TRUE MARGIN 01/31/2022 4:41 PM [facility] Final Diagnosis Lymph nodes, right [...] to the synoptic report. 01/31/2022 4:41 PM [facility] Amendment electronically signed by Tess [...] seen in the most recent core biopsy ([id number]) is not seen but the smaller, 3 mm focus of invasive carcinoma seen in the biopsy represents a second tumor focus. The synoptic report has been updated to represent the multifocal invasive process. 01/31/2022 4:41 PM [facility] Clinical History The patient is a 71-year-old female who was diagnosed with screen-detected right breast cancer on mammography ([id number]). A second biopsy for additional calcifications 2.5 cm ventral to the previous biopsy demonstrated invasive and in situ carcinoma ([id number]). 01/31/2022 4:41 PM [facility] Gross Description The requisition and [...] sectioned and submitted entirely in cassette I1. WM Specimen processing times on 01/25/2022 are as follows: Time of excision: 1147 Time specimen is cut and placed in formalin: 1250 Total formalin fixation time: 54 hours and 30 minutes Total cold ischemia time: 1 hour and 3 minutes 01/31/2022 4:41 PM [facility] Disclaimer The performance characteristics of all immunohistochemical and indirect immunofluorescence stains (if any) cited in this report were determined by the Histopathology Laboratory of [facility]. Some of these tests were developed by [...] the attending (teaching) pathologist. 01/31/2022 4:41 PM [facility] Synoptic Report INVASIVE CARCINOMA OF THE BREAST: Resection INVASIVE CARCINOMA OF THE BREAST: COMPLETE EXCISION - All Specimens 8th Edition - Protocol posted: 10/19/2021 SPECIMEN Procedure: Excision (less than total mastectomy) Specimen Laterality: Right TUMOR Histologic Type: Invasive carcinoma of no special type (ductal) Histologic Grade (Agusto Histologic Score): Glandular (Acinar) / Tubular Differentiation: Score 3 Nuclear Pleomorphism: Score 3 Mitotic Rate: Score 1 Overall Grade: Grade 2 (scores of 6 or 7) Tumor Size: Greatest dimension of largest invasive focus (Millimeters): 14 mm Tumor Focality: Multiple foci of invasive carcinoma Number of Foci: 2 Sizes of Individual Foci (Millimeters): 3 mm Ductal Carcinoma In Situ (DCIS): Present : Positive for extensive intraductal component (EIC) Size (Extent) of DCIS: Cannot be determined Number of Blocks with DCIS: 8 Number of Blocks Examined: 15 Architectural Patterns: Cribriform Nuclear Grade: Grade II (intermediate) Necrosis: Present, central (expansive comedo necrosis) Lobular Carcinoma In Situ (LCIS): Not identified Lymphovascular Invasion: Not identified Dermal Lymphovascular Invasion: No skin present Microcalcifications: Present in DCIS Microcalcifications: Present in non-neoplastic tissue Treatment Effect in the Breast: No known presurgical therapy MARGINS Margin Status for Invasive Carcinoma: All margins negative for invasive carcinoma Distance from Invasive Carcinoma to Closest Margin: Greater than: 2 mm Closest Margin(s) to Invasive Carcinoma: Cannot be determined: all separately submitted margins negative for invasive carcinoma Margin Status for DCIS: All margins negative for DCIS Distance from DCIS to Closest Margin: Greater than: 2 mm Closest Margin(s) to DCIS: Cannot be determined: all separately submitted margins negative for DCIS REGIONAL LYMPH NODES Regional Lymph Node Status: : All regional lymph nodes negative for tumor Total Number of Lymph Nodes Examined (sentinel and non-sentinel): 2 Number of [place] Nodes Examined: 2 DISTANT METASTASIS PATHOLOGIC STAGE CLASSIFICATION (pTNM, AJCC 8th Edition) Reporting of pT, pN, and (when applicable) pM categories is based on information available to the pathologist at the time the report is issued. As per the AJCC (Chapter 1, 8th Ed.) it is the managing physician s responsibility to establish the final pathologic stage based upon all pertinent information, including but potentially not limited to this pathology report. TNM Descriptors: m (multiple foci of invasive carcinoma) pT Category: pT1c Regional Lymph Nodes Modifier: (sn): [place] node(s) evaluated. pN Category: pN0 SPECIAL STUDIES Estrogen Receptor (ER) Status: Positive (greater than 10% of cells demonstrate nuclear positivity) Percentage of Cells with Nuclear Positivity: 99 % Progesterone Receptor (PgR) Status: Positive Percentage of Cells with Nuclear Positivity: 80 % HER2 (by immunohistochemistry) : Negative (Score 1+) Ki-67 Percentage of Positive Nuclei: 12 % Testing Performed on 01/31/2022 4:41 PM CDT [facility] Embedded Images 01/31/2022 4:41 PM CDT [facility] Lymph Node Dissection SPECIMEN FROM [...] - PATHOLOGY/CYT OLOGY ORDERABLES Performing Organization Address [facility]/State/[facility] de Phone Number [facility] [address] [phone] * LARYNGEAL MASK AIRWAY (01/25/2022 9:54 AM CDT) Narrative Atul Kelly DO - 01/25/2022 9:54 AM CDT Atul Kelly DO 01/25/2022 9:54 AM LMA Placement Procedure/LDA Note: Patient Location: OR. LMA Insertion Date/Time: 01/25/2022 9:46 AM Procedure: LMA. Pretreatment: 100% O2 Induction: standard IV Patient position: supine. Mask Ventilation: easy Type: LMA Size: 4 Number of Attempts: 1. Cuff volume (mL): 15 Placement verified by: direct visualization, bilateral breath sounds, chest auscultation and CO2 monitor Procedure Start Time: 01/25/2022 9:46 AM. Staff Section Provider #1: Atul Kelly DO, Performed the procedure. Additional Comments: Walter hernandez with first attempt success. Salbador Bernal MD GENERAL ANESTHESIA O RDERABLES * NM SENTINEL NODE INJECTION (01/25/2022 9:06 AM CDT) Anatomical Region Laterality Modality Breast, Upper Extremity, Other N [facility] Medicine 01/25/2022 10:1 9 AM CDT Impressions 01/25/2022 3:47 PM CDT IMPRESSION: Successful placement of 4 periareolar injections in the right breast. This report was approved by Jefe Villegas on 01/25/2022 1:22 PM . I, Dr. DANIEL BAUER M.D. have personally reviewed and interpreted this examination/study. This report was electronically signed by DANIEL BAUER M.D. on 01/25/2022 3:47 PM . Narrative 01/25/2022 3:47 PM CDT PROCEDURE: Lymphoscintigraphy - [place] lymph node detection. HISTORY: 71 year old femalewith history of HTN and osteoporosiswho presents for evaluation of newly diagnosed right breast invasive ductal carcinoma (ER 99% AL 80% Her2 negative) with a Ki-67 12%. TECHNIQUE: 0.9 mCi of Tc-99m Tilmanocept (Lymphoseek) injected intradermally in the right breast . Patient's BMI 31.64 kg/m2. FINDINGS: The right breast was cleaned and a total dose of 0.9 mCi Tc 99-m Tilmanocept (Lymphoseek) was given by 4 separate intradermal injections in the periareolar region of the right breast by Dr. Jefe Villegas. The patient tolerated the procedure well without complication. Dr. Bauer was there for the alvarez portion of the procedure. Procedure Note Daniel Bauer MD - 01/25/2022 PROCEDURE: Lymphoscintigraphy - [place] lymph node detection. HISTORY: 71 year old femalewith history of HTN and osteoporosiswho presents for evaluation of newly diagnosed right breast invasive ductal carcinoma (ER 99% AL 80% Her2 negative) with a Ki-67 12%. [...] guided Magseed placement in the right breast, adjacent to the david-shaped clip at the site of the known known malignancy. The mag seed is approximately 1 cm posterior and inferior to the david-shaped clip in the area of the known cancer. 2.Technically successful, uncomplicated, mammographically- guided Magseed placement in the right breast, adjacent to the ribbon-shape clip at the site of the known known malignancy. The mag seed is within 0.5 cm of the ribbon-shaped clip and adjacent to a tiny group of calcifications. Patient will follow-up with Dr. Ortiz regarding her upcoming breast surgery on 01/25/2022. Dictated by Sybil Weber M.D. (compliance vice president). IDr. KORIN M.D. have personally reviewed and interpreted this examination/study. This report was electronically signed by KORIN CORTEZ M.D. on 01/24/2022 12:13 PM . Narrative 01/24/2022 12:13 PM CDT EXAM: MAGSEED LOCALIZATION / PLACEMENT UNDER MAMMOGRAPHIC GUIDANCE AND POST PROCEDURE MAMMOGRAM x 2- RIGHT BREAST DATE OF EXAM: 01/24/2022 9:33 AM HISTORY: Biopsy-proven cancer in 2 sites in the right breast. There is a david-shaped clip in the more posterior upper outer quadrant of the breast from outside biopsy demonstrating cancer. There is a ribbon-shaped clip in the more anterior aspect of the upper outer quadrant of the breast from stereotactic guided biopsy performed at [facility], also demonstrating malignancy. On the lateral view, the clips are 2.7 cm apart from one another and on the cc view, the clips are 2.3 cm apart from one another. COMPARISON: Prior breast imaging studies dated 01/17/2022 and 01/18/2022. Compare with images from [facility] [place] dated 11/30/2021. TECHNIQUE AND FINDINGS: Preprocedure images were reviewed. The biopsy clip is noted in an appropriate location on the previous postbiopsy images performed. The procedure and its risks, including bleeding and infection, as well as unsuccessful localization, and the potential benefits of the procedure were discussed with the patient, and written and verbal informed consent was obtained, using an foreign language interpreter. This was also discussed with the patient's [...] surface and deeper soft tissues. A 7 cm 20-gauge needle containing the seed for localization [...] surface and deeper soft tissues. A 7 cm 20-gauge needle containing the seed for localization [...] 7 - 26 mg/dL 01/18/2022 1:31 PM [facility] Creatinine 0.76 0.56 - 0.96 mg/dL 01/18/2022 1:31 PM [facility] Sodium 144 136 - 145 mmol/L 01/18/2022 1:31 PM [facility] Potassium 3.9 3.5 - 4.5 mmol/L 01/18/2022 1:31 PM [facility] Chloride 105 98 - 107 mmol/L 01/18/2022 1:31 PM [facility] CO2 33(H) 22 - 29 mmol/L 01/18/2022 1:31 PM CDT [facility] Glucose 101 70 - 115 mg/dL 01/18/2022 1:31 PM CDT [facility] Calcium 10.0 8.4 - 10.2 mg/dL 01/18/2022 1:31 PM CDT [facility] Anion Gap 10 8 - 18 01/18/2022 1:31 PM CDT [facility] BUN/Creatinine Ratio 12 7 - 23 01/18/2022 1:31 PM CDT [facility] Osmolality Calculated 297 270 - 300 mOsm/kg 01/18/2022 1:31 PM CDT [facility] eGFR by CKD-EPI 85(L) >=90 mL/min/1.7 3 m2 01/18/2022 1:31 PM CDT [facility] Blood BLOOD SPECIMEN / Unknown Lab Venipuncture / Unknown 01/18/2022 12:38 PM CDT 01/18/2022 1:00 PM CDT Jocelyn Foss MANAGER CODE-DIRECTOR [employer] LAB - CHEMISTRY ORDERABLES [facility] [address] [place] [id number], [facility] [phone] * MAMMO STEREOTACTIC RIGHT BIOPSY (01/18/2022 10:52 [...] INFORMATION: Calcifications in the upper outer quadrant of the right breast. Patient has known breast cancer in the upper outer quadrant of the right breast. Approximately 2.5 cm ventral to the known cancer is a small group of indeterminate microcalcifications. COMPARISON: Outside mammogram images from [facility] dated 12/18/2021 and 12/10/2021. TECHNIQUE AND FINDINGS: Preprocedure images were reviewed. The procedure and its risks and benefits were discussed with the patient, her son, and an foreign language interpreter, including, but not limited to, bleeding, infection, allergy, and a nondiagnostic specimen. Written and verbal informed consent was obtained and documented. After confirming the correct breast for biopsy, the breast was marked with a marking pen. The patient was then [...] prepped and draped in a sterile fashion. Local anesthesia was given with 4 cc of 1% Lidocaine buffered with Sodium Bicarbonate within the skin and deeper anesthesia with 18 cc of 1% Lidocaine with Epinephrine, buffered withSodium Bicarbonate. A small 5 mm skin incision was made with a #11 scalpel blade, and through it a 9-gauge Eviva vacuum-assisted incisional core biopsy needle was inserted to the depth of the lesion through an introducer. Confirmatory images were obtained, prior to firing the biopsy device, demonstrating good position of the biopsy needle. Several biopsy samples were obtained through the area of concern. The samples were radiographed and area representative calcifications are present within these samples. [...] up with Dr. Ortiz. An addendum will be rendered to this report when the pathology results are made available. This report was electronically signed by KORIN CORTEZ M.D. on 01/18/2022 12:44 PM . ADDENDUM #1 ADDENDUM: [...] was electronically signed by KORIN CORTEZ M.D. on 01/21/2022 4:40 PM . Impressions 01/18/2022 12:44 PM CDT IMPRESSION: 1. Technically successful, uncomplicated stereotactic (3D) [...] up with Dr. Ortiz. An addendum will be rendered to this report when the pathology results are made available. This report was electronically signed by KORIN CORTEZ M.D. on 01/18/2022 12:44 PM . Narrative 01/18/2022 12:44 PM CDT EXAMS: STEREOTACTIC BREAST BIOPSY WITH PRONE AFFIRM (3D) BIOPSY AND POST BIOPSY DIGITAL MAMMOGRAM RIGHT BREAST (COMBINED REPORT) DATE OF EXAM: 01/18/2022 9:18 AM CLINICAL INFORMATION: Calcifications in the upper outer quadrant of the right breast. Patient has known breast cancer in the upper outer quadrant of the right breast. Approximately 2.5 cm ventral to the known cancer is a small group of indeterminate microcalcifications. COMPARISON: Outside mammogram images from [facility] dated 12/18/2021 and 12/10/2021. TECHNIQUE AND FINDINGS: Preprocedure images were reviewed. The procedure and its risks and benefits were discussed with the patient, her son, and an foreign language interpreter, including, but not limited to, bleeding, infection, allergy, and a nondiagnostic specimen. Written and verbal informed consent was obtained and documented. After confirming the correct breast for biopsy, the breast was marked with a marking pen. The patient was then [...] prepped and draped in a sterile fashion. Local anesthesia was given with 4 cc of 1% Lidocaine buffered with Sodium Bicarbonate within the skin and deeper anesthesia with 18 cc of 1% Lidocaine with Epinephrine, buffered withSodium Bicarbonate. A small 5 mm skin incision was made with a #11 scalpel blade, and through it a 9-gauge Eviva vacuum-assisted incisional core biopsy needle was inserted to the depth of the lesion through an introducer. Confirmatory images were obtained, prior to firing the biopsy device, demonstrating good position of the biopsy needle. Several biopsy samples were obtained through the area of concern. The samples were radiographed and area representative calcifications are present within these samples. [...] INFORMATION: Calcifications in the upper outer quadrant of the right breast. Patient has known breast cancer in the upper outer quadrant of the right breast. Approximately 2.5 cm ventral to the known cancer is a small group of indeterminate microcalcifications. COMPARISON: Outside mammogram images from [facility] dated 12/18/2021 and 12/10/2021. TECHNIQUE AND FINDINGS: Preprocedure images were reviewed. The procedure and its risks and benefits were discussed with the patient, her son, and an foreign language interpreter, including, but not limited to, bleeding, infection, allergy, and a nondiagnostic specimen. Written and verbal informed consent was obtained and documented. After confirming the correct breast for biopsy, the breast was marked with a marking pen. The patient was then [...] prepped and draped in a sterile fashion. Local anesthesia was given with 4 cc of 1% Lidocaine buffered with Sodium Bicarbonate within the skin and deeper anesthesia with 18 cc of 1% Lidocaine with Epinephrine, buffered withSodium Bicarbonate. A small 5 mm skin incision was made with a #11 scalpel blade, and through it a 9-gauge Eviva vacuum-assisted incisional core biopsy needle was inserted to the depth of the lesion through an introducer. Confirmatory images were obtained, prior to firing the biopsy device, demonstrating good position of the biopsy needle. Several biopsy samples were obtained through the area of concern. The samples were radiographed and area representative calcifications are present within these samples. [...] up with Dr. Ortiz. An addendum will be rendered to this report when the pathology results are made available. This report was electronically signed by KORIN CORTEZ M.D. on 01/18/2022 12:44 PM . ADDENDUM #1 ADDENDUM: [...] was electronically signed by KORIN CORTEZ M.D. on 01/21/2022 4:40 PM . Impressions 01/18/2022 12:44 PM CDT IMPRESSION: 1. Technically successful, uncomplicated stereotactic (3D) [...] up with Dr. Ortiz. An addendum will be rendered to this report when the pathology results are made available. This report was electronically signed by KORIN CORTEZ M.D. on 01/18/2022 12:44 PM . Narrative 01/18/2022 12:44 PM CDT EXAMS: STEREOTACTIC BREAST BIOPSY WITH PRONE AFFIRM (3D) BIOPSY AND POST BIOPSY DIGITAL MAMMOGRAM RIGHT BREAST (COMBINED REPORT) DATE OF EXAM: 01/18/2022 9:18 AM CLINICAL INFORMATION: Calcifications in the upper outer quadrant of the right breast. Patient has known breast cancer in the upper outer quadrant of the right breast. Approximately 2.5 cm ventral to the known cancer is a small group of indeterminate microcalcifications. COMPARISON: Outside mammogram images from [facility] dated 12/18/2021 and 12/10/2021. TECHNIQUE AND FINDINGS: Preprocedure images were reviewed. The procedure and its risks and benefits were discussed with the patient, her son, and an foreign language interpreter, including, but not limited to, bleeding, infection, allergy, and a nondiagnostic specimen. Written and verbal informed consent was obtained and documented. After confirming the correct breast for biopsy, the breast was marked with a marking pen. The patient was then [...] prepped and draped in a sterile fashion. Local anesthesia was given with 4 cc of 1% Lidocaine buffered with Sodium Bicarbonate within the skin and deeper anesthesia with 18 cc of 1% Lidocaine with Epinephrine, buffered withSodium Bicarbonate. A small 5 mm skin incision was made with a #11 scalpel blade, and through it a 9-gauge Eviva vacuum-assisted incisional core biopsy needle was inserted to the depth of the lesion through an introducer. Confirmatory images were obtained, prior to firing the biopsy device, demonstrating good position of the biopsy needle. Several biopsy samples were obtained through the area of concern. The samples were radiographed and area representative calcifications are present within these samples. [...] indeterminate microcalcifications. COMPARISON: Outside mammogram images from [facility] dated 12/18/2021 and 12/10/2021. TECHNIQUE AND FINDINGS: Preprocedure images were reviewed. The procedure and its risks and benefits were discussed with the patient, her son, and an foreign language interpreter, including, but not limited to, bleeding, infection, [...] of concern. The samples were radiographed and area representative calcifications are present within these samples. [...] OVERALL ASSESSMENT: BI-RADS CATEGORY 4: SUSPICIOUS. (SUBSET CATEGORY 4B: MODERATE [...] images may or may not represent the [place] source data set and thus may contain changes, which may lower the sensitivity in the second opinion interpretation. This report was electronically signed by KORIN CORTEZ M.D. on 01/19/2022 10:39 AM . Narrative 01/19/2022 10:39 AM CDT EXAMINATION: RADIOLOGY CONSULTATION ON OUTSIDE IMAGING STUDIES DATE OF CONSULTATION: 01/18/2022 REASON FOR CONSULTATION / HISTORY: This is a 71-year-old female with newly diagnosed right breast cancer. OUTSIDE STUDIES FOR REVIEW: 1. Screening bilateral digital mammogram and bilateral tomosynthesis dated 11/30/2021 from [facility] in [facility]. 2. Digital right diagnostic mammogram and tomosynthesis dated 12/10/2021 from [facility] in [place], [place]. 3. Also review stereotactic guided images from biopsy of the right breast dated 12/18/2021 from [facility] in [place], [place] The outside final reports were provided at the time of this second opinion. COMPARISON: Prior mammograms from [facility] 11/24/2020, 06/13/2020, and 11/26/2019 and from [facility] in [place], [place], dated 10/19/2019. FINDINGS: Bilateral screening mammogram [...] craniocaudal view in the mid depth. Approximately 2 cm ventral to this area is [...] malignancy. Stereotactic guided biopsy was performed at [facility] on 12/18/2021 of the mass [...] mammogram and bilateral tomosynthesis dated 11/30/2021 from [facility] in [facility]. 2. Digital right diagnostic mammogram and tomosynthesis dated 12/10/2021 from [facility] in [place], [place]. 3. Also review stereotactic guided images from biopsy of the rightbreast dated 12/18/2021 from [facility] in [place], [place] The outside final reports were provided at the time of this secondopinion. COMPARISON: Prior mammograms from [facility] 11/24/2020, 06/13/2020, and 11/26/2019 and from [facility] in [place], [place], dated 10/19/2019. FINDINGS: Bilateral screening mammogram [...] malignancy. Stereotactic guided biopsy was performed at [facility] on12/18/2021 of the mass and [...] OVERALL ASSESSMENT: BI-RADS CATEGORY 4: SUSPICIOUS. (SUBSET [id number]: MODERATE SUSPICION FOR MALIGNANCY). Note: The findings, conclusions and recommendations within this reportdo not replace the initial findings, conclusions and recommendations madeat the facility where the study was performed, based upon the imaging and clinical condition at that time, and comparison with the prior reportand clinical history is necessary. The provided images may or may not represent the [place] source data set and thus may contain [...] OVERALL ASSESSMENT: BI-RADS CATEGORY 4: SUSPICIOUS. (SUBSET CATEGORY 4B: MODERATE [...] images may or may not represent the [place] source data set and thus may contain changes, which may lower the sensitivity in the second opinion interpretation. This report was electronically signed by KORIN CORTEZ M.D. on 01/19/2022 10:39 AM . Narrative 01/19/2022 10:39 AM CDT EXAMINATION: RADIOLOGY CONSULTATION ON OUTSIDE IMAGING STUDIES DATE OF CONSULTATION: 01/18/2022 REASON FOR CONSULTATION / HISTORY: This is a 71-year-old female with newly diagnosed right breast cancer. OUTSIDE STUDIES FOR REVIEW: 1. Screening bilateral digital mammogram and bilateral tomosynthesis dated 11/30/2021 from [facility] in [facility]. 2. Digital right diagnostic mammogram and tomosynthesis dated 12/10/2021 from [facility] in [place], [place]. 3. Also review stereotactic guided images from biopsy of the right breast dated 12/18/2021 from [facility] in [place], [place] The outside final reports were provided at the time of this second opinion. COMPARISON: Prior mammograms from [facility] 11/24/2020, 06/13/2020, and 11/26/2019 and from [facility] in [place], [place], dated 10/19/2019. FINDINGS: Bilateral screening mammogram [...] craniocaudal view in the mid depth. Approximately 2 cm ventral to this area is [...] malignancy. Stereotactic guided biopsy was performed at [facility] on 12/18/2021 of the mass [...] mammogram and bilateral tomosynthesis dated 11/30/2021 from [facility] in [facility]. 2. Digital right diagnostic mammogram and tomosynthesis dated 12/10/2021 from [facility] in [place], [place]. 3. Also review stereotactic guided images from biopsy of the rightbreast dated 12/18/2021 from [facility] in [place], [place] The outside final reports were provided at the time of this secondopinion. COMPARISON: Prior mammograms from [facility] 11/24/2020, 06/13/2020, and 11/26/2019 and from [facility] in [place], [place], dated 10/19/2019. FINDINGS: Bilateral screening mammogram [...] malignancy. Stereotactic guided biopsy was performed at [facility] on12/18/2021 of the mass and [...] OVERALL ASSESSMENT: BI-RADS CATEGORY 4: SUSPICIOUS. (SUBSET [id number]: MODERATE SUSPICION FOR MALIGNANCY). Note: The findings, conclusions and recommendations within this reportdo not replace the initial findings, conclusions and recommendations madeat the facility where the study was performed, based upon the imaging and clinical condition at that time, and comparison with the prior reportand clinical history is necessary. The provided images may or may not represent the [place] source data set and thus may contain changes, which may lower the sensitivity in the second opinion interpretation. This report was electronically signed by KORIN CORTEZ M.D. on01/19/2022 10:39 AM . Sadia Ortiz MD IMAGING * AL INSERT NON-INDWELLING BLADDER (05/09/2021 6:02 PM CDT) Narrative Roxann Ulloa MD - 05/09/2021 6:02 PM CDT Roxann Ulloa MD 05/10/2021 6:33 PM Procedure note: Straight catheterization was performed after swabbing the urethra with betadine. A 14 Fr urethral catheter was inserted without difficulty and the bladder was drained for 70 ml. Roxann Ulloa MD PROCEDURE/MINOR JOCELYNE GICAL ORDERABLES * AL FIT/INSERT INTRAVAG SUPPORT DEVICE, AL PESSARY, NON RUBBER,ANY TYPE (04/09/2021 9:05 AM CDT) Roxann Rosales MD - 04/09/2021 9:05 AM CDT Roxann Ulloa MD 04/09/2021 9:08 AM Pessary Fitting: She was fitted with: #3 RWS pessary which fit comfortably without pain/undue tension on the vaginal tissues. She ambulated around the clinic and was able to retain the pessary comfortably. Roxann Ulloa MD PROCEDURE/MINOR JOCELYNE GICAL ORDERABLES * AL BIOPSY OF UTERUS LINING (03/05/2021 5:25 PM CDT) Roxann Rosales MD - 03/05/2021 5:25 PM CDT Roxann Ulloa MD 03/05/2021 5:27 PM Endometrial Biopsy - Procedure Note Procedure Details: The patient was assured to not be either because of menopause or by a negative urine test. The risks, benefits, and alternatives were discussed in detail with the patient with emphasis on infection, pain,and perforation. The patient was placed in a dorsal lithotomy position. A speculum was used to visualize the cervical os after an exam was performed to confirm uterine position and size. The cervix was cleaned with multiple swabs of Betadine (unless allergic to topical iodine, in which case hibiclens was used). The cervix was grasped with a toothed tenaculum, and a Pipelle was placed through the cervix into the endometrial cavity.Scant tissue was recovered and sent for pathological examination in formalin. The grasping instrument was removed, and the cervix assured to be haemostatic. The patient tolerated the procedure well. Condition: Good Complications: None Sample: Endometrial sample to pathology. Plan: The patient was instructed to watch for a fever and to call with any problems. She was asked to take 400 mg of ibuprofen if not allergic. Roxann Ulloa MD PROCEDURE/MINOR JOCELYNE GICAL ORDERABLES * AL US PEL NONOB B-SCAN&/R-T IMG LMTD/F-UP+C97, AL SONO EXAM, TRANSVAGINAL, US PELVIS COMPLETE (03/05/2021) Anatomical Region Laterality Modality Pelvis Ultrasound Narrative 03/05/2021 Catherine Peñaloza 03/05/2021 2:34 PM Documentation in digisonics. Procedure Note Catherine Peñaloza - 03/05/2021 2:33 PM CDT Documentation in digisonics. Roxann Ulloa MD US ORDERABLES * CYCLIC CITRUL PEPTIDE ANTIBODY IGG/IGA (CCP) (03/03/2021 11:03 AM CDT) CCP Antibodies IgG/IgA 4 0 - 19 units [facility] INSURANCE BILL Comment: Negative <20 Weak positive 20 - 39 Moderate positive 40 - 59 Strong positive >59 Blood BLOOD SPECIMEN / Unknown 03/03/2021 11:03 AM CDT 03/03/2021 Narrative Resulting Agency Comment Lab Testing performed at: [facility] [address] [place] [address] [phone] Destin Marquez MD LAB - SEROLOGY ORD SAGE [facility] INSURANCE BILL [address] [place] [address] * (ABNORMAL) NORBERTO PANEL COMPREHENSIVE (03/03/2021 11:03 AM CDT) Anti-dsDNA Quantitative <1 0 - 9 IU/mL [facility] INSURANCE BILL Comment: Negative <5 Equivocal 5 - 9 Positive >9 THREAD SINGER Antibody <0.2 0.0 - 0.9 AI [facility] [...] See Below [facility] INSURANCE BILL Comment: Autoantibody Disease Association Condition Frequency --------- Antinuclear Antibody, SLE, mixed connective Direct (NORBERTO-D) tissue diseases --------- dsDNA SLE 40 - 60% --------- Chromatin Drug induced SLE 90% SLE 48 - 97% --------- SSA (Ro) SLE 25 - 35% Sjogren's Syndrome 40 - 70% Lupus 100% --------- SSB (La) SLE 10% Sjogren's Syndrome 30% --------- Sm (anti-Parson) SLE 15 - 30% --------- THREAD SINGER Mixed Connective Tissue Disease 95% (U1 nRNP, SLE 30 - 50% anti-ribonucleoprotein) Polymyositis and/or Dermatomyositis 20% --------- Scl-70 (antiDNA Scleroderma (diffuse) 20 - 35% topoisomerase) Crest 13% --------- Svitlana-1 Polymyositis and/or Dermatomyositis 20 - 40% --------- Centromere B Scleroderma - Crest variant 80% Blood BLOOD SPECIMEN / Unknown 03/03/2021 11:03 AM CDT 03/03/2021 Narrative Resulting Agency Comment Lab Testing performed at: [facility] [place] [address] [phone] Destin Marquez MD LAB - SEROLOGY ORD ERABLES Performing Organization Address City/[facility] Co de Phone Number [employer] INSURANCE BILL [address] [place] [address] * URIC ACID BLOOD (03/03/2021 11:03 AM CDT) Uric Acid 4.3 3.0 - 7.2 mg/dL [facility] INSURANCE BILL Comment:Therapeutic target f or gout patients: <6.0 Blood BLOOD SPECIMEN / Unknown 03/03/2021 11:03 AM CDT 03/03/2021 Narrative Resulting Agency Comment Lab Testing performed at: [facility] [place] [address] [phone] Destin Marquez MD LAB - CHEMISTRY OR DERABLES Performing Organization Address [facility] Co de Phone Number [employer] INSURANCE BILL [address] [place] [address] * RHEUMATOID FACTOR BLOOD QUANTITATIVE (03/03/2021 11:03 AM CDT) Rheumatoid Factor <10.0 0.0 - 13.9 IU/mL [facility] INSURANCE BILL Blood BLOOD SPECIMEN / Unknown 03/03/2021 11:03 AM CDT 03/03/2021 Narrative Resulting Agency Comment Lab Testing performed at: [facility] [place] [address] [phone] Destin Marquez MD LAB - CHEMISTRY OR DERABLES [facility] INSURANCE BILL [address] [place] [address] * C-REACTIVE PROTEIN (03/03/2021 11:03 AM CDT) C-Reactive Protein 1 0 - 10 mg/L [facility] INSURANCE BILL Blood BLOOD SPECIMEN / Unknown 03/03/2021 11:03 AM CDT 03/03/2021 Narrative Resulting Agency Comment Lab Testing performed at: [address] [phone] Destin Marquez MD LAB - CHEMISTRY OR DERABLES [facility] INSURANCE BILL [address] [place] [address] * ERYTHROCYTE SEDIMENTATION RATE (03/03/2021 11:03 AM CDT) Erythrocyte Sedimentation Rate Westergren 4 0 - 40 mm/hr [facility] INSURANCE BILL Blood BLOOD SPECIMEN / Unknown 03/03/2021 11:03 AM CDT 03/03/2021 Narrative Resulting Agency Comment Lab Testing performed at: [address] [phone] Destin Marquez MD LAB - HEMATOLOGY O RDERABLES [facility] INSURANCE BILL [address] [place] [address] * COMPLEMENT C3 C4 PANEL (03/03/2021 11:03 AM CDT) Complement C3 110 82 - 167 mg/dL [facility] INSURANCE BILL Complement C4 25 12 - 38 mg/dL [facility] INSURANCE BILL Blood BLOOD SPECIMEN / Unknown 03/03/2021 11:03 AM CDT 03/03/2021 Narrative Resulting Agency Comment Lab Testing performed at: [facility] [phone] Destin Marquez MD LAB - CHEMISTRY OR DERABLES [facility] INSURANCE BILL [address] [place] [address] * AL BIOPSY OF CERVIX (02/02/2021 10:23 AM CDT) Roxann Rosales MD - 02/02/2021 10:23 AM CDT Roxann Ulloa MD 02/02/2021 10:26 AM Informed consent was obtained. The cervix was prepped with betadine. The endocervical polyp was grasped with a jose clamp and twisted on its stalk. The polyp was removed and sent to pathology. Excellent hemostasis was noted. The patient tolerated the procedure well. Roxann Ulloa MD PROCEDURE/MINOR JOCELYNE GICAL ORDERABLES * AL INSERT NON-INDWELLING BLADDER (02/02/2021 10:16 AM CDT) Roxann Rosales MD - 02/02/2021 10:16 AM CDT Roxann Ulloa MD 02/02/2021 10:26 AM Procedure note: Straight catheterization was performed after swabbing the urethra with betadine. A 14 Fr urethral catheter was inserted without difficulty and the bladder was drained for 120 mL. The patient tolerated the procedure well. Roxann Ulloa MD PROCEDURE/MINOR JOCELYNE GICAL ORDERABLES * HPV DETECTION HIGH RISK COLBY (01/29/2021 3:00 PM CDT) High Risk Human Papilloma Result Not detected Not detected 02/02/2021 9:32 AM CDT [facility] High Risk Human Papilloma Interp 02/02/2021 9:32 AM CDT [facility] Comment:High Risk Human Bobby lloma Virus was Not Detected. Pathology/Cytolo gy MISCELLANEOUS SAMPLES / Unknown 01/29/2021 3:00 PM CDT 01/30/2021 12:34 PM CDT Narrative [facility] - 02/02/2021 9:32 AM CDT Nucleic acid isolated from the specimen was analyzed with a nucleic acid amplification test (FDA approved Gen-Probe HPV Assay) to detect high risk human papilloma virus (Types: 16, 18, 31, 33, 35, 39, 45, 51, 52, 56, 58, 59, 66, and 68). The reference range is Not Detected . Comment: These test results should not be used as the sole basis for clinical assessment and treatment of patients. These results should always be correlated with other available data (cytology, histology, and clinical information). Roxann Ulloa MD LAB - MICROBIOLOGY ORDERABLES [facility] [address] [phone] * PAP IMAGE-GUIDED W HPV (01/29/2021 3:00 PM CDT) Case Report Gynecologic Cytology Report Case: [id number] Authorizing Provider: Roxann Ulloa MD Collected: 01/29/2021 03:00 PM Ordering Location: [facility] Obstetrics Received: 01/30/2021 12:34 PM Gynecology and Women's Health First Screen: Rodger Coker Specimen: THINPREP - IMAGE GUIDED, Cervix/Endocervix 01/31/2021 8:44 AM CDT [facility] LMP postmenopausal 01/31/2021 8:44 AM CDT [facility] Menstrual Status Postmenopausal 01/03 8:44 AM CDT [facility] Specimen Adequacy Satisfactory for evaluation, endocervical/trans formation zone component present. 01/31/2021 8:44 AM CDT [facility] Categorization Negative for intraepithelial lesion or malignancy. 01/31/2021 8:44 AM CDT [facility] Interpretation SOFTWARE CONFIGURATION SPECIALIST Negative for intraepithelial lesion or malignancy. 01/31/2021 8:44 AM CDT [facility] Other Atrophic changes. 021 8:44 AM CDT [facility] Pap Footnote The Pap Smear is a screening test. False positive and false negative results occur. Negative results do not preclude abnormalities, thus clinical correlation is required. This specimen was evaluated by the ThinPrep Imaging System along with an additional manual rescreening by a health technician and/or pathologist. 01/31/2021 8:44 AM CDT [facility] Embedded Images 8:44 AM CDT [facility] Pathology/Cytolo gy MISCELLANEOUS SAMPLES / Unknown 01/29/2021 3:00 PM CDT 01/30/2021 12:34 PM CDT Roxann Ulloa MD LAB - PATHOLOGY/CYT OLOGY ORDERABLES [facility] [address] [place] [address], [facility] [phone] * AL MSR PVR U&/BLADD CAPCTY US NON (01/01/2021 3:25 PM HARVESTER OPERATOR) Narrative Lashay Gallego - 01/01/2021 3:25 PM HARVESTER OPERATOR Lashay Gallego 01/03/2021 2:15 PM 24 ML Anjelica Ryder MANAGER CODE-DIRECTOR FUNDRAISING PROCEDURE/MIN OR SURGICAL ORDERABLES * XR KNEE LEFT 4VW OR MORE (05/09/2020 10:07 AM CDT) Only the most recent of6 resultswithin the time period is included. Anatomical Region Laterality Modality Lower Extremity Radiographic Lisa ging 05/09/2020 10:5 5 AM CDT Impressions 05/09/2020 10:56 AM CDT IMPRESSION: Total knee arthroplasty without complication. This report was electronically signed by TARIQ FIELDS MD on 05/09/2020 10:56 AM . Narrative 05/09/2020 10:56 AM CDT Exam: XR KNEE LEFT 4VW History: Z96.652: [...] - 15.6 gm/dL 04/07/2019 4:08 AM CDT [facility] Hematocrit 34.5(L) 35.9 - 45.5 % 04/07/2019 4:08 AM CDT [facility] Blood BLOOD SPECIMEN / Unknown Lab Venipuncture / Unknown 04/07/2019 2:43 AM CDT 04/07/2019 4:02 AM CDT Ahmet Jacques MD LAB - HEMATOLOGY ORD ERABLES [facility] [address] [place] [address] * CULTURE MSSA/MRSA (03/25/2019 8:14 AM CDT) Only the most recent of2 resultswithin the time period is included. Culture Negative for Staphylococcus aureus (MRSA/MSSA) LUIS 03/26/2019 12:21 PM CDT [facility] Microbiology SPECIMEN FROM NASAL FOSSAE / Unknown Collection / Unknown 03/25/2019 8:14 AM CDT 03/25/2019 8:39 AM CDT Leo Mercedes MD LAB - MICROBIOLOGY ORDERABLES [facility] [address] [place], [place] [address], [facility] [phone] * URINALYSIS REFLEX MICROSCOPIC REFLEX CULTURE (03/25/2019 8:14 AM CDT) Only the most recent of2 resultswithin the time period is included. Color UA Straw Straw, Yellow 03/25/2019 8:51 AM CDT [facility] Clarity UA Clear Clear 03/25/2019 8:51 AM CDT [facility] Glucose UA Negative Negative 03/25/2019 8:51 AM CDT [facility] Bilirubin UA Negative Negative 03/25/2019 8:51 AM CDT [facility] Ketone UA Negative Negative 03/25/2019 8:51 AM CDT [facility] Specific [place] UA 1.005 1.005 - 1.030 03/25/2019 8:51 AM CDT [facility] Blood UA Negative Negative 03/25/2019 8:51 AM CDT [facility] pH UA 6.0 5.0 - 8.0 pH 03/25/2019 8:51 AM CDT [facility] Protein UA Negative Negative 03/25/2019 8:51 AM CDT [facility] Urobilinogen UA Negative Negative mg/dL 03/25/2019 8:51 AM CDT [facility] Nitrite UA Negative Negative 03/25/2019 8:51 AM T [facility] Leukocyte UA Negative Negative 03/25/2019 8:51 AM T [facility] Urine Microscopy Urine microscopy not indicated 03/25/2019 8:51 AM T [facility] Reflex Status Culture not indicated 03/25/2019 8:51 AM T [facility] Urine URINE SPECIMEN OBTAINED BY CLEAN CATCH PROCEDURE / Unknown Collection / Unknown 03/25/2019 8:14 AM CDT 03/25/2019 8:39 AM CDT Narrative [facility] - 03/25/2019 8:51 AM CDT Leo Mercedes MD LAB - URINALYSIS OR DERABLES [facility] [address] [place], [place] [id number] * TRANSFERRIN (03/25/2019 8:14 AM CDT) Only the most recent of2 resultswithin the time period is included. Transferrin 272 173 - 360 mg/dL 03/25/2019 9:07 AM CDT [facility] Blood BLOOD SPECIMEN / Unknown Venipuncture / Unknown 03/25/2019 8:14 AM CDT 03/25/2019 8:39 AM CDT Leo Mercedes MD LAB - CHEMISTRY ORD ERABLES Performing Organization Address [facility]/ZIP Co de Phone Number [facility] [address] [place], [place] [phone] * (ABNORMAL) CBC W AUTO DIFFERENTIAL (03/25/2019 8:14 AM CDT) Only the most recent of2 resultswithin the time period is included. WBC 5.0 4.4 - 10.7 x10E9/L 03/25/2019 8:45 AM CDT [facility] WBC Corrected x10E9/L 03/25/2019 8:45 AM CDT [facility] RBC 5.22(H) 3.80 - 5.20 x10E12/L 03/25/2019 8:45 AM CDT [facility] Hemoglobin 12.8 12.0 - 15.6 gm/dL 03/25/2019 8:45 AM CDT [facility] Hematocrit 41.6 35.9 - 45.5 % 03/25/2019 8:45 AM CDT [facility] MCV 79.7(L) 80.7 - 98.3 fl 03/25/2019 8:45 AM CDT [facility] MCH 24.5(L) 26.7 - 34.0 pg 03/25/2019 8:45 AM CDT [facility] MCHC 30.8 30.8 - 35.9 gm/dL 03/25/2019 8:45 AM CDT [facility] Platelet Count 245 153 - 416 x10E9/L 03/25/2019 8:45 AM CDT [facility] RDW-CV 15.9(H) 12.1 - 14.9 % 03/25/2019 8:45 AM CDT [facility] MPV 11.1 9.4 - 12.9 fl 03/25/2019 8:45 AM CDT [facility] Neutrophils % 60.4 44.0 - 73.0 % 03/25/2019 8:45 AM CDT [facility] Lymphocytes % 30.6 20.0 - 43.0 % 03/25/2019 8:45 AM CDT [facility] Monocytes % 6.8 5.0 - 13.0 % 03/25/2019 8:45 AM CDT [facility] Eosinophils % 1.4 0.0 - 6.0 % 03/25/2019 8:45 AM CDT [facility] Basophils % 0.6 0.0 - 2.0 % 03/25/2019 8:45 AM CDT [facility] Immature Granulocytes 0.2 0 - 1 % 03/25/2019 8:45 AM CDT [facility] Neutrophil Absolute 3.02 2.01 - 7.14 x10E9/L 03/25/2019 8:45 AM CDT [facility] Lymphocytes Absolute 1.53 1.07 - 3.94 x10E9/L 03/25/2019 8:45 AM CDT [facility] Monocytes Absolute 0.34 0.26 - 1.07 x10E9/L 03/25/2019 8:45 AM CDT [facility] Eosinophils Absolute 0.07 0 - 0.47 x10E9/L 03/25/2019 8:45 AM CDT [facility] Basophils Absolute 0.03 0 - 0.08 x10E9/L 03/25/2019 8:45 AM CDT [facility] Immature Granulocytes Absolute 0.01 0.00 - 0.06 x10E9/L 03/25/2019 8:45 AM CDT [facility] nRBC Auto 0 /100 WBC 03/25/2019 8:45 AM CDT [facility] Blood BLOOD SPECIMEN / Unknown Venipuncture / Unknown 03/25/2019 8:14 AM CDT 03/25/2019 8:39 AM CDT Leo Mercedes MD LAB - HEMATOLOGY OR DERABLES [facility] [address] [place], [place] [phone] * (ABNORMAL) COMPREHENSIVE METABOLIC PANEL (03/25/2019 8:14 AM CDT) Only the most recent of2 resultswithin the time period is included. Glucose 96 74 - 106 mg/dL 03/25/2019 9:07 AM CDT [facility] Sodium 142 136 - 145 mmol/L 03/25/2019 9:07 AM CDT [facility] Potassium 4.1 3.5 - 5.1 mmol/L 03/25/2019 9:07 AM CDT [facility] Chloride 108(H) 98 - 107 mmol/L 03/25/2019 9:07 AM CDT [facility] CO2 26 23 - 31 mmol/L 03/25/2019 9:07 AM CDT [facility] Calcium 9.8 8.4 - 10.2 mg/dL 03/25/2019 9:07 AM CDT [facility] Anion Gap 8 8 - 16 mmol/L 03/25/2019 9:07 AM CDT [facility] BUN 11 9.8 - 20.1 mg/dL 03/25/2019 9:07 AM CDT [facility] Creatinine 0.81 0.55 - 1.02 mg/dL 03/25/2019 9:07 AM [facility] Alkaline Phosphatase 64 40 - 150 U/L 03/25/2019 9:07 AM CDT [facility] ALT 22 13 - 61 U/L 03/25/2019 9:07 AM CDT [facility] AST 18 5 - 34 U/L 03/25/2019 9:07 AM T [facility] Protein Total 7.1 6.4 - 8.3 gm/dL 03/25/2019 9:07 AM CDT [facility] Albumin 4.0 3.2 - 4.6 gm/dL 03/25/2019 9:07 AM CDT [facility] Bilirubin Total 0.5 0.2 - 1.0 mg/dL 03/25/2019 9:07 AM [facility] eGFR by MDRD >60 >60 mL/min/1.7 3m2 03/25/2019 9:07 AM CDT [facility] eGFR by MDRD >60 >60 mL/min/1.7 3m2 03/25/2019 9:07 AM CDT [facility] Blood BLOOD SPECIMEN / Unknown Venipuncture / Unknown 03/25/2019 8:14 AM CDT 03/25/2019 8:39 AM CDT Narrative [facility] - 03/25/2019 9:07 AM CDT Attention clinician: BUN Reference Range has changed. Leo Mercedes MD LAB - CHEMISTRY ORD ERABLES [facility] [address] [place] [address] * XR KNEE RIGHT 4VW OR MORE (12/30/2018 9:25 AM HARVESTER OPERATOR) Only the most recent of3 resultswithin the time period is included. Anatomical Region Laterality Modality Lower Extremity Radiographic Lisa ging 12/30/2018 9:27 AM HARVESTER OPERATOR Narrative 12/30/2018 9:28 AM HARVESTER OPERATOR Right knee 4 view HISTORY: Right knee [...] Growth of >100 CFU/ml after 24 hours [facility] Culture Urine GROUP B STREPTOCOC CUS(A) [facility] Comment: 10,000 CFU/ML Group B Streptococcus After 48 hours Susceptibility testing not performed on Beta-Hemolytic Streptococci. As they are routinely susceptible to Penicillin, Ampicillin and other Beta-Lactam Antimicrobials approved for treatment of Beta-Hemolytic Streptococcal infections. Urine specimen (specimen) URINE SPECIMEN OBTAINED BY CLEAN CATCH PROCEDURE / Unknown 04/12/2014 6:12 PM CDT 04/12/2014 9:50 PM CDT Narrative [facility] - 04/14/2014 4:06 PM CDT AndersonSpecimen#[id number] Ozzy Loc/Rm/Bed: ED// CLN CATCH U @04/12/14 1848: URINE CULTURE added. RFLXG = UAUCC. Historical Provider LAB - MICROBIOLOG Y ORDERABLES [facility] [address] [phone] Care Teams Sewing Trimmer Relationship Specialty Start Date End Date Yan Mata MD [address] [place] [id number] PCP - General 07/27/18 Yan Mata MD [address] [place] [address] 07/27/18
--- OUTSIDE RECORDS SUMMARY | 2024-12-22 12:28 | XMS_ITS | Clinical Summary ---
Author Organization [email or web address] [facility] Address [address] [place] [address] Care Team Providers Care Geospatial Scientist Name Role Phone Yan Mata MD Primary Care Provider [phone] Allergies Active Allergy Reactions Criticality Noted Date Comments Lisinopril Rash Medium 03/01/2021 Medications omeprazole (PriLOSEC) 20 mg Capsule, Delayed Release(E.C.) Take 20 mg by mouth daily. Active meloxicam (MOBIC) 7.5 mg tablet Take 7.5 mg by mouth daily. Active cholecalciferol , Vitamin D3, 2,000 unit Tablet Take by mouth. Active docusate sodium (COLACE) 100 mg capsule Take 100 mg by mouth 2 times daily. Active alendronate (FOSAMAX) 70 mg tablet Take 35 mg by mouth every 7 days. empty stomach before other meds,with 8oz of water, stay upright 30 min Active acetaminophen (TYLENOL) 325 mg tablet Take 325 mg by mouth every 4 hours as needed. Active fexofenadine (SUZETTE) 180 mg tablet Take 180 mg by mouth daily. Active hydroCHLOROthia zide (MICROZIDE) 12.5 mg capsule Take 12.5 mg by mouth daily. Active linaclotide (LINZESS ORAL) Take by mouth. Active Myrbetriq 50 mg Extended Release 24 hour tablet Take 50 mg by mouth daily. 2 Active Crestor 10 mg tablet Take 10 mg by mouth daily. 3 Active anastrozole (Arimidex) 1 mg tablet Take 1 Tablet (1 mg) by mouth daily. 90 Tablet 3 5 Active anastrozole (Arimidex) 1 mg tablet Take 1 Tablet (1 mg) by mouth daily. 90 Tablet 3 4 12/07/19 25 Discontinu ed(Reorder ) Active Problems Problem Noted Date Diagnosed Date Osteopenia of multiple sites 12/17/2022 Malignant neoplasm of upper- outer quadrant of right breast in female, estrogen receptor positive 01/02/2022 Lateral subluxation of left patella 06/13/2020 Mammographic calcification 11/18/2019 Abnormal mammogram 11/18/2019 Family history of breast cancer 11/18/2019 Encounters Date Type Department Care Team Description 12/07/2024 1:15 PM ROBOTICS MECHANIC Office Visit [facility] Oncology and Hematology [facility] [address] [place] [address] Luke Ren MD Malignant neoplasm of upper-outer quadrant of right breast in female, estrogen receptor positive (CMS/HCC) (Primary Dx); Visit for screening mammogram 12/06/2024 Orders Only [facility] Oncology and [facility] [address] [place] [address] Luke Ren MD 11/30/2024 External Device Data STL ABSTRACTION Provider, Abstract 11/15/2024 Orders Only [facility] Oncology and [facility] [address] [place] [id number] Luke Ren MD Osteoporosis, unspecified osteoporosis type, unspecified pathological fracture presence (Primary Dx) from Last 3 Months Family History Medical History Relation Name Comments Liver Disease Brother Kidney Disease Father Breast Cancer Maternal Cousin 1 Breast Cancer Maternal Cousin 2 Breast Cancer Maternal Cousin 3 Other Maternal Grandmother childbi rth Heart Disease Mother Hypertension Mother Other Paternal Grandfather likely poisoned Colon Cancer Neg Hx Lung Cancer Neg Hx Melanoma Neg Hx Ovarian Cancer Neg Hx Relation Name Status Comments Brother Father (Age 63) Maternal Cousin 1 Alive Maternal Cousin 2 Alive Maternal Cousin 3 Alive Maternal Grandfather (Age late 3 0's) Maternal Grandmother Mother Alive Paternal Grandfather (Age late 3 0's) Paternal Grandmother (Age 40's) Son 1 Alive Son 2 Alive Social History Tobacco Use Types Packs/Day Years Used Date Smoking Tobacco: Never Tobacco Cessation:Counseling Given: Not Answered Alcohol Use Standard Drinks/Week Comments Never 0 (1 standard drink = 0.6 oz pur e alcohol) Comments No Sex and Gender Information Value Date Recorded Sex Assigned at Not on file Legal Sex Female 2:29 PM ROBOTICS MECHANIC Gender Identity Not on file Sexual Orientation Not on file Last Filed Vital Signs Vital Sign Reading Time Taken Comments Blood Pressure 121/71 12/07/2024 1:05 PM ROBOTICS MECHANIC Pulse 70 12/07/2024 1:05 PM ROBOTICS MECHANIC Temperature 36.2 C (97.1 F) 12/07/2024 1:05 PM ROBOTICS MECHANIC Respiratory Rate 15 12/07/2024 1:05 PM ROBOTICS MECHANIC Oxygen Saturation 95% 12/07/2024 1:05 PM ROBOTICS MECHANIC Inhaled Oxygen Concentration - - Weight 77 kg (169 lb 12.8 oz) 12/07/2024 1:05 PM ROBOTICS MECHANIC Height 154.9 cm (5' 1 ) 07/09/2022 3:30 PM CDT Body Mass Index 32.08 07/09/2022 3:30 PM CDT Plan of Treatment Upcoming Encounters Date Type Department Care Team (Late st Contact Info) Description 06/07/2025 1:00 PM CDT Office Visit [facility] Oncology and Hematology - [place] [address] [facility] [address] [place] [address] Luke Ren MD [address] [facility] [address] [place] [address] Health Maintenance Due Date Last Done Comments DTAP/TDAP/TD VACCINES (1 - Tdap) 1971 COLORECTAL SCREENING 1997 Colorectal Cancer Screening 1997 FIT-DNA Q 3 years 1997 FIT/FOBT Q 1 year 1997 Flex Sig/CT Colonography Q 5 years 1997 PNEUMOCOCCAL VACCINE 65+ YEA RS (1 of 1 - PCV) 2002 ZOSTER VACCINE (1 of 2) 2002 INFLUENZA VACCINE (#1) 2024 09/10/2019 COVID-19 Vaccine (4 - 2023-2 5 season) 2024 08/26/2021, 01/12/2021, 12/14/2020 BREAST CANCER SCREENING 12/11/2024 12/11/19 24, 12/05/2022, 09/02/2022, Additional history exists RSV VACCINE (60+ or ) (1 - 1-dose 75+ series) 2027 OSTEOPOROSIS SCREENING Completed 10/16/2022 Procedures Procedure Name Priority Date/Time Associated Diagnosis Comments CANCER ANTIGEN 15-3 Routine 12/03/2024 9 :40 AM ROBOTICS MECHANIC COMPREHENSIVE METABOLIC PANEL Routine 12/03/2024 8:45 AM ROBOTICS MECHANIC MAMMO 3D BRIGITTE SCREEN BILAT W OR WO CAD Routine 11/30/2021 2:22 PM ROBOTICS MECHANIC Breast cancer screening by mammogram from Last 3 Months or Most Recently Relevant to Health Maintenance Results * CANCER ANTIGEN 15-3 (12/03/2024 9:40 AM ROBOTICS MECHANIC) Blood us Luke Ren MD CHEMISTRY ORDERABLES Final Resu lt * COMPREHENSIVE METABOLIC PANEL (12/03/2024 8:45 AM ROBOTICS MECHANIC) Blood us Luke Ren MD CHEMISTRY ORDERABLES Final Resu lt * MAMMO SCRN BILAT 3D BRIGITTE W OR WO CAD (11/30/2021 2:22 PM ROBOTICS MECHANIC) Anatomical Region Laterality Modality Breast Bilateral Mammography 11/30/2021 2:22 PM ROBOTICS MECHANIC Impressions 11/30/2021 2:44 PM ROBOTICS MECHANIC IMPRESSION: Developing asymmetry in the right breast. RECOMMENDATIONS: Focused ultrasound right breast. DICTATION LOCATION: [facility] Narrative 11/30/2021 2:44 PM ROBOTICS MECHANIC BILATERAL FULL-FIELD DIGITAL SCREENING MAMMOGRAM WITH CAD WITH 3D TOMOSYNTHESIS DATE: 11/30/2021 2:22 PM HISTORY: Routine screening. TECHNIQUE: Full-field digital craniocaudal and mediolateral oblique projections of both breasts were obtained. Low-dose full-field digital breast tomosynthesis examination was performed with 2D and 3D acquisitions. Examination is read in conjunction with computer aided detection. COMPARISON: 2020, 2019 and 2018. BREAST COMPOSITION: Scattered fibroglandular densities. FINDINGS: A developing asymmetry is seen in the right breast at 7:00. It has mildly increased in size and has become more dense during the interval. There are also a few microcalcifications associated with it. No changes in the left breast. No architectural distortion in either breast. OVERALL FINAL ASSESSMENT: BI-RADS CATEGORY 0: Incomplete, needs additional imaging evaluation. Procedure Note Walter Max MD - 11/30/2021 BILATERAL FULL-FIELD DIGITAL SCREENING MAMMOGRAM WITH CAD WITH 3D TOMOSYNTHESIS DATE: 11/30/2021 2:22 PM HISTORY: Routine screening. TECHNIQUE: Full-field digital craniocaudal and mediolateral oblique projections of both breasts were obtained. Low-dose full-field digital breast tomosynthesis examination was performed with 2D and 3D acquisitions. Examination is read in conjunction with computer aided detection. COMPARISON: 2020, 2019 and 2018. BREAST COMPOSITION: Scattered fibroglandular densities. FINDINGS: A developing asymmetry is seen in the right breast at 7:00. It has mildly increased in size and has become more dense during the interval. There are also a few microcalcifications associated with it. No changes in the left breast. No architectural distortion in either breast. OVERALL FINAL ASSESSMENT: BI-RADS CATEGORY 0: Incomplete, needs additional imaging evaluation. IMPRESSION: Developing asymmetry in the right breast. RECOMMENDATIONS: Focused ultrasound right breast. DICTATION LOCATION: [facility] Yan Mata MD MAMMO ORDERABLES Final Result from Last 3 Months or Most Recently Relevant to Health Maintenance Insurance MEDICARE PART B MEDICAID [place] MEDICARE PART B Care Teams Geospatial Scientist Relationship Specialty Start Date End Date Yan Mata MD [address] [place] [phone] PCP - General Emergency Medicine 11/30/21
== END 2024-12-22 12:24 | disposition home or self-care (01) ==
LOC: ANHIMG 12:25
PROVIDERS: PCP Emergency Medicine; Visit Provider Internal Medicine Hematology & Oncology
DX: M81.0 Age-related osteoporosis without current pathological fracture (principal); M85.852 Other specified disorders of bone density and structure, left thigh; M85.851 Other specified disorders of bone density and structure, right thigh
CPT/HCPCS: 77080

== ENCOUNTER 2025-03-01 12:23 | Outpatient (CLI) | payer MEDICARE, MEDICAID, SELFPAY ==
[2025-03-01 12:50] LABS: Hematocrit 41.5 % (37.0-47.0); Mean Corpuscular HGB Conc 31.3 g/dl (32-36); Mean Corpuscular Volume 79.8 fl (80-100); Mean Platelet Volume 11.1 fl (7.4-10.4); Platelet Count Result 202 k/mm3 (150-375); Red Cell Distribution Width 15.2 % (11.5-14.5); White Blood Count 4.7 K/mm3 (4.5-10.0)
[2025-03-01 13:00] LABS: Creatinine Urine 52.3 mg/dL
[2025-03-01 13:12] LABS: Alanine Aminotransferase 30 U/L (6-35); Albumin Level 4.1 g/dL (3.5-5.1); Alkaline Phosphatase 57 U/L (38-126); Anion Gap 8 mmol/L (4-12); Aspartate Amino Transferase 28 U/L (14-36); Bilirubin,Total 0.5 mg/dL (0.2-1.3); Blood Urea Nitrogen 14 mg/dL (7-17); Calcium 9.3 mg/dL (8.4-10.2); Carbon Dioxide 29 mmol/L (22-30); Chloride 103 mmol/L (98-107); Cholesterol 143 mg/dL (0-200); Estimated Glomerular Filt Rate > 60; Glucose 81 mg/dL (65-110); HDL Direct 77 mg/dL; Potassium 3.5 mmol/L (3.4-5.0); Sodium 140 mmol/L (137-145); Triglycerides 70 mg/dL (<150)
[2025-03-01 13:23] LABS: LDL Cholesterol Direct 39 mg/dL
--- OUTSIDE RECORDS SUMMARY | 2025-03-01 13:26 | XMS_ITS ---
Author Organization [facility] Address [address] [place] [address] Care Team Providers Care Cashier Payments Received Name Role Phone Yan Mata MD Primary Care Provider [phone] Yan Mata MD Unavailable Active Problems Problem [...] erythematosus or systemic inflammatory rheumatic disorder by [place] [employer] (ACR) diagnostic classification criteria [...] from 12/18/2021: cT1b, cN0, cM0, GX, ER+, MA+, HER2- - Signed by Sadia Ortiz MD on 01/15/2022 Pathologic stage from 01/25/2022:Stage IA(pT1c, pN0(sn), cM0, G2, ER+, MA+, HER2- ) - Signed by Sadia Ortiz MD on 02/12/2022 Malignant neoplasm of upper- outer quadrant of right breast in female, estrogen receptor positive 01/02/2022 Dystrophia unguium 10/16/2021 Onychomycosis 10/16/2021 Pain in toe 10/16/2021 Age-related nuclear cataract of both eyes 2020 Overview (04/09/2021): Last Assessment & Plan: Much better endpoint today with MRx. Released today. Patient had much better understanding today through japanese interpreter. Meibomian gland dysfunction (MGD) of both eyes [...] knee Lateral subluxation of left patella Current Treatment and Therapy Plans No current plan information found. Past Treatment and Therapy Plans No past plan information found. Treatment Summaries Malignant neoplasm of overlapping sites of right breast in female, estrogen receptor positive (HCC)* [address] [id number] Oncology Treatment Summary Breast Treatment Summary for [...] from 12/18/2021: cT1b, cN0, cM0, GX, ER+, MA+, HER2- - Signed by Sadia Ortiz MD on 01/15/2022 - Pathologic stage from 01/25/2022: Stage IA (pT1c, pN0(sn), cM0, G2, ER+, MA+, HER2-) - Signed by Sadia Ortiz MD on 02/12/2022 Surgery Information Description: right BCT, SLNB -- 1.4cm IDC and DCIS (final margins negative), negative SLNB (0/2) Date: 01/25/22 Surgeon/Facility Name: MACARIO Amaya Adjuvant Treatment Recommendations: medical and radiation oncology Initial Imaging Mammogram: Bilateral screening mammogram 11/30/2021 ([facility]) -- developing asymmetry in the right breast at the 7:00 position (has increased in size and become more dense during interval) and a few microcalcifications associated with it, BIRADS-0 Right diagnostic mammogram and ultrasound 12/10/2021 ([facility]) -- information obtained frommedical oncology note [...] Post-Treatment Weight: 162 lbs. Psychosocial needs: Narinder japanese interpreter Fertility: Menarche at age 16 years Menopause [...] up with Location How often Radiation Oncology [facility] Clinical visit every 4-6 months for 5 [...] 11:30 AM Sadia Ortiz MD [facility]US[facility] [place] 09/25/2022 4:00 PM Roxann Ulloa MD AFFSLUOBGYN2 AFF [facility] [place] Contact Information Radiation Oncologist Dr. Leo Her Medical Oncologist Dr. Ren Surgeon Dr. Sadia Ortiz Social Work Property Underwriter Ladan Gray Breast Nurse Navigator Hillary Knapp, RN [phone] Pastoral Care [facility] Hospital Scheduling Primary Care Provider Yan Mata MD [phone] Recommended cancer screenings Colonoscopy: every 10 years [...] walk a few extra steps. Important Resources [facility] [place] [employer] cancer.org Association of Cancer Online Resources acor.org Caring Bridge caringbridge.org CancerCare cancercare.org [facility] livestrong.org National Cancer Ringoes cancer.gov Cancer Survivors Network csn.[email or web address] National Coalition for Cancer Survivorship canceradvocacy.org [place] [employer] of Clinical Oncologists cancer.net Cancer Support [facility] [email or web address].[email or web address] Radiation Therapy Questions/Answers www.[email or web address]
--- OUTSIDE RECORDS SUMMARY | 2025-03-01 13:26 | XMS_ITS | Clinical Summary ---
Author Organization [facility] Address [address] [place] [phone] Care Team Providers Care Boiler House Operator Name Role Phone Yan Mata MD Primary Care Provider [phone] Allergies Active Allergy Reactions Criticality Noted Date [...] tablet Take 50 mg by mouth daily. 02/02/2022 Active Crestor 10 mg tablet Take 10 mg by mouth daily. 06/23/2023 Active anastrozole (Arimidex) 1 mg tablet Take 1 Tablet (1 mg) by mouth daily. 90 Tablet 3 12/07/2024 Active Active Problems Problem Noted Date Diagnosed Date Osteopenia of multiple sites 12/17/2022 Malignant neoplasm of upper- outer quadrant of right breast in female, estrogen receptor positive 01/02/2022 Lateral subluxation of left patella 06/13/2020 Mammographic calcification 11/18/2019 Abnormal mammogram 11/18/2019 Family history of breast cancer 11/18/2019 Encounters Date Type Department Care Team Description 02/01/[address] [facility] Oncology and Hematology [facility] [address] [place] [address] Luke Ren MD 12/22/2024 External Device Data STL ABSTRACTION Provider, Abstract 12/07/2024 1:15 PM STONE PAVER Office Visit [facility] Oncology and [facility] [address] [place] [address] Luke Ren MD Malignant neoplasm of upper-outer quadrant of right breast in female, estrogen receptor positive (CMS/HCC) (Primary Dx); Visit for screening mammogram 12/06/[address] [facility] Oncology and [facility] [address] [place] [address] Luke Ren MD from Last 3 Months Family History Medical [...] on file Legal Sex Female 2:29 PM STONE PAVER Gender Identity Not on file Sexual Orientation Not on file Last Filed Vital Signs Vital Sign Reading Time Taken Comments Blood Pressure 121/71 12/07/2024 1:05 PM STONE PAVER Pulse 70 12/07/2024 1:05 PM STONE PAVER Temperature 36.2 C (97.1 F) 12/07/2024 1:05 PM STONE PAVER Respiratory Rate 15 12/07/2024 1:05 PM STONE PAVER Oxygen Saturation 95% 12/07/2024 1:05 PM STONE PAVER Inhaled Oxygen Concentration - - Weight 77 kg (169 lb 12.8 oz) 12/07/2024 1:05 PM STONE PAVER Height 154.9 cm (5' 1 ) 07/09/2022 3:30 PM CDT Body Mass Index 32.08 07/09/2022 3:30 PM CDT Plan of Treatment Upcoming Encounters Date Type Department Care Team (Late st Contact Info) Description 06/07/2025 1:00 PM CDT Office Visit [facility] Oncology and Hematology [facility] [address] [facility] [address] [place] [address] Luke Ren MD [address] [facility] [address] [place] [address] Health Maintenance Due Date Last Done Comments DTAP/TDAP/TD VACCINES (1 - Tdap) 1971 COLORECTAL SCREENING 1997 Colorectal Cancer Screening 1997 FIT-DNA Q 3 years 1997 FIT/FOBT Q 1 year 1997 Flex Sig/CT Colonography Q 5 years 1997 PNEUMOCOCCAL VACCINE 50+ YEA RS (1 of 1 - PCV) 2002 ZOSTER VACCINE (1 of 2) 2002 INFLUENZA VACCINE (#1) 2024 09/10/2019 COVID-19 Vaccine (4 - 2023-2 5 season) 2024 08/26/2021, 01/12/2021, 12/14/2020 BREAST CANCER SCREENING 12/11/2024 12/11/19, 12/11/2023, 12/05/2022, Additional history exists RSV VACCINE (60+ or ) (1 - 1-dose 75+ series) 2027 OSTEOPOROSIS SCREENING 10/16/2027 10/16/2022 Procedures Procedure Name Priority Date/Time Associated Diagnosis Comments COMPREHENSIVE METABOLIC PANEL Routine 01/31/2025 11:37 AM CDT CANCER ANTIGEN 15-3 Routine 12/03/2024 9 :40 AM STONE PAVER COMPREHENSIVE METABOLIC PANEL Routine 12/03/2024 8:45 AM STONE PAVER MAMMO 3D BRIGITTE SCREEN BILAT W OR WO CAD Routine 11/30/2021 2:22 PM STONE PAVER Breast cancer screening by mammogram from Last 3 Months or Most Recently Relevant to Health Maintenance Results * COMPREHENSIVE METABOLIC PANEL (01/31/2025 11:37 AM CDT) Only the most recent of2 resultswithin the time period is included. Blood us Luke Ren MD CHEMISTRY ORDERABLES Final Resu lt * CANCER ANTIGEN 15-3 (12/03/2024 9:40 AM STONE PAVER) Blood us Luke Ren MD CHEMISTRY ORDERABLES Final Resu lt * MAMMO SCRN BILAT 3D BRIGITTE W OR WO CAD (11/30/2021 2:22 PM STONE PAVER) Anatomical Region Laterality Modality Breast Bilateral Mammography 11/30/2021 2:22 PM STONE PAVER Impressions 11/30/2021 2:44 PM STONE PAVER IMPRESSION: Developing asymmetry in the right breast. RECOMMENDATIONS: Focused ultrasound right breast. DICTATION LOCATION: [facility] Narrative 11/30/2021 2:44 PM STONE PAVER BILATERAL FULL-FIELD DIGITAL SCREENING MAMMOGRAM WITH CAD [...] RECOMMENDATIONS: Focused ultrasound right breast. DICTATION LOCATION: [facility] Yan Mata MD MAMMO ORDERABLES Final Result from Last 3 Months or Most Recently Relevant to Health Maintenance Insurance MEDICARE PART B MEDICAID [place] MEDICARE PART B Care Teams Boiler House Operator Relationship Specialty Start Date End Date Yan Mata MD [address] [place] [phone] PCP - General Emergency Medicine 11/30/21
--- OUTSIDE RECORDS SUMMARY | 2025-03-01 13:26 | XMS_ITS | Clinical Summary ---
Author Organization [facility] Address [address] [place] [address] Care Team Providers Care Insurance Premium Auditor Name Role Phone Unavailable Primary Care Provider Unavailabl e Social History Tobacco Use Types Packs/Day Years Used Date Smoking Tobacco: Never Assessed Comments Unknown Sex and Gender Information Value Date Recorded Sex Assigned at Not on file Legal Sex Female 7:17 PM CDT Gender Identity Not on file Sexual Orientation Not on file Last Filed Vital Signs Vital Sign Reading Time Taken Comments Blood Pressure 134/84 01/16/2017 10:33 AM CDT Pulse 91 01/16/2017 10:33 AM CDT Temperature - - Respiratory Rate - - Oxygen Saturation - - Inhaled Oxygen Concentration - - Weight 75.8 kg (167 lb) 01/16/2017 10:33 AM CDT Height 157.5 cm (5' 2 ) 01/16/2017 10:33 AM CDT Body Mass Index 30.54 01/16/2017 10:33 AM CDT Plan of Treatment Health Maintenance Due Date Last Done Comments Colorectal Cancer Screening Colonoscopy (10 Years) 1950 Hepatitis C 1970 DTaP, Tdap and Td Vaccines ( 1 - Tdap) 1971 Mammogram Screening 1992 Pneumococcal Vaccine: 50+ Ye ars (1 of 1 - PCV) 2002 Zoster Vaccines (1 of 2) 2002 Dexa Scan (General) 2017 COVID-19 Vaccine ( - 2023-2 5 season) 2024 RSV Immunization or 60+ Years (1 [...]
--- OUTSIDE RECORDS SUMMARY | 2025-03-01 13:26 | XMS_ITS | Clinical Summary ---
Author Organization [facility] Address [address] [place] [address] Care Team Providers Care Clinical Educator Name Role Phone Yan Mata MD Primary Care Provider [phone] Yan Mata MD Unavailable Source Comments [facility],non-owned Affiliates and Associated Physician Practices is amultiple site organization consisting of ambulatory clinics and hospital sitesin [place], [place], [place] and [place]. This disclosure is being madepursuant to the Care Everywhere program and may not contain all information available regarding this patient. Last updated 18.[facility] Allergies Active Allergy Reactions Criticality Noted Date Comments Chloraprep One Step Skin Reactions Medium 01/15/2022 Unsure which skin prep -- right breast biopsy (skin sloughing) Lisinopril Rash Medium 03/01/2021 Medications * Be aware that medications may not be up to date on this document. Alwaysverify current medications with the patient. Cholecalciferol 50 MCG (1999) Take 1 (one) tablet by mouth once daily Active Multiple Vitamin (MULTI-VITAMINS ) TABS Take 1 (one) tablet by mouth once daily Active hydroCHLOROthia zide (MICROZIDE) 12.5 MG capsule 1 (one) capsule once daily 1 Active anastrozole (ARIMIDEX) 1 MG tablet Take 1 (one) tablet by mouth once daily 2 Active rosuvastatin (Crestor) 10 MG tablet Take 1 (one) tablet by mouth once daily 3 Active omeprazole (PriLOSEC) 20 MG capsule Take 1 (one) capsule by mouth daily before breakfast 3 Active Myrbetriq 50 MG tablet Take 1 (one) tablet by mouth once daily 90 tablet 4 4 Active sulfamethoxazol e-trimethoprim (Bactrim DS; Septra DS) 800-160 MG tabletIndicatio ns:Acute cystitis without hematuria Take 1 (one) tablet by mouth 2 times daily for 3 days 6 tablet 5 02/13/20 25 Active Problems Problem Noted Date Diagnosed Date [...] erythematosus or systemic inflammatory rheumatic disorder by [employer] (ACR) diagnostic classification criteria [...] from 12/18/2021: cT1b, cN0, cM0, GX, ER+, CA+, HER2- - Signed by Sadia Ortiz MD on 01/15/2022 Pathologic stage from 01/25/2022:Stage IA(pT1c, pN0(sn), cM0, G2, ER+, CA+, HER2- ) - Signed by Sadia Ortiz MD on 02/12/2022 Malignant neoplasm of upper- outer quadrant of right breast in female, estrogen receptor positive 01/02/2022 Dystrophia unguium 10/16/2021 Onychomycosis 10/16/2021 Pain in toe 10/16/2021 Age-related nuclear cataract of both eyes 2020 Overview (04/09/2021): Last Assessment & Plan: Much better endpoint today with MRx. Released today. Patient had much better understanding today through science interpreter. Meibomian gland dysfunction (MGD) of both [...] Encounters Date Type Department Care Team Description 02/11/2025 Telephone [facility] - EARLY EDUCATION TEACHER [address] [place] [address] Roxann Ulloa MD Results 02/09/2025 Orders Only [facility] - EARLY EDUCATION TEACHER [address] [place] [address] Roxann Ulloa MD 02/09/2025 Telephone [facility] - Centralized Scheduling [address] [place] [phone] Roxann Ulloa MD Infection 01/19/2025 Travel 12/10/2024 11:45 AM CUSTODIAN BLOOD BANK Office Visit [facility] - EARLY EDUCATION TEACHER [address], [facility] [address] [place] [address] Roxann Ulloa MD Cystocele, midline (Primary Dx); Rectocele; OAB (overactive bladder); Urge urinary incontinence; Constipation, unspecified constipation type; Vaginal atrophy 12/10/2024 Travel 12/09/2024 10:30 AM CUSTODIAN BLOOD BANK Office Visit [facility] - General Surgery [address] [place] [phone] Sadia Ortiz MD Malignant neoplasm of overlapping sites of right breast in female, estrogen receptor positive (Primary Dx); Encounter for screening mammogram for malignant neoplasm of breast 12/09/2024 10:00 AM CUSTODIAN BLOOD BANK - 12/09/2024 11:59 PM CUSTODIAN BLOOD BANK Hospital Encounter [address] [address] Sadia Ortiz MD Discharge Disposition: Home or Self Care 12/09/2024 Travel from Last 3 Months Immunizations Immunization Administration Dates Next Due Covid Moderna primary [...] Date Recorded PHQ2 TOTAL SCORE 1 06/09/2023 Comments No Sex and Gender Information Value Date Recorded Sex Assigned at Not on file Legal Sex Female 5:37 PM CUSTODIAN BLOOD BANK Gender Identity Not on file Sexual Orientation Not on file Last Filed Vital Signs Vital Sign Reading Time Taken Comments Blood Pressure 120/68 12/10/2024 12:09 PM CUSTODIAN BLOOD BANK Pulse 76 12/09/2024 10:59 AM CUSTODIAN BLOOD BANK Temperature 36.1 C (97 F) 12/09/2024 10:59 AM CUSTODIAN BLOOD BANK Respiratory Rate 16 02/25/2024 11:05 AM CDT Oxygen Saturation 95% 12/09/2024 10:59 AM CUSTODIAN BLOOD BANK Inhaled Oxygen Concentration - - Weight 77.3 kg (170 lb 6.4 oz) 12/10/2024 12:09 PM CUSTODIAN BLOOD BANK Height 154.9 cm (5' 1 ) 12/10/2024 12:09 PM CUSTODIAN BLOOD BANK Body Mass Index 32.2 12/10/2024 12:09 PM CUSTODIAN BLOOD BANK Plan of Treatment Upcoming Encounters Date Type Department Care Team (Late st Contact Info) Description 04/25/2025 10:00 AM CDT Office Visit [facility] - EARLY EDUCATION TEACHER [address] [place] [address] Roxann Ulloa MD [address] [place] [address] 12/08/2025 10:00 AM CUSTODIAN BLOOD BANK Appointment [facility] [address] [place] [address] Sadia Ortiz MD [address] [facility] [address] [place] [address] 12/08/2025 10:30 AM CUSTODIAN BLOOD BANK Office Visit [facility] - General Surgery [address] [place] [phone] Sadia Ortiz MD [address] [facility] [address] [place] [address] Health Maintenance Due Date Last Done Comments [...] 2024 04/13/2022, 08/26/2021, 01/12/2021, Additional history exists DEPRESSION SCREENING 11/03/2024 06/09/2023 SCREENING FOR DIABETES 01/18/2025 , 03/25/2019, 09/16/2018, Additional history exists INFLUENZA VACCINE (Season Ended) 2025 08/14/2022, 07/17/2022, 08/11/2021, Additional history exists MAMMOGRAM 12/09/2026 12/09/2024, 06/2024, [...] complete this topic MENINGOCOCCAL (Group B) VACCINE SHARED DECISION-MAKING Aged Out No longer eligible based on patient's age to complete this topic MENINGOCOCCAL GROUPS A/C/Y/W VACCINE Aged Out No longer eligible based on patient's age to complete this topic Medical Devices Implanted Type Area Supervisor Pumping Station Device Identifier Shelf Expiration Date Model / Serial / Lot Mrkr 18ga Magseed Brstbio 7cm Implanted:Qty : 1 on 01/24/2022 by Korin Dumont MD at [facility] Implant Non-Ortho Right: Breast Devicor 06/10/2025 [id number] / / [id number] Mrkr 18ga Magseed Brstbio 7cm Implanted:Qty : 1 on 01/24/2022 by Korin Dumont MD at [facility] Implant Non-Ortho Right: Breast Devicor 07/03/2025 [id number] / / [id number] Ins Tib 1-2 11mm Kn Xlpe Cr Hi Flxn Implanted:Qty : 1 on 09/14/2018 by Leo Mercedes MD at [facility] Right: Knee [employer] 08/03/2023 [id number] / / [id number] Description:LGN CR HIGH FLEX XLPE SZ 1-2 11MM--09/17 LG Stem Tib 16mm Prfx Mtphsl Implanted:Qty : 1 on 09/14/2018 by Leo Mercedes MD at [facility] Right: Knee [employer] 06/03/2023 [id number] / / [id number] Description:METAPHYSEAL TIB STEM 16MM--09/17 LG Legion Por Cr Sandoval Fem R Sz 3 Implanted:Qty : 1 on 09/14/2018 by Leo Mercedes MD at [facility] Right: Knee [employer] 11/24/2025 [id number] / / [id number] Description:LGN POR CR SANDOVAL FE M SZ 3 RT--09/17 LG Legion Por Sandoval Tib Base R Sz 2 Implanted:Qty : 1 on 09/14/2018 by Leo Mercedes MD at [facility] Right: Knee [employer] 07/04/2023 [id number] / / [id number] Description:LEGION POROUS SANDOVAL TIBIAL BASE SZ 2 RT--09/17 LG Screw Bsplt 15mm 6.5mm Gns2 Kn Tib Por Implanted:Qty : 1 on 09/14/2018 by Leo Mercedes MD at [facility] Right: Knee [employer] 06/13/2028 [id number] / / [id number] Description:G2 6.5MM SCREW 1 56MM LNGTH--09/17 LG Screw Bsplt 20mm 6.5mm Gns2 Kn Tib Por Implanted:Qty : 1 on 09/14/2018 by Leo Mercedes MD at [facility] Right: Knee [employer] 06/13/2028 [id number] / / [id number] Description:G2 6.5MM SCREW 2 0MM LNGTH--09/17 LG Screw Bsplt 20mm 6.5mm Gns2 Kn Tib Por Implanted:Qty : 1 on 09/14/2018 by Leo Mercedes MD at [facility] Right: Knee [employer] 06/13/2028 [id number] / / [id number] Description:G2 6.5MM SCREW 2 0MM LNGTH--09/17 LG Screw Bsplt 15mm 6.5mm Gns2 Kn Tib Por Implanted:Qty : 1 on 09/14/2018 by Leo Mercedes MD at [facility] Right: Knee [employer] 07/07/2027 [id number] / / [id number] Description:G2 6.5MM SCREW 1 5MM LNGTH--09/17 LG Blayne K2 Sys Kn Uncemented Implanted:Qty : 1 on 09/14/2018 by Leo Mercedes MD at [facility] Right: Knee [employer] K2 UNCEMENTED / / Legion Por Sandoval Tib Base L Sz 2 Implanted:Qty : 1 on 04/05/2019 by Leo Mercedes MD at [facility] Left: Knee [employer] 05/02/2020 [id number] / / [id number] Description:fc LEGION POROUS SANDOVAL TIBIAL BASE SZ 2 LT--04/08 LG Stem Tib 16mm Prfx Mtphsl Implanted:Qty : 1 on 04/05/2019 by Leo Mercedes MD at [facility] Left: Knee [employer] 08/03/2027 [id number] / / [id number] Description:fc METAPHYSEAL TIB STEM 16MM--04/08 LG Legion Por Cr Sandoval Fem L Sz 3 Implanted:Qty : 1 on 04/05/2019 by Leo Mercedes MD at [facility] Left: Knee [employer] 12/03/2023 [id number] / / [id number] Description:fc LGN POR CR SANDOVAL FEM SZ 3 LT--04/08 LG Ins Xlpe Dished Artc Sz 1-2 11mm Implanted:Qty : 1 on 04/05/2019 by Leo Mercedes MD at [facility] Left: Knee [employer] 04/02/2024 [id number] / / [id number] Description:fc LGN XLPE DISHED ISRT SZ 1-2 11MM--04/08 LG Screw Bsplt 15mm 6.5mm Gns2 Kn Tib Por Implanted:Qty : 1 on 04/05/2019 by Leo Mercedes MD at [facility] Left: Knee [employer] 02/10/2027 [id number] / / [id number] Description:fc G2 6.5MM SCREW 15MM LNGTH--04/08 LG Screw Bsplt 15mm 6.5mm Gns2 Kn Tib Por Implanted:Qty : 1 on 04/05/2019 by Leo Mercedes MD at [facility] Left: Knee [employer] 01/19/2028 [id number] / / [id number] Description:fc G2 6.5MM SCREW 15MM LNGTH--04/08 LG Screw 6.5mm 25mm Hip Actb Canc Sphrcl Implanted:Qty : 1 on 04/05/2019 by Leo Mercedes MD at [facility] Left: Knee [employer] 07/07/2028 [id number] / / [id number] Description:fc REF SPHER HEAD SCREW 25MM--04/08 LG Screw Bsplt 15mm 6.5mm Gns2 Kn Tib Por Implanted:Qty : 1 on 04/05/2019 by Leo Mercedes MD at [facility] Left: Knee [employer] 11/16/2028 [id number] / / [id number] Description:fc G2 6.5MM SCREW 15MM LNGTH--04/08 LG Blayne K2 Sys Kn Uncemented Implanted:Qty : 1 on 04/05/2019 by Leo Mercedes MD at [facility] Left: Knee [employer] K2 UNCEMENTED / / Mrkr Apl 3 Mrfbr Pd Radopq Interwoven Implanted:Qty : 1 on 01/18/2022 by Korin Dumont MD at [facility] Right: Breast [employer] [facility] 01/02/2024 [id number] / / [id number] Procedures Procedure Name Priority Date/Time Associated Diagnosis Comments CULTURE URINE Routine 02/09/2025 12:10 PM CDT LAB RESULTS ORDER 02/09/2025 MAMMO BILAT SCREENING W BRIGITTE Routine 12/09/2024 10:52 AM CUSTODIAN BLOOD BANK Encounter for screening mammogram for malignant neoplasm of breast BASIC METABOLIC PANEL (CALCIUM TOTAL) Routine 01/18/2022 12:38 PM CDT Pre-op exam from Last 3 Months or Most Recently Relevant to Health Maintenance Results * CULTURE URINE (02/09/2025 12:10 PM CDT) Urine Culture Routine Final report [facility] INSURANCE BILL Comment: Performed at: [address] [id number] Acting Teacher: Dick Bates PhD, Phone: [phone] Result 1 No growth [facility] INSURANCE BILL 02/09/2025 12:1 0 PM CDT 02/09/2025 Comment:UR Narrative [facility] INSURANCE BILL - 02/11/2025 6:39 AM CDT Performed at: - [address] [id number] Acting Teacher: Dick Bates PhD, Phone: [phone] Specimen Comment: A courtesy copy of this report has been sent to [phone] us Roxann Ulloa MD LAB - MICROBIOLOGY ORDERABL ES Final Result [facility] INSURANCE BILL [address] [place] [address] * LAB RESULTS ORDER (02/09/2025) 02/09/2025 Narrative 02/09/2025 Ordered by an unspecified provider. us Scanned Document LAB - THERAPEUTIC DRUG MONITORI NG ORDERABLES Final Result * MAMMO BILAT SCREENING W BRIGITTE (12/09/2024 10:52 AM CUSTODIAN BLOOD BANK) Anatomical Region Laterality Modality Breast Bilateral Mammography 12/09/2024 10:5 2 AM CUSTODIAN BLOOD BANK Impressions 12/09/2024 10:58 AM CUSTODIAN BLOOD BANK IMPRESSION: No mammographic evidence of malignancy, status [...] 2: BENIGN. Report dictated by Chelsea Calvillo [facility], FR (breast imaging fellow). I, Korin Dumont MD, FACR have personally reviewed and interpreted this examination/study. > Interpreting Provider: Korin Dumont MD, FACR on 12/09/2024 10:58 AM Narrative 12/09/2024 10:58 AM CUSTODIAN BLOOD BANK EXAMINATIONS: BILATERAL DIGITAL SCREENING MAMMOGRAM AND BILATERAL BREAST TOMOSYNTHESIS LOCATION: [facility] EXAM DATE: 12/09/2024 HISTORY: Screening. No reported family history of breast cancer. History of right breast conservation therapy 01/25/2022. Completed radiation March 2022 COMPARISON: Mammogram 12/23/2022, 12/11/2023 from [facility] ultrasound 09/02/2022 ultrasound 12/07/2019 TECHNIQUE: Tomosynthesis (3D) [...] breast conservation surgery. No change from prior. us Sadia Ortiz MD MAMMO ORDERABLES Final Resu lt * (ABNORMAL) BASIC METABOLIC PANEL (CALCIUM TOTAL) (01/18/2022 12:38 PM CDT) BUN 9 7 - 26 mg/dL 01/18/2022 1:31 PM CDT [facility] Creatinine 0.76 0.56 - 0.96 mg/dL 01/18/2022 1:31 PM CDT [facility] Sodium 144 136 - 145 mmol/L 01/18/2022 1:31 PM CDT [facility] Potassium 3.9 3.5 - 4.5 mmol/L 01/18/2022 1:31 PM T [facility] Chloride 105 98 - 107 mmol/L 01/18/2022 1:31 PM T [facility] CO2 33(H) 22 - 29 mmol/L 01/18/2022 1:31 PM [facility] Glucose 101 70 - 115 mg/dL 01/18/2022 1:31 PM T [facility] Calcium 10.0 8.4 - 10.2 mg/dL 01/18/2022 1:31 PM T [facility] Anion Gap 10 8 - 18 01/18/2022 1:31 PM T [facility] BUN/Creatinine Ratio 12 7 - 23 01/18/2022 1:31 PM T [facility] Osmolality Calculated 297 270 - 300 mOsm/kg 01/18/2022 1:31 PM [facility] eGFR by CKD-EPI 85(L) >=90 mL/min/1.7 3 m2 01/18/2022 1:31 PM [facility] Blood BLOOD SPECIMEN / Unknown Lab Venipuncture / Unknown 01/18/2022 12:38 PM CDT 01/18/2022 1:00 PM CDT Jocelyn Foss OPERATIONS SUPPORT MANAGER-AGENCY OWNER LAB - CHEMISTRY ORDERABL ES Final Result Performing Organization Address [facility]/ZIP Co de Phone Number [facility] [address] [place] [address], [facility] [phone] from Last 3 Months or Most Recently Relevant to Health Maintenance Insurance MEDICAID - OUT OF STATE MEDICAID - [place] MEDICARE [facility] [employer] Member Subscriber Plan / Payer (Ef fective for All Dates) Name:Catrachita Ghislaine Relation to Subscriber:Self Name:JESSICAGHISLAINE HOPKINS Payer ID:Not on file Group ID:Not on file Type:Medicaid Managed Care Address: [address] HEALTH PLAN Member Subscriber Plan / Payer (Ef fective for All Dates) Name:Catrachita Ghislaine Relation to Subscriber:Self Name:ANALISARANDIMahinBLANEGHISLAINE Payer ID:Not on file Group ID:Not on file Type:Medicaid Managed Care Address: [address] HEALTH PLAN Member Subscriber Plan / Payer (Ef fective for All Dates) Name:Catrachita Ghislaine Relation to Subscriber:Self Name:MAKSIMBLANEGIHSLAINE Payer ID:Not on file Group ID:Not on file Type:Medicaid Managed Care Address: [address] HEALTH PLAN [place] [employer] Care Address: [address] [address] [place] [address] [employer] [place] [facility] [employer] [facility] Member Subscriber Plan / Payer (Ef fective for All Dates) Name:rományoli Ghislaine Relation to Subscriber:Self Name:MAKSIMGHISLAINE Payer ID:[id number] (NAIC) Group ID:Not on file Type:Medicaid Managed Care Address: [facility] CLAIMS DEPARTMENT [address] Member Subscriber Plan / Payer (Ef fective for All Dates) Name:rományoli Ghislaine Relation to Subscriber:Self Name:MINHCOLINRAMONAGHISLAINE Payer ID:[id number] (NAIC) Group ID:Not on file Type:Medicaid Managed Care Address: [facility] CLAIMS DEPARTMENT [address] Member Subscriber Plan / Payer (Ef fective for All Dates) Name:rományoli Ghislaine Relation to Subscriber:Self Name:MAKSIMGHISLAINE Payer ID:[id number] (NAIC) Group ID:Not on file Type:Medicaid Managed Care Address: ATTN CLAIMS DEPARTMENT [address] Member Subscriber Plan / Payer (Ef fective for All Dates) Name:Blane Domínguezin Relation to Subscriber:Self Name:BLANE SCHAEFFERIN Payer ID:[id number] (NAIC) Group ID:Not on file Type:Medicaid Managed Care Address: [facility] CLAIMS DEPARTMENT [address] Member Subscriber Plan / Payer (Ef fective for All Dates) Name:Blane Domínguezin Relation to Subscriber:Self Name:BLANE SCHAEFFERIN Payer ID:[id number] (NAIC) Group ID:Not on file Type:Medicaid Managed Care Address: [facility] CLAIMS DEPARTMENT [address] Member Subscriber Plan / Payer (Ef fective for All Dates) Name:Blane Domínguezin Relation to Subscriber:Self Name:BLANE SCHAEFFERIN Payer ID:[id number] (NAIC) Group ID:Not on file Type:Medicaid Managed Care Address: [facility] CLAIMS DEPARTMENT [address] Member Subscriber Plan / Payer (Ef fective for All Dates) Name:Catrachita Ghislaine Relation to Subscriber:Self Name:MAKSIMGHISLAINE Payer ID:[id number] (NAIC) Group ID:Not on file Type:Medicaid Managed Care Address: [facility] CLAIMS DEPARTMENT [address] Member Subscriber Plan / Payer (Ef fective for All Dates) Name:Catrachita Ghislaine Relation to Subscriber:Self Name:MAKSIMBLANEGHISLAINE Payer ID:[id number] (NAIC) Group ID:Not on file Type:Medicaid Managed Care Address: [facility] CLAIMS DEPARTMENT [address] Member Subscriber Plan / Payer (Ef fective for All Dates) Name:Catrachita Ghislaine Relation to Subscriber:Self Name:BLANE SCHAEFFERIN Payer ID:[id number] (NAIC) Group ID:Not on file Type:Medicaid Managed Care Address: [facility] CLAIMS DEPARTMENT [address] Member Subscriber Plan / Payer (Ef fective for All Dates) Name:Catrachita Ghislaine Relation to Subscriber:Self Name:MAKSIMGHISLAINE Payer ID:[id number] (NAIC) Group ID:Not on file Type:Medicaid Managed Care Address: [facility] CLAIMS DEPARTMENT [address] Member Subscriber Plan / Payer (Ef fective for All Dates) Name:Jankid, Ghislaine Relation to Subscriber:Self Name:MAKSIMGHISLAINE Payer ID:[id number] (NAIC) Group ID:Not on file Type:Medicaid Managed Care Address: [facility] CLAIMS DEPARTMENT [address] Member Subscriber Plan / Payer (Ef fective for All Dates) Name:Catrachita Ghislaine Relation to Subscriber:Self Name:BLANE SCHAEFFERIN Payer ID:[id number] (NAIC) Group ID:Not on file Type:Medicaid Managed Care Address: [facility] CLAIMS DEPARTMENT [address] Member Subscriber Plan / Payer (Ef fective for All Dates) Name:Catrachita Ghislaine Relation to Subscriber:Self Name:BLANE SCHAEFFERIN Payer ID:[id number] (NAIC) Group ID:Not on file Type:Medicaid Managed Care Address: ATT CLAIMS DEPARTMENT [address] Member Subscriber Plan / Payer (Ef fective for All Dates) Name:Catrachita Ghislaine Relation to Subscriber:Self Name:BLANE SCHAEFFERIN Payer ID:[id number] (NAIC) Group ID:Not on file Type:Medicaid Managed Care Address: ATT CLAIMS DEPARTMENT [address] Member Subscriber Plan / Payer (Ef fective for All Dates) Name:Catrachita Ghislaine Relation to Subscriber:Self Name:MAKSIMGHISLAINE Payer ID:[id number] (NAIC) Group ID:Not on file Type:Medicaid Managed Care Address: [facility]N CLAIMS DEPARTMENT [address] Member Subscriber Plan / Payer (Ef fective for All Dates) Name:Catrachita Ghislaine Relation to Subscriber:Self Name:BLANE SCHAEFFERIN Payer ID:[id number] (NAIC) Group ID:Not on file Type:Medicaid Managed Care Address: ATT CLAIMS DEPARTMENT [address] Member Subscriber Plan / Payer (Ef fective for All Dates) Name:Blane Domínguezin Relation to Subscriber:Self Name:BLANE SCHAEFFERIN Payer ID:[id number] (NAIC) Group ID:Not on file Type:Medicaid Managed Care Address: [facility] CLAIMS DEPARTMENT [address] Member Subscriber Plan / Payer (Ef fective for All Dates) Name:Blane Domínguezin Relation to Subscriber:Self Name:BLANE SCHAEFFERIN Payer ID:[id number] (NAIC) Group ID:Not on file Type:Medicaid Managed Care Address: ATT CLAIMS DEPARTMENT [address] Member Subscriber Plan / Payer (Ef fective for All Dates) Name:Blane Domínguezin Relation to Subscriber:Self Name:MAKSIMGHISLAINE Payer ID:[id number] (NAIC) Group ID:Not on file Type:Medicaid Managed Care Address: [facility] CLAIMS DEPARTMENT [address] Member Subscriber Plan / Payer (Ef fective for All Dates) Name:Catrachita Ghislaine Relation to Subscriber:Self Name:PIROUZNEJAD,GHISLAINE Payer ID:[id number] (NAIC) Group ID:Not on file Type:Medicaid Managed Care Address: [facility] CLAIMS DEPARTMENT [address] Member Subscriber Plan / Payer (Ef fective for All Dates) Name:Catrachita Ghislaine Relation to Subscriber:Self Name:MAKSIMGHISLAINE Payer ID:[id number] (NAIC) Group ID:Not on file Type:Medicaid Managed Care Address: [facility] CLAIMS DEPARTMENT [address] Member Subscriber Plan / Payer (Ef fective for All Dates) Name:Catrachita Ghislaine Relation to Subscriber:Self Name:MAKSIMGHISLAINE Payer ID:[id number] (NAIC) Group ID:Not on file Type:Medicaid Managed Care Address: [facility] CLAIMS DEPARTMENT [address] Member Subscriber Plan / Payer (Ef fective for All Dates) Name:Catrachita Ghislaine Relation to Subscriber:Self Name:MAKSIMGHISLAINE Payer ID:[id number] (NAIC) Group ID:Not on file Type:Medicaid Managed Care Address: ATT CLAIMS DEPARTMENT [address] Member Subscriber Plan / Payer (Ef fective for All Dates) Name:Catrachita Ghislaine Relation to Subscriber:Self Name:MAKSIMGHISLAINE Payer ID:[id number] (NAIC) Group ID:Not on file Type:Medicaid Managed Care Address: [facility] CLAIMS DEPARTMENT [address] Member Subscriber Plan / Payer (Ef fective for All Dates) Name:Blane Domínguezin Relation to Subscriber:Self Name:BLANE SCHAEFFERIN Payer ID:[id number] (NAIC) Group ID:Not on file Type:Medicaid Managed Care Address: [facility] CLAIMS DEPARTMENT [address] Member Subscriber Plan / Payer (Ef fective for All Dates) Name:Blane Domínguezin Relation to Subscriber:Self Name:BLANE SCHAEFFERIN Payer ID:[id number] (NAIC) Group ID:Not on file Type:Medicaid Managed Care Address: [facility] CLAIMS DEPARTMENT [address] Member Subscriber Plan / Payer (Ef fective for All Dates) Name:Blane Domínguezin Relation to Subscriber:Self Name:BLANE SCHAEFFERIN Payer ID:[id number] (NAIC) Group ID:Not on file Type:Medicaid Managed Care Address: [facility]N CLAIMS DEPARTMENT [address] Member Subscriber Plan / Payer (Ef fective for All Dates) Name:Catrachita Ghislaine Relation to Subscriber:Self Name:MAKSIMGHISLAINE Payer ID:[id number] (NAIC) Group ID:Not on file Type:Medicaid Managed Care Address: ATTN CLAIMS DEPARTMENT [address] Member Subscriber Plan / Payer (Ef fective for All Dates) Name:CatrachitaBlanein Relation to Subscriber:Self Name:MAKSIMBLANEGHISLAINE Payer ID:[id number] (NAIC) Group ID:Not on file Type:Medicaid Managed Care Address: ATT CLAIMS DEPARTMENT [address] Member Subscriber Plan / Payer (Ef fective for All Dates) Name:Catrachita Ghislaine Relation to Subscriber:Self Name:BLANE SCHAEFFERIN Payer ID:[id number] (NAIC) Group ID:Not on file Type:Medicaid Managed Care Address: [facility] CLAIMS DEPARTMENT [address] Member Subscriber Plan / Payer (Ef fective for All Dates) Name:Catrachita Ghislaine Relation to Subscriber:Self Name:MAKSIMGHISLAINE Payer ID:[id number] (NAIC) Group ID:Not on file Type:Medicaid Managed Care Address: ATTN CLAIMS DEPARTMENT [address] Member Subscriber Plan / Payer (Ef fective for All Dates) Name:Pirserjiod, Ghislaine Relation to Subscriber:Self Name:MAKSIMGHISLAINE Payer ID:[id number] (NAIC) Group ID:Not on file Type:Medicaid Managed Care Address: ATTN CLAIMS DEPARTMENT [address] Advance Directives * Full Code (Latest Code Status on File) Date Activated Date Inactivated Comments 04/05/2019 11:56 AM 04/07/2019 6:36 PM * Full Code Date Activated Date Inactivated Comments 09/14/2018 3:08 PM 09/16/2018 7:30 PM Care Teams Clinical Educator Relationship Specialty Start Date End Date Yan Mata MD [address] [place] [id number] PCP - General 07/27/18 Yan Mata MD [address] [place] [id number] 07/27/18
--- OUTSIDE RECORDS SUMMARY | 2025-03-01 13:26 | XMS_ITS | Clinical Summary ---
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
--- OUTSIDE RECORDS SUMMARY | 2025-03-01 13:26 | XMS_ITS | CONTINUITY OF CARE DOCUMENT ---
Author Name asya, asya Address Unknown Organization [facility] Address [address] [place] [address] Phone [phone] Care Team Providers Care Community Assistant Name Role Phone Rell Azul MD Unavailable [phone] GOMEZ GUZMÁN MD Unavailable [phone] GOMEZ GUZMÁN MD Unavailable [phone] PROBLEMS Condition Status Date Provider Notes Osteoarthritis active Rell Azul MD Preop exam active Rell Azul MD Obesity active Rell Azul MD Hypertension active Rell Azul MD Family history of CAD active Rell Azul MD CHEST PAIN active Rell Azul MD Shortness of breath active Rell Azul MD Palpitations active Rell Azul MD Abnormal EKG active Elsie Jones CAD active Amisha Ventimiglia SUSTAINABLE SYSTEMS ANALYST Hyperlipidemia active Amisha Ventimiglia FN P ENCOUNTERS Date Type Provider Location Encounter Diag nosis - In-person encounter Office Visit Rell Azul MD [place] [facility] - In-person encounter Office Visit Rell Azul MD [place] [facility] CADHyperlipidemia - In-person encounter Office Visit Rell Azul MD [place] [facility] - In-person encounter Office Visit Rell Azul MD [place] [facility] Shortness of breathPalpitationsAbnormal EKG - In-person encounter Office Visit Rell Azul MD [place] [facility] OsteoarthritisPreop examObesityHypertensionFamily history of CADCHEST PAIN [...] Mass Index (Ratio) 31.36 kg/m2 Thelma delgado Karynpryer blood pressure, diastolic 68 mm[Hg] Li nkLogic blood pressure, systolic 116 mm[Hg] Evelia kLog blood pressure, diastolic 68 mm[Hg] Mi marce Moseley blood pressure, systolic 116 mm[Hg] Dixon helmesfin Moseley oxygen saturation, oximetry 100 % Terri Moseley pulse rate 84 /min Terir garcía weight E&M 166 [lb_av] Terri garcía [...] varela drug use no Amisha Ventimig herson SUSTAINABLE SYSTEMS ANALYST alcohol use no Amisha Ventimig herson SUSTAINABLE SYSTEMS ANALYST smoking status Never smoker Lisa Dumont social [...] and social history E&M Smoking Histo ry: Adriaan arteaga has never smoked. Rell Azul MD social history reviewed E&M revi ewed - no changes required Rell Azul MD smoking status Never smoker Karmen Noe FUNCTIONAL STATUS Date Observation Value Provider HRA, CV Assess/Plan, Angina (inactive) Management Plan continue current therapy Simone Judd HRA, CV Assess/Plan, Angina (inactive) Management Plan continue current therapy Amishact Mamiglia SUSTAINABLE SYSTEMS ANALYST FAMILY HISTORY Family Member Condition Mother Family History of Co ronary Artery Disease: Mother Family History of Hy pertension: INSURANCE PROVIDERS Payer name Policy type / Coverage type Rd red republican ID [facility] FAMILY [facility] Medicaid 3 [id number] [place] MEDICARE Medicare [id number] ADVANCE DIRECTIVES Name Date DISCUSSED - NO DECISION MADE TREATMENT PLAN Date Name Performer [id number],C,weight loss e ncouraged. Amishact Loglia [facility] [id number],C,B P well controlled. continue present medication regimen H er updated medication list for this problem includes: Aspirin Adult Low Dose 81 Mg Oral Tablet Delayed Release (Aspirin) ..... One tab by mouth daily Lisinopril 10 Mg Oral Tablet (Lisinopril) ..... One tab. daily Amishact Loglia [facility] [id number],S,D enies any further SOB. Her LVEDP was 17 on cath if recurrence consider farxiga or Jardiance Amishact Loglia [facility] [id number],N,L DL 82 on recent labs will add statin thearpy H er updated medication list for this problem includes: Crestor 10 Mg Tablet (Rosuvastatin) ..... Take 1 tablet by mouth every day Amishact Loglia [facility] [id number],N,C ath showed mild plaquing but no obstructive disease. Will continue medical management. Will continue asa and add statin. Weight loss encouraged. H er updated medication list for this problem includes: Aspirin Adult Low Dose 81 Mg Oral Tablet Delayed Release (Aspirin) ..... One tab by mouth daily Lisinopril 10 Mg Oral Tablet (Lisinopril) ..... One tab. daily Amishact Mamiglia [facility] [id number],C, B P today: 107/71 P rior BP: 116/68 (03/05/2023) Orders: 9 9215 HIGH 40-54min (CPT-00161) S [facility] SKI EDGE PAINTER PROCEDURES (*) R T & LT HRT CATH (52868) B ASIC METABOLIC PANEL W/EGFR (41701) P ROBNP, N TERMINAL (18198) L ipoprotein (a) (598485) L IPID PANEL (1470) B ASIC METABOLIC PANEL W/EGFR (16679) H EMOGLOBIN A1c (496) M icroalb/Creatinine Urine, Random (1217) C RP, high sensitivity (99144) Her updated medication list for this problem includes: Aspirin Adult Low Dose 81 Mg Oral Tablet Delayed Release (Aspirin) ..... One tab by mouth daily Lisinopril 10 Mg Oral Tablet (Lisinopril) ..... One tab. daily Rell Azul MD [id number],C, W eight loss advised Elsie Jones [id number],C, B P today: 116/68 P rior BP: 119/82 (10/22/2017) Her updated medication list for this problem includes: Aspirin Adult Low Dose 81 Mg Oral Tablet Delayed Release (Aspirin) ..... One tab by mouth daily Lisinopril 10 Mg Oral Tablet (Lisinopril) ..... One tab. daily Elsie Jones [id number],C,P t complains of palpitations and SOB. Had labwork and chest Xray at [place], told it was normal. EKG showed new changes showing possible new anterior and inferior wall RI, age undetermined. Will obtain stress test myoview, echo, and telesentry . H er updated medication list for this problem includes: Aspirin Adult Low Dose 81 Mg Oral Tablet Delayed Release (Aspirin) ..... One tab by mouth daily Lisinopril 10 Mg Oral Tablet (Lisinopril) ..... One tab. daily Elsie Jones [id number],C,P t complains of palpitations and SOB. Had labwork and chest Xray at [place], told it was normal. EKG showed new changes showing possible new anterior and inferior wall RI, age undetermined. Will obtain stress test myoview, echo, and telesentry . Elsie Jones [id number],C,P t complains of palpitations and SOB. Had labwork and chest Xray at [place], told it was normal. EKG showed new changes showing possible new anterior and inferior wall RI, age undetermined. Will obtain stress test myoview, [...] Judd Cardiology:weight loss encourage d. Amishact Mamiglia [facility] Cardiology:BP well c ontrolled. continue present medication regimen H er updated medication list for this problem includes: Aspirin Adult Low Dose 81 Mg Oral Tablet Delayed Release (Aspirin) ..... One tab by mouth daily Lisinopril 10 Mg Oral Tablet (Lisinopril) ..... One tab. daily Amisha Ventimiglia [facility] Cardiology:Denies an y further SOB. Her LVEDP was 17 on cath if recurrence consider farxiga or Jardiance Amisha Tenorio [facility] Cardiology:LDL 82 on recent labs will add statin thearpy H er updated medication list for this problem includes: Crestor 10 Mg Tablet (Rosuvastatin) ..... Take 1 tablet by mouth every day Amishact Tenorio [facility] Cardiology:Cath show ed mild plaquing but no obstructive disease. Will continue medical management. Will continue asa and add statin. Weight loss encouraged. H er updated medication list for this problem includes: Aspirin Adult Low Dose 81 Mg Oral Tablet Delayed Release (Aspirin) ..... One tab by mouth daily Lisinopril 10 Mg Oral Tablet (Lisinopril) ..... One tab. daily Amishact Tenorio [facility] Cardiology: B P today: 107/71 P rior BP: 116/68 (03/05/2023) Orders: 9 9215 HIGH 40-54min (CPT-32053) S [facility] SKI EDGE PAINTER PROCEDURES (*) R T & LT HRT CATH (77914) B ASIC METABOLIC PANEL W/EGFR (47591) P ROBNP, N TERMINAL (93783) L ipoprotein (a) (595941) L IPID PANEL (7600) B ASIC METABOLIC PANEL W/EGFR (45660) H EMOGLOBIN A1c (496) M icroalb/Creatinine Urine, Random (6517) C RP, high sensitivity (85333) Her updated medication list for this problem [...] SOB. Had labwork and chest Xray at [place], told it was normal. EKG showed new changes showing possible new anterior and inferior wall RI, age undetermined. Will obtain stress test myoview, echo, and telesentry . H er updated medication list for this problem includes: Aspirin Adult Low Dose 81 Mg Oral Tablet Delayed Release (Aspirin) ..... One tab by mouth daily Lisinopril 10 Mg Oral Tablet (Lisinopril) ..... One tab. daily Elsie Karen Cardiology:Pt compla ins of palpitations and SOB. Had labwork and chest Xray at [place], told it was normal. EKG showed new changes showing possible new anterior and inferior wall RI, age undetermined. Will obtain stress test myoview, echo, and telesentry . Elsie Jones Cardiology:Pt compla ins of palpitations and SOB. Had labwork and chest Xray at [place], told it was normal. EKG showed new changes showing possible new anterior and inferior wall RI, age undetermined. Will obtain stress test myoview, echo, and telesentry . Elsie Jones Cardiology:The pt is candidate f or knee surgery. Zack [facility] Cardiology:Orders: S NOMED-CT: [id number] Current Medications Documented ([facility]-[id number]) S TR - Adenosine (CPT-28569) C omplete Echo (CPT-03324) Zack [facility] Cardiology:BP today: 119/82 Her updated medication list for this problem includes: Lisinopril 10 Mg Oral Tablet (Lisinopril) ..... One tab. daily Orders: S TR - Adenosine (CPT-38647) C omplete Echo (CPT-22828) Zack [facility] Cardiology:She has h x of HTN and family hx of CAD. She has some nocturnal heartburn but no exertional chest pain. Will obtain echo and stress myoview. Zack [facility] Cardiology:The pt is candidate for knee surgery. [...] completed EKG Rell Azul MD completed SNOMED-CT: [id number] Current Medications Documented Rell Azul MD completed
[2025-03-01 13:32] LABS: Free T4 Free Thyroxine 1.28 ng/dL (0.78-2.19); Vitamin D 25 Hydroxy 42.3 ng/mL
[2025-03-01 13:36] LABS: MALB Creatinine Ratio < 11.5 mg/g (0-30); Microalbumin Urine Random < 6.0 mg/L (0-16.7)
[2025-03-01 15:15] LABS: Add Urine Microscopic? YES; Appearance Urine Clear (Clear); Bacteria Urine None Seen /hpf; Bilirubin Urine Negative (Negative); Blood Urine Negative (Negative); Color Urine Yellow (Yellow); Glucose Urine UA Negative (Negative); Ketones Urine Negative (Negative); Leukocyte Esterase Ur 2+ LEU/UL (Negative); Need Manual Microscopic Reviewed; Nitrate Urine Negative (Negative); Non Pathogenic Casts 0-2; Protein Urine Negative (Negative); RBC Urine 0-2 /hpf (0-2); Specific Grav Ur 1.009 (1.001-1.035); Squamous Epithelial Cell Urine None Seen /hpf (Few); Urobilinogen Urine 0.2 mg/dL (<2.0); WBC Urine 0-5 /hpf (0-3); pH Urine 6.5 (5.0-9.0)
== END 2025-03-01 12:24 | disposition home or self-care (01) ==
LOC: ANHLAB 12:28
PROVIDERS: PCP Emergency Medicine; Visit Provider Emergency Medicine
DX: F41.9 Anxiety disorder, unspecified (principal); M12.9 Arthropathy, unspecified; M85.80 Other specified disorders of bone density and structure, unspecified site; I10 Essential (primary) hypertension
CPT/HCPCS: 36415; 80053; 80061; 81001; 82043; 82306; 84439; 84443; 85027

== ENCOUNTER 2025-06-02 11:11 | Outpatient (CLI) | payer MEDICARE, MEDICAID, SELFPAY ==
--- OUTSIDE RECORDS SUMMARY | 2025-06-02 11:19 | XMS_ITS | Clinical Summary ---
Author Organization [employer] [place] Address [address] [place] [address] Care Team Providers Care Sales Technician Name Role Phone Yan Mata MD Primary Care Provider [phone] Allergies Active Allergy Reactions Criticality Noted Date [...] Encounters Date Type Department Care Team Description 05/18/2025 External Device Data [facility] ABSTRACTION Provider, Abstract 05/17/2025 External Device Data [facility]CTION Provider, Abstract 04/20/2025 External Device Data [facility] Provider, Abstract 03/23/2025 External Device Data [facility] Provider, Abstract 03/22/2025 External Device Data [facility]STRACTION Provider, Abstract from Last 3 Months Family History Medical [...] on file Legal Sex Female 2: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 Gender Identity Not on file Sexual Orientation Not on file Last Filed Vital Signs Vital Sign Reading Time Taken Comments Blood Pressure 121/71 12/07/2024 1:05 PM MANUFACTURING PLANT CONTROLLER Pulse 70 12/07/2024 1:05 PM MANUFACTURING PLANT CONTROLLER Temperature 36.2 C (97.1 F) 12/07/2024 1:05 PM MANUFACTURING PLANT CONTROLLER Respiratory Rate 15 12/07/2024 1:05 PM MANUFACTURING PLANT CONTROLLER Oxygen Saturation 95% 12/07/2024 1:05 PM MANUFACTURING PLANT CONTROLLER Inhaled Oxygen Concentration - - Weight 77 kg (169 lb 12.8 oz) 12/07/2024 1:05 PM MANUFACTURING PLANT CONTROLLER Height 154.9 cm (5' 1) 07/09/2022 3:30 PM CDT Body Mass Index 32.08 07/09/2022 3:30 PM CDT Plan of Treatment Upcoming Encounters Date Type Department Care Team (Late st Contact Info) Description 06/13/2025 11:30 AM CDT Office Visit [facility] Oncology and Hematology - [place] [address] [place] [address] Luke Ren MD [address] [place] [address] Health Maintenance Due Date Last Done Comments DTAP/TDAP/TD VACCINES (1 - Tdap) 1971 Traditional Medicare (ACO) A nnual Wellness Visit 1969 COLORECTAL SCREENING 1997 Colorectal Cancer Screening 1997 FIT-DNA Q 3 years 1997 FIT/FOBT Q 1 year 1997 Flex Sig/CT Colonography Q 5 years 1997 PNEUMOCOCCAL VACCINE 50+ YEA RS (1 of 1 - PCV) 2002 ZOSTER VACCINE (1 of 2) 2002 COVID-19 Vaccine (2023-2 5 season) 2024 08/26/2021, 01/12/2021, 12/14/2020 INFLUENZA VACCINE (#1) 2025 09/10/2019 BREAST CANCER SCREENING 12/09/2025 12/09/19 25, 12/09/2024, 12/11/2023, Additional history exists RSV VACCINE (60+ or ) (1 - 1-dose 75+ series) 2027 OSTEOPOROSIS SCREENING 10/16/2027 12/22/2024, 2021 Procedures Procedure Name Priority Date/Time Associated Diagnosis Comments MAMMO 3D BRIGITTE SCREEN BILAT W OR WO CAD Routine 11/30/2021 2:22 PM MANUFACTURING PLANT CONTROLLER Breast cancer screening by mammogram from Last 3 Months or Most Recently Relevant to Health Maintenance Results * MAMMO SCRN BILAT 3D BRIGITTE W OR WO CAD (11/30/2021 2:22 PM MANUFACTURING PLANT CONTROLLER) Anatomical Region Laterality Modality Breast Bilateral Mammography 11/30/2021 2:22 PM MANUFACTURING PLANT CONTROLLER Impressions 11/30/2021 2:44 PM MANUFACTURING PLANT CONTROLLER IMPRESSION: Developing asymmetry in the right breast. RECOMMENDATIONS: Focused ultrasound right breast. DICTATION LOCATION: [facility] Narrative 11/30/2021 2:44 PM MANUFACTURING PLANT CONTROLLER BILATERAL FULL-FIELD DIGITAL SCREENING MAMMOGRAM WITH CAD [...] RECOMMENDATIONS: Focused ultrasound right breast. DICTATION LOCATION: [facility] Yan Mata MD MAMMO ORDERABLES Final Result from Last 3 Months or Most Recently Relevant to Health Maintenance Insurance MEDICARE PART B MEDICAID [place] MEDICARE PART B Care Teams Sales Technician Relationship Specialty Start Date End Date Yan Mata MD [address] [place] [address] [phone] PCP - General Emergency Medicine 11/30/21
--- OUTSIDE RECORDS SUMMARY | 2025-06-02 11:19 | XMS_ITS | Clinical Summary ---
Author Organization [facility] Address [address] [place] [address] Care Team Providers Care National Account Executive Name Role Phone Yan Mata MD Primary Care Provider [phone] Yan Mata MD Unavailable Source Comments [facility],non-owned Affiliates and Associated Physician Practices is amultiple site organization consisting of ambulatory clinics and hospital sitesin [place], [place], [place] and [place]. This disclosure is being madepursuant to the Care Everywhere program and may not contain all information available regarding this patient. Last updated 18.[facility] Allergies Active Allergy Reactions Criticality Noted Date [...] by mouth once daily 90 tablet 4 5 Active Active Problems Problem Noted Date Diagnosed [...] erythematosus or systemic inflammatory rheumatic disorder by [place] [employer]umat[employer] (ACR) diagnostic classification criteria at this time. Anatoly Domínguez lacks features of any systemic autoimmune [...] from 12/18/2021: cT1b, cN0, cM0, GX, ER+, ID+, HER2- - Signed by Sadia Ortiz MD on 01/15/2022 Pathologic stage from 01/25/2022:Stage IA(pT1c, pN0(sn), cM0, G2, ER+, ID+, HER2- ) - Signed by Sadia Ortiz MD on 02/12/2022 Malignant neoplasm of upper- outer quadrant of right breast in female, estrogen receptor positive 01/02/2022 Dystrophia unguium 10/16/2021 Onychomycosis 10/16/2021 Pain in toe 10/16/2021 Age-related nuclear cataract of both eyes 2020 Overview (04/09/2021): Last Assessment & Plan: Much better endpoint today with MRx. Released today. Patient had much better understanding today through patch press operator. Meibomian gland dysfunction (MGD) of both eyes [...] Encounters Date Type Department Care Team Description 04/18/2025 8:00 AM CDT Office Visit [facility] - Rheumatology [address] [place] [address], [address] [place] [address] Saud Castillo DO Trigger finger, left middle finger (Primary Dx); Trigger finger, right middle finger; Trigger finger, right ring finger 04/11/2025 10:00 AM CDT Office Visit [facility] - TRANSITION MANAGER [address] [place] [address] Roxann Ulloa MD Cystocele, midline (Primary Dx); Rectocele; OAB (overactive bladder); Urge urinary incontinence; Constipation, unspecified constipation type; Vaginal atrophy; Granulation tissue 04/11/2025 Travel 04/05/2025 Travel from Last 3 Months Immunizations Immunization [...] occasion? Never 01/25/2022 PHQ-2 Answer Date Recorded Patient Health Questionnaire-2 Score 0 04/18/2025 Comments No Sex and Gender Information Value Date Recorded Sex Assigned at Not on file Legal Sex Female 5:37 PM MANAGER WORK[employer] COMPENSATION Gender Identity Not on file Sexual Orientation Not on file Last Filed Vital Signs Vital Sign Reading Time Taken Comments Blood Pressure 100/58 04/18/2025 8:14 AM CDT Pulse 83 04/18/2025 8:14 AM CDT Temperature 36.1 C (97 F) 04/18/2025 8:14 AM CDT Respiratory Rate 16 04/18/2025 8:14 AM CDT Oxygen Saturation 96% 04/18/2025 8:14 AM CDT Inhaled Oxygen Concentration - - Weight 77.1 kg (170 lb) 04/11/2025 10:45 AM CDT Height 154.9 cm (5' 1) 04/11/2025 10:45 AM CDT Body Mass Index 32.12 04/11/2025 10:45 AM CDT Plan of Treatment Upcoming Encounters Date Type Department Care Team (Late st Contact Info) Description 06/13/2025 8:30 AM CDT Office Visit [facility] - TRANSITION MANAGER [address] [facility] [place] [phone] Roxann Ulloa MD [address] [place] [phone] 12/08/2025 10:00 AM MANAGER WORKERS COMPENSATION Appointment [facility] [address] [place] [address] Sadia Ortiz MD [address] [facility] [address] [place] [address] 12/08/2025 10:30 AM MANAGER WORK[employer]ENSATION Office Visit [facility] - General Surgery [address] [place] [phone] Sadia Ortiz MD [address] [facility] [address] [place] [address] Health Maintenance Due Date Last [...] 2024 04/13/2022, 08/26/2021, 01/12/2021, Additional history exists SCREENING FOR DIABETES 01/18/2025 2, 03/25/2019, 09/16/2018, Additional history exists INFLUENZA VACCINE (#1) 2025 2, 07/17/2022, 08/11/2021, Additional history exists MAMMOGRAM 12/09/2026 12/09/2024, 06/2024, 12/11/2023, Additional history exists Respiratory Syncytial Virus (RSV) Vaccine Pt: or over 60 yrs (1 - 1-dose 75+ series) 2027 DEPRESSION SCREENING Completed 04/11/2025, 06/09/20 23 HEPATITIS B VACCINE Aged Out No longe [...] this topic Medical Devices Implanted Type Area Sld Teacher Device Identifier Shelf Expiration Date Model / Serial / Lot Mrkr 18ga Magseed Brstbio 7cm Implanted:Qty : 1 on 01/24/2022 by Korin Dumont MD at [facility] Implant Non-Ortho Right: Breast Devicor 06/10/2025 [id number] / / [id number] 18ga Magseed Brstbio 7cm Implanted:Qty : 1 on 01/24/2022 by Korin Dumont MD at [facility] Implant Non-Ortho Right: Breast Devicor 07/03/2025 [id number] / / [id number] Ins Tib 1-2 11mm Kn Xlpe Cr Hi Flxn Implanted:Qty : 1 on 09/14/2018 by Leo Mercedes MD at [facility] Right: Knee [employer] 08/03/2023 [id number] / / [id number] Description:LGN CR HIGH FLEX XLPE SZ 1-2 11MM--09/17 LG Stem Tib 16mm Prfx Mtphsl Implanted:Qty : 1 on 09/14/2018 by Leo Mercedes MD at [facility] Right: Knee [employer] 06/03/2023 [id number] / / [id number] Description:METAPHYSEAL TIB STEM 16MM--09/17 LG Legion Por Cr Rowell Fem R Sz 3 Implanted:Qty : 1 on 09/14/2018 by Leo Mercedes MD at [facility] Right: Knee [employer] 11/24/2025 [id number] / / [id number] Description:LGN POR CR ROWELL FE M SZ 3 RT--09/17 LG Legion Por Rowell Tib Base R Sz 2 Implanted:Qty : 1 on 09/14/2018 by Leo Mercedes MD at [facility] Right: Knee [employer] 07/04/2023 [id number] / / [id number] Description:LEGION POROUS ROWELL TIBIAL BASE SZ 2 RT--09/17 LG Screw Bsplt 15mm 6.5mm Gns2 Kn Tib Por Implanted:Qty : 1 on 09/14/2018 by Leo Mercedes MD at [facility] Right: Knee [employer] 06/13/2028 [id number] / / [id number] Description:G2 6.5MM SCREW 1 56MM LNGTH--11/15 LG Screw Bsplt 20mm 6.5mm Gns2 Kn Tib Por Implanted:Qty : 1 on 09/14/2018 by Leo Mercedes MD at [facility] Right: Knee [employer] 06/13/2028 [id number] / / [id number] Description:G2 6.5MM SCREW 2 0MM LNGTH--09/17 LG Screw Bsplt 20mm 6.5mm Gns2 Kn Tib Por Implanted:Qty : 1 on 09/14/2018 by Leo Mercedes MD at [facility] Right: Knee [employer] 06/13/2028 [id number] / / [id number] Description:G2 6.5MM SCREW 2 0MM LNGTH--09/17 LG Screw Bsplt 15mm 6.5mm Gns2 Kn Tib Por Implanted:Qty : 1 on 09/14/2018 by Leo Mercedes MD at [facility] Right: Knee [employer] 07/07/2027 [id number] / / [id number] Description:G2 6.5MM SCREW 1 5MM LNGTH--09/17 LG Blayne K2 Sys Kn Uncemented Implanted:Qty : 1 on 09/14/2018 by Leo Mercedes MD at [facility] Right: Knee [employer] K2 UNCEMENTED / / Legion Por Rowell Tib Base L Sz 2 Implanted:Qty : 1 on 04/05/2019 by Leo Mercedes MD at [facility] Left: Knee [employer] 05/02/2020 [id number] / / [id number] Description:fc LEGION POROUS ROWELL TIBIAL BASE SZ 2 LT--04/08 LG Stem Tib 16mm Prfx Mtphsl Implanted:Qty : 1 on 04/05/2019 by Leo Mercedes MD at [facility] Left: Knee [employer] 08/03/2027 [id number] / / [id number] Description:fc METAPHYSEAL TIB STEM 16MM--04/08 LG Legion Por Cr Rowell Fem L Sz 3 Implanted:Qty : 1 on 04/05/2019 by Leo Mercedes MD at [facility] Left: Knee [employer] 12/03/2023 [id number] / / [id number] Description:fc LGN POR CR ROWELL FEM SZ 3 LT--04/08 LG Ins Xlpe Dished Artc Sz 1-2 11mm Implanted:Qty : 1 on 04/05/2019 by Leo Mercedes MD at [facility] Left: Knee [employer] 04/02/2024 [id number] / / [id number] Description:fc LGN XLPE DISHED ISRT SZ 1-2 11MM--04/08 LG Screw Bsplt 15mm 6.5mm Gns2 Kn Tib Por Implanted:Qty : 1 on 04/05/2019 by Leo Mercedes MD at [facility] Left: Knee [employer] 02/10/2027 [id number] / / [id number] Description:fc G2 6.5MM SCREW 15MM LNGTH--04/08 LG Screw Bsplt 15mm 6.5mm Gns2 Kn Tib Por Implanted:Qty : 1 on 04/05/2019 by Leo Mercedes MD at [facility] Left: Knee [employer] 01/19/2028 [id number] / / [id number] Description:fc G2 6.5MM SCREW 15MM LNGTH--04/08 LG Screw 6.5mm 25mm Hip Actb Canc Sphrcl Implanted:Qty : 1 on 04/05/2019 by Leo Mercedes MD at [facility] Left: Knee [employer] 07/07/2028 [id number] / / [id number] Description:fc REF SPHER HEAD SCREW 25MM--04/08 LG Screw Bsplt 15mm 6.5mm Gns2 Kn Tib Por Implanted:Qty : 1 on 04/05/2019 by Leo Mercedes MD at [facility] Left: Knee [employer] 11/16/2028 [id number] / / [id number] Description:fc G2 6.5MM SCREW 15MM LNGTH--04/08 LG Blayne K2 Sys Kn Uncemented Implanted:Qty : 1 on 04/05/2019 by Leo Mercedes MD at [facility] Left: Knee [employer] K2 UNCEMENTED / / Mrkr Apl 3 Mrfbr Pd Radopq Interwoven Implanted:Qty : 1 on 01/18/2022 by Korin Dumont MD at [facility] Right: Breast Bard Peripheral Vascular 01/02/2024 [id number] / / [id number] Procedures Procedure Name Priority Date/Time Associated Diagnosis Comments ID CHEM CAUTERY GRANULATN TISSUE Routine 04/11/2025 6:27 PM CDT Granulation tissue MAMMO BILAT SCREENING W BRIGITTE Routine 12/09/2024 10:52 AM MANAGER WORK[employer] COMPENSATION Encounter for screening mammogram for malignant neoplasm of breast BASIC METABOLIC PANEL (CALCIUM TOTAL) Routine 01/18/2022 12:38 PM CDT Pre-op exam from Last 3 Months or Most Recently Relevant to Health Maintenance Results * ID CHEM CAUTERY GRANULATN TISSUE (04/11/2025 6:27 PM CDT) Narrative Roxann Ulloa MD - 04/11/2025 6:27 PM CDT Roxann Ulloa MD 04/11/2025 6:30 PM Speculum exam was performed and the vaginal mucosa showed granulation tissue, 1 cm x 1 cm, on the right proximal anterior vaginal wall. Verbal informed consent obtained. Cauterized the granulation tissue with silver nitrate. The patient tolerated the procedure well. us Roxann Ulloa MD PROCEDURE/MINOR SURGICAL OR DERABLES Final Result * MAMMO BILAT SCREENING W BRIGITTE (12/09/2024 10:52 AM MANAGER WORK[employer] COMPENSATION) Anatomical Region Laterality Modality Breast Bilateral Mammography 12/09/2024 10:5 2 AM [employer] WORK[employer] COMPENSATION Impressions 12/09/2024 10:58 AM MANAGER WORKERS COMPENSATION IMPRESSION: No mammographic evidence of malignancy, status [...] CATEGORY 2: BENIGN. Report dictated by [facility], [facility] (breast imaging fellow). I, Korin Dumont MD, FACR have personally reviewed and interpreted this examination/study. > Interpreting Provider: Korin Dumont MD, FACR on 12/09/2024 10:58 AM Narrative 12/09/2024 10:58 AM [employer]NAGER WORK[employer] COMPENSATION EXAMINATIONS: BILATERAL DIGITAL SCREENING MAMMOGRAM AND BILATERAL BREAST TOMOSYNTHESIS LOCATION: [facility] EXAM DATE: 12/09/2024 HISTORY: Screening. No reported family history of breast cancer. History of right breast conservation therapy 01/25/2022. Completed radiation March 2022 COMPARISON: Mammogram 12/23/2022, 12/11/2023 from [facility] ultrasound 09/02/2022 ultrasound 12/07/2019 TECHNIQUE: Tomosynthesis [...] - 26 mg/dL 01/18/2022 1:31 PM CDT [facility] Creatinine 0.76 0.56 - 0.96 mg/dL 01/18/2022 1:31 PM CDT [facility] Sodium 144 136 - 145 mmol/L 01/18/2022 1:31 PM [facility] Potassium 3.9 3.5 - 4.5 mmol/L 01/18/2022 1:31 PM [facility] Chloride 105 98 - 107 mmol/L 01/18/2022 1:31 PM [facility] CO2 33(H) 22 - 29 mmol/L 01/18/2022 1:31 PM [facility] Glucose 101 70 - 115 mg/dL 01/18/2022 1:31 PM [facility] Calcium 10.0 8.4 - 10.2 mg/dL 01/18/2022 1:31 PM [facility] Anion Gap 10 8 - 18 01/18/2022 1:31 PM [facility] BUN/Creatinine Ratio 12 7 - 23 01/18/2022 1:31 PM [facility] Osmolality Calculated 297 270 - 300 mOsm/kg 01/18/2022 1:31 PM [facility] eGFR by CKD-EPI 85(L) >=90 mL/min/1.7 3 m2 01/18/2022 1:31 PM [facility] Blood BLOOD SPECIMEN / Unknown Lab Venipuncture / Unknown 01/18/2022 12:38 PM CDT 01/18/2022 1:00 PM T Jocelyn Foss DONATIONS ATTENDANT-BLAST FURNACE CHECKER LAB - CHEMISTRY ORDERABL ES Final Result Performing Organization Address [facility]/State/ZIP Co de Phone Number [facility] [address] [place] [address], [facility] [phone] from Last 3 Months or Most Recently Relevant to Health Maintenance Insurance MEDICAID - OUT OF STATE MEDICAID [place] MEDICARE [employer] PLAN [employer] Member Subscriber Plan / Payer (Ef fective for All Dates) Name:SvenrandirickyBlanein Relation to Subscriber:Self Name:ANATOLY SCHAEFFER Payer ID:Not on file Group ID:Not on file Type:Medicaid Managed Care Address: [place] [id number] [employer] Member Subscriber Plan / Payer (Ef fective for All Dates) Name:Catrachita Anatoly Relation to Subscriber:Self Name:ANALISARANDIRickyBLANEANATOLY Payer ID:Not on file Group ID:Not on file Type:Medicaid Managed Care Address: [place] [id number] [employer] Member Subscriber Plan / Payer (Ef fective for All Dates) Name:Catrachita Anatoly Relation to Subscriber:Self Name:JESSICABLANE HOPKINSIN Payer ID:Not on file Group ID:Not on file Type:Medicaid Managed Care Address: [place] [id number] [employer] Member Subscriber Plan / Payer (Ef fective for All Dates) Name:Catrachita Anatoly Relation to Subscriber:Self Name:DESHAWNBLANE GREENEIN Payer ID:Not on file Group ID:Not on file Type:Medicaid Managed Care Address: [place] [id number] [employer] HE[employer] PL[employer] HE[employer]AN [employer] [facility] Member Subscriber Plan / Payer (Ef fective for All Dates) Name:Catrachita Anatoly Relation to Subscriber:Self Name:MAKSIMANATOLY Payer ID:[id number] (NAIC) Group ID:Not on file Type:Medicaid Managed Care Address: ATTN CLAIMS DEPARTMENT [address] Member Subscriber Plan / Payer (Ef fective for All Dates) Name:Catrachita Anatoly Relation to Subscriber:Self Name:MAKSIMANATOLY Payer ID:[id number] (NAIC) Group ID:Not on file Type:Medicaid Managed Care Address: ATTN CLAIMS DEPARTMENT [address] Member Subscriber Plan / Payer (Ef fective for All Dates) Name:Catrachita Anatoly Relation to Subscriber:Self Name:MAKSIMANATOLY Payer ID:[id number] (NAIC) Group ID:Not on file Type:Medicaid Managed Care Address: ATTN CLAIMS DEPARTMENT [address] Member Subscriber Plan / Payer (Ef fective for All Dates) Name:Blane Domínguezin Relation to Subscriber:Self Name:BLANE SCHAEFFERIN Payer ID:[id number] (NAIC) Group ID:Not on file Type:Medicaid Managed Care Address: ATT CLAIMS DEPARTMENT [address] Member Subscriber Plan / Payer (Ef fective for All Dates) Name:Blane Domínguezin Relation to Subscriber:Self Name:BLANE SCHAEFFERIN Payer ID:[id number] (NAIC) Group ID:Not on file Type:Medicaid Managed Care Address: [facility] CLAIMS DEPARTMENT [address] Member Subscriber Plan / Payer (Ef fective for All Dates) Name:Blane Domínguezin Relation to Subscriber:Self Name:MAKSIMANATOLY Payer ID:[id number] (NAIC) Group ID:Not on file Type:Medicaid Managed Care Address: ATTN CLAIMS DEPARTMENT [address] Member Subscriber Plan / Payer (Ef fective for All Dates) Name:Catrachita Anatoly Relation to Subscriber:Self Name:MAKSIMANATOLY Payer ID:[id number] (NAIC) Group ID:Not on file Type:Medicaid Managed Care Address: ATTN CLAIMS DEPARTMENT [address] Member Subscriber Plan / Payer (Ef fective for All Dates) Name:Blane Domínguezin Relation to Subscriber:Self Name:BLANE SCHAEFFERIN Payer ID:[id number] (NAIC) Group ID:Not on file Type:Medicaid Managed Care Address: ATTN CLAIMS DEPARTMENT [address] Member Subscriber Plan / Payer (Ef fective for All Dates) Name:Blane Domínguezin Relation to Subscriber:Self Name:BLANE SCHAEFFERIN Payer ID:[id number] (NAIC) Group ID:Not on file Type:Medicaid Managed Care Address: [facility] CLAIMS DEPARTMENT [address] Member Subscriber Plan / Payer (Ef fective for All Dates) Name:Blane Domínguezin Relation to Subscriber:Self Name:BLANE SCHAEFFERIN Payer ID:[id number] (NAIC) Group ID:Not on file Type:Medicaid Managed Care Address: ATTN CLAIMS DEPARTMENT [address] Member Subscriber Plan / Payer (Ef fective for All Dates) Name:Catrachita Anatoly Relation to Subscriber:Self Name:MAKSIMANATOLY Payer ID:[id number] (NAIC) Group ID:Not on file Type:Medicaid Managed Care Address: ATTN CLAIMS DEPARTMENT [address] Member Subscriber Plan / Payer (Ef fective for All Dates) Name:CatrachitaBlanein Relation to Subscriber:Self Name:MAKSIMBLANEANATOLY Payer ID:[id number] (NAIC) Group ID:Not on file Type:Medicaid Managed Care Address: ATTN CLAIMS DEPARTMENT [address] Member Subscriber Plan / Payer (Ef fective for All Dates) Name:Catrachita Anatoly Relation to Subscriber:Self Name:BLANE SCHAEFFERIN Payer ID:[id number] (NAIC) Group ID:Not on file Type:Medicaid Managed Care Address: ATT CLAIMS DEPARTMENT [address] Member Subscriber Plan / Payer (Ef fective for All Dates) Name:Catrachita Anatoly Relation to Subscriber:Self Name:BLANE SCHAEFFERIN Payer ID:[id number] (NAIC) Group ID:Not on file Type:Medicaid Managed Care Address: ATTN CLAIMS DEPARTMENT [address] Member Subscriber Plan / Payer (Ef fective for All Dates) Name:Catrachita Anatoly Relation to Subscriber:Self Name:MAKSIMANATOLY Payer ID:[id number] (NAIC) Group ID:Not on file Type:Medicaid Managed Care Address: ATTN CLAIMS DEPARTMENT [address] Member Subscriber Plan / Payer (Ef fective for All Dates) Name:Blane Domínguezin Relation to Subscriber:Self Name:BLANE SCHAEFFERIN Payer ID:[id number] (NAIC) Group ID:Not on file Type:Medicaid Managed Care Address: ATT CLAIMS DEPARTMENT [address] Member Subscriber Plan / Payer (Ef fective for All Dates) Name:Blane Domínguezin Relation to Subscriber:Self Name:BLANE SCHAEFFERIN Payer ID:[id number] (NAIC) Group ID:Not on file Type:Medicaid Managed Care Address: [facility] CLAIMS DEPARTMENT [address] Member Subscriber Plan / Payer (Ef fective for All Dates) Name:Catrachita Anatoly Relation to Subscriber:Self Name:BLANE SCHAEFFERIN Payer ID:[id number] (NAIC) Group ID:Not on file Type:Medicaid Managed Care Address: ATT CLAIMS DEPARTMENT [address] Member Subscriber Plan / Payer (Ef fective for All Dates) Name:Catrachita Anatoly Relation to Subscriber:Self Name:MAKSIMANATOLY Payer ID:[id number] (NAIC) Group ID:Not on file Type:Medicaid Managed Care Address: ATTN CLAIMS DEPARTMENT [address] Member Subscriber Plan / Payer (Ef fective for All Dates) Name:Catrachita Anatoly Relation to Subscriber:Self Name:MAKSIMBLANEANATOLY Payer ID:[id number] (NAIC) Group ID:Not on file Type:Medicaid Managed Care Address: ATTN CLAIMS DEPARTMENT [address] Member Subscriber Plan / Payer (Ef fective for All Dates) Name:Blane Domínguezin Relation to Subscriber:Self Name:MAKSIMBLANEANATOLY Payer ID:[id number] (NAIC) Group ID:Not on file Type:Medicaid Managed Care Address: ATTN CLAIMS DEPARTMENT [address] Member Subscriber Plan / Payer (Ef fective for All Dates) Name:Blane Domínguezin Relation to Subscriber:Self Name:MAKSIMANATOLY Payer ID:[id number] (NAIC) Group ID:Not on file Type:Medicaid Managed Care Address: ATTN CLAIMS DEPARTMENT [address] Member Subscriber Plan / Payer (Ef fective for All Dates) Name:Catrachita Anatoly Relation to Subscriber:Self Name:MAKSIMANATOLY Payer ID:[id number] (NAIC) Group ID:Not on file Type:Medicaid Managed Care Address: ATTN CLAIMS DEPARTMENT [address] Member Subscriber Plan / Payer (Ef fective for All Dates) Name:Catrachita Anatoly Relation to Subscriber:Self Name:MAKSIMANATOLY Payer ID:[id number] (NAIC) Group ID:Not on file Type:Medicaid Managed Care Address: ATTN CLAIMS DEPARTMENT [address] Member Subscriber Plan / Payer (Ef fective for All Dates) Name:Blane Domínguezin Relation to Subscriber:Self Name:BLANE SCHAEFFERIN Payer ID:[id number] (NAIC) Group ID:Not on file Type:Medicaid Managed Care Address: ATT CLAIMS DEPARTMENT [address] Member Subscriber Plan / Payer (Ef fective for All Dates) Name:Blane Domínguezin Relation to Subscriber:Self Name:MAKSIMANATOLY Payer ID:[id number] (NAIC) Group ID:Not on file Type:Medicaid Managed Care Address: [facility] CLAIMS DEPARTMENT [address] Member Subscriber Plan / Payer (Ef fective for All Dates) Name:Blane Domínguezin Relation to Subscriber:Self Name:MAKSIMANATOLY Payer ID:[id number] (NAIC) Group ID:Not on file Type:Medicaid Managed Care Address: ATTN CLAIMS DEPARTMENT [address] Member Subscriber Plan / Payer (Ef fective for All Dates) Name:Catrachita Anatoly Relation to Subscriber:Self Name:MAKSIMANATOLY Payer ID:[id number] (NAIC) Group ID:Not on file Type:Medicaid Managed Care Address: ATTN CLAIMS DEPARTMENT [address] Member Subscriber Plan / Payer (Ef fective for All Dates) Name:Blane Domínguezin Relation to Subscriber:Self Name:MAKSIMANATOLY Payer ID:[id number] (NAIC) Group ID:Not on file Type:Medicaid Managed Care Address: [facility] CLAIMS DEPARTMENT [address] Member Subscriber Plan / Payer (Ef fective for All Dates) Name:Catrachita Anatoly Relation to Subscriber:Self Name:BLANE SCHAEFFERIN Payer ID:[id number] (NAIC) Group ID:Not on file Type:Medicaid Managed Care Address: [facility] CLAIMS DEPARTMENT [address] Member Subscriber Plan / Payer (Ef fective for All Dates) Name:Catrachita Anatoly Relation to Subscriber:Self Name:BLANE SCHAEFFERIN Payer ID:[id number] (NAIC) Group ID:Not on file Type:Medicaid Managed Care Address: ATTN CLAIMS DEPARTMENT [address] Member Subscriber Plan / Payer (Ef fective for All Dates) Name:Pirzenobia, Anatoly Relation to Subscriber:Self Name:MAKSIMANATOLY Payer ID:[id number] (NAIC) Group ID:Not on file Type:Medicaid Managed Care Address: ATT CLAIMS DEPARTMENT [address] Member Subscriber Plan / Payer (Ef fective for All Dates) Name:Anatoly Domínguez Relation to Subscriber:Self Name:ANATOLY SCHAEFFER Payer ID:[id number] (NAIC) Group ID:Not on file Type:Medicaid Managed Care Address: ATT CLAIMS DEPARTMENT [address] Advance Directives * Full Code (Latest Code Status on File) Date Activated Date Inactivated Comments 04/05/2019 11:56 AM 04/07/2019 6:36 PM * Full Code Date Activated Date Inactivated Comments 09/14/2018 3:08 PM 09/16/2018 7:30 PM Care Teams National Account Executive Relationship Specialty Start Date End Date Yan Mata MD [address] [place] [id number] PCP - General 07/27/18 Yan Mata MD [address] [place] [address] [place] [address] 07/27/18
--- OUTSIDE RECORDS SUMMARY | 2025-06-02 11:19 | XMS_ITS ---
Author Organization [facility] Address [address] [place] [address] Care Team Providers Care Buhr Mill Operator Name Role Phone Yan Mata MD Primary Care Provider [phone] Yan Mata MD Unavailable Active Problems Problem [...] erythematosus or systemic inflammatory rheumatic disorder by [employer] (ACR) diagnostic classification criteria at this time. Ghislaine Domínguez lacks features of any systemic autoimmune NORBERTO-related connective tissue disease. NORBERTO positivity is present in up to 30% of the normal population . Since the prevalence of SLE is only ~0.1%, most positive NORBEROT results can be attributed to other etiologies [...] from 12/18/2021: cT1b, cN0, cM0, GX, ER+, IL+, HER2- - Signed by Sadia Ortiz MD on 01/15/2022 Pathologic stage from 01/25/2022:Stage IA(pT1c, pN0(sn), cM0, G2, ER+, IL+, HER2- ) - Signed by Sadia Ortiz MD on 02/12/2022 Malignant neoplasm of upper- outer quadrant of right breast in female, estrogen receptor positive 01/02/2022 Dystrophia unguium 10/16/2021 Onychomycosis 10/16/2021 Pain in toe 10/16/2021 Age-related nuclear cataract of both eyes 2020 Overview (04/09/2021): Last Assessment & Plan: Much better endpoint today with MRx. Released today. Patient had much better understanding today through freelance interpreter/translator. Meibomian gland dysfunction (MGD) of both eyes [...] breast in female, estrogen receptor positive (HCC)* [address] [id number] Oncology Treatment Summary Breast Treatment Summary for [...] from 12/18/2021: cT1b, cN0, cM0, GX, ER+, IL+, HER2- - Signed by Sadia Ortiz MD on 01/15/2022 - Pathologic stage from 01/25/2022: Stage IA (pT1c, pN0(sn), cM0, G2, ER+, IL+, HER2-) - Signed by Sadia Ortiz MD [...] BIRADS-0 Right diagnostic mammogram and ultrasound 12/10/2021 ([facility]) -- information obtained frommedical oncology [...] Post-Treatment Weight: 162 lbs. Psychosocial needs: Narinder freelance interpreter/translator Fertility: Menarche at age 16 years Menopause [...] up with Location How often Radiation Oncology [facility] Clinical visit every 4-6 months for 5 yrs, then every 12 months Medical Oncology [facility] Surgery [facility] Mammography [facility] Bilateral Diagnostic Mammogram every 12 months [...] 4:00 PM Roxann Ulloa MD [id number] AFF [facility] [place] Contact Information Radiation Oncologist Dr. Leo Her Medical Oncologist Dr. Ren Surgeon Dr. Sadia Ortiz Social Work Fire Extinguisher Installer Ladan Gray Breast Nurse Navigator Hillary Knapp, RN [phone] [facility] Hospital Scheduling Primary Care Provider Yan Mata MD [phone] Recommended cancer screenings Colonoscopy: every 10 years [...] walk a few extra steps. Important Resources [facility] cancercenter.ssm rehab[facility] [employer] cancer.org Association of Cancer Online Resources acor.org Caring Bridge caringbridge.[email or web address] CancerCare cancercare.org [facility] Emergency Department livestrong.[email or web address] National Cancer [place] cancer.gov Cancer Survivors Network csn.[email or web address] National Coalition for Cancer Survivorship canceradvocacy.org [employer] of Clinical Oncologists cancer.net Cancer Support Community [facility] [email or web address].[email or web address] Radiation Therapy Questions/Answers www.[email or web address]
--- OUTSIDE RECORDS SUMMARY | 2025-06-02 11:19 | XMS_ITS | Clinical Summary ---
Author Organization [facility] Address [address] [place] [id number] Care Team Providers Care Cafeteria Server Name Role Phone Unavailable Primary Care Provider [...] 10:33 AM CDT Height 157.5 cm (5' 2) 01/16/2017 10:33 AM CDT Body Mass Index [...]
--- OUTSIDE RECORDS SUMMARY | 2025-06-02 11:19 | XMS_ITS | Clinical Summary ---
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 Gender Identity Not on file Sexual Orientation Not on file Plan of Treatment Health Maintenance Due Date Last Done Comments Hepatitis C Virus (HCV) Screening 1950 TdaP Immunization 1950 Cologuard 1997 Colonoscopy 1997 Colorectal Cancer Screening 1997 Immunochemical Fecal Occult Blood 1997 Pneumococcal Immunization (50+ years) (1 of 1 - PCV) 2002 Zoster Immunization (1 of 2) 2002 SARS-COV-2 Immunization (2023- season) 2024 08/26/2021, 01/12/2021, 12/14/2020 Influenza Immunization (#1) 07/04/20250 07/2021, 07/06/2020, 09/10/2019, Additional history exists Respiratory Syncytial Virus (RSV) Immunization (Adult) (1 - 1-dose 75+ series) 2027 Hepatitis B Immunization Aged Out No longer eligible based on patient's age to complete this topic Human Papillomavirus (HPV) Immunization Aged Out No longer eligible based on patient's age to complete this topic Meningococcal Immunization (ACWY) Aged Out No longer eligible based on patient's age to complete this topic Rotavirus Immunization Aged Out No lo nger eligible based on patient's age to complete this topic
[2025-06-02 11:36] LABS: Hematocrit 42.0 % (37.0-47.0); Hemoglobin 13.3 g/dL (12.0-15.0); Immature Granulocyte Percent A 0.2 % (0-0.5); Lymphocytes Absolute Auto 1.30 K/mm3 (0.9-3.2); Mean Corpuscular HGB Conc 31.7 g/dl (32-36); Mean Corpuscular Hemoglobin 25.2 pg (26-34); Mean Corpuscular Volume 79.5 fl (80-100); Nucleated Red Blood Cells Absolute Auto 0.000 K/mm3 (0.0-0.012); Nucleated Red Blood Cells Perc 0.0 % (0.0-0.2); Platelet Count Result 239 k/mm3 (150-375); Red Blood Count 5.28 M/mm3 (4.2-5.4); White Blood Count 5.6 K/mm3 (4.5-10.0)
[2025-06-02 11:59] LABS: Alanine Aminotransferase 41 U/L (6-35); Albumin Level 3.8 g/dL (3.5-5.1); Alkaline Phosphatase 51 U/L (38-126); Anion Gap 4 mmol/L (4-12); Aspartate Amino Transferase 38 U/L (14-36); Bilirubin,Total 0.7 mg/dL (0.2-1.3); Blood Urea Nitrogen 13 mg/dL (7-17); Calcium 9.5 mg/dL (8.4-10.2); Carbon Dioxide 31 mmol/L (22-30); Chloride 104 mmol/L (98-107); Estimated Glomerular Filt Rate > 60; Glucose 105 mg/dL (65-110); Potassium 3.4 mmol/L (3.4-5.0); Sodium 139 mmol/L (137-145); Total Protein 7.0 g/dL (6.3-8.2)
== END 2025-06-02 11:12 | disposition home or self-care (01) ==
PROVIDERS: PCP Emergency Medicine; Visit Provider Internal Medicine Hematology & Oncology
DX: C50.411 Malignant neoplasm of upper-outer quadrant of right female breast (principal); Z17.0 Estrogen receptor positive status [ER+]
CPT/HCPCS: 36415; 80053; 85025; 86300